=== PATIENT | male | born 1950 | race Caucasian/White ===

== ENCOUNTER 2020-06-09 12:38 | Outpatient (REF) | payer MEDICARE, OTHER, SELFPAY ==
[2020-06-09 14:13] LABS: Glucose Urine UA NEG (NEG); Leukocyte Esterase Urine NEG (NEG); Nitrite Urine NEG (NEG); PH 5.5 (5.0-8.0); Specific Gravity - Urine 1.025 (1.005-1.025); Urine Blood NEG (NEG); Urine Ketones NEG (NEG); Urine Protein NEG (NEG-TRACE)
[2020-06-09 14:23] LABS: Appearance Urine HAZY; Color Urine YELLOW
== END 2020-06-09 12:39 | disposition home or self-care (01) ==
LOC: HO.LAB 12:38
PROVIDERS: PCP Internal Medicine; Visit Provider Internal Medicine
DX: R30.0 Dysuria (principal)
CPT/HCPCS: 81003; 87086

== ENCOUNTER 2020-07-22 09:10 | Outpatient (REF) | payer MEDICARE, OTHER, SELFPAY ==
[2020-07-22 09:59] LABS: MANUAL DIFF FLAG NO
[2020-07-22 10:04] LABS: Basophils Absolute Auto 0.1 X10*3/uL (0.0-0.2); Basophils Percent Auto 0.6 % (0-2); Eosinophils Absolute Auto 0.1 X10*3/uL (0.0-0.4); Eosinophils Percent Auto 1.6 % (0-4); Hematocrit 42.9 % (42-52); Imm Gran Abs Auto 0.03 X10*3/uL (0.00-0.03); Imm Gran Pct Auto 0.4 % (0.0-0.4); Lymphocytes Absolute Auto 1.8 X10*3/uL (1.2-4.9); Lymphocytes Percent Auto 22.5 % (20-40); Mean Corpuscular HGB Conc 32.6 g/dl (31.0-36.0); Mean Corpuscular Hemoglobin 27.1 pg (27.0-33.0); Mean Platelet Volume 9.6 fL (9.4-12.4); Monocytes Absolute Auto 0.6 X10*3/uL (0.1-1.2); Monocytes Percent Auto 7.3 % (2-11); Neutrophils Absolute Auto 5.4 X10*3/uL (2.0-8.3); Neutrophils Percent Auto 67.6 % (45-73); Platelet Count 176 X10*3/uL (160-400); Red Blood Count 5.17 X10*6/uL (4.60-5.80); Red Cell Distribution Width 13.8 % (11.0-16.0)
[2020-07-22 10:04] LABS: Glucose Urine UA NEG (NEG); Leukocyte Esterase Urine NEG (NEG); Nitrite Urine NEG (NEG); PH 5.5 (5.0-8.0); Specific Gravity - Urine >= 1.030 (1.005-1.025); Urine Blood NEG (NEG); Urine Ketones NEG (NEG); Urine Protein TRACE MG/DL (NEG-TRACE)
[2020-07-22 10:05] LABS: Appearance Urine HAZY; Color Urine DARK YELLOW
[2020-07-22 10:31] LABS: Microalbum/Creatinine Ratio Ur 20.9 ug/mg cr
[2020-07-22 10:31] LABS: Alanine Aminotransferase 22 U/L (0-40); Albumin Level 4.4 g/dL (3.5-5.0); Alkaline Phosphatase 67 U/L (39-117); Anion Gap 13 (12-20); Aspartate Amino Transferase 19 U/L (5-37); Bilirubin Total 0.7 mg/dL (0.0-1.0); Blood Urea Nitrogen 20 mg/dL (9-16); Carbon Dioxide 28 mmol/L (22-29); Chloride 102 mmol/L (96-108); Cholesterol 128 mg/dL; Estimated Glomerular Filt Rate 47; Glucose Fasting 121 mg/dL (60-99); HDL Cholesterol 31 mg/dL; LDL Cholesterol Calculated 68 mg/dl; Potassium 4.4 mmol/l (3.3-5.1); Sodium 139 mmol/L (135-145); Triglycerides 149 mg/dL
[2020-07-22 10:52] LABS: TSH reflex Free T4 2.86 mIU/mL (0.32-4.0)
== END 2020-07-22 09:11 | disposition home or self-care (01) ==
LOC: HO.LAB 09:10
PROVIDERS: PCP Internal Medicine; Visit Provider Internal Medicine
DX: E78.00 Pure hypercholesterolemia, unspecified (principal); E66.9 Obesity, unspecified; E11.22 Type 2 diabetes mellitus with diabetic chronic kidney disease; N18.30 Chronic kidney disease, stage 3 unspecified; I12.9 Hypertensive chronic kidney disease with stage 1 through stage 4 chronic kidney disease, or unspecified chronic kidney disease
CPT/HCPCS: 36415; 80053; 80061; 81003; 82043; 84443; 85025

== ENCOUNTER 2020-11-13 08:56 | Outpatient (REF) | payer MEDICARE, OTHER, SELFPAY ==
[2020-11-13 09:53] LABS: Glucose Urine UA NEG (NEG); Leukocyte Esterase Urine NEG (NEG); MANUAL DIFF FLAG NO; Nitrite Urine NEG (NEG); PH 5.5 (5.0-8.0); Specific Gravity - Urine >= 1.030 (1.005-1.025); Urine Blood NEG (NEG); Urine Ketones NEG (NEG); Urine Protein NEG (NEG-TRACE)
[2020-11-13 09:56] LABS: Appearance Urine CLEAR; Color Urine YELLOW
[2020-11-13 10:02] LABS: Basophils Absolute Auto 0.1 X10*3/uL (0.0-0.2); Basophils Percent Auto 0.6 % (0-2); Eosinophils Absolute Auto 0.2 X10*3/uL (0.0-0.4); Eosinophils Percent Auto 2.1 % (0-4); Hematocrit 44.8 % (42-52); Hemoglobin 14.4 g/dl (14.0-18.0); Imm Gran Abs Auto 0.03 X10*3/uL (0.00-0.03); Imm Gran Pct Auto 0.4 % (0.0-0.4); Lymphocytes Absolute Auto 1.7 X10*3/uL (1.2-4.9); Lymphocytes Percent Auto 21.2 % (20-40); Mean Corpuscular HGB Conc 32.1 g/dl (31.0-36.0); Mean Corpuscular Hemoglobin 26.7 pg (27.0-33.0); Mean Platelet Volume 9.5 fL (9.4-12.4); Monocytes Absolute Auto 0.6 X10*3/uL (0.1-1.2); Monocytes Percent Auto 7.4 % (2-11); Neutrophils Absolute Auto 5.5 X10*3/uL (2.0-8.3); Neutrophils Percent Auto 68.3 % (45-73); Platelet Count 142 X10*3/uL (160-400); Red Cell Distribution Width 14.5 % (11.0-16.0)
[2020-11-13 10:40] LABS: Alanine Aminotransferase 30 U/L (0-40); Albumin Level 4.4 g/dL (3.5-5.0); Alkaline Phosphatase 67 U/L (39-117); Anion Gap 12 (12-20); Aspartate Amino Transferase 25 U/L (5-37); Bilirubin Total 0.7 mg/dL (0.0-1.0); Blood Urea Nitrogen 22 mg/dL (9-16); Calcium 8.9 mg/dL (8.4-10.2); Carbon Dioxide 27 mmol/L (22-29); Chloride 104 mmol/L (96-108); Cholesterol 148 mg/dL; Estimated Glomerular Filt Rate 55; Glucose Fasting 111 mg/dL (60-99); HDL Cholesterol 36 mg/dL; LDL Cholesterol Calculated 80 mg/dl; Potassium 4.2 mmol/L (3.3-5.1); Sodium 139 mmol/L (135-145); Triglycerides 160 mg/dL
[2020-11-13 10:46] LABS: Creatinine Urine 216.22 mg/dL; Microalbum/Creatinine Ratio Ur 15.2 ug/mg cr
[2020-11-13 10:48] LABS: TSH reflex Free T4 2.73 uIU/mL (0.32-4.0); Vitamin D 25-OH Total 33.6 ng/mL (>30)
[2020-11-13 10:53] LABS: Uric Acid 6.2 mg/dL (3.4-7.0)
[2020-11-13 10:55] LABS: Estimated Average Glucose 123 mg/dL; Hemoglobin A1c % 5.9 %
== END 2020-11-13 08:57 | disposition home or self-care (01) ==
LOC: HO.LAB 08:56
PROVIDERS: PCP Internal Medicine; Visit Provider Internal Medicine
DX: E11.22 Type 2 diabetes mellitus with diabetic chronic kidney disease (principal); E11.21 Type 2 diabetes mellitus with diabetic nephropathy; I12.9 Hypertensive chronic kidney disease with stage 1 through stage 4 chronic kidney disease, or unspecified chronic kidney disease; N18.31 Chronic kidney disease, stage 3a; E78.00 Pure hypercholesterolemia, unspecified; E66.9 Obesity, unspecified
CPT/HCPCS: 36415; 80053; 80061; 81003; 82043; 82306; 83036; 84443; 84550; 85025

== ENCOUNTER 2021-01-13 08:40 | Outpatient (REF) | payer MEDICARE, OTHER, SELFPAY ==
[2021-01-13 09:28] LABS: MANUAL DIFF FLAG NO
[2021-01-13 09:33] LABS: Basophils Percent Auto 0.4 % (0-2); Eosinophils Absolute Auto 0.2 X10*3/uL (0.0-0.4); Eosinophils Percent Auto 2.1 % (0-4); Hematocrit 42.4 % (42-52); Hemoglobin 13.8 g/dl (14.0-18.0); Imm Gran Abs Auto 0.03 X10*3/uL (0.00-0.03); Imm Gran Pct Auto 0.4 % (0.0-0.4); Lymphocytes Absolute Auto 1.4 X10*3/uL (1.2-4.9); Lymphocytes Percent Auto 19.6 % (20-40); Mean Corpuscular HGB Conc 32.5 g/dl (31.0-36.0); Mean Corpuscular Hemoglobin 27.6 pg (27.0-33.0); Mean Corpuscular Volume 84.8 fL (80-98); Mean Platelet Volume 10.2 fL (9.4-12.4); Monocytes Absolute Auto 0.5 X10*3/uL (0.1-1.2); Monocytes Percent Auto 7.1 % (2-11); Neutrophils Absolute Auto 5.1 X10*3/uL (2.0-8.3); Neutrophils Percent Auto 70.4 % (45-73); Platelet Count 147 X10*3/uL (160-400); Red Cell Distribution Width 14.2 % (11.0-16.0); White Blood Count 7.2 X10*3/uL (4.8-10.8)
[2021-01-13 09:57] LABS: Appearance Urine CLEAR; Color Urine YELLOW; Glucose Urine UA NEG (NEG); Leukocyte Esterase Urine NEG (NEG); Nitrite Urine NEG (NEG); Specific Gravity - Urine 1.025 (1.005-1.025); Urine Blood NEG (NEG); Urine Ketones NEG (NEG); Urine Protein NEG (NEG-TRACE)
[2021-01-13 10:03] LABS: Alanine Aminotransferase 27 U/L (0-40); Albumin Level 4.1 g/dL (3.5-5.0); Alkaline Phosphatase 69 U/L (39-117); Anion Gap 12 (12-20); Aspartate Amino Transferase 24 U/L (5-37); Bilirubin Total 0.6 mg/dL (0.0-1.0); Blood Urea Nitrogen 18 mg/dL (9-16); Calcium 8.9 mg/dL (8.4-10.2); Carbon Dioxide 28 mmol/L (22-29); Chloride 105 mmol/L (96-108); Cholesterol 119 mg/dL; Estimated Glomerular Filt Rate 52; Glucose Fasting 134 mg/dL (60-99); HDL Cholesterol 36 mg/dL; LDL Cholesterol Calculated 56 mg/dl; Sodium 141 mmol/L (135-145); Total Protein 6.4 g/dL (6.5-8.0); Triglycerides 138 mg/dL; Uric Acid 6.1 mg/dL (3.4-7.0)
[2021-01-13 10:15] LABS: Estimated Average Glucose 123 mg/dL; Hemoglobin A1c % 5.9 %
[2021-01-13 10:26] LABS: TSH reflex Free T4 2.22 uIU/mL (0.32-4.0); Vitamin D 25-OH Total 31.8 ng/mL (>30)
== END 2021-01-13 08:41 | disposition home or self-care (01) ==
LOC: HO.LAB 08:40
PROVIDERS: PCP Internal Medicine; Visit Provider Internal Medicine
DX: I12.9 Hypertensive chronic kidney disease with stage 1 through stage 4 chronic kidney disease, or unspecified chronic kidney disease (principal); E11.22 Type 2 diabetes mellitus with diabetic chronic kidney disease; N18.31 Chronic kidney disease, stage 3a; E78.00 Pure hypercholesterolemia, unspecified; E66.9 Obesity, unspecified; E55.9 Vitamin D deficiency, unspecified; Z87.39 Personal history of other diseases of the musculoskeletal system and connective tissue
CPT/HCPCS: 36415; 80053; 80061; 81003; 82306; 83036; 84443; 84550; 85025

== ENCOUNTER 2021-02-23 16:12 | Outpatient (REF) | payer MEDICARE, OTHER, SELFPAY ==
--- NOTE | ~2021-02-23 | US_ITS ---
EXAMINATION: US THYROID CLINICAL INFORMATION: Nontoxic multinodular goiter. COMPARISON: Thyroid ultrasound 01/10/2020 and 06/15/2018. Ultrasound-guided thyroid biopsy 12/28/2018. CT soft tissue neck 03/08/2018. TECHNIQUE: Linear transducer grayscale and color Doppler examination with attention to the region of the thyroid. FINDINGS: SIZE: Measurements of the thyroid lobes and nodules are given in sagittal, anteroposterior and transverse dimensions respectively. Right Thyroid Lobe: 5.5 x 2.1 x 2.2 cm, volume 13.2 mL. Previously 4.6 x 1.4 x 2.0 cm, volume 6.7 mL. Parenchyma: The gland echotexture is homogeneous. Thyroid vascularity is normal. Left Thyroid Lobe: 5.5 x 3.0 x 4.1 cm, volume 34.7 mL. Previously 4.7 x 3.1 x 3.4 cm, volume 25.9 mL. Parenchyma: The gland echotexture is heterogeneous. Thyroid vascularity is normal. Isthmus: 0.4 cm in maximum AP dimension. Previously 0.4 cm. Estimated total number of nodules greater than or equal to 1 cm: 1. Outboard System Operator nodules are described as follows: 1. Location: Right mid pole. Size: 0.4 x 0.3 x 0.3 cm, volume 0.01 mL. Previously: Not seen. Nodule characteristics: Composition: Solid (2). Echogenicity: Isoechoic (1). Shape: Not taller than wide (0). Margins: Smooth (0). Echogenic Foci: None (0). ACR TI-RADS total points: 3 ACR TI-RADS category: 3 Significant change in size (>/= 20% in 2 dimensions and minimal increase of 2 mm or 50% or greater increase in volume): Change in features: Change in ACR TI-RADS risk category: 2. Location: Left mid pole/lower pole. Size: 3.1 x 2.8 x 3.5 cm, volume 16.1 mL. Previously: 3.7 x 2.6 x 3.0 cm, volume 15.1 mL. Nodule characteristics: Composition: Mixed cystic and solid (1). Echogenicity: Cannot be determined (1). Shape: Not taller than wide (0). Margins: Smooth (0). Echogenic Foci: Comet-tail artifacts (0). Macrocalcifications (1). Peripheral calcifications (2). ACR TI-RADS total points: 5 ACR TI-RADS category: 4 Significant change in size (>/= 20% in 2 dimensions and minimal increase of 2 mm or 50% or greater increase in volume): No Change in features: No Change in ACR TI-RADS risk category: No NODES: No lymphadenopathy is seen in the tissue surrounding the thyroid gland. US/US thyroid IMPRESSION: Enlarged heterogeneous thyroid gland. Stable complex cystic left nodule. Newly appreciated small right nodule. ACR TI-RADS RECOMMENDATION REFERENCE: Ultrasound-guided fine-needle aspiration, followup ultrasound, no further follow up. * TR1 (0 point) and TR 2 (2 points): No FNA or follow up * TR3 (3 points): FNA if more than or equal to 2.5 cm in maximum dimension, followup ultrasound in 1, 3 and 5 years if 1.5 to 2.4 cm in maximum dimension. * TR4 (4-6 points): FNA if more than or equal to 1.5 cm in maximum dimension, followup ultrasound in 1, 2, 3 and 5 years if 1 to 1.4 cm in maximum dimension. * TR5 (more than or equal to 7 points): FNA if more than or equal to 1 cm in maximum dimension, followup ultrasound every year for 5 years if 0.5 to 0.9 cm in maximum dimension. * TR3, TR4 or TR5 nodules that are below the size threshold for follow up receive no follow up.
== END 2021-02-23 16:13 | disposition home or self-care (01) ==
LOC: HO.US 16:12
PROVIDERS: PCP Internal Medicine; Visit Provider Internal Medicine
DX: E04.2 Nontoxic multinodular goiter (principal)
CPT/HCPCS: 76536

== ENCOUNTER 2021-04-17 09:01 | Outpatient (REF) | payer MEDICARE, OTHER, SELFPAY ==
[2021-04-17 09:21] LABS: MANUAL DIFF FLAG NO
[2021-04-17 09:27] LABS: Basophils Percent Auto 0.4 % (0-2); Eosinophils Absolute Auto 0.1 X10*3/uL (0.0-0.4); Eosinophils Percent Auto 1.6 % (0-4); Hematocrit 41.8 % (42-52); Hemoglobin 14.1 g/dl (14.0-18.0); Imm Gran Abs Auto 0.03 X10*3/uL (0.00-0.03); Imm Gran Pct Auto 0.4 % (0.0-0.4); Lymphocytes Absolute Auto 1.6 X10*3/uL (1.2-4.9); Lymphocytes Percent Auto 21.2 % (20-40); Mean Corpuscular HGB Conc 33.7 g/dl (31.0-36.0); Mean Corpuscular Hemoglobin 27.9 pg (27.0-33.0); Mean Corpuscular Volume 82.6 fL (80-98); Mean Platelet Volume 9.9 fL (9.4-12.4); Monocytes Absolute Auto 0.5 X10*3/uL (0.1-1.2); Monocytes Percent Auto 6.9 % (2-11); Neutrophils Absolute Auto 5.3 X10*3/uL (2.0-8.3); Neutrophils Percent Auto 69.5 % (45-73); Platelet Count 159 X10*3/uL (160-400); Red Blood Count 5.06 X10*6/uL (4.60-5.80); Red Cell Distribution Width 13.3 % (11.0-16.0); White Blood Count 7.6 X10*3/uL (4.8-10.8)
[2021-04-17 09:59] LABS: Alanine Aminotransferase 32 U/L (0-40); Albumin Level 4.3 g/dL (3.5-5.0); Alkaline Phosphatase 76 U/L (39-117); Anion Gap 13 (12-20); Aspartate Amino Transferase 21 U/L (5-37); Bilirubin Total 0.7 mg/dL (0.0-1.0); Blood Urea Nitrogen 17 mg/dL (9-16); Calcium 9.2 mg/dL (8.4-10.2); Carbon Dioxide 25 mmol/L (22-29); Chloride 106 mmol/L (96-108); Cholesterol 118 mg/dL; Estimated Glomerular Filt Rate 60; Glucose Fasting 140 mg/dL (60-99); HDL Cholesterol 31 mg/dL; LDL Cholesterol Calculated 54 mg/dl; Potassium 3.6 mmol/L (3.3-5.1); Sodium 140 mmol/L (135-145); Total Protein 6.9 g/dL (6.5-8.0); Triglycerides 168 mg/dL
[2021-04-17 10:02] LABS: Estimated Average Glucose 131 mg/dL; Hemoglobin A1c % 6.2 %
[2021-04-17 10:05] LABS: Glucose Urine UA NEG (NEG); Leukocyte Esterase Urine NEG (NEG); Nitrite Urine NEG (NEG); Specific Gravity - Urine >= 1.030 (1.005-1.025); Urine Blood NEG (NEG); Urine Ketones NEG (NEG); Urine Protein TRACE MG/DL (NEG-TRACE)
[2021-04-17 10:07] LABS: Appearance Urine CLEAR; Color Urine YELLOW
[2021-04-17 10:09] LABS: Uric Acid 5.7 mg/dL (3.4-7.0)
[2021-04-17 10:10] LABS: TSH reflex Free T4 1.97 uIU/mL (0.32-4.0); Vitamin D 25-OH Total 32.7 ng/mL (>30)
[2021-04-17 10:56] LABS: Microalbum/Creatinine Ratio Ur 17.4 ug/mg cr
== END 2021-04-17 09:02 | disposition home or self-care (01) ==
LOC: HO.LAB 09:01
PROVIDERS: PCP Internal Medicine; Visit Provider Internal Medicine
DX: I12.9 Hypertensive chronic kidney disease with stage 1 through stage 4 chronic kidney disease, or unspecified chronic kidney disease (principal); N18.31 Chronic kidney disease, stage 3a; E11.22 Type 2 diabetes mellitus with diabetic chronic kidney disease; E11.21 Type 2 diabetes mellitus with diabetic nephropathy; E78.00 Pure hypercholesterolemia, unspecified; E66.9 Obesity, unspecified; E55.9 Vitamin D deficiency, unspecified; M10.9 Gout, unspecified; Z87.39 Personal history of other diseases of the musculoskeletal system and connective tissue
CPT/HCPCS: 36415; 80053; 80061; 81003; 82043; 82306; 83036; 84443; 84550; 85025

== ENCOUNTER 2021-05-21 07:54 | Outpatient (REF) | payer MEDICARE, OTHER, SELFPAY ==
--- NOTE | ~2021-05-21 | US_ITS ---
EXAMINATION: US RETROPERITONEAL LIMITED (AORTA) CLINICAL INFORMATION: Abdominal aortic aneurysm without rupture. COMPARISON: Ultrasound aorta 03/14/2018 and 02/21/2017 TECHNIQUE: Hutchinson-scale, color Doppler and spectral Doppler evaluation of the abdominal aorta. FINDINGS: The measurements of the aorta in maximum AP and transverse dimensions respectively are as follows: Proximal: 2.1 x 2.4 cm. Mid: 2.2 x 1.9 cm. Distal: 3.8 x 3.7 cm. Previously 3.5 x 3.5 cm. PSV: 53.8 cm/s. The measurements of the common iliac arteries in maximum AP and TRV dimensions are as follows: Right Common Iliac Artery: 1.5 x 1.5 cm. Left Common Iliac Artery: 1.5 x 1.2 cm. US/US aorta IMPRESSION: Mild aneurysmal dilatation of distal abdominal aorta measuring 3.8 x 3.7 cm. Previously it measured 3.5 x 3.5 cm.
== END 2021-05-21 07:55 | disposition home or self-care (01) ==
LOC: HO.US 07:54
PROVIDERS: PCP Internal Medicine; Visit Provider Internal Medicine
DX: I71.4 Abdominal aortic aneurysm, without rupture (principal)
CPT/HCPCS: 76775

== ENCOUNTER 2021-07-21 08:21 | Outpatient (REF) | payer MEDICARE, OTHER, SELFPAY ==
[2021-07-21 08:36] LABS: MANUAL DIFF FLAG NO
[2021-07-21 08:58] LABS: Basophils Absolute Auto 0.1 X10*3/uL (0.0-0.2); Basophils Percent Auto 0.7 % (0-2); Eosinophils Absolute Auto 0.1 X10*3/uL (0.0-0.4); Eosinophils Percent Auto 1.7 % (0-4); Hematocrit 45.5 % (42.0-52.0); Hemoglobin 14.8 g/dl (14.0-18.0); Imm Gran Abs Auto 0.02 X10*3/uL (0.00-0.03); Imm Gran Pct Auto 0.3 % (0.0-0.4); Lymphocytes Absolute Auto 1.8 X10*3/uL (1.2-4.9); Lymphocytes Percent Auto 24.2 % (20-40); Mean Corpuscular HGB Conc 32.5 g/dl (31.0-36.0); Mean Corpuscular Hemoglobin 27.5 pg (27.0-33.0); Mean Corpuscular Volume 84.6 fL (80.0-98.0); Mean Platelet Volume 10.1 fL (9.4-12.4); Monocytes Absolute Auto 0.5 X10*3/uL (0.1-1.2); Monocytes Percent Auto 7.3 % (2-11); Neutrophils Absolute Auto 4.9 x10*3/uL (2.0-8.3); Neutrophils Percent Auto 65.8 % (45-73); Platelet Count 188 X10*3/uL (160-400); Red Blood Count 5.38 X10*6/uL (4.60-5.80); Red Cell Distribution Width 13.4 % (11.0-16.0); White Blood Count 7.4 X10*3/uL (4.8-10.8)
[2021-07-21 09:11] LABS: Estimated Average Glucose 140 mg/dL; Hemoglobin A1c % 6.5 %
[2021-07-21 09:27] LABS: Alanine Aminotransferase 31 U/L (0-40); Albumin Level 4.2 g/dL (3.5-5.0); Alkaline Phosphatase 75 U/L (39-117); Anion Gap 12 (12-20); Aspartate Amino Transferase 23 U/L (5-37); Bilirubin Total 0.9 mg/dL (0.0-1.0); Blood Urea Nitrogen 17 mg/dL (9-16); Calcium 9.5 mg/dL (8.4-10.2); Carbon Dioxide 29 mmol/L (22-29); Chloride 105 mmol/L (96-108); Cholesterol 129 mg/dL; Estimated Glomerular Filt Rate 49; Glucose Fasting 135 mg/dL (60-99); HDL Cholesterol 30 mg/dL; LDL Cholesterol Calculated 66 mg/dl; Potassium 4.4 mmol/L (3.3-5.1); Sodium 142 mmol/L (135-145); Total Protein 6.7 g/dL (6.5-8.0); Triglycerides 169 mg/dL; Uric Acid 6.4 mg/dL (3.4-7.0)
[2021-07-21 09:29] LABS: Appearance Urine CLEAR; Color Urine YELLOW; Glucose Urine UA NEG (NEG); Leukocyte Esterase Urine NEG (NEG); Nitrite Urine NEG (NEG); Specific Gravity - Urine 1.025 (1.005-1.025); Urine Blood NEG (NEG); Urine Ketones NEG (NEG); Urine Protein TRACE MG/DL (NEG-TRACE)
[2021-07-21 09:48] LABS: Prostate Specific Antigen Scr 3.41 ng/mL (<0.05-4.0)
[2021-07-21 09:50] LABS: TSH reflex Free T4 2.94 uIU/mL (0.32-4.0)
[2021-07-21 09:56] LABS: Microalbum/Creatinine Ratio Ur 17.6 ug/mg cr
== END 2021-07-21 08:22 | disposition home or self-care (01) ==
LOC: HO.LAB 08:21
PROVIDERS: Nurse Practitioner Family; PCP Internal Medicine; Visit Provider Internal Medicine
DX: Z12.5 Encounter for screening for malignant neoplasm of prostate (principal); E78.00 Pure hypercholesterolemia, unspecified; E11.9 Type 2 diabetes mellitus without complications; E55.9 Vitamin D deficiency, unspecified; M10.9 Gout, unspecified; I10 Essential (primary) hypertension
CPT/HCPCS: 36415; 80053; 80061; 81003; 82043; 82306; 83036; 84153; 84443; 84550; 85025

== ENCOUNTER 2021-08-21 12:17 | Outpatient (REF) | payer MEDICARE, OTHER, SELFPAY ==
[2021-08-21 13:25] LABS: INTERNATIONAL NORM RATIO 1.1 (0.9-1.1); Prothrombin Time 12.6 SEC (9.9-13.0)
== END 2021-08-21 12:18 | disposition home or self-care (01) ==
LOC: HO.LAB 12:17
PROVIDERS: PCP Internal Medicine; Visit Provider Internal Medicine
DX: Z01.818 Encounter for other preprocedural examination (principal)
CPT/HCPCS: 36415; 85610; 85730

== ENCOUNTER 2021-10-21 08:46 | Outpatient (REF) | payer MEDICARE, OTHER, SELFPAY ==
[2021-10-21 09:08] LABS: MANUAL DIFF FLAG NO
[2021-10-21 09:37] LABS: Basophils Absolute Auto 0.1 X10*3/uL (0.0-0.2); Basophils Percent Auto 0.7 % (0-2); Eosinophils Absolute Auto 0.2 X10*3/uL (0.0-0.4); Eosinophils Percent Auto 2.1 % (0-4); Hematocrit 43.5 % (42.0-52.0); Hemoglobin 14.1 g/dl (14.0-18.0); Imm Gran Abs Auto 0.02 X10*3/uL (0.00-0.03); Imm Gran Pct Auto 0.3 % (0.0-0.4); Lymphocytes Absolute Auto 1.6 X10*3/uL (1.2-4.9); Lymphocytes Percent Auto 21.7 % (20-40); Mean Corpuscular HGB Conc 32.4 g/dl (31.0-36.0); Mean Corpuscular Hemoglobin 26.7 pg (27.0-33.0); Mean Corpuscular Volume 82.4 fL (80.0-98.0); Mean Platelet Volume 10.5 fL (9.4-12.4); Monocytes Absolute Auto 0.5 X10*3/uL (0.1-1.2); Monocytes Percent Auto 7.3 % (2-11); Neutrophils Absolute Auto 4.9 x10*3/uL (2.0-8.3); Neutrophils Percent Auto 67.9 % (45-73); Platelet Count 170 X10*3/uL (160-400); Red Blood Count 5.28 X10*6/uL (4.60-5.80); Red Cell Distribution Width 13.7 % (11.0-16.0); White Blood Count 7.2 X10*3/uL (4.8-10.8)
[2021-10-21 09:58] LABS: Alanine Aminotransferase 42 U/L (0-40); Albumin Level 4.3 g/dL (3.5-5.0); Alkaline Phosphatase 77 U/L (39-117); Anion Gap 13 (12-20); Aspartate Amino Transferase 31 U/L (5-37); Bilirubin Total 0.7 mg/dL (0.0-1.0); Blood Urea Nitrogen 17 mg/dL (9-16); Calcium 9.5 mg/dL (8.4-10.2); Carbon Dioxide 26 mmol/L (22-29); Chloride 104 mmol/L (96-108); Cholesterol 130 mg/dL; Estimated Average Glucose 154 mg/dL; Estimated Glomerular Filt Rate 53; Glucose Fasting 169 mg/dL (60-99); HDL Cholesterol 30 mg/dL; LDL Cholesterol Calculated 69 mg/dl; Potassium 4.1 mmol/L (3.3-5.1); Sodium 139 mmol/L (135-145); Total Protein 6.7 g/dL (6.5-8.0); Triglycerides 155 mg/dL
[2021-10-21 10:23] LABS: Free T4 (Free Thyroxine) 0.91 ng/dL (0.71-1.85); Thyroid Stimulating Hormone 4.08 uIU/mL (0.32-4.0); Vitamin D 25-OH Total 33.9 ng/mL (>30)
[2021-10-21 10:51] LABS: Appearance Urine CLEAR; Color Urine YELLOW; Glucose Urine UA NEG (NEG); Leukocyte Esterase Urine NEG (NEG); Nitrite Urine NEG (NEG); Specific Gravity - Urine 1.025 (1.005-1.025); UACC Culture Trigger NO; Urine Blood TRACE (NEG); Urine Ketones NEG (NEG); Urine Protein TRACE MG/DL (NEG-TRACE)
[2021-10-21 11:12] LABS: WBC Urine 0 /HPF (0-4)
[2021-10-21 11:13] LABS: Mucus Urine 2+ /LPF; Squamous Epithelial Cell Urine 1+ /LPF
[2021-10-21 11:22] LABS: Creatinine Urine 346.09 mg/dL; Microalbum/Creatinine Ratio Ur 31.4 ug/mg cr
== END 2021-10-21 08:47 | disposition home or self-care (01) ==
LOC: HO.LAB 08:46
PROVIDERS: PCP Internal Medicine; Visit Provider Internal Medicine
DX: I10 Essential (primary) hypertension (principal); E78.00 Pure hypercholesterolemia, unspecified; E11.9 Type 2 diabetes mellitus without complications; E03.9 Hypothyroidism, unspecified; E55.9 Vitamin D deficiency, unspecified
CPT/HCPCS: 36415; 80053; 80061; 81001; 82043; 82306; 83036; 84439; 84443; 85025

== ENCOUNTER 2021-12-05 08:46 | Outpatient (REF) | payer MEDICARE, OTHER, SELFPAY ==
[2021-12-05 11:59] LABS: Free T4 (Free Thyroxine) 0.87 ng/dL (0.71-1.85); Thyroid Stimulating Hormone 5.86 uIU/mL (0.32-4.0)
== END 2021-12-05 08:47 | disposition home or self-care (01) ==
LOC: HO.LAB 08:46
PROVIDERS: PCP Internal Medicine; Visit Provider Internal Medicine
DX: E03.9 Hypothyroidism, unspecified (principal)
CPT/HCPCS: 36415; 84439; 84443

== ENCOUNTER 2022-01-04 19:14 | Outpatient (REF) | payer MEDICARE, OTHER, SELFPAY ==
--- NOTE | ~2022-01-04 | MR_ITS ---
EXAMINATION: MR KNEE WITHOUT CONTRAST, RIGHT CLINICAL INFORMATION: Primary osteoarthritis. Patient reports prior surgery. COMPARISON: MRI of the right knee September 2018. TECHNIQUE: MRI of the knee without contrast was performed using routine sequences on a high-field scanner. FINDINGS: MENISCI: Medial Meniscus: There is persistent slightly irregular increased signal along the free edge and femoral articular surface of the posterior horn, unchanged. In the body, there is increased globular signal throughout much of the meniscus along with increased blunting along the free edge. Findings indicative of progressing tearing of the medial meniscus. Lateral Meniscus: Intact LIGAMENTS: Cruciate: Intact Collateral: Intact EXTENSOR MECHANISM: Intact ARTICULAR CARTILAGE/BONE: Patellofemoral Compartment: Normal Medial Compartment: There is nonuniform up to high-grade cartilage loss involving the central aspect of the medial compartment which has increased compared to prior. There is also more prominent cartilage loss extending into the posterior non-weightbearing portion of the medial femoral condyle. There are marginal osteophytes which have increased in size. Overall findings indicative of moderate medial compartment arthrosis with degenerative changes progressed compared to prior. Lateral Compartment: Normal JOINT FLUID AND BURSAE: Normal MR/MR knee RT wo con IMPRESSION: Tear of the posterior horn and body of the medial meniscus which has progressed compared to prior. Moderate osteoarthritis of the medial compartment. Degenerative changes have progressed compared to prior (previously mild).
== END 2022-01-04 19:15 | disposition home or self-care (01) ==
LOC: HO.MRI 19:14
PROVIDERS: PCP Internal Medicine; Visit Provider Internal Medicine
DX: M17.11 Unilateral primary osteoarthritis, right knee (principal)
CPT/HCPCS: 73721

== ENCOUNTER 2022-01-13 10:06 | Outpatient (REF) | payer MEDICARE, OTHER, SELFPAY ==
[2022-01-13 12:21] LABS: Free T4 (Free Thyroxine) 0.92 ng/dL (0.71-1.85); Thyroid Stimulating Hormone 5.13 uIU/mL (0.32-4.0)
== END 2022-01-13 10:07 | disposition home or self-care (01) ==
LOC: HO.LAB 10:06
PROVIDERS: PCP Internal Medicine; Visit Provider Internal Medicine
DX: E03.9 Hypothyroidism, unspecified (principal)
CPT/HCPCS: 36415; 84439; 84443

== ENCOUNTER 2022-01-28 08:30 | Outpatient (REF) | payer MEDICARE, OTHER, SELFPAY ==
[2022-01-28 08:49] LABS: MANUAL DIFF FLAG NO
[2022-01-28 09:16] LABS: Basophils Percent Auto 0.4 % (0-2); Eosinophils Absolute Auto 0.1 X10*3/uL (0.0-0.4); Eosinophils Percent Auto 1.8 % (0-4); Hematocrit 42.8 % (42.0-52.0); Hemoglobin 13.9 g/dl (14.0-18.0); Imm Gran Abs Auto 0.04 X10*3/uL (0.00-0.03); Imm Gran Pct Auto 0.5 % (0.0-0.4); Lymphocytes Absolute Auto 1.8 X10*3/uL (1.2-4.9); Lymphocytes Percent Auto 22.8 % (20-40); Mean Corpuscular HGB Conc 32.5 g/dl (31.0-36.0); Mean Corpuscular Hemoglobin 26.9 pg (27.0-33.0); Mean Corpuscular Volume 82.9 fL (80.0-98.0); Mean Platelet Volume 10.2 fL (9.4-12.4); Monocytes Absolute Auto 0.6 X10*3/uL (0.1-1.2); Neutrophils Absolute Auto 5.3 x10*3/uL (2.0-8.3); Neutrophils Percent Auto 67.5 % (45-73); Platelet Count 162 X10*3/uL (160-400); Red Blood Count 5.16 X10*6/uL (4.60-5.80); Red Cell Distribution Width 13.8 % (11.0-16.0); White Blood Count 7.9 X10*3/uL (4.8-10.8)
[2022-01-28 09:25] LABS: Estimated Average Glucose 163 mg/dL; Hemoglobin A1c % 7.3 %
[2022-01-28 09:43] LABS: Alanine Aminotransferase 47 U/L (0-40); Albumin Level 4.4 g/dL (3.5-5.0); Alkaline Phosphatase 87 U/L (39-117); Anion Gap 13 (12-20); Aspartate Amino Transferase 34 U/L (5-37); Bilirubin Total 0.5 mg/dL (0.0-1.0); Blood Urea Nitrogen 22 mg/dL (9-16); Calcium 9.5 mg/dL (8.4-10.2); Carbon Dioxide 24 mmol/L (22-29); Chloride 107 mmol/L (96-108); Cholesterol 125 mg/dL; Estimated Glomerular Filt Rate 56; Glucose Fasting 148 mg/dL (60-99); HDL Cholesterol 31 mg/dL; LDL Cholesterol Calculated 60 mg/dl; Potassium 4.1 mmol/L (3.3-5.1); Sodium 140 mmol/L (135-145); Total Protein 6.9 g/dL (6.5-8.0); Triglycerides 174 mg/dL
[2022-01-28 09:54] LABS: Uric Acid 6.3 mg/dL (3.4-7.0)
[2022-01-28 10:02] LABS: Vitamin D 25-OH Total 34.1 ng/mL (>30)
[2022-01-28 10:23] LABS: Microalbum/Creatinine Ratio Ur 11.9 ug/mg cr
[2022-01-28 10:24] LABS: Appearance Urine CLOUDY; Color Urine YELLOW; Glucose Urine UA NEG (NEG); Leukocyte Esterase Urine NEG (NEG); Nitrite Urine NEG (NEG); Specific Gravity - Urine >= 1.030 (1.005-1.025); Urine Blood NEG (NEG); Urine Ketones NEG (NEG); Urine Protein NEG (NEG-TRACE)
== END 2022-01-28 08:31 | disposition home or self-care (01) ==
LOC: HO.LAB 08:30
PROVIDERS: PCP Internal Medicine; Visit Provider Internal Medicine
DX: I10 Essential (primary) hypertension (principal); E11.9 Type 2 diabetes mellitus without complications; E78.00 Pure hypercholesterolemia, unspecified; E55.9 Vitamin D deficiency, unspecified; M10.9 Gout, unspecified
CPT/HCPCS: 36415; 80053; 80061; 81003; 82043; 82306; 83036; 84550; 85025

== ENCOUNTER 2022-02-05 08:20 | Outpatient (REF) | payer MEDICARE, OTHER, SELFPAY ==
[2022-02-05 13:02] LABS: Prostate Specific Antigen 19.43 ng/mL (<0.05-4.0)
[2022-02-05 13:15] LABS: Appearance Urine HAZY; Color Urine YELLOW; Glucose Urine UA NEG (NEG); Leukocyte Esterase Urine TRACE (NEG); Nitrite Urine NEG (NEG); PH 5.5 (5.0-8.0); Specific Gravity - Urine >= 1.030 (1.005-1.025); UACC Culture Trigger NO; Urine Blood NEG (NEG); Urine Ketones 5 MG/DL (NEG); Urine Protein 1+ MG/DL (NEG-TRACE)
[2022-02-05 13:30] LABS: RBC Urine 0 /HPF (0); Squamous Epithelial Cell Urine TRACE /LPF; UACC CULT YES; WBC Urine 30-49 /HPF (0-4)
[2022-02-05 13:32] LABS: Bacteria Urine TRACE /LPF; Mucus Urine TRACE /LPF
== END 2022-02-05 08:21 | disposition home or self-care (01) ==
LOC: HO.LAB 08:20
PROVIDERS: Absent Provider Internal Medicine; PCP Internal Medicine; Visit Provider Internal Medicine
DX: Z12.5 Encounter for screening for malignant neoplasm of prostate (principal); N40.0 Benign prostatic hyperplasia without lower urinary tract symptoms
CPT/HCPCS: 36415; 81001; 81003; 84153; 87086; 87088; 87186

== ENCOUNTER 2022-03-19 10:02 | Outpatient (REF) | payer MEDICARE, SELFPAY ==
[2022-03-19 14:38] LABS: Free T4 (Free Thyroxine) 0.91 ng/dL (0.71-1.85); Prostate Specific Antigen 2.11 ng/mL (<0.05-4.0)
== END 2022-03-19 10:03 | disposition home or self-care (01) ==
LOC: HO.LAB 10:02
PROVIDERS: PCP Internal Medicine; Visit Provider Internal Medicine
DX: Z12.5 Encounter for screening for malignant neoplasm of prostate (principal); N40.0 Benign prostatic hyperplasia without lower urinary tract symptoms; R97.20 Elevated prostate specific antigen [PSA]; E03.9 Hypothyroidism, unspecified
CPT/HCPCS: 36415; 84153; 84439; 84443

== ENCOUNTER 2022-05-19 | Outpatient (REF) | payer MEDICARE, SELFPAY ==
[2022-05-19 09:25] LABS: MANUAL DIFF FLAG NO
[2022-05-19 10:16] LABS: Basophils Percent Auto 0.4 % (0-2); Eosinophils Absolute Auto 0.2 X10*3/uL (0.0-0.4); Eosinophils Percent Auto 1.9 % (0-4); Hematocrit 42.9 % (42.0-52.0); Hemoglobin 14.1 g/dl (14.0-18.0); Imm Gran Abs Auto 0.05 X10*3/uL (0.00-0.03); Imm Gran Pct Auto 0.5 % (0.0-0.4); Lymphocytes Absolute Auto 1.8 X10*3/uL (1.2-4.9); Lymphocytes Percent Auto 19.1 % (20-40); Mean Corpuscular HGB Conc 32.9 g/dl (31.0-36.0); Mean Corpuscular Hemoglobin 27.3 pg (27.0-33.0); Mean Corpuscular Volume 83.1 fL (80.0-98.0); Mean Platelet Volume 10.2 fL (9.4-12.4); Monocytes Absolute Auto 0.6 X10*3/uL (0.1-1.2); Monocytes Percent Auto 6.6 % (2-11); Neutrophils Absolute Auto 6.6 x10*3/uL (2.0-8.3); Neutrophils Percent Auto 71.5 % (45-73); Platelet Count 216 X10*3/uL (160-400); Red Blood Count 5.16 X10*6/uL (4.60-5.80); Red Cell Distribution Width 13.5 % (11.0-16.0); White Blood Count 9.3 X10*3/uL (4.8-10.8)
[2022-05-19 10:29] LABS: Appearance Urine Clear; Color Urine Dark Yellow; Glucose Urine UA Negative (Negative); Leukocyte Esterase Urine Negative (Negative); Nitrite Urine Negative (Negative); PH 5.5 (5.0-9.0); Specific Gravity - Urine 1.025 (1.005-1.025); UMIC TRIGGER UACC YES; Urine Blood Negative (Negative); Urine Ketones Trace mg/dL (Negative); Urine Protein 30 (1+) mg/dL (Neg-Trace)
[2022-05-19 10:43] LABS: Bacteria Urine None Seen (None Seen); RBC Urine 0-2 /HPF (0-2); WBC Urine 0-5 /HPF (0-5)
[2022-05-19 10:45] LABS: Estimated Average Glucose 174 mg/dL; Hemoglobin A1c % 7.7 %
[2022-05-19 10:53] LABS: Creatinine Urine 348.18 mg/dL; Microalbum/Creatinine Ratio Ur 47.1 ug/mg cr
[2022-05-19 11:05] LABS: Alanine Aminotransferase 44 U/L (0-40); Albumin Level 4.5 g/dL (3.5-5.0); Alkaline Phosphatase 92 U/L (39-117); Anion Gap 19 (12-20); Aspartate Amino Transferase 38 U/L (5-37); Bilirubin Total 0.8 mg/dL (0.0-1.0); Blood Urea Nitrogen 20 mg/dL (9-16); Calcium 9.2 mg/dL (8.4-10.2); Carbon Dioxide 21 mmol/L (22-29); Chloride 104 mmol/L (96-108); Cholesterol 124 mg/dL; Estimated Glomerular Filt Rate 45; Glucose Fasting 153 mg/dL (60-99); HDL Cholesterol 31 mg/dL; LDL Cholesterol Calculated 64 mg/dl; Potassium 4.1 mmol/L (3.3-5.1); Sodium 140 mmol/L (135-145); Total Protein 7.2 g/dL (6.5-8.0); Triglycerides 148 mg/dL
[2022-05-19 11:15] LABS: Free T4 (Free Thyroxine) 1.01 ng/dL (0.71-1.85); Thyroid Stimulating Hormone 5.08 uIU/mL (0.32-4.0)
== END 2022-05-19 00:01 | disposition home or self-care (01) ==
LOC: HO.LAB
PROVIDERS: PCP Internal Medicine; Visit Provider Internal Medicine
DX: E03.9 Hypothyroidism, unspecified (principal); E78.00 Pure hypercholesterolemia, unspecified; E11.9 Type 2 diabetes mellitus without complications; E55.9 Vitamin D deficiency, unspecified; I10 Essential (primary) hypertension
CPT/HCPCS: 36415; 80053; 80061; 81001; 81003; 82043; 82306; 83036; 84439; 84443; 85025

== ENCOUNTER 2022-09-16 07:23 | Outpatient (REF) | payer MEDICARE, SELFPAY ==
[2022-09-16 07:34] LABS: MANUAL DIFF FLAG NO
[2022-09-16 07:46] LABS: Basophils Absolute Auto 0.1 X10*3/uL (0.0-0.2); Basophils Percent Auto 0.7 % (0-2); Eosinophils Absolute Auto 0.2 X10*3/uL (0.0-0.4); Eosinophils Percent Auto 2.6 % (0-4); Hematocrit 44.2 % (42.0-52.0); Hemoglobin 14.8 g/dl (14.0-18.0); Imm Gran Abs Auto 0.04 X10*3/uL (0.00-0.03); Imm Gran Pct Auto 0.5 % (0.0-0.4); Lymphocytes Absolute Auto 1.8 X10*3/uL (1.2-4.9); Lymphocytes Percent Auto 21.2 % (20-40); Mean Corpuscular HGB Conc 33.5 g/dl (31.0-36.0); Mean Corpuscular Hemoglobin 28.1 pg (27.0-33.0); Mean Corpuscular Volume 83.9 fL (80.0-98.0); Mean Platelet Volume 9.8 fL (9.4-12.4); Monocytes Absolute Auto 0.6 X10*3/uL (0.1-1.2); Monocytes Percent Auto 7.5 % (2-11); Neutrophils Absolute Auto 5.8 x10*3/uL (2.0-8.3); Neutrophils Percent Auto 67.5 % (45-73); Platelet Count 163 X10*3/uL (160-400); Red Blood Count 5.27 X10*6/uL (4.60-5.80); White Blood Count 8.6 X10*3/uL (4.8-10.8)
[2022-09-16 07:57] LABS: Estimated Average Glucose 163 mg/dL; Hemoglobin A1c % 7.3 %
[2022-09-16 08:24] LABS: Appearance Urine Clear; Color Urine Yellow; Glucose Urine UA Negative (Negative); Leukocyte Esterase Urine Negative (Negative); Nitrite Urine Negative (Negative); PH 5.5 (5.0-9.0); Specific Gravity - Urine >= 1.030 (1.005-1.025); Urine Blood Negative (Negative); Urine Ketones Negative (Negative); Urine Protein Trace mg/dL (Neg-Trace)
[2022-09-16 08:29] LABS: Alanine Aminotransferase 92 U/L (0-40); Albumin Level 4.2 g/dL (3.5-5.0); Alkaline Phosphatase 104 U/L (39-117); Anion Gap 12 (12-20); Aspartate Amino Transferase 47 U/L (5-37); Bilirubin Total 0.7 mg/dL (0.0-1.0); Blood Urea Nitrogen 17 mg/dL (9-16); Calcium 9.2 mg/dL (8.4-10.2); Carbon Dioxide 26 mmol/L (22-29); Chloride 105 mmol/L (96-108); Cholesterol 124 mg/dL; Estimated Glomerular Filt Rate 53; Glucose Fasting 167 mg/dL (60-99); HDL Cholesterol 25 mg/dL; Sodium 139 mmol/L (135-145); Total Protein 6.9 g/dL (6.5-8.0); Triglycerides 406 mg/dL; Uric Acid 5.1 mg/dL (3.4-7.0)
[2022-09-16 08:34] LABS: Free T4 (Free Thyroxine) 0.91 ng/dL (0.71-1.85); Thyroid Stimulating Hormone 4.33 uIU/mL (0.32-4.0)
[2022-09-16 08:56] LABS: Creatinine Urine 227.01 mg/dL; Microalbum/Creatinine Ratio Ur 20.2 ug/mg cr
== END 2022-09-16 07:24 | disposition home or self-care (01) ==
LOC: HO.LAB 07:23
PROVIDERS: PCP Internal Medicine; Visit Provider Internal Medicine
DX: M10.9 Gout, unspecified (principal); E03.9 Hypothyroidism, unspecified; I10 Essential (primary) hypertension; E55.9 Vitamin D deficiency, unspecified; E11.9 Type 2 diabetes mellitus without complications; E78.00 Pure hypercholesterolemia, unspecified; R30.0 Dysuria
CPT/HCPCS: 36415; 80053; 80061; 81003; 82043; 82306; 83036; 84439; 84443; 84550; 85025

== ENCOUNTER 2022-12-17 09:10 | Outpatient (REF) | payer MEDICARE, SELFPAY ==
[2022-12-17 09:19] LABS: MANUAL DIFF FLAG NO
[2022-12-17 09:54] LABS: Basophils Absolute Auto 0.1 X10*3/uL (0.0-0.2); Basophils Percent Auto 0.7 % (0-2); Eosinophils Absolute Auto 0.3 X10*3/uL (0.0-0.4); Eosinophils Percent Auto 2.9 % (0-4); Hematocrit 44.1 % (42.0-52.0); Hemoglobin 14.3 g/dl (14.0-18.0); Imm Gran Abs Auto 0.03 X10*3/uL (0.00-0.03); Imm Gran Pct Auto 0.3 % (0.0-0.4); Lymphocytes Absolute Auto 2.1 X10*3/uL (1.2-4.9); Lymphocytes Percent Auto 23.8 % (20-40); Mean Corpuscular HGB Conc 32.4 g/dl (31.0-36.0); Mean Corpuscular Hemoglobin 26.9 pg (27.0-33.0); Mean Corpuscular Volume 82.9 fL (80.0-98.0); Mean Platelet Volume 10.3 fL (9.4-12.4); Monocytes Absolute Auto 0.7 X10*3/uL (0.1-1.2); Monocytes Percent Auto 8.4 % (2-11); Neutrophils Absolute Auto 5.7 x10*3/uL (2.0-8.3); Neutrophils Percent Auto 63.9 % (45-73); Platelet Count 184 X10*3/uL (160-400); Red Blood Count 5.32 X10*6/uL (4.60-5.80); Red Cell Distribution Width 13.2 % (11.0-16.0); White Blood Count 8.8 X10*3/uL (4.8-10.8)
[2022-12-17 10:05] LABS: Estimated Average Glucose 163 mg/dL; Hemoglobin A1c % 7.3 %
[2022-12-17 10:21] LABS: Creatinine Urine 245.38 mg/dL; Microalbum/Creatinine Ratio Ur 13.4 ug/mg cr
[2022-12-17 10:22] LABS: Appearance Urine Clear; Color Urine Dark Yellow; Glucose Urine UA Negative (Negative); Leukocyte Esterase Urine Trace (Negative); Nitrite Urine Negative (Negative); PH 5.5 (5.0-9.0); Specific Gravity - Urine 1.025 (1.005-1.025); UMIC TRIGGER UACC YES; Urine Blood Negative (Negative); Urine Ketones Trace mg/dL (Negative); Urine Protein Trace mg/dL (Neg-Trace)
[2022-12-17 10:24] LABS: Alanine Aminotransferase 35 U/L (0-40); Albumin Level 4.1 g/dL (3.5-5.0); Alkaline Phosphatase 80 U/L (39-117); Anion Gap 15 (12-20); Aspartate Amino Transferase 28 U/L (5-37); Bilirubin Total 0.9 mg/dL (0.0-1.0); Blood Urea Nitrogen 15 mg/dL (9-16); Calcium 9.5 mg/dL (8.4-10.2); Carbon Dioxide 26 mmol/L (22-29); Chloride 105 mmol/L (96-108); Cholesterol 126 mg/dL; Estimated Glomerular Filt Rate 57; Glucose Fasting 128 mg/dL (60-99); HDL Cholesterol 27 mg/dL; LDL Cholesterol Calculated 69 mg/dl; Potassium 3.8 mmol/L (3.3-5.1); Sodium 142 mmol/L (135-145); Total Protein 6.5 g/dL (6.5-8.0); Triglycerides 152 mg/dL
[2022-12-17 10:25] LABS: Bacteria Urine None Seen (None Seen); Hyaline Casts Urine 0-2 /LPF (0-2); WBC Urine 0-5 /HPF (0-5)
[2022-12-17 10:41] LABS: Free T4 (Free Thyroxine) 1.02 ng/dL (0.71-1.85); Thyroid Stimulating Hormone 4.18 uIU/mL (0.32-4.0); Vitamin D 25-OH Total 38.4 ng/mL (>30)
== END 2022-12-17 09:11 | disposition home or self-care (01) ==
LOC: HO.LAB 09:10
PROVIDERS: PCP Internal Medicine; Visit Provider Internal Medicine
DX: E78.00 Pure hypercholesterolemia, unspecified (principal); E55.9 Vitamin D deficiency, unspecified; E03.9 Hypothyroidism, unspecified; E11.9 Type 2 diabetes mellitus without complications; I10 Essential (primary) hypertension
CPT/HCPCS: 36415; 80053; 80061; 81001; 81003; 82043; 82306; 83036; 84439; 84443; 85025

== ENCOUNTER 2023-03-30 07:08 | Outpatient (REF) | payer MEDICARE, SELFPAY ==
[2023-03-30 08:48] LABS: MANUAL DIFF FLAG NO
[2023-03-30 10:00] LABS: Basophils Absolute Auto 0.1 X10*3/uL (0.0-0.2); Basophils Percent Auto 0.7 % (0-2); Eosinophils Absolute Auto 0.2 X10*3/uL (0.0-0.4); Eosinophils Percent Auto 1.6 % (0-4); Hematocrit 44.1 % (42.0-52.0); Hemoglobin 14.8 g/dl (14.0-18.0); Imm Gran Abs Auto 0.05 X10*3/uL (0.00-0.03); Imm Gran Pct Auto 0.5 % (0.0-0.4); Lymphocytes Absolute Auto 1.9 X10*3/uL (1.2-4.9); Lymphocytes Percent Auto 20.5 % (20-40); Mean Corpuscular HGB Conc 33.6 g/dl (31.0-36.0); Mean Corpuscular Hemoglobin 27.9 pg (27.0-33.0); Mean Corpuscular Volume 83.1 fL (80.0-98.0); Mean Platelet Volume 10.3 fL (9.4-12.4); Monocytes Absolute Auto 0.7 X10*3/uL (0.1-1.2); Monocytes Percent Auto 7.1 % (2-11); Neutrophils Absolute Auto 6.4 x10*3/uL (2.0-8.3); Neutrophils Percent Auto 69.6 % (45-73); Platelet Count 185 X10*3/uL (160-400); Red Blood Count 5.31 X10*6/uL (4.60-5.80); Red Cell Distribution Width 13.6 % (11.0-16.0); White Blood Count 9.2 X10*3/uL (4.8-10.8)
[2023-03-30 10:10] LABS: Estimated Average Glucose 151 mg/dL; Hemoglobin A1c % 6.9 %
[2023-03-30 11:04] LABS: Alanine Aminotransferase 41 U/L (0-40); Albumin Level 4.4 g/dL (3.5-5.0); Alkaline Phosphatase 80 U/L (39-117); Anion Gap 14 (12-20); Aspartate Amino Transferase 33 U/L (5-37); Bilirubin Total 0.6 mg/dL (0.0-1.0); Blood Urea Nitrogen 18 mg/dL (9-16); Calcium 9.5 mg/dL (8.4-10.2); Carbon Dioxide 25 mmol/L (22-29); Chloride 105 mmol/L (96-108); Cholesterol 117 mg/dL; Estimated Glomerular Filt Rate 47; Glucose Fasting 150 mg/dL (60-99); HDL Cholesterol 30 mg/dL; LDL Cholesterol Calculated 59 mg/dl; Potassium 3.5 mmol/L (3.3-5.1); Sodium 140 mmol/L (135-145); Total Protein 7.5 g/dL (6.5-8.0); Triglycerides 140 mg/dL; Uric Acid 5.7 mg/dL (3.4-7.0)
[2023-03-30 11:05] LABS: Appearance Urine Clear; Color Urine Dark Yellow; Glucose Urine UA Negative (Negative); Leukocyte Esterase Urine Trace (Negative); Nitrite Urine Negative (Negative); PH 5.5 (5.0-9.0); Specific Gravity - Urine 1.025 (1.005-1.025); UMIC TRIGGER UACC YES; Urine Blood Negative (Negative); Urine Ketones Trace mg/dL (Negative); Urine Protein 30 (1+) mg/dL (Neg-Trace)
[2023-03-30 11:07] LABS: Thyroid Stimulating Hormone 6.08 uIU/mL (0.32-4.0); Vitamin D 25-OH Total 39.6 ng/mL (>30)
[2023-03-30 11:14] LABS: Bacteria Urine None Seen (None Seen); RBC Urine 0-2 /HPF (0-2); WBC Urine 0-5 /HPF (0-5)
[2023-03-30 11:25] LABS: Folate 7.7 ng/mL (> or = 4.0); Vitamin B12 459 pg/mL (200-900)
[2023-03-30 12:00] LABS: Creatinine Urine 311.95 mg/dL; Microalbum/Creatinine Ratio Ur 54.4 ug/mg cr
== END 2023-03-30 07:09 | disposition home or self-care (01) ==
LOC: HO.LAB 07:08
PROVIDERS: PCP Internal Medicine; Visit Provider Internal Medicine
DX: E55.9 Vitamin D deficiency, unspecified (principal); E53.8 Deficiency of other specified B group vitamins; M10.9 Gout, unspecified; E03.9 Hypothyroidism, unspecified; E11.9 Type 2 diabetes mellitus without complications; E78.00 Pure hypercholesterolemia, unspecified; I10 Essential (primary) hypertension; R30.0 Dysuria
CPT/HCPCS: 36415; 80053; 80061; 81001; 82043; 82306; 82607; 82746; 83036; 84439; 84443; 84550; 85025

== ENCOUNTER 2023-04-05 14:20 | Outpatient (AMB) | payer MEDICARE, SELFPAY ==
[2023-04-05 14:26] VITALS: BP 138/90; PULSE 56; O2SAT 96; BMI 34.2
--- NOTE | 2023-04-05 14:26 | A.OFFPC_ITS ---
Vital Signs 04/05/23 14:26 Height 5 ft 11 in Weight 245 lb 8 oz BMI 34.2 BP 138/90 H Blood Pressure Location Lt brachial Position Sitting Pulse 56 Pulse Source Pulse Oximeter Pulse Oximetry (%) 96 Oxygen Delivery Method Room Air Intake Visit Reasons: DM, CKD, HTN, hyperlipidemia Form Setter Helper Required: No Accompanied by: Self / Same As Patient Allergies Beta-Blockers (Beta-Adrenergic Bloc Allergy (Unknown, Verified 04/05/23 15:09) SWOLLEN TONGUE lisinopril Allergy (Unknown, Verified 04/05/23 15:09) tongue swelling meperidine [Demerol] Allergy (Unknown, Verified 04/05/23 15:09) Unknown acetaminophen [From Percocet] Adverse Reaction (Verified 04/05/23 15:09) Vomiting oxycodone [From Percocet] Adverse Reaction (Verified 04/05/23 15:09) Vomiting Medication List - Last Reconciled 04/05/23 by Jourdan Da Silva MD allopurinol 100 mg PO DAILY 90 days amlodipine 5 mg PO DAILY 90 days amlodipine 2.5 mg PO DAILY 90 days amlodipine 2.5 mg PO DAILY 90 days aspirin 81 mg PO DAILY 90 days azelaic acid 15% (Finacea) 1 appl topical QAM 90 days blood sugar diagnostic (FreeStyle Lite Strips) Test Daily blood-glucose meter (FreeStyle Lite Meter kit) Test Daily cholecalciferol (vitamin D3) 25 mcg PO DAILY 90 days diclofenac sodium 1% (Voltaren Arthritis Pain) 4 grams topical QID PRN dulaglutide 1.5 mg subcut QWEEK glipizide ER 2.5 mg PO DAILY 90 days hydrochlorothiazide 12.5 mg PO QAM 90 days lancets (BD Ultra Fine Lancets) Test Daily lancets (TRUEplus Lancets) blood sugar 1 to 2 times a day as directed - NO SUBSTITUTION PLEASE! -- Dx Code: E11.21 -- DIABETES MELLITUS Lantus Solostar U-100 Insulin (insulin glargine) 10 units (0.1 mL) subcut QPM 90 days NS losartan 100 mg PO DAILY 90 days nebivolol 20 mg PO DAILY 90 days nirmatrelvir-ritonavir 150-100 mg (Paxlovid) PO PER PKG DIR nirmatrelvit 150 mg with Ritonavir 100 mg BID 5 days pen needle, diabetic (BD Ultra-Fine Nohelia Pen Needle) As directed once a day sildenafil 100 mg PO DAILY PRN simvastatin 20 mg PO DAILY 90 days Synthroid (levothyroxine) 25 mcg PO DAILY 90 days NS [true metrix Glucometer LANCETS Test blood sugar 1 to 2 times a day as directed - NO SUBSTITUTION PLEASE! NS] True Metrix Glucose Test Strip (blood sugar diagnostic) As directed - test 1 to 2 times day NS Tobacco use date assessed: 04/05/23 Fall risk assessment: No Falls in past year Last assessed Fall Risk: 04/05/23 Dental Screening Dental Screen Date: 04/05/23 Did you have a dental visit in the last 12 months?: Yes Did you have a dental problem in the last 6 months where you did not have access to dental care?: No Was dental information given to patient?: Patient has dentist HPI DM, CKD, HTN, hyperlipidemia HPI Details Patient comes in today for his follow up visit States that he feels okay He denies any headaches or dizziness Denies any chest pains, no SOB No nausea/vomiting, no abdominal pain No change in bowel habits noted Still has recurrent right knee pain but states that his current Rx helps keep his symptoms manageable States that he needs most of his Rx refilled and sent to his mail-order pharmacy Had his follow up labs done last week - to discuss his results [facility] Medical History Abdominal aortic aneurysm Benign essential hypertension Chronic kidney disease (CKD), stage III (moderate) Elevated LFTs History of gout Non-toxic multinodular goiter Obesity (BMI 30-39.9) Pure hypercholesterolemia Type 2 diabetes mellitus with diabetic chronic kidney disease Vitamin D deficiency Surgical History History of colonoscopy History of right knee surgery History of thyroid surgery (~09/14/21) History of tonsillectomy Family History Father CAD (coronary artery disease) Myocardial infarction Mother Congenital heart disease Breast cancer Uterine cancer Brother No problems noted. Sister No problems noted. Daughter No problems noted. Social History Housing: House Alcohol intake: current Alcohol intake frequency: a few times a month Alcohol type: beer Patient Tobacco Use Status: Former Tobacco user e-Cigarette/Vaping Use: Never Used Second Hand Smoke Exposure: Yes service: No Current occupational status: retired Cognitive needs: No Hearing needs: No Vision needs: Yes Questionnaire PHQ-9 Over the last 2 weeks, how often have you been bothered by any of the following problems? 1. Little interest or pleasure in doing things: not at all 2. Feeling down, depressed, or hopeless: not at all 3. Trouble falling or staying asleep, or sleeping too much: not at all 4. Feeling tired or having little energy: not at all 5. Poor appetite or overeating: not at all 6. Feeling bad about yourself - or that you are a failure or have let yourself or your family down: not at all 7. Trouble concentrating on things, such as reading the newspaper or watching television: not at all 8. Moving or speaking so slowly that other people could have noticed. Or the opposite - being so fidgety or restless that you have been moving around a lot more than usual: not at all 9. Thoughts that you would be better off or of hurting yourself in some way: not at all Total score: 0 Depression Screening Interpretation: Negative 54931 - PHQ-9 Billing: Yes Source: Developed by Drs. Tank Chacon, Paris Feliciano, Kaleb Frey and colleagues, with an educational pam from [employer] Thrive Questionnaire Date Thrive assessed: 04/05/23 I am a: Patient What is your living situation today?: I have a steady place to live Within the past 12 months, did the food you bought not last and you didn't have the money to get more?: Never true Within the past 12 months, did you worry whether your food would run out before you got money to buy more?: Never true Do you have trouble paying for medicines?: No Do you have trouble getting transportation to medical appointments?: No Do you have trouble paying your heating and electricity bill?: No Do you have trouble taking care of your child, family member or friend?: No Do you have trouble with day-to-day activities such as bathing, preparing meals, shopping, managing finances, etc.?: No Are you currently unemployed and looking for a job?: No Are you interested in more education?: No Please select the resources that you would like help with: None Currently or been in a relationship where the following occur: no concerns reported AUDIT C Alcohol Use Questionnaire (AUDIT-C) 1. How often do you have a drink containing alcohol?: 2-4 times a month 2. How many drinks containing alcohol do you have on a typical day when you are drinking?: 1 or 2 3. How often do you have six or more drinks on one occasion?: Never Total Score: 2 Score Reviewed/Action Taken: Yes NIMESH-7 AMB Questionnaire NIMESH-7 Date NIMESH - 7 assessed: 04/05/23 Feeling nervous, anxious, or on edge: 0 = Not at all Not being able to stop or control worryin = Not at all Worrying too much about different things: 0 = Not at all Trouble relaxin = Not at all Being so restless that it is hard to sit still: 0 = Not at all Becoming easily annoyed or irritable: 0 = Not at all Feeling afraid as if something awful might happen: 0 = Not at all Total NIMESH-7 score (0-4 normal; 5-9 mild; 10-14 moderate; 15-21 severe): 0 Source: Developed by Drs. Tank Chacon, Paris Feliciano, Kaleb Frey and colleagues, with an educational pam from [employer] Review of Systems Const Denies chills, Denies fatigue, Denies fever(s) and Denies headache(s) ENT Denies dysphagia, Denies dizziness, Denies otalgia, Denies headache(s), Denies neck pain, Denies odynophagia and Denies sore throat Card Denies chest pain, Denies palpitations and Denies dyspnea Resp Denies cough and Denies dyspnea GI Denies abdominal pain, Denies constipation, Denies dysphagia, Denies heartburn, Denies diarrhea, Denies nausea, Denies odynophagia and Denies vomiting Denies dysuria, Denies nocturia and Denies urinary frequency Musc Reports arthralgias (right knee, on and off - better with brace on) and Denies neck pain Neuro Denies dizziness and Denies headache(s) Endo Denies fatigue and Denies palpitations Physical exam (Primary Care) Vital Signs: Last Vital Signs Pulse 56 04/05/23 14:26 BP 138/90 H 04/05/23 14:26 Pulse Ox 96 04/05/23 14:26 Oxygen Delivery Method Room Air 04/05/23 14:26 BMI result Body Mass Index 34.2 Tobacco/Smoking Status: Tobacco use Status Tobacco use date assessed 04/05/23 04/05/23 14:28 Patient Tobacco Use Status Former Tobacco user 04/05/23 14:28 e-Cigarette/Vaping Use Never Used 04/05/23 14:28 PHQ-9: PHQ-9 Score PHQ-9: Total score 0 04/05/23 14:41 Depression Screening Interpretation: Negative Thrive Assessment: Date of Thrive Assessment Date Thrive assessed 04/05/23 04/05/23 14:29 Currently or been in a relationship where the following occur: no concerns reported Const General: no acute distress and alert HENMT Ears: TM's normal bilaterally and EAC's normal Throat: Yes posterior oropharynx normal and Yes tonsils normal (no TP congestion noted) Neck Neck: Yes no lymphadenopathy and Yes supple Resp Auscultation: clear to auscultation bilaterally, no rales and no wheezes Cardio Rate: regular rate Rhythm: regular rhythm Heart sounds: no murmurs GI Palpation (GI): Soft to palpation and nontender Auscultation: normal bowel sounds Extrem General: Yes no clubbing, cyanosis or edema Right lower extremity: knee Details: tenderness and crepitus Results Reviewed Results Reviewed: Laboratory Tests 03/30/23 03/30/23 03/30/23 08:45 08:45 08:46 WBC 9.2 Hgb 14.8 Hct 44.1 Plt Count 185 Sodium Potassium Creatinine Estimated GFR Fasting Glucose Hemoglobin A1c % Uric Acid Calcium AST ALT Triglycerides Cholesterol LDL Cholesterol, Calc HDL Cholesterol Vitamin B12 25-OH Vitamin D Total TSH Free T4 Ur Specific [place] 1.025 Urine Protein 30 (1+) H Urine Glucose (UA) Negative Urine Blood Negative Microalb/Creat Ratio 54.4 03/30/23 03/30/23 03/30/23 08:46 08:46 08:46 WBC Hgb Hct Plt Count Sodium 140 Potassium 3.5 Creatinine 1.46 H Estimated GFR 47 Fasting Glucose 150 H Hemoglobin A1c % 6.9 Uric Acid 5.7 Calcium 9.5 AST 33 ALT 41 H Triglycerides 140 Cholesterol 117 LDL Cholesterol, Calc 59 HDL Cholesterol 30 Vitamin B12 459 25-OH Vitamin D Total 39.6 TSH 6.08 H Free T4 0.90 Ur Specific [place] Urine Protein Urine Glucose (UA) Urine Blood Microalb/Creat Ratio Assessment and Plan Assessment & Plan (1) Type 2 diabetes mellitus with diabetic chronic kidney disease: Code(s): E11.22 - Type 2 diabetes mellitus with diabetic chronic kidney disease Qualifiers: Diabetes mellitus ocean transportation intermediary insulin use: without ocean transportation intermediary use Chronic kidney disease stage: stage 3 (moderate) Chronic kidney disease stage 3 subtype: stage 3a (GFR 45-59) Qualified Code(s): E11.21 - Type 2 diabetes mellitus with diabetic nephropathy; N18.31 - Chronic kidney disease, stage 3a Plan: HgbA1c was at 6.9% on his labs done last week (was at 7.3% a few months ago) - goal is < 7.0% Reinforced diabetic diet Continue Glipizide 2.5 mg QD, Trulicity 1.5 mg SQ once a week and Lantus Solostar 10 units Q HS Follow up with endocrinology as scheduled (2) Chronic kidney disease (CKD), stage III (moderate): Code(s): N18.30 - Chronic kidney disease, stage 3 unspecified Qualifiers: Chronic kidney disease stage 3 subtype: stage 3a (GFR 45-59) Qualified Code(s): N18.31 - Chronic kidney disease, stage 3a Plan: Patient is cautioned that his serum creatinine has increased and GFR has declined from previous, likely due to dehydration Reinforced increased oral fluids, especially during the warm summer months; reinforced also strict glycemic and BP control to slow down decline/ progression of his CKD Will continue to monitor his renal function closely (3) Pure hypercholesterolemia: Code(s): E78.00 - Pure hypercholesterolemia, unspecified Plan: Results of his labs done last week reviewed and discussed with patient Reinforced low cholesterol diet Continue Simvastatin 20 mg QD Will recheck his labs in 3 months for follow up (4) Benign essential hypertension: Code(s): I10 - Essential (primary) hypertension Plan: Reinforced? low sodium diet - goal is systolic BP of at least 130 or less Patient has felt dizzy and lightheaded often in the past when his systolic BP was 120 mm or less but given his AAA and the fact that its size has been slowly inching up based on his recent AA US, will try to keep his systolic BP between 120 to 130 mm as much as he can tolerate Continue Bystolic 20 mg QD, Losartan 100 mg QD, HCTZ 12.5 mg QD in AM and Amlodipine 7.5 mg (5 mg + 2.5 mg) QD - patient seems to be tolerating his meds so far without any issues (5) Abdominal aortic aneurysm: Comment: 05/2021: Mild aneurysmal dilatation of distal abdominal aorta measuring 3.8 x 3.7 cm. Previously it measured 3.5 x 3.5 cm. Code(s): I71.4 - Abdominal aortic aneurysm, without rupture Qualifiers: Presence of rupture: without rupture Qualified Code(s): I71.4 - Abd ominal aortic aneurysm, without rupture Plan: Repeat abdominal aortic US done a couple of years ago showed minimal progression - measurements are currently at 3.8 x 3.7 cm (was previously at 3.5 x 3.5 cm) Reinforced importance of tight BP control to slow down progression Will continue with yearly US for monitoring - repeat US is now due (ordered) (6) Elevated LFTs: Code(s): R79.89 - Other specified abnormal findings of blood chemistry Plan: Patient's LFTs have improved on his recent labs Admits that he was drinking hard lemonades and similar self-concocted drinks previously - has now stopped drinking them Patient again counseled on abstinence from all forms of alcohol, including beer, and to avoid taking OTC Tylenol as much as possible and no more than a total of 2000 mg / day if he cannot completely avoid it Will continue to monitor his LFTs regularly (7) Osteoarthritis of knee: Code(s): M17.10 - Unilateral primary osteoarthritis, unspecified knee Qualifiers: Osteoarthritis type: primary Laterality: right Qualified Code(s): M1 7.11 - Unilateral primary osteoarthritis, right knee Plan: Follow up with orthopedics at [facility] as scheduled Patient states that he has been considering going for knee surgery to address his knee issues but given that it has calmed down lately, is inclined to hold off on this Continue applying Voltaren gel to his knee PRN for symptomatic relief; he no longer takes any NSAIDs, including Celebrex, for his knee pain (8) Non-toxic multinodular goiter: Code(s): E04.2 - Nontoxic multinodular goiter Plan: S/P right thyroid lobectomy and isthmusectomy on 09/14/[address] Dominique Hagan in [place], [place] Serum TSH has improved slightly but still remains slightly elevated; free T4 is normal Continue Synthroid 25 mcg QD Will continue to monitor his TFTs regularly (9) History of gout: Code(s): Z87.39 - Personal history of other diseases of the musculoskeletal system and connective tissue Plan: Reinforced low purine diet - reports no acute gout flares lately Serum uric acid level was normal at 5.7 on his labs done last week Continue Allopurinol 50 mg QD (10) Vitamin D deficiency: Code(s): E55.9 - Vitamin D deficiency, unspecified Plan: Corrected - continue Vitamin D3 1000 units QD (11) Obesity (BMI 30-39.9): Code(s): E66.9 - Obesity, unspecified Plan: Reinforced diet/exercise as tolerated/lose weight Plan Follow up in 3 months Orders: Orders US aorta Today I71.4 - Abdominal aortic aneurysm, without rupture Comprehensive Coulters. Panel Fast 3 Months E78.00 - Pure hypercholesterolemia, unspecified Hemoglobin A1c 3 Months E11.9 - Type 2 diabetes mellitus without complications Lipid Panel 3 Months E78.00 - Pure hypercholesterolemia, unspecified Free T4 (Free Thyroxine) 3 Months E03.9 - Hypothyroidism, unspecified Thyroid Stimulating Hormone 3 Months E03.9 - Hypothyroidism, unspecified Vitamin D 25-OH Total 3 Months E55.9 - Vitamin D deficiency, unspecified Complete Blood Count Auto Diff 3 Months I10 - Essential (primary) hypertension UA CC w/rflx Micro + Cult 3 Months R30.0 - Dysuria Medications: Refilled amlodipine 5 mg PO DAILY 90 days 90 tabs 3RF I10 - Essential (primary) hypertension allopurinol 100 mg PO DAILY 90 days 90 tabs 3RF Z87.39 - Personal history of other diseases of the musculoskeletal system and connective tissue amlodipine Take this IN ADDITION to Amlodipine 5 mg for a TOTAL of 7.5 mg QD 2.5 mg PO DAILY 90 days 90 tabs 3RF glipizide ER 2.5 mg PO DAILY 90 days 90 tabs 3RF E11.21 - Type 2 diabetes mellitus with diabetic nephropathy, N18.31 - Chronic kidney disease, stage 3a hydrochlorothiazide 12.5 mg PO QAM 90 days 90 ea 3RF I10 - Essential (primary) hypertension losartan 100 mg PO DAILY 90 days 90 tabs 3RF I10 - Essential (primary) hypertension nebivolol 20 mg PO DAILY 90 days 90 tabs 3RF I10 - Essential (primary) hypertension simvastatin 20 mg PO DAILY 90 days 90 tabs 3RF E78.00 - Pure hypercholesterolemia, unspecified Synthroid (levothyroxine) 25 mcg PO DAILY 90 days 90 tabs 3RF NS Coding Level of Care Code Est Pt Level 4 (82129) Diagnoses Type 2 diabetes mellitus with diabetic chronic kidney disease E11.21; N18.31 Diabetes mellitus ocean transportation intermediary insulin use: without ocean transportation intermediary use Chronic kidney disease stage: stage 3 (moderate) Chronic kidney disease stage 3 subtype: stage 3a (GFR 45-59) Chronic kidney disease (CKD), stage III (moderate) N18.31 Chronic kidney disease stage 3 subtype: stage 3a (GFR 45-59) Pure hypercholesterolemia E78.00 Benign essential hypertension I10 Abdominal aortic aneurysm I71.4 Presence of rupture: without rupture Elevated LFTs R79.89 Osteoarthritis of knee M17.11 Osteoarthritis type: primary Laterality: right Non-toxic multinodular goiter E04.2 History of gout Z87.39 Vitamin D deficiency E55.9 Obesity (BMI 30-39.9) E66.9
== END 2023-04-05 15:56 | disposition home or self-care (01) ==
PROVIDERS: Visit Provider Internal Medicine
DX: E11.21 Type 2 diabetes mellitus with diabetic nephropathy (principal); I12.9 Hypertensive chronic kidney disease with stage 1 through stage 4 chronic kidney disease, or unspecified chronic kidney disease; N18.31 Chronic kidney disease, stage 3a; I71.40 Abdominal aortic aneurysm, without rupture, unspecified; E78.00 Pure hypercholesterolemia, unspecified; R79.89 Other specified abnormal findings of blood chemistry; M17.11 Unilateral primary osteoarthritis, right knee; E04.2 Nontoxic multinodular goiter; Z87.39 Personal history of other diseases of the musculoskeletal system and connective tissue; E55.9 Vitamin D deficiency, unspecified; E66.9 Obesity, unspecified
CPT/HCPCS: 99214

== ENCOUNTER 2023-05-04 08:40 | Outpatient (REF) | payer MEDICARE, SELFPAY ==
--- NOTE | ~2023-05-04 | US_ITS ---
EXAMINATION: US RETROPERITONEAL LIMITED (AORTA) CLINICAL INFORMATION: Abdominal aortic aneurysm, without rupture. COMPARISON: Ultrasound abdominal aorta dated 05/21/2021 and 04/30/2020. TECHNIQUE: Hutchinson-scale, color Doppler and spectral Doppler evaluation of the abdominal aorta. FINDINGS: The measurements of the aorta in maximum AP and transverse dimensions respectively are as follows: Proximal: 2.9 x 2.9 cm. Mid: 2.5 x 2.5 cm. Distal: 4.0 x 4.0 cm, previously 3.8 x 3.7 cm on 05/21/2021 and 3.5 x 3.5 cm on 04/30/2020. PSV: 51.1 cm/s. The measurements of the common iliac arteries in maximum AP and TRV dimensions are as follows: Right Common Iliac Artery: 1.4 x 1.2 cm. Left Common Iliac Artery: 1.3 x 1.5 cm. US/US abdominal aortic aneurysm IMPRESSION: Abdominal aortic aneurysm measures 4.0 x 4.0 cm, increased from 3.8 x 3.7 cm on 05/21/2021 and 3.5 x 3.5 cm on 04/30/2020. Best Practice Recommendation: Based on published guidelines in J Am Monique Radiol 2013; 10(10):789-794 and J Vasc Surg. 2018; 67:2-77, the recommendation for an abdominal aortic aneurysm with diameter 4.0-4.4 cm is vascular consultation and subsequent follow-up every 12 months.
== END 2023-05-04 08:41 | disposition home or self-care (01) ==
LOC: HO.US 08:40
PROVIDERS: PCP Internal Medicine; Visit Provider Internal Medicine
DX: I71.40 Abdominal aortic aneurysm, without rupture, unspecified (principal)
CPT/HCPCS: 76706

== ENCOUNTER 2023-07-02 01:24 | Emergency (ER) | payer MEDICARE, SELFPAY ==
[2023-07-02 01:26] VITALS: BP 137/70; PULSE 66; RESP 18; TEMP 36.9; O2SAT 100; BMI 35.0
[2023-07-02 01:39] LABS: Glucose, Whole Blood 271 mg/dL (60-115)
[2023-07-02 01:57] VITALS: BP 143/70; PULSE 68; RESP 18; TEMP 36.8; O2SAT 97
--- NOTE | 2023-07-02 01:59 | ED.GENADULT ---
HPI - General Adult General Chief complaint: General Medical Stated complaint: High Glucose Level Time Seen by Provider: 07/02/23 01:59 Source: patient Mode of arrival: ambulatory Limitations: no limitations History of Present Illness HPI narrative: Patient's diabetes on Lantus, glipizide and Trulicity had urinary frequency symptoms 4 days ago called his PCP who prescribed him Keflex within 12 hours of taking care of the patient started having diarrhea multiple times last dose he took was earlier today patient still having painful to urinate had cystoscopy done by urologist last year was normal denies any vomiting nausea fever or chills since he stopped the Keflex earlier today he does not have any diarrhea patient checked the blood sugar was 373 Related Data Home Medications Medication Instructions Recorded Confirmed dulaglutide 1.5 mg/0.5 mL 1.5 mg subcut QWEEK 04/05/23 04/05/23 subcutaneous pen injector Previous Rx's Medication Instructions Recorded True Metrix Glucose Test Strip #100 ea 11/17/20 (blood sugar diagnostic) aspirin 81 mg tablet,delayed 81 mg PO DAILY 90 days #90 tabs 11/17/20 release cholecalciferol (vitamin D3) 25 25 mcg PO DAILY 90 days #90 caps 11/17/20 mcg (1,000 unit) capsule true metrix Glucometer LANCETS #100 ea 11/17/20 blood-glucose meter (FreeStyle #1 ea 09/11/21 Lite Meter kit) azelaic acid 15 % topical foam 1 appl topical QAM 90 days #3 02/17/22 (Finacea) multiple units amlodipine 2.5 mg tablet 2.5 mg PO DAILY 90 days #90 tabs 05/25/22 lancets 33 gauge (TRUEplus Lancets) #100 ea 06/01/22 lancets 33 gauge (BD Ultra Fine #100 ea 08/23/22 Lancets) nirmatrelvir 150 mg-ritonavir 100 See Rx Instructions PO PER PKG DIR 11/20/22 mg tablets in a dose pack 5 days #20 tabs (Paxlovid) sildenafil 100 mg tablet 100 mg PO DAILY PRN sexual 12/24/22 activity #30 tabs blood sugar diagnostic (FreeStyle #100 ea 02/14/23 Lite Strips) amlodipine 2.5 mg tablet 2.5 mg PO DAILY 90 days #90 tabs 04/05/23 amlodipine 5 mg tablet 5 mg PO DAILY 90 days #90 tabs 04/05/23 hydrochlorothiazide 12.5 mg capsule 12.5 mg PO QAM 90 days #90 ea 04/05/23 losartan 100 mg tablet 100 mg PO DAILY 90 days #90 tabs 04/05/23 nebivolol 20 mg tablet 20 mg PO DAILY 90 days #90 tabs 04/05/23 simvastatin 20 mg tablet 20 mg PO DAILY 90 days #90 tabs 04/05/23 diclofenac sodium 1 % topical gel 4 g topical QID PRN pain #100 grams 04/11/23 (Voltaren Arthritis Pain) glipizide 2.5 mg tablet, extended 2.5 mg PO DAILY 90 days #90 tabs 05/29/23 release 24 hr pen needle, diabetic 32 gauge x #100 ea 06/06/23 (BD Ultra-Fine Nohelia Pen Needle) allopurinol 100 mg tablet 100 mg PO DAILY 90 days #90 tabs 06/15/23 Lantus Solostar U-100 Insulin 100 10 unit (0.1 mL) subcut QPM 90 06/22/23 unit/mL (3 mL) subcutaneous pen days #15 mL (insulin glargine) Synthroid 25 mcg tablet 25 mcg PO DAILY 90 days #90 tabs 06/22/23 (levothyroxine) cephalexin 500 mg capsule 500 mg PO Q6H 7 days #28 caps 06/28/23 phenazopyridine 200 mg tablet 200 mg PO TID 2 days #6 tabs 07/02/23 (Pyridium) Allergies Allergy/AdvReac Type Severity Reaction Status Date / Time Beta-Blockers Allergy Unknown SWOLLEN Verified 07/02/23 01:36 (Beta-Adrenergic Bloc TONGUE lisinopril Allergy Unknown tongue Verified 07/02/23 01:36 swelling meperidine [Demerol] Allergy Unknown Unknown Verified 07/02/23 01:36 cephalexin AdvReac Intermediate Diarrhea Verified 07/02/23 03:14 oxycodone [From Percocet] AdvReac Vomiting Verified 07/02/23 01:36 Review of Systems Review of Systems: Yes all other systems are reviewed and are negative PMFSH Past Medical History Medical History Elevated LFTs Non-toxic multinodular goiter Vitamin D deficiency History of gout Abdominal aortic aneurysm Obesity (BMI 30-39.9) Pure hypercholesterolemia Benign essential hypertension Chronic kidney disease (CKD), stage III (moderate) Type 2 diabetes mellitus with diabetic chronic kidney disease Surgical History History of thyroid surgery (~09/14/21) History of right knee surgery History of colonoscopy History of tonsillectomy Family History Family History Father CAD (coronary artery disease) Myocardial infarction Mother Congenital heart disease Breast cancer Uterine cancer Brother No problems noted. Sister No problems noted. Daughter No problems noted. Social History Social History Housing: House Alcohol intake: never Patient Tobacco Use Status: Former Tobacco user Smoked in Last 30 Days: No e-Cigarette/Vaping Use: Never Used Second Hand Smoke Exposure: Yes Any prior treatment program specific to substance use: No Advance Directives: No Advance Directives Information Provided: Yes service: No Current occupational status: retired Cognitive needs: No Hearing needs: No Vision needs: Yes Physical Exam ED Vital Signs: Vital Signs - 24 hr 07/02/23 01:26 07/02/23 01:57 07/02/23 03:15 Temperature 98.4 F 98.3 F Pulse Rate 66 68 75 Respiratory Rate 18 18 16 Blood Pressure 137/70 143/70 H 147/84 H Pulse Oximetry 100 97 96 Oxygen Delivery Method Room Air Room Air Room Air BMI result Body Mass Index 35.0 Appearance: Alert. Oriented X3. No acute distress. Eyes: No pallor or icterus ENT: Pharynx normal. Oral Mucosa moist Neck: Normal inspection. Neck supple. CVS: Normal heart rate and rhythm. Pulses normal. Respiratory: No respiratory distress. Equal air entry bilateral, no wheezing/rales/rhonchi Abdomen: Soft and nontender. Bowel sounds are present, no mass palpable, no CVA tenderness rectal: Normal prostate nontender Skin: Skin warm and dry. Normal skin color. Normal skin turgor. Extremities: No lower extremity edema. No calf tenderness Neuro: Oriented X 3. Medications Administered Discontinued Medications Generic Name Dose Route Start Last Admin Trade Name Freq PRN Reason Stop Dose Admin Phenazopyridine HCl 200 mg 07/02/23 03:14 07/02/23 03:26 Phenazopyridine Hcl 200 Mg Tablet PO 07/02/23 03:15 200 mg ONCE ONE Administration Medical Decision Making Medical Decision Making [facility] Narrative: Patient with dysuria without infection the urine white counts are normal blood sugar improved after patient had fluids likely patient's symptoms are from bladder spasm given. Advised patient to follow with urology Differential Diagnosis Differential Diagnoses: The differential diagnosis associated with the presentation includes UTI/prostatitis Lab Data [facility] Lab Attestation statement: I reviewed the patient's lab results. 07/02/23 02:11 07/02/23 02:11 Labs: Lab Results 07/02/23 07/02/23 07/02/23 Range/Units 01:35 02:11 02:29 WBC 10.4 (4.8-10.8) X10*3/uL RBC 5.01 (4.60-5.80) X10*6/uL Hgb 13.8 L (14.0-18.0) g/dl Hct 41.4 L (42.0-52.0) % MCV 82.6 (80.0-98.0) fL MCH 27.5 (27.0-33.0) pg MCHC 33.3 (31.0-36.0) g/dl RDW 14.3 (11.0-16.0) % Plt Count 171 (160-400) X10*3/uL MPV 9.6 (9.4-12.4) fL Immature Gran % (Auto) 0.8 H (0.0-0.4) % Neut % (Auto) 74.4 H (45-73) % Lymph % (Auto) 11.6 L (20-40) % [place] % (Auto) 10.7 (2-11) % Eos % (Auto) 2.1 (0-4) % Baso % (Auto) 0.4 (0-2) % Lymph # (Auto) 1.2 (1.2-4.9) X10*3/uL [place] # (Auto) 1.1 (0.1-1.2) X10*3/uL Eos # (Auto) 0.2 (0.0-0.4) X10*3/uL Baso # (Auto) 0.0 (0.0-0.2) X10*3/uL Abs Immat Gran (auto) 0.08 H (0.00-0.03) X10*3/uL Absolute Neuts (auto) 7.7 (2.0-8.3) x10*3/uL Absolute Nucleated RBC 0.000 (0.0-0.012) X10*3/uL Nucleated RBC % (auto) 0.0 (0.0-0.2) /100WBC Sodium 138 (135-145) mmol/L Potassium 3.7 (3.3-5.1) mmol/L Chloride 104 (96-108) mmol/L Carbon Dioxide 23 (22-29) mmol/L Anion Gap 15 (12-20) BUN 22 H (9-16) mg/dL Creatinine 1.36 (0.5-1.4) mg/dL Estim Creat Clear Calc 61.1 Estimated GFR 51 POC Glucose 271 H (60-115) mg/dL Random Glucose 251 H (60-115) mg/dL Calcium 9.9 (8.4-10.2) mg/dL Total Bilirubin 0.6 (0.0-1.0) mg/dL AST 39 H (5-37) U/L ALT 60 H (0-40) U/L Alkaline Phosphatase 130 H (39-117) U/L Total Protein 7.5 (6.5-8.0) g/dL Albumin 4.1 (3.5-5.0) g/dL Urine Color Yellow Urine Appearance Clear Urine pH 5.5 (5.0-9.0) Ur Specific [place] 1.025 (1.005-1.025) Urine Protein Trace (Neg-Trace) mg/dL Urine Glucose (UA) 500 H (Negative) mg/dL Urine Ketones Negative (Negative) mg/dL Urine Blood Negative (Negative) Urine Nitrite Negative (Negative) Ur Leukocyte Esterase Trace H (Negative) Urine RBC 0-2 (0-2) /HPF Urine WBC 0-5 (0-5) /HPF Ur Squamous Epith Cells 0-2 (0-2) /HPF Urine Bacteria None Seen (None Seen) Hyaline Casts 0-2 (0-2) /LPF 07/02/23 Range/Units 03:30 WBC (4.8-10.8) X10*3/uL RBC (4.60-5.80) X10*6/uL Hgb (14.0-18.0) g/dl Hct (42.0-52.0) % MCV (80.0-98.0) fL MCH (27.0-33.0) pg MCHC (31.0-36.0) g/dl RDW (11.0-16.0) % Plt Count (160-400) X10*3/uL MPV (9.4-12.4) fL Immature Gran % (Auto) (0.0-0.4) % Neut % (Auto) (45-73) % Lymph % (Auto) (20-40) % [place] % (Auto) (2-11) % Eos % (Auto) (0-4) % Baso % (Auto) (0-2) % Lymph # (Auto) (1.2-4.9) X10*3/uL [place] # (Auto) (0.1-1.2) X10*3/uL Eos # (Auto) (0.0-0.4) X10*3/uL Baso # (Auto) (0.0-0.2) X10*3/uL Abs Immat Gran (auto) (0.00-0.03) X10*3/uL Absolute Neuts (auto) (2.0-8.3) x10*3/uL Absolute Nucleated RBC (0.0-0.012) X10*3/uL Nucleated RBC % (auto) (0.0-0.2) /100WBC Sodium (135-145) mmol/L Potassium (3.3-5.1) mmol/L Chloride (96-108) mmol/L Carbon Dioxide (22-29) mmol/L Anion Gap (12-20) BUN (9-16) mg/dL Creatinine (0.5-1.4) mg/dL Estim Creat Clear Calc Estimated GFR POC Glucose 200 H (60-115) mg/dL Random Glucose (60-115) mg/dL Calcium (8.4-10.2) mg/dL Total Bilirubin (0.0-1.0) mg/dL AST (5-37) U/L ALT (0-40) U/L Alkaline Phosphatase (39-117) U/L Total Protein (6.5-8.0) g/dL Albumin (3.5-5.0) g/dL Urine Color Urine Appearance Urine pH (5.0-9.0) Ur Specific [place] (1.005-1.025) Urine Protein (Neg-Trace) mg/dL Urine Glucose (UA) (Negative) mg/dL Urine Ketones (Negative) mg/dL Urine Blood (Negative) Urine Nitrite (Negative) Ur Leukocyte Esterase (Negative) Urine RBC (0-2) /HPF Urine WBC (0-5) /HPF Ur Squamous Epith Cells (0-2) /HPF Urine Bacteria (None Seen) Hyaline Casts (0-2) /LPF Discharge Plan Discharge Clinical Impression: Dysuria, Medication side effects, Type 2 diabetes mellitus with diabetic chronic kidney disease Patient Disposition: Home, Self-Care Instructions: Dysuria (ED), Adverse Drug Reaction (ED), Diabetic Hyperglycemia (ED) Additional Instructions: No signs of infection seen at this time Drink plenty of fluids Your have slightly elevated blood sugar likely from lack of fluid intake Do not take cephalexin in future as it causing diarrhea in your case Pyridium for bladder spasm as needed Prescriptions: New phenazopyridine [Pyridium] 200 mg tablet 200 mg PO TID 2 Days Qty: 6 0RF No Action (DME) blood-glucose meter [FreeStyle Lite Meter] Kit See Rx Instructions .Route Qty: 1 0RF Rx Instructions: Test Daily Finacea 15 % foam 1 appl topical QAM 90 Days Qty: 3 1RF (DME) lancets [TRUEplus Lancets] 33 gauge misc See Rx Instructions .ROUTE .MEDSUPPLY Qty: 100 12RF Rx Instructions: blood sugar 1 to 2 times a day as directed - NO SUBSTITUTION PLEASE! -- Dx Code: E11.21 -- DIABETES MELLITUS (DME) lancets [BD Ultra Fine Lancets] 33 gauge misc See Rx Instructions .Route Qty: 100 0RF Rx Instructions: Test Daily Paxlovid 150-100 mg tablets,dose pack See Rx Instructions PO PER PKG DIR 5 Days Qty: 20 0RF Rx Instructions: PO PER PKG DIR nirmatrelvit 150 mg with Ritonavir 100 mg BID (DME) FreeStyle Lite Strips Strip See Rx Instructions .Route Qty: 100 3RF Rx Instructions: Test Daily diclofenac sodium [Voltaren Arthritis Pain] 1 % gel 4 g topical QID PRN (Reason: pain) Qty: 100 5RF Rx Instructions: apply to single knee, ankle, foot; for foot includes sole/toes/top of foot glipizide 2.5 mg tablet extended release 24hr 2.5 mg PO DAILY 90 Days Qty: 90 3RF (DME) pen needle, diabetic [BD Ultra-Fine Nohelia Pen Needle] 32 gauge x 5/32 needle See Rx Instructions .ROUTE .MEDSUPPLY Qty: 100 3RF Rx Instructions: As directed once a day allopurinol 100 mg tablet 100 mg PO DAILY 90 Days Qty: 90 3RF levothyroxine [Synthroid] 25 mcg tablet 25 mcg PO DAILY 90 Days Qty: 90 3RF insulin glargine [Lantus Solostar U-100 Insulin] 100 unit/mL (3 mL) insulin pen 10 unit subcut QPM 90 Days Qty: 15 3RF cephalexin 500 mg capsule 500 mg PO Q6H 7 Days Qty: 28 0RF aspirin 81 mg tablet,delayed release (DR/EC) 81 mg PO DAILY 90 Days Qty: 90 3RF (DME) True Metrix Glucose Test Strip Strip See Rx Instructions .ROUTE .MEDSUPPLY Qty: 100 12RF Rx Instructions: As directed - test 1 to 2 times day (DME) true metrix Glucometer LANCETS See Rx Instructions .Route .MEDSUPPLY Qty: 100 12RF Rx Instructions: Test blood sugar 1 to 2 times a day as directed - NO SUBSTITUTION PLEASE! cholecalciferol (vitamin D3) 25 mcg (1,000 unit) capsule 25 mcg PO DAILY 90 Days Qty: 90 3RF dulaglutide 1.5 mg/0.5 mL pen injector 1.5 mg subcut QWEEK amlodipine 5 mg tablet 5 mg PO DAILY 90 Days Qty: 90 3RF amlodipine 2.5 mg tablet 2.5 mg PO DAILY 90 Days Qty: 90 3RF Rx Instructions: Take this IN ADDITION to Amlodipine 5 mg for a TOTAL of 7.5 mg QD hydrochlorothiazide 12.5 mg capsule 12.5 mg PO QAM 90 Days Qty: 90 3RF losartan 100 mg tablet 100 mg PO DAILY 90 Days Qty: 90 3RF nebivolol 20 mg tablet 20 mg PO DAILY 90 Days Qty: 90 3RF simvastatin 20 mg tablet 20 mg PO DAILY 90 Days Qty: 90 3RF amlodipine 2.5 mg tablet 2.5 mg PO DAILY 90 Days Qty: 90 3RF sildenafil 100 mg tablet 100 mg PO DAILY PRN (Reason: sexual activity) Qty: 30 0RF Rx Instructions: administer 30 minutes to 4 hours before activity
[2023-07-02 02:19] LABS: MANUAL DIFF FLAG NO
[2023-07-02 02:22] LABS: Basophils Percent Auto 0.4 % (0-2); Eosinophils Absolute Auto 0.2 X10*3/uL (0.0-0.4); Eosinophils Percent Auto 2.1 % (0-4); Hematocrit 41.4 % (42.0-52.0); Hemoglobin 13.8 g/dl (14.0-18.0); Imm Gran Abs Auto 0.08 X10*3/uL (0.00-0.03); Imm Gran Pct Auto 0.8 % (0.0-0.4); Lymphocytes Absolute Auto 1.2 X10*3/uL (1.2-4.9); Lymphocytes Percent Auto 11.6 % (20-40); Mean Corpuscular HGB Conc 33.3 g/dl (31.0-36.0); Mean Corpuscular Hemoglobin 27.5 pg (27.0-33.0); Mean Corpuscular Volume 82.6 fL (80.0-98.0); Mean Platelet Volume 9.6 fL (9.4-12.4); Monocytes Absolute Auto 1.1 X10*3/uL (0.1-1.2); Monocytes Percent Auto 10.7 % (2-11); Neutrophils Absolute Auto 7.7 x10*3/uL (2.0-8.3); Neutrophils Percent Auto 74.4 % (45-73); Platelet Count 171 X10*3/uL (160-400); Red Blood Count 5.01 X10*6/uL (4.60-5.80); Red Cell Distribution Width 14.3 % (11.0-16.0); White Blood Count 10.4 X10*3/uL (4.8-10.8)
[2023-07-02 02:35] LABS: Alanine Aminotransferase 60 U/L (0-40); Albumin Level 4.1 g/dL (3.5-5.0); Alkaline Phosphatase 130 U/L (39-117); Anion Gap 15 (12-20); Aspartate Amino Transferase 39 U/L (5-37); Bilirubin Total 0.6 mg/dL (0.0-1.0); Blood Urea Nitrogen 22 mg/dL (9-16); Calcium 9.9 mg/dL (8.4-10.2); Carbon Dioxide 23 mmol/L (22-29); Chloride 104 mmol/L (96-108); Creatinine Clr Calc Pharmacy 61.1; Estimated Glomerular Filt Rate 51; Glucose Random 251 mg/dL (60-115); Potassium 3.7 mmol/L (3.3-5.1); Sodium 138 mmol/L (135-145); Total Protein 7.5 g/dL (6.5-8.0)
[2023-07-02 02:39] LABS: Appearance Urine Clear; Color Urine Yellow; Glucose Urine UA 500 mg/dL (Negative); Leukocyte Esterase Urine Trace (Negative); Nitrite Urine Negative (Negative); PH 5.5 (5.0-9.0); Specific Gravity - Urine 1.025 (1.005-1.025); UMIC TRIGGER UACC YES; Urine Blood Negative (Negative); Urine Ketones Negative (Negative); Urine Protein Trace mg/dL (Neg-Trace)
[2023-07-02 02:43] LABS: Bacteria Urine None Seen (None Seen); Hyaline Casts Urine 0-2 /LPF (0-2); RBC Urine 0-2 /HPF (0-2); Squamous Epithelial Cell Urine 0-2 /HPF (0-2); WBC Urine 0-5 /HPF (0-5)
[2023-07-02 03:15] VITALS: BP 147/84; PULSE 75; RESP 16; O2SAT 96
[2023-07-02] MEDS: Phenazopyridine HCL 200 MG TABLET PO (03:26)
[2023-07-02 03:36] LABS: Glucose, Whole Blood 200 mg/dL (60-115)
== END 2023-07-02 04:30 | disposition home or self-care (01) ==
PROVIDERS: Emergency Provider Internal Medicine; PCP Internal Medicine
DX: R30.0 Dysuria (principal); K52.1 Toxic gastroenteritis and colitis; T36.1X5A Adverse effect of cephalosporins and other beta-lactam antibiotics, initial encounter; Y92.9 Unspecified place or not applicable; E11.22 Type 2 diabetes mellitus with diabetic chronic kidney disease; I12.9 Hypertensive chronic kidney disease with stage 1 through stage 4 chronic kidney disease, or unspecified chronic kidney disease; N18.30 Chronic kidney disease, stage 3 unspecified; E78.00 Pure hypercholesterolemia, unspecified; Z79.82 Long term (current) use of aspirin; Z79.4 Long term (current) use of insulin; Z79.899 Other long term (current) drug therapy; Z87.891 Personal history of nicotine dependence
CPT/HCPCS: 36415; 80053; 81001; 82947; 85025; 99283; 99284

== ENCOUNTER 2023-07-02 16:32 | Emergency (ER) | payer MEDICARE, SELFPAY ==
--- NOTE | ~2023-07-02 | CT_ITS ---
EXAMINATION: CT ABDOMEN AND PELVIS WITHOUT CONTRAST CLINICAL INFORMATION: Pain COMPARISON: CT abdomen and pelvis 09/02/2015 TECHNIQUE: Multidetector volumetric imaging was performed from the superior aspect of the liver through the pubic symphysis. Sagittal and coronal reformatted images were obtained on the technologist's workstation. This CT examination was performed using dose optimization techniques as appropriate, variously including the following: *Automated exposure control *Adjustment of mA and/or kV according to patient size (this includes techniques or standardized protocols for targeted exams where dose is matched to indication/reason for exam; i.e. extremities or head) *Use of iterative reconstruction technique DLP: 898 mGy-cm FINDINGS: LUNG BASES: Similarly partially calcified right basilar pleural plaques. ABDOMINAL AND PELVIC WALL: Again seen is macroscopic fat within the left hip adductor musculature which may reflect a intramuscular lipoma, incompletely imaged. LIVER AND BILIARY TREE: Multiple calcified granulomas in the liver. Hypoattenuating hepatic parenchyma compatible with hepatic steatosis. Subtle nodularity of the hepatic contour, recommend correlation with any risk factors for for cirrhosis. GALLBLADDER: Layering sludge or noncalcified stones within gallbladder without evidence of acute cholecystitis. PANCREAS: Unremarkable. SPLEEN: Incidentally noted accessory splenule. ADRENAL GLANDS: A 1 cm low-attenuation right adrenal nodule, previously 1.8 cm in 2016 and therefore likely benign such as an adenoma, no routine imaging follow-up recommended. KIDNEYS AND URETERS: Bosniak 1 benign-appearing left upper pole renal cyst. A 1.2 cm intermediate attenuation indeterminate left mid pole renal lesion. GASTROINTESTINAL TRACT: There is moderate circumferential rectal wall thickening with minimal infiltration of the perirectal fat, recommend correlation with symptoms of proctitis. Normal appendix. VASCULAR: Infrarenal abdominal aortic aneurysm measuring 3.8 cm, increased from 2016 where it measured 3 cm. Atherosclerosis of the abdominal aorta. LYMPH NODES/PERITONEUM: No lymphadenopathy. FREE FLUID: None. BLADDER: Pete catheter decompresses the bladder. Question of minimal infiltration of the perivesicular fat, recommend correlation with urinalysis and any symptoms of cystitis. PELVIC VISCERA: Prostate is enlarged measuring 6.4 cm in transverse diameter. OSSEOUS STRUCTURES: Sclerotic lesion in the right iliac bone with Hounsfield units suggesting a bone island. CT/CT abdomen pelvis wo IV con IMPRESSION: * There is moderate circumferential rectal wall thickening with minimal infiltration of the perirectal fat, recommend correlation with symptoms of proctitis. * Question of minimal infiltration of the perivesicular fat, recommend correlation with urinalysis and any symptoms of cystitis. * Infrarenal abdominal aortic aneurysm measuring 3.8 cm, increased from 2016 where it measured 3 cm. Recommend followup every 2 years. Reference: J Am Monique Radiol 2013; 10 (10): 789-794. * A 1.2 cm intermediate attenuation indeterminate left mid pole renal lesion. Recommend further characterization with renal ultrasound. * Hepatic steatosis. Subtle nodularity of the hepatic contour, recommend correlation with any risk factors for cirrhosis. * Layering sludge or noncalcified stones within gallbladder without evidence of acute cholecystitis. 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
[2023-07-02 16:44] VITALS: BP 116/62; PULSE 62; RESP 18; TEMP 36.3; O2SAT 95; BMI 34.0
--- NOTE | 2023-07-02 16:45 | ED.GENADULT ---
HPI - General Adult General Chief complaint: Urogenital-Male Stated complaint: Difficulty Voiding, seen earlier today Time Seen by Provider: 07/02/23 17:49 Source: patient, family (), RN notes reviewed and old records reviewed Mode of arrival: ambulatory Limitations: no limitations History of Present Illness HPI narrative: 73-year-old male with past medical history significant for diabetes, hypertension, anxiety, obesity, chronic kidney disease presents for evaluation of difficulty urinating. Patient reports that he has had difficulty urinating for the last 5 days He was seen here at 2:00 a.m. this morning for similar symptoms He had labs, UA and a rectal examination with no concerning findings. The patient was encouraged to stop the cephalexin that he was taken for reported UTI as his urine was negative He was started on Pyridium which has not helped his symptoms at all Patient continues to feel as though he needs to void his bladder but ?only a little bit troubles out. ? Of note, the patient has also been on amoxicillin twice since April for dental infections. He started cephalexin 5 days ago for UTI. He states that he had been having persistent watery diarrhea up until last night when he stop the cephalexin No recent travel His blood sugars have also been elevated often to 270 today Related Data Home Medications Medication Instructions Recorded Confirmed dulaglutide 1.5 mg/0.5 mL 1.5 mg subcut QWEEK 04/05/23 04/05/23 subcutaneous pen injector Previous Rx's Medication Instructions Recorded True Metrix Glucose Test Strip #100 ea 11/17/20 (blood sugar diagnostic) aspirin 81 mg tablet,delayed 81 mg PO DAILY 90 days #90 tabs 11/17/20 release cholecalciferol (vitamin D3) 25 25 mcg PO DAILY 90 days #90 caps 11/17/20 mcg (1,000 unit) capsule true metrix Glucometer LANCETS #100 ea 11/17/20 blood-glucose meter (FreeStyle #1 ea 09/11/21 Lite Meter kit) azelaic acid 15 % topical foam 1 appl topical QAM 90 days #3 02/17/22 (Finacea) multiple units amlodipine 2.5 mg tablet 2.5 mg PO DAILY 90 days #90 tabs 05/25/22 lancets 33 gauge (TRUEplus Lancets) #100 ea 06/01/22 lancets 33 gauge (BD Ultra Fine #100 ea 08/23/22 Lancets) nirmatrelvir 150 mg-ritonavir 100 See Rx Instructions PO PER PKG DIR 11/20/22 mg tablets in a dose pack 5 days #20 tabs (Paxlovid) sildenafil 100 mg tablet 100 mg PO DAILY PRN sexual 12/24/22 activity #30 tabs blood sugar diagnostic (FreeStyle #100 ea 02/14/23 Lite Strips) amlodipine 2.5 mg tablet 2.5 mg PO DAILY 90 days #90 tabs 04/05/23 amlodipine 5 mg tablet 5 mg PO DAILY 90 days #90 tabs 04/05/23 hydrochlorothiazide 12.5 mg capsule 12.5 mg PO QAM 90 days #90 ea 04/05/23 losartan 100 mg tablet 100 mg PO DAILY 90 days #90 tabs 04/05/23 nebivolol 20 mg tablet 20 mg PO DAILY 90 days #90 tabs 04/05/23 simvastatin 20 mg tablet 20 mg PO DAILY 90 days #90 tabs 04/05/23 diclofenac sodium 1 % topical gel 4 g topical QID PRN pain #100 grams 04/11/23 (Voltaren Arthritis Pain) glipizide 2.5 mg tablet, extended 2.5 mg PO DAILY 90 days #90 tabs 05/29/23 release 24 hr pen needle, diabetic 32 gauge x #100 ea 06/06/23 (BD Ultra-Fine Nohelia Pen Needle) allopurinol 100 mg tablet 100 mg PO DAILY 90 days #90 tabs 06/15/23 Lantus Solostar U-100 Insulin 100 10 unit (0.1 mL) subcut QPM 90 06/22/23 unit/mL (3 mL) subcutaneous pen days #15 mL (insulin glargine) Synthroid 25 mcg tablet 25 mcg PO DAILY 90 days #90 tabs 06/22/23 (levothyroxine) cephalexin 500 mg capsule 500 mg PO Q6H 7 days #28 caps 06/28/23 phenazopyridine 200 mg tablet 200 mg PO TID 2 days #6 tabs 07/02/23 (Pyridium) Allergies Allergy/AdvReac Type Severity Reaction Status Date / Time Beta-Blockers Allergy Unknown SWOLLEN Verified 07/02/23 16:44 (Beta-Adrenergic Bloc TONGUE lisinopril Allergy Unknown tongue Verified 07/02/23 01:36 swelling meperidine [Demerol] Allergy Unknown Unknown Verified 07/02/23 01:36 cephalexin AdvReac Intermediate Diarrhea Verified 07/02/23 03:14 oxycodone [From Percocet] AdvReac Vomiting Verified 07/02/23 01:36 Review of Systems Constitutional: Constitutional: Reports chills, Denies fever(s) and Denies headache(s) ENT: Denies headache(s) Cardiovascular: Cardiovascular: Denies chest pain and Denies dyspnea Respiratory: Respiratory: Denies cough and Denies dyspnea Gastrointestinal: Gastrointestinal: Reports abdominal pain, Denies nausea and Denies vomiting Genitourinary: Genitourinary: Reports difficulty urinating, Denies penile discharge, Denies scrotal swelling, Reports urinary hesitancy and Reports urinary urgency Musculoskeletal: Musculoskeletal: Denies back pain Integumentary/Breasts: Skin/Breast: Denies rash Neurologic: Denies headache(s) [facility] Past Medical History Medical History Elevated LFTs Non-toxic multinodular goiter Vitamin D deficiency History of gout Abdominal aortic aneurysm Obesity (BMI 30-39.9) Pure hypercholesterolemia Benign essential hypertension Chronic kidney disease (CKD), stage III (moderate) Type 2 diabetes mellitus with diabetic chronic kidney disease Surgical History History of thyroid surgery (~09/14/21) History of right knee surgery History of colonoscopy History of tonsillectomy Family History Family History Father CAD (coronary artery disease) Myocardial infarction Mother Congenital heart disease Breast cancer Uterine cancer Brother No problems noted. Sister No problems noted. Daughter No problems noted. Social History Social History Housing: House Alcohol intake: never Patient Tobacco Use Status: Former Tobacco user e-Cigarette/Vaping Use: Never Used Second Hand Smoke Exposure: Yes Advance Directives: No Advance Directives Information Provided: No service: No Current occupational status: retired Cognitive needs: No Hearing needs: No Vision needs: Yes Physical Exam ED Vital Signs: Vital Signs - 24 hr 07/02/23 16:44 07/02/23 17:52 07/02/23 19:06 Temperature 97.4 F 97.9 F 97.7 F Pulse Rate 62 61 59 Respiratory Rate 18 15 18 Blood Pressure 116/62 120/88 122/60 Pulse Oximetry 95 96 95 Oxygen Delivery Method Room Air Room Air Room Air 07/02/23 20:33 Temperature Pulse Rate 58 Respiratory Rate 16 Blood Pressure 126/66 Pulse Oximetry Oxygen Delivery Method BMI result Body Mass Index 34.0 Const General: healthy appearing, comfortable, no acute distress, alert and awake Nutritional Appearance: well nourished Orientation/consciousness: patient oriented x3 HENMT Head: Yes normocephalic and Yes atraumatic Eyes Eyelids: Yes eyelids normal Conjunctivae: conjunctivae normal Sclerae: sclerae normal Corneas: corneas normal Pupils: Equal, round and reactive pupils present EOM: EOMs intact bilaterally Neck Neck: Yes full ROM Resp Effort & Inspection: normal respiratory effort, able to speak in complete sentences and not labored GI Inspection: Yes distended Palpation (GI): Firmness to palpation present (GI) (Suprapubic region) and Tenderness to palpation present (GI) suprapubicly Skin General skin exam: elasticity normal Neuro General: patient oriented x3 Cranial nerves: Yes Equal, round and reactive pupils present and Yes Bilaterally intact EOM present Cognition (Neuro): normal cognition Extrem Other: Moving all extremities well without any obvious deformities Course Course Course Narrative: This is an RME: Additional HPI, ROS, PE not included below will be deferred to primary provider. This is a [id number], with a hx of CKD stage 3, type 2 diabetes, AAA, gout, presenting to the emergency department with a complaint of difficulty urinating. He states he has had urinary hesitancy. VSS. Was seen here this morning was discharged on pyridium however symptoms persisted and worsening. Plan: Labs, UA, post void. Reevaluation(s) Reevaluation #1: Discussed all results with the patient including labs, urine sample and CT imaging including incidental findings. Patient provided with a copy of the CT report to follow-up his PCP. Patient does have nitrates and esterase in the urine but no white cells or bacteria. Will await culture prior to treatment. Time: 21:51 Medications Administered Discontinued Medications Generic Name Dose Route Start Last Admin Trade Name Freq PRN Reason Stop Dose Admin Lidocaine HCl 10 ml 11/18/23 18:05 07/02/23 18:12 Lidocaine Hcl 2 % Urojet 10 Ml Jel.Pf.Guilherme TOPICAL 07/02/23 18:06 10 ml ONCE ONE Administration Medical Decision Making Medical Decision Making [facility] Narrative: 73-year-old male with past medical history significant for chronic kidney disease, diabetes presents for evaluation of urinary retention. Bladder scan shows 450 cc in the bladder. On exam the abdomen is distended in the suprapubic region, he is tender in this area. I suspect there is more urine than the bladder scan is reported. Plan for repeat labs, UA, Pete catheter, CT scan of the abdomen pelvis as this is a repeat visit. Will get a stool sample if the patient can not provide want to rule out C diff but I feel this is less likely as not had any watery bowel movements today. Differential Diagnosis Differential Diagnoses: The differential diagnosis associated with the presentation includes Cystitis UTI Urinary retention BPH Obstructive uropathy Prostatitis Lab Data [facility] Lab Attestation statement: I reviewed the patient's lab results. Leukocytosis of 11.3, a very mild anemia consistent with his labs from yesterday. Patient has a mild elevation of his creatinine which is possibly related to urinary retention. 07/02/23 17:04 07/02/23 17:04 Labs: Lab Results 07/02/23 07/02/23 Range/Units 17:04 19:05 WBC 11.3 H (4.8-10.8) X10*3/uL RBC 4.95 (4.60-5.80) X10*6/uL Hgb 13.4 L (14.0-18.0) g/dl Hct 41.6 L (42.0-52.0) % MCV 84.0 (80.0-98.0) fL MCH 27.1 (27.0-33.0) pg MCHC 32.2 (31.0-36.0) g/dl RDW 14.2 (11.0-16.0) % Plt Count 185 (160-400) X10*3/uL MPV 9.6 (9.4-12.4) fL Immature Gran % (Auto) 1.3 H (0.0-0.4) % Neut % (Auto) 68.9 (45-73) % Lymph % (Auto) 14.7 L (20-40) % Archuleta % (Auto) 12.1 H (2-11) % Eos % (Auto) 2.6 (0-4) % Baso % (Auto) 0.4 (0-2) % Lymph # (Auto) 1.7 (1.2-4.9) X10*3/uL Archuleta # (Auto) 1.4 H (0.1-1.2) X10*3/uL Eos # (Auto) 0.3 (0.0-0.4) X10*3/uL Baso # (Auto) 0.0 (0.0-0.2) X10*3/uL Abs Immat Gran (auto) 0.15 H (0.00-0.03) X10*3/uL Absolute Neuts (auto) 7.8 (2.0-8.3) x10*3/uL Absolute Nucleated RBC 0.000 (0.0-0.012) X10*3/uL Nucleated RBC % (auto) 0.0 (0.0-0.2) /100WBC Sodium 138 (135-145) mmol/L Potassium 3.7 (3.3-5.1) mmol/L Chloride 100 (96-108) mmol/L Carbon Dioxide 28 (22-29) mmol/L Anion Gap 14 (12-20) BUN 18 H (9-16) mg/dL Creatinine 1.43 H (0.5-1.4) mg/dL Estim Creat Clear Calc 57.3 Estimated GFR 48 Random Glucose 251 H (60-115) mg/dL Calcium 9.8 (8.4-10.2) mg/dL Total Bilirubin 0.5 (0.0-1.0) mg/dL Direct Bilirubin 0.2 (0.0-0.5) mg/dL AST 40 H (5-37) U/L ALT 54 H (0-40) U/L Alkaline Phosphatase 136 H (39-117) U/L Total Protein 7.4 (6.5-8.0) g/dL Albumin 4.1 (3.5-5.0) g/dL Urine Color Dark Yellow Urine Appearance Clear Urine pH 5.5 (5.0-9.0) Ur Specific Carlton 1.015 (1.005-1.025) Urine Protein Trace (Neg-Trace) mg/dL Urine Glucose (UA) 250 H (Negative) mg/dL Urine Ketones Negative (Negative) mg/dL Urine Blood Large (3+) H (Negative) Urine Nitrite Positive H (Negative) Ur Leukocyte Esterase Trace H (Negative) Urine RBC >20 H (0-2) /HPF Urine WBC 0-5 (0-5) /HPF Ur Squamous Epith Cells 0-2 (0-2) /HPF Urine Bacteria None Seen (None Seen) Hyaline Casts 0-2 (0-2) /LPF Discharge Plan Discharge Clinical Impression: Acute urinary retention Patient Disposition: Home, Self-Care Instructions: Urinary Retention in Men (ED) Additional Instructions: Follow-up with urology at the number provided. Call Dr. Aguilar's office Tuesday morning Return for new or worsening symptoms Follow-up with your primary doctor as well Prescriptions: No Action (DME) blood-glucose meter [FreeStyle Lite Meter] Kit See Rx Instructions .Route Qty: 1 0RF Rx Instructions: Test Daily Finacea 15 % foam 1 appl topical QAM 90 Days Qty: 3 1RF (DME) lancets [TRUEplus Lancets] 33 gauge misc See Rx Instructions .ROUTE .MEDSUPPLY Qty: 100 12RF Rx Instructions: blood sugar 1 to 2 times a day as directed - NO SUBSTITUTION PLEASE! -- Dx Code: E11.21 -- DIABETES MELLITUS (DME) lancets [BD Ultra Fine Lancets] 33 gauge misc See Rx Instructions .Route Qty: 100 0RF Rx Instructions: Test Daily Paxlovid 150-100 mg tablets,dose pack See Rx Instructions PO PER PKG DIR 5 Days Qty: 20 0RF Rx Instructions: PO PER PKG DIR nirmatrelvit 150 mg with Ritonavir 100 mg BID (DME) FreeStyle Lite Strips Strip See Rx Instructions .Route Qty: 100 3RF Rx Instructions: Test Daily diclofenac sodium [Voltaren Arthritis Pain] 1 % gel 4 g topical QID PRN (Reason: pain) Qty: 100 5RF Rx Instructions: apply to single knee, ankle, foot; for foot includes sole/toes/top of foot glipizide 2.5 mg tablet extended release 24hr 2.5 mg PO DAILY 90 Days Qty: 90 3RF (DME) pen needle, diabetic [BD Ultra-Fine Nohelia Pen Needle] 32 gauge x 5/32 needle See Rx Instructions .ROUTE .MEDSUPPLY Qty: 100 3RF Rx Instructions: As directed once a day allopurinol 100 mg tablet 100 mg PO DAILY 90 Days Qty: 90 3RF levothyroxine [Synthroid] 25 mcg tablet 25 mcg PO DAILY 90 Days Qty: 90 3RF insulin glargine [Lantus Solostar U-100 Insulin] 100 unit/mL (3 mL) insulin pen 10 unit subcut QPM 90 Days Qty: 15 3RF cephalexin 500 mg capsule 500 mg PO Q6H 7 Days Qty: 28 0RF phenazopyridine [Pyridium] 200 mg tablet 200 mg PO TID 2 Days Qty: 6 0RF aspirin 81 mg tablet,delayed release (DR/EC) 81 mg PO DAILY 90 Days Qty: 90 3RF (DME) True Metrix Glucose Test Strip Strip See Rx Instructions .ROUTE .MEDSUPPLY Qty: 100 12RF Rx Instructions: As directed - test 1 to 2 times day (DME) true metrix Glucometer LANCETS See Rx Instructions .Route .MEDSUPPLY Qty: 100 12RF Rx Instructions: Test blood sugar 1 to 2 times a day as directed - NO SUBSTITUTION PLEASE! cholecalciferol (vitamin D3) 25 mcg (1,000 unit) capsule 25 mcg PO DAILY 90 Days Qty: 90 3RF dulaglutide 1.5 mg/0.5 mL pen injector 1.5 mg subcut QWEEK amlodipine 5 mg tablet 5 mg PO DAILY 90 Days Qty: 90 3RF amlodipine 2.5 mg tablet 2.5 mg PO DAILY 90 Days Qty: 90 3RF Rx Instructions: Take this IN ADDITION to Amlodipine 5 mg for a TOTAL of 7.5 mg QD hydrochlorothiazide 12.5 mg capsule 12.5 mg PO QAM 90 Days Qty: 90 3RF losartan 100 mg tablet 100 mg PO DAILY 90 Days Qty: 90 3RF nebivolol 20 mg tablet 20 mg PO DAILY 90 Days Qty: 90 3RF simvastatin 20 mg tablet 20 mg PO DAILY 90 Days Qty: 90 3RF amlodipine 2.5 mg tablet 2.5 mg PO DAILY 90 Days Qty: 90 3RF sildenafil 100 mg tablet 100 mg PO DAILY PRN (Reason: sexual activity) Qty: 30 0RF Rx Instructions: administer 30 minutes to 4 hours before activity Referrals: Link Aguilar MD [Physician] - (urinary retention)
[2023-07-02 17:07] LABS: MANUAL DIFF FLAG NO
[2023-07-02 17:09] LABS: Basophils Percent Auto 0.4 % (0-2); Eosinophils Absolute Auto 0.3 X10*3/uL (0.0-0.4); Eosinophils Percent Auto 2.6 % (0-4); Hematocrit 41.6 % (42.0-52.0); Hemoglobin 13.4 g/dl (14.0-18.0); Imm Gran Abs Auto 0.15 X10*3/uL (0.00-0.03); Imm Gran Pct Auto 1.3 % (0.0-0.4); Lymphocytes Absolute Auto 1.7 X10*3/uL (1.2-4.9); Lymphocytes Percent Auto 14.7 % (20-40); Mean Corpuscular HGB Conc 32.2 g/dl (31.0-36.0); Mean Corpuscular Hemoglobin 27.1 pg (27.0-33.0); Mean Platelet Volume 9.6 fL (9.4-12.4); Monocytes Absolute Auto 1.4 X10*3/uL (0.1-1.2); Monocytes Percent Auto 12.1 % (2-11); Neutrophils Absolute Auto 7.8 x10*3/uL (2.0-8.3); Neutrophils Percent Auto 68.9 % (45-73); Platelet Count 185 X10*3/uL (160-400); Red Blood Count 4.95 X10*6/uL (4.60-5.80); Red Cell Distribution Width 14.2 % (11.0-16.0); White Blood Count 11.3 X10*3/uL (4.8-10.8)
[2023-07-02 17:30] LABS: Alanine Aminotransferase 54 U/L (0-40); Albumin Level 4.1 g/dL (3.5-5.0); Alkaline Phosphatase 136 U/L (39-117); Anion Gap 14 (12-20); Aspartate Amino Transferase 40 U/L (5-37); Bilirubin Direct 0.2 mg/dL (0.0-0.5); Bilirubin Total 0.5 mg/dL (0.0-1.0); Blood Urea Nitrogen 18 mg/dL (9-16); Calcium 9.8 mg/dL (8.4-10.2); Carbon Dioxide 28 mmol/L (22-29); Chloride 100 mmol/L (96-108); Creatinine Clr Calc Pharmacy 57.3; Estimated Glomerular Filt Rate 48; Glucose Random 251 mg/dL (60-115); Potassium 3.7 mmol/L (3.3-5.1); Sodium 138 mmol/L (135-145); Total Protein 7.4 g/dL (6.5-8.0)
[2023-07-02 17:52] VITALS: BP 120/88; PULSE 61; RESP 15; TEMP 36.6; O2SAT 96
--- NOTE | 2023-07-02 18:04 | PC.NURSE ---
Bladder scanned for 408, provider aware
[2023-07-02] MEDS: Lidocaine HCl 2 % Urojet 10 ML JEL.PF.APP TOPICAL (18:12)
--- NOTE | 2023-07-02 18:20 | PC.NURSE ---
Masters placed with 600mls of orange urine into masters bag
[2023-07-02 19:06] VITALS: BP 122/60; PULSE 59; RESP 18; TEMP 36.5; O2SAT 95
--- NOTE | 2023-07-02 19:07 | PC.NURSE ---
16fr 10cc masters placed
[2023-07-02 19:13] LABS: Appearance Urine Clear; Color Urine Dark Yellow; Glucose Urine UA 250 mg/dL (Negative); Leukocyte Esterase Urine Trace (Negative); Nitrite Urine Positive (Negative); PH 5.5 (5.0-9.0); Specific Gravity - Urine 1.015 (1.005-1.025); UMIC TRIGGER UACC YES; Urine Blood Large (3+) (Negative); Urine Ketones Negative (Negative); Urine Protein Trace mg/dL (Neg-Trace)
[2023-07-02 19:24] LABS: Bacteria Urine None Seen (None Seen); Hyaline Casts Urine 0-2 /LPF (0-2); RBC Urine >20 /HPF (0-2); Squamous Epithelial Cell Urine 0-2 /HPF (0-2); UACC Culture Trigger YES; WBC Urine 0-5 /HPF (0-5)
[2023-07-02 20:33] VITALS: BP 126/66; PULSE 58; RESP 16
== END 2023-07-02 21:58 | disposition home or self-care (01) ==
PROVIDERS: Physician Assistant Medical; Emergency Provider Student in an Organized Health Care Education/Training Program; PCP Internal Medicine
DX: R33.9 Retention of urine, unspecified (principal); E11.22 Type 2 diabetes mellitus with diabetic chronic kidney disease; I12.9 Hypertensive chronic kidney disease with stage 1 through stage 4 chronic kidney disease, or unspecified chronic kidney disease; N18.30 Chronic kidney disease, stage 3 unspecified; E78.00 Pure hypercholesterolemia, unspecified; Z79.899 Other long term (current) drug therapy; Z79.4 Long term (current) use of insulin; Z79.82 Long term (current) use of aspirin; Z87.891 Personal history of nicotine dependence
CPT/HCPCS: 36415; 51702; 51798; 74176; 80048; 80076; 81001; 85025; 87086; 99284

== ENCOUNTER 2023-07-12 10:55 | Outpatient (AMB) | payer MEDICARE, SELFPAY ==
--- NOTE | 2023-07-12 11:36 | A.OFFVIS_ITS ---
Intake Intake Visit Reasons: Retention of urine, unspecified/voiding trial Intake Note: New Patient presents for initial visit for retention/voiding trial Urology Medications: none Blood Thinner: aspirin PVR: 76ml's Safety Deposit Supervisor Required: No Accompanied by: Spouse Allergies Beta-Blockers (Beta-Adrenergic Bloc Allergy (Unknown, Verified 07/12/23 22:34) SWOLLEN TONGUE lisinopril Allergy (Unknown, Verified 07/12/23 22:34) tongue swelling meperidine [Demerol] Allergy (Unknown, Verified 07/12/23 22:34) Unknown cephalexin Adverse Reaction (Intermediate, Verified 07/12/23 22:34) Diarrhea oxycodone [From Percocet] Adverse Reaction (Verified 07/12/23 22:34) Vomiting Medication List - Last Reconciled 07/12/23 by KEIRY Thompson- allopurinol 100 mg PO DAILY 90 days amlodipine 5 mg PO DAILY 90 days amlodipine 2.5 mg PO DAILY 90 days aspirin 81 mg PO DAILY 90 days azelaic acid 15% (Finacea) 1 appl topical QAM 90 days blood sugar diagnostic (FreeStyle Lite Strips) Test Daily blood-glucose meter (FreeStyle Lite Meter kit) Test Daily cholecalciferol (vitamin D3) 25 mcg PO DAILY 90 days diclofenac sodium 1% (Voltaren Arthritis Pain) 4 grams topical QID PRN dulaglutide 1.5 mg subcut QWEEK glipizide ER 2.5 mg PO DAILY 90 days hydrochlorothiazide 12.5 mg PO QAM 90 days hydrocortisone acetate (Anusol-HC) 25 mg NV BID 14 days lancets (BD Ultra Fine Lancets) Test Daily lancets (TRUEplus Lancets) blood sugar 1 to 2 times a day as directed - NO SUBSTITUTION PLEASE! -- Dx Code: E11.21 -- DIABETES MELLITUS Lantus Solostar U-100 Insulin (insulin glargine) 10 units (0.1 mL) subcut QPM 90 days NS losartan 100 mg PO DAILY 90 days nebivolol 20 mg PO DAILY 90 days pen needle, diabetic (BD Ultra-Fine Nohelia Pen Needle) As directed once a day sildenafil 100 mg PO DAILY PRN simvastatin 20 mg PO DAILY 90 days Synthroid (levothyroxine) 25 mcg PO DAILY 90 days NS terazosin 5 mg PO BEDTIME 30 days [true metrix Glucometer LANCETS Test blood sugar 1 to 2 times a day as directed - NO SUBSTITUTION PLEASE! NS] True Metrix Glucose Test Strip (blood sugar diagnostic) As directed - test 1 to 2 times day NS HPI HPI Comments History of Present Illness Details Donald is a very pleasant 73-year-old male patient of who was accompanied by his at today's office visit. He has a past medical history of elevated LFTs, vitamin-D deficiency, gout, abdominal aortic aneurysm, obesity, hypercholesteremia, hypertension, chronic kidney disease stage III, type 2 diabetes, degenerative joint disease, and os teoarthritis. He presents to the office today as a new patient for urinary retention. In discussion with the patient today reports seeking emergency room care approximately 10 days ago for urinary issues at which time he was noted to be in urinary retention a Pete catheter was placed and recommendations were made for Urology follow-up. Patient reports having had approximately 500 mL in his bladder prior to Pete insertion. When asked he reports no previous issues with his urination. In review of patient's chart it appears patient was nitrate positive. He reports having completed antibiotic therapy prescribed by ER physician. It appears CT of the abdomen was ordered and performed. Discussed Bosniak 1 benign-appearing left upper pole renal cyst. A 1.2 cm intermediate attenuation indeterminate left mid pole renal lesion noted. Recommend further characterization with renal ultrasound per radiology report. The bladder with Pete catheter present decompressing the bladder. Question of minimal infiltration of the perivascular fat, recommended correlation with urinalysis in any symptoms of cystitis. In office voiding trial performed and patient was able to successfully urinate independently. Discussed at length potential causes of urinary retention. Discussed obtaining retroperitoneal ultrasound as well as PSA within the next 6 to 8 weeks given recent episode of retention. He otherwise offers no issues or concerns. In review of patient's chart it appears PSAs are as follows: 07/03--1.3 08/04--3.4 PFSH Medical History Elevated LFTs Non-toxic multinodular goiter Vitamin D deficiency History of gout Abdominal aortic aneurysm Obesity (BMI 30-39.9) Pure hypercholesterolemia Benign essential hypertension Chronic kidney disease (CKD), stage III (moderate) Type 2 diabetes mellitus with diabetic chronic kidney disease Surgical History History of thyroid surgery (~09/14/21) History of right knee surgery History of colonoscopy History of tonsillectomy Family History Father CAD (coronary artery disease) Myocardial infarction Mother Congenital heart disease Breast cancer Uterine cancer Brother No problems noted. Sister No problems noted. Daughter No problems noted. Social History Housing: House Alcohol intake: never Patient Tobacco Use Status: Former Tobacco user e-Cigarette/Vaping Use: Never Used Second Hand Smoke Exposure: Yes service: No Current occupational status: retired Cognitive needs: No Hearing needs: No Vision needs: Yes Review of Systems Const Reports as per [facility] Eyes Reports no additional complaints ENT Reports no additional complaints Card Reports as per HPI Resp Reports no additional complaints GI Reports as per HPI Reports as per HPI Musc Reports as per HPI Neuro Reports no additional complaints Psych Reports no additional complaints Endo Reports as per HPI Physical Exam Const General: cooperative, healthy appearing, comfortable, no acute distress, well developed, alert and awake Orientation/consciousness: patient oriented x3 Limitations: no limitations HEENT Head: Yes normal to inspection, Yes normocephalic and Yes atraumatic Ears: hearing grossly normal bilaterally Eyes General: appearance normal, both eyes and all related structures Neck Neck: Yes normal visual inspection and Yes trachea midline Chest Chest palpation & inspection: normal inspection of the chest Resp Effort & Inspection: normal respiratory effort and able to speak in complete sentences Cardio Rate: regular rate GI Inspection: Yes normal to inspection General: Yes no CVA tenderness Back/Spine/Pelvis Back: no CVA tenderness Skin General skin exam: no rashes or lesions noted Neuro General: patient oriented x3 Extrem General: Yes normal to inspection Psych Appearance: grossly normal and well kempt Mental Status: mental status grossly normal Speech and movement: Normal speech and movement present and Clear speech present Affect: normal affect Attitude: cooperative Thought process: Normal thought process present Thought content: Normal thought content present Insight: Fair insight present (Psych) Judgement: Fair judgement present (Psych) Office Procedures Bladder/Catheter Procedure Details: 120 mls sterile water instilled into bladder, 16 fr cath removed, pt tolerated removal well. MA to room to bladder scan. 72495-Syvtloxrqg of Bladder 26797-Amnvgo Bladder Catheter Procedure code (CPT) selection complete Post Void Residual Post Residual Void Post Void Residual (PVR): 76 75622-Hpsr Void Residual by ultrasound Results Reviewed Results Reviewed: Date of Service: 07/02/23 Procedure(s): CT abdomen pelvis wo IV con EXAMINATION: CT ABDOMEN AND PELVIS WITHOUT CONTRAST FINDINGS: LUNG BASES: Similarly partially calcified right basilar pleural plaques. ABDOMINAL AND PELVIC WALL: Again seen is macroscopic fat within the left hip adductor musculature which may reflect a intramuscular lipoma, incompletely imaged. LIVER AND BILIARY TREE: Multiple calcified granulomas in the liver. Hypoattenuating hepatic parenchyma compatible with hepatic steatosis. Subtle nodularity of the hepatic contour, recommend correlation with any risk factors for for cirrhosis. GALLBLADDER: Layering sludge or noncalcified stones within gallbladder without evidence of acute cholecystitis. PANCREAS: Unremarkable. SPLEEN: Incidentally noted accessory splenule. ADRENAL GLANDS: A 1 cm low-attenuation right adrenal nodule, previously 1.8 cm in 2016 and therefore likely benign such as an adenoma, no routine imaging follow-up recommended. KIDNEYS AND URETERS: Bosniak 1 benign-appearing left upper pole renal cyst. A 1.2 cm intermediate attenuation indeterminate left mid pole renal lesion. GASTROINTESTINAL TRACT: There is moderate circumferential rectal wall thickening with minimal infiltration of the perirectal fat, recommend correlation with symptoms of proctitis. Normal appendix. VASCULAR: Infrarenal abdominal aortic aneurysm measuring 3.8 cm, increased from 2016 where it measured 3 cm. Atherosclerosis of the abdominal aorta. LYMPH NODES/PERITONEUM: No lymphadenopathy. FREE FLUID: None. BLADDER: Pete catheter decompresses the bladder. Question of minimal infiltration of the perivesicular fat, recommend correlation with urinalysis and any symptoms of cystitis. PELVIC VISCERA: Prostate is enlarged measuring 6.4 cm in transverse diameter. OSSEOUS STRUCTURES: Sclerotic lesion in the right iliac bone with Hounsfield units suggesting a bone island. CT/CT abdomen pelvis wo IV con IMPRESSION: * There is moderate circumferential rectal wall thickening with minimal infiltration of the perirectal fat, recommend correlation with symptoms of proctitis. * Question of minimal infiltration of the perivesicular fat, recommend correlation with urinalysis and any symptoms of cystitis. * Infrarenal abdominal aortic aneurysm measuring 3.8 cm, increased from 2016 where it measured 3 cm. Recommend followup every 2 years. Reference: J Am Monique Radiol 2013; 10 (10): 789-794. * A 1.2 cm intermediate attenuation indeterminate left mid pole renal lesion. Recommend further characterization with renal ultrasound. * Hepatic steatosis. Subtle nodularity of the hepatic contour, recommend correlation with any risk factors for cirrhosis. * Layering sludge or noncalcified stones within gallbladder without evidence of acute cholecystitis. 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 Assessment & Plan Assessment & Plan (1) Urinary retention: Code(s): R33.9 - Retention of urine, unspecified (2) Renal cyst: Code(s): N28.1 - Cyst of kidney, acquired (3) Renal lesion: Code(s): N28.9 - Disorder of kidney and ureter, unspecified Plan In office voiding trial performed; patient successfully able to void independently Discussed and stressed the importance of drinking plenty of water and seeking medical treatment if unable to void Recent CT results reviewed with the patient today; as noted above Discussed obtaining retroperitoneal ultrasound as well as PSA in the next 6-8 weeks given recent episode of urinary retention. Discussed at length potential causes of urinary retention Discussed and stressed the importance of managing diabetes for improvement in overall health and well-being. Start terazosin 5 mg at bedtime as discussed and prescribed. Discussed possible near future in office urodynamics and or cystoscopy for further assessment evaluation if symptoms persist and/or worsen. Follow-up in 2-3 months with labs and imaging to be completed prior; or sooner with any issues, concerns, and or questions. Orders: Orders AMB Bladder/Catheter Procedure Today R33.9 - Retention of urine, unspecified US retroperitoneal comp Today R33.9 - Retention of urine, unspecified Prostate Specific Antigen 6 Weeks R97.20 - Elevated prostate specific antigen [PSA] AMB Post Void Residual by ultrasound Today R33.9 - Retention of urine, unspecified Medications: New terazosin 5 mg PO BEDTIME 30 days 30 caps 1RF N40.1 - Benign prostatic hyperplasia with lower urinary tract symptoms, R35.0 - Frequency of micturition Patient Instructions: The patient had an opportunity to ask questions regarding the treatment plan. All questions were answered. Physical exam, labs, and imaging were discussed and reviewed in detail. As well as risks, benefits, and discussion of treatment choices. No major barriers to understanding were identified. The patient expressed understanding and agreement with the above treatment plan. The patient was made aware they should contact our office by phone for worsening of their current condition, the appearance of new symptoms, or with any questions or concerns. Compliance is encouraged with any medications and follow up testing that is ordered. It is a privilege to be allowed the opportunity to participate in? your urological care.? Again, if you have any questions or concerns If you have any questions or concerns please do not hesitate to contact me. The office is [phone]. This note is constructed using voice recognition software. While every effort has been made to ensure accuracy distance learning coordinator errors may have been included. Yours sincerely, KEIRY Thompson-SHAILESH Coding Level of Care Code New Pt Level 4 (37935) Diagnoses Urinary retention R33.9 Renal cyst N28.1 Renal lesion N28.9 CPT Codes Bladder/Catheter Procedure - CPT: 21714-Fptyvzsepr of Bladder ([id number]) Bladder/Catheter Procedure - CPT: 10471-Hywmtp Bladder Catheter ([id number]) Post Residual Void - PVR CPT Code: 68592-Wqwf Void Residual by ultrasound ([id number])
== END 2023-07-12 14:01 | disposition home or self-care (01) ==
PROVIDERS: PCP Internal Medicine; Visit Provider Nurse Practitioner Family
DX: R33.9 Retention of urine, unspecified (principal)
CPT/HCPCS: 51700; 99204

== ENCOUNTER → 2023-07-12 10:55 | Outpatient (BNVA) | payer MEDICARE, SELFPAY | PROVIDERS: PCP Internal Medicine; Visit Provider Nurse Practitioner Family | DX: R33.9 Retention of urine, unspecified (principal); N28.1 Cyst of kidney, acquired; N28.9 Disorder of kidney and ureter, unspecified | CPT/HCPCS: 51700; 51798; 99202 ==

== ENCOUNTER 2023-09-09 09:11 | Outpatient (REF) | payer MEDICARE, SELFPAY ==
[2023-09-09 09:25] LABS: MANUAL DIFF FLAG NO
[2023-09-09 09:36] LABS: Basophils Absolute Auto 0.1 X10*3/uL (0.0-0.2); Basophils Percent Auto 0.6 % (0-2); Eosinophils Absolute Auto 0.1 X10*3/uL (0.0-0.4); Hematocrit 42.1 % (42.0-52.0); Hemoglobin 13.9 g/dl (14.0-18.0); Imm Gran Abs Auto 0.07 X10*3/uL (0.00-0.03); Imm Gran Pct Auto 0.6 % (0.0-0.4); Lymphocytes Absolute Auto 1.8 X10*3/uL (1.2-4.9); Lymphocytes Percent Auto 15.9 % (20-40); Mean Corpuscular Hemoglobin 27.4 pg (27.0-33.0); Mean Corpuscular Volume 82.9 fL (80.0-98.0); Mean Platelet Volume 10.2 fL (9.4-12.4); Monocytes Absolute Auto 0.8 X10*3/uL (0.1-1.2); Monocytes Percent Auto 6.7 % (2-11); Neutrophils Absolute Auto 8.5 x10*3/uL (2.0-8.3); Neutrophils Percent Auto 75.2 % (45-73); Platelet Count 175 X10*3/uL (160-400); Red Blood Count 5.08 X10*6/uL (4.60-5.80); Red Cell Distribution Width 13.5 % (11.0-16.0); White Blood Count 11.3 X10*3/uL (4.8-10.8)
[2023-09-09 09:44] LABS: Estimated Average Glucose 174 mg/dL; Hemoglobin A1c % 7.7 % (<6.0)
[2023-09-09 10:28] LABS: Alanine Aminotransferase 30 U/L (0-40); Albumin Level 4.3 g/dL (3.5-5.0); Alkaline Phosphatase 94 U/L (39-117); Anion Gap 15 (12-20); Aspartate Amino Transferase 20 U/L (5-37); Bilirubin Total 0.4 mg/dL (0.0-1.0); Blood Urea Nitrogen 20 mg/dL (9-16); Calcium 9.5 mg/dL (8.4-10.2); Carbon Dioxide 25 mmol/L (22-29); Chloride 105 mmol/L (96-108); Cholesterol 115 mg/dL (<200); Estimated Glomerular Filt Rate 44; Glucose Fasting 200 mg/dL (60-99); HDL Cholesterol 36 mg/dL (>40); LDL Cholesterol Calculated 57 mg/dL (<100); Potassium 3.6 mmol/L (3.3-5.1); Sodium 141 mmol/L (135-145); Total Protein 7.4 g/dL (6.5-8.0); Triglycerides 110 mg/dL (<150)
[2023-09-09 10:35] LABS: Thyroid Stimulating Hormone 5.84 uIU/mL (0.32-4.0); Vitamin D 25-OH Total 35.3 ng/mL (>30)
[2023-09-09 10:42] LABS: Appearance Urine Cloudy; Color Urine Dark Yellow; Glucose Urine UA Negative (Negative); Leukocyte Esterase Urine Moderate (2+) (Negative); Nitrite Urine Positive (Negative); Specific Gravity - Urine 1.025 (1.005-1.025); UMIC TRIGGER UACC YES; Urine Blood Small (1+) (Negative); Urine Ketones Trace mg/dL (Negative); Urine Protein 100 (2+) mg/dL (Neg-Trace)
[2023-09-09 10:55] LABS: Bacteria Urine 3+ (None Seen); Squamous Epithelial Cell Urine 0-2 /HPF (0-2); UACC Culture Trigger YES; WBC Urine >50 /HPF (0-5)
== END 2023-09-09 09:12 | disposition home or self-care (01) ==
LOC: HO.LAB 09:11
PROVIDERS: PCP Internal Medicine; Visit Provider Internal Medicine
DX: E11.9 Type 2 diabetes mellitus without complications (principal); E55.9 Vitamin D deficiency, unspecified; R30.0 Dysuria; E03.9 Hypothyroidism, unspecified; E78.00 Pure hypercholesterolemia, unspecified; I10 Essential (primary) hypertension
CPT/HCPCS: 36415; 80053; 80061; 81001; 82306; 83036; 84439; 84443; 85025; 87086; 87088; 87186

== ENCOUNTER 2023-09-14 14:09 | Outpatient (AMB) | payer MEDICARE, SELFPAY ==
[2023-09-14 14:13] VITALS: BP 114/70; PULSE 60; O2SAT 96; BMI 33.7
--- NOTE | 2023-09-14 14:13 | A.OFFPC_ITS ---
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 Required: No Accompanied by: Self / Same As Patient Allergies Beta-Blockers (Beta-Adrenergic Bloc Allergy (Unknown, Verified 09/14/23 14:46) SWOLLEN TONGUE lisinopril Allergy (Unknown, Verified 09/14/23 14:46) tongue swelling meperidine [Demerol] Allergy (Unknown, Verified 09/14/23 14:46) Unknown cephalexin Adverse Reaction (Intermediate, Verified 09/14/23 14:46) Diarrhea oxycodone [From Percocet] Adverse Reaction (Verified 09/14/23 14:46) Vomiting Medication List - Last Reconciled 09/14/23 by Jourdan Da Silva MD allopurinol 100 mg PO DAILY 90 days amlodipine 5 mg PO DAILY 90 days amlodipine 2.5 mg PO DAILY 90 days aspirin 81 mg PO DAILY 90 days azelaic acid 15% (Finacea) 1 appl topical QAM 90 days blood sugar diagnostic (FreeStyle Lite Strips) Test Daily blood-glucose meter (FreeStyle Lite Meter kit) Test Daily cholecalciferol (vitamin D3) 25 mcg PO DAILY 90 days diclofenac sodium 1% (Voltaren Arthritis Pain) 4 grams topical QID PRN dulaglutide 1.5 mg subcut QWEEK glipizide ER 2.5 mg PO DAILY 90 days hydrochlorothiazide 12.5 mg PO QAM 90 days hydrocortisone acetate (Anusol-HC) 25 mg [place] BID 14 days lancets (BD Ultra Fine Lancets) Test Daily lancets (TRUEplus Lancets) blood sugar 1 to 2 times a day as directed - NO MONTEZ BSTITUTION PLEASE! -- Dx Code: E11.21 -- DIABETES MELLITUS Lantus Solostar U-100 Insulin (insulin glargine) 10 units (0.1 mL) subcut QPM 90 days NS losartan 100 mg PO DAILY 90 days nebivolol 20 mg PO DAILY 90 days pen needle, diabetic (BD Ultra-Fine Nohelia Pen Needle) As directed once a day sildenafil 100 mg PO DAILY PRN simvastatin 20 mg PO DAILY 90 days Synthroid (levothyroxine) 25 mcg PO DAILY 90 days NS terazosin 5 mg PO BEDTIME 30 days [true metrix Glucometer LANCETS Test blood sugar 1 to 2 times a day as directed - NO SUBSTITUTION PLEASE! NS] True Metrix Glucose Test Strip (blood sugar diagnostic) As directed - test 1 to 2 times day NS Tobacco use date assessed: 09/14/23 Fall risk assessment: No Falls in past year Last assessed Fall Risk: 09/14/23 Dental Screening Dental Screen Date: 09/14/23 Did you have a dental visit in the last 12 months?: Yes Did you have a dental problem in the last 6 months where you did not have access to dental care?: No Was dental information given to patient?: Patient has dentist HPI 3 month follow up HPI Details Patient comes in today for his follow up visit States that he feels okay He denies any headaches or dizziness Denies any chest pains, no SOB No nausea/vomiting, no abdominal pain but relates (+) occasional sensation of heartburns recently, mostly at night No change in bowel habits noted States that he needs ALL of his Rx refilled and sent to his mail order pharmacy Had his follow up labs done last week - to discuss his results Adds that he was advised that he possibly has asbestosis in his lungs when he had abdominal and pelvic CT done at the ER back in June 2023 when he presented there with abdominal pain and the findings were noted incidentally - would like to know what he needs to do about this going forward [facility] Medical History Elevated LFTs Non-toxic multinodular goiter Vitamin D deficiency History of gout Abdominal aortic aneurysm Obesity (BMI 30-39.9) Pure hypercholesterolemia Benign essential hypertension Chronic kidney disease (CKD), stage III (moderate) Type 2 diabetes mellitus with diabetic chronic kidney disease Surgical History History of thyroid surgery (~09/14/21) History of right knee surgery History of colonoscopy History of tonsillectomy Family History Father CAD (coronary artery disease) Myocardial infarction Mother Congenital heart disease Breast cancer Uterine cancer Brother No problems noted. Sister No problems noted. Daughter No problems noted. Social History Housing: House Alcohol intake: never Patient Tobacco Use Status: Former Tobacco user e-Cigarette/Vaping Use: Never Used Second Hand Smoke Exposure: Yes service: No Current occupational status: retired Cognitive needs: No Hearing needs: No Vision needs: Yes Questionnaire PHQ-9 Over the last 2 weeks, how often have you been bothered by any of the following problems? 1. Little interest or pleasure in doing things: not at all 2. Feeling down, depressed, or hopeless: not at all 3. Trouble falling or staying asleep, or sleeping too much: not at all 4. Feeling tired or having little energy: not at all 5. Poor appetite or overeating: not at all 6. Feeling bad about yourself - or that you are a failure or have let yourself or your family down: not at all 7. Trouble concentrating on things, such as reading the newspaper or watching television: not at all 8. Moving or speaking so slowly that other people could have noticed. Or the opposite - being so fidgety or restless that you have been moving around a lot more than usual: not at all 9. Thoughts that you would be better off or of hurting yourself in some way: not at all Total score: 0 Depression Screening Interpretation: Negative Depression Screening Done: Yes [id number] - PHQ-9 Billing: Yes Source: Developed by Drs. Tank Chacon, Paris Feliciano, Kaleb Frey and colleagues, with an educational pam from [employer]. Thrive Questionnaire Date Thrive assessed: 09/14/23 I am a: Patient What is your living situation today?: I have a steady place to live Within the past 12 months, did the food you bought not last and you didn't have the money to get more?: Never true Within the past 12 months, did you worry whether your food would run out before you got money to buy more?: Never true Do you have trouble paying for medicines?: No Do you have trouble getting transportation to medical appointments?: No Do you have trouble paying your heating and electricity bill?: No Do you have trouble taking care of your child, family member or friend?: No Do you have trouble with day-to-day activities such as bathing, preparing meals, shopping, managing finances, etc.?: No Are you currently unemployed and looking for a job?: No Are you interested in more education?: No Please select the resources that you would like help with: None Currently or been in a relationship where the following occur: no concerns reported THRIVE Score: 0 AUDIT C Alcohol Use Questionnaire (AUDIT-C) 1. How often do you have a drink containing alcohol?: 2-4 times a month 2. How many drinks containing alcohol do you have on a typical day when you are drinking?: 1 or 2 3. How often do you have six or more drinks on one occasion?: Never Total Score: 2 Score Reviewed/Action Taken: Yes NIMESH-7 AMB Questionnaire NIMESH-7 Date NIMESH - 7 assessed: 09/14/23 Feeling nervous, anxious, or on edge: 0 = Not at all Not being able to stop or control worryin = Not at all Worrying too much about different things: 0 = Not at all Trouble relaxin = Not at all Being so restless that it is hard to sit still: 0 = Not at all Becoming easily annoyed or irritable: 0 = Not at all Feeling afraid as if something awful might happen: 0 = Not at all Total NIMESH-7 score (0-4 normal; 5-9 mild; 10-14 moderate; 15-21 severe): 0 Source: Developed by Drs. Tank Chacon, Paris Feliciano, Kaleb Frey and colleagues, with an educational pam from [employer]. Review of Systems Const Denies chills, Reports fatigue (increased lately), Denies fever(s) and Denies headache(s) ENT Denies dysphagia, Denies dizziness, Denies otalgia, Denies headache(s), Denies neck pain, Denies odynophagia and Denies sore throat Card Denies chest pain, Denies palpitations and Denies dyspnea Resp Denies cough and Denies dyspnea GI Denies abdominal pain, Denies constipation, Denies dysphagia, Denies heartburn, Denies diarrhea, Denies nausea, Denies odynophagia and Denies vomiting Denies dysuria, Denies nocturia and Denies urinary frequency Musc Denies back pain, Reports arthralgias (right knee, on and off - better with brace on) and Denies neck pain Skin/Breast Denies rash Neuro Denies dizziness and Denies headache(s) Endo Reports fatigue (increased lately) and Denies palpitations Physical exam (Primary Care) Vital Signs: Last Vital Signs Pulse 60 09/14/23 14:13 BP 114/70 09/14/23 14:13 Pulse Ox 96 09/14/23 14:13 Oxygen Delivery Method Room Air 09/14/23 14:13 BMI result Body Mass Index 33.7 Tobacco/Smoking Status: Tobacco use Status Tobacco use date assessed 09/14/23 09/14/23 14:15 Patient Tobacco Use Status Former Tobacco user 09/14/23 14:15 e-Cigarette/Vaping Use Never Used 09/14/23 14:15 PHQ-9: PHQ-9 Score PHQ-9: Total score 0 09/14/23 14:57 Depression Screening Interpretation: Negative Thrive Assessment: Date of Thrive Assessment Date Thrive assessed 09/14/23 09/14/23 14:15 Currently or been in a relationship where the following occur: no concerns reported Const General: no acute distress and alert HENMT Ears: TM's normal bilaterally and EAC's normal Throat: Yes posterior oropharynx normal and Yes tonsils normal (no TP congestion noted) Neck Neck: Yes no lymphadenopathy and Yes supple Resp Auscultation: clear to auscultation bilaterally, no rales and no wheezes Cardio Rate: regular rate Rhythm: regular rhythm Heart sounds: no murmurs GI Palpation (GI): Soft to palpation and nontender Auscultation: normal bowel sounds General: Yes no CVA tenderness Back/Spine/Pelvis Back: no CVA tenderness Skin Rashes: no rashes Extrem General: Yes no clubbing, cyanosis or edema Right lower extremity: knee Details: tenderness and crepitus Results Reviewed Results Reviewed: Laboratory Tests 07/02/23 09/09/23 09/09/23 17:04 09:15 09:15 WBC Hgb Hct Plt Count Sodium Potassium Creatinine Estimated GFR 48 Fasting Glucose Hemoglobin A1c % Calcium AST ALT Triglycerides Cholesterol LDL Cholesterol, Calc HDL Cholesterol 25-OH Vitamin D Total TSH Free T4 Ur Specific [place] 1.025 Urine Protein 100 (2+) H Urine Glucose (UA) Negative Urine Blood Small (1+) H Urine Nitrite Positive H Ur Leukocyte Esterase Moderate (2+) H 09/09/23 09/09/23 09/09/23 09:24 09:24 09:24 WBC 11.3 H Hgb 13.9 L Hct 42.1 Plt Count 175 Sodium 141 Potassium 3.6 Creatinine 1.55 H Estimated GFR Fasting Glucose 200 H Hemoglobin A1c % 7.7 H Calcium 9.5 AST 20 ALT 30 Triglycerides 110 Cholesterol 115 LDL Cholesterol, Calc 57 HDL Cholesterol 36 L 25-OH Vitamin D Total 35.3 TSH 5.84 H Free T4 0.90 Ur Specific [place] Urine Protein Urine Glucose (UA) Urine Blood Urine Nitrite Ur Leukocyte Esterase Assessment and Plan Assessment & Plan (1) Type 2 diabetes mellitus with diabetic chronic kidney disease: Code(s): E11.22 - Type 2 diabetes mellitus with diabetic chronic kidney disease Qualifiers: Chronic kidney disease stage: stage 3 (moderate) Chronic kidney disease stage 3 subtype: stage 3a (GFR 45-59) Diabetes mellitus half-way insulin use: with half-way use Qualified Code(s): E11.22 - Type 2 diabetes mellitus with diabetic chronic kidney disease; N18.31 - Chronic kidney disease, stage 3a; Z79.4 - detention (current) use of insulin Plan: HgbA1c was at 7.7% on his labs done last week (was at 6.9% a few months ago) - goal is < 7.0% Patient is cautioned his increase in his HgbA1c has also resulted in a slight decline in his renal recently Reinforced diabetic diet Continue Glipizide 2.5 mg QD, Trulicity 1.5 mg SQ once a week and Lantus Solost ar 10 units Q HS for now but advised that we will need to make some adjustments or changes to his medications if he cannot get his HgbA1c back to goal at his next follow up visit Follow up with endocrinology as scheduled (2) Chronic kidney disease (CKD), stage III (moderate): Code(s): N18.30 - Chronic kidney disease, stage 3 unspecified Qualifiers: Chronic kidney disease stage 3 subtype: stage 3a (GFR 45-59) Qualified Code(s): N18.31 - Chronic kidney disease, stage 3a Plan: Patient is cautioned that his serum creatinine has increased slightly and GFR has declined slightly from previous, likely due to his recent worsening of his glycemic control Reinforced again strict glycemic and BP control to help slow down the decline/ progression of his CKD Will continue to monitor his renal function closely (3) Pure hypercholesterolemia: Code(s): E78.00 - Pure hypercholesterolemia, unspecified Plan: Results of his labs done last week reviewed and discussed with patient Reinforced low cholesterol diet Continue Simvastatin 20 mg QD Will recheck his labs and fasting lipids in 3 months for follow up (4) Benign essential hypertension: Code(s): I10 - Essential (primary) hypertension Plan: Reinforced? low sodium diet - goal is systolic BP of at least 130 or less Patient has felt dizzy and lightheaded often in the past when his systolic BP was 120 mm or less but given his AAA and the fact that its size has been slowly inching up based on his recent AA US, will try to keep his systolic BP between 120 to 130 mm as much as he can tolerate Continue Bystolic 20 mg QD, Losartan 100 mg QD and Amlodipine 5 mg QD - his Amlodipine dose was lowered at the end of June 2023 when he was started on Terazosin 5 mg but with his recent GFR decline and comparatively lower BP readings recently, will have him try HOLDING/STOPPING his HCTZ 12.5 mg QD He is reminded to continue monitoring his blood pressure regularly (5) Abdominal aortic aneurysm: Comment: 05/2021: Mild aneurysmal dilatation of distal abdominal aorta measuring 3.8 x 3.7 cm. Previously it measured 3.5 x 3.5 cm. Code(s): I71.4 - Abdominal aortic aneurysm, without rupture Qualifiers: Presence of rupture: without rupture Qualified Code(s): I71.4 - Abdominal aortic aneurysm, without rupture Plan: Abdominal and pelvic CT done in June 2023 showed slight progression of the aneurysm to 3.8 cm from 3.0 cm in 2018 On his abdominal arterial study done in April 2023, his aortic aneurysm measures 4.0 x 4.0 cm, increased from 3.8 x 3.7 cm on 05/21/2021 and 3.5 x 3.5 cm on 04/30/2020 Reinforced importance of tight BP control to slow down progression Will continue with yearly US for monitoring (6) Elevated LFTs: Code(s): R79.89 - Other specified abnormal findings of blood chemistry Plan: Patient's LFTs have remained normal on his recent labs Will continue to monitor his LFTs regularly (7) Osteoarthritis of knee: Code(s): M17.10 - Unilateral primary osteoarthritis, unspecified knee Qualifiers: Laterality: right Osteoarthritis type: primary Qualified Code(s): M17.11 - Unilateral primary osteoarthritis, right knee Plan: Follow up with orthopedics at [facility] as scheduled Patient states that he has been considering going for knee surgery to address his knee issues but given that it has calmed down lately, is inclined to hold off on this Continue applying Voltaren gel to his knee PRN for symptomatic relief; he no longer takes any NSAIDs, including Celebrex, for his knee pain (8) Non-toxic multinodular goiter: Code(s): E04.2 - Nontoxic multinodular goiter Plan: S/P right thyroid lobectomy and isthmusectomy on 09/14/[address] Dominique Hagan in [place], [place] Serum TSH has improved slightly but still remains slightly elevated; free T4 is still low normal Patient has mentioned that he has been feeling very fatigued lately Will go ahead and increase his Synthroid from 25 mcg to 50 mcg QD Will continue to monitor his TFTs regularly (9) History of gout: Code(s): Z87.39 - Personal history of other diseases of the musculoskeletal system and connective tissue Plan: Reinforced low purine diet - reports no acute gout flares lately Serum uric acid level was normal at 5.7 when previously checked Continue Allopurinol 50 mg QD (10) Vitamin D deficiency: Code(s): E55.9 - Vitamin D deficiency, unspecified Plan: Continue Vitamin D3 1000 units QD (11) 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: Code(s): J94.8 - Other specified pleural conditions Plan: Patient had calcified pleural plaques noted incidentally at the right lung base on abdominal and pelvic CT done at the ER back in June 2023 suggestive of asbestosis He states that he has (+) Hx of asbestos exposure when he was younger He also has a Hx of smoking although he did quit smoking many years ago Will go ahead and refer him for low dose CT lung screening to screen for lung cancer (12) Obesity (BMI 30-39.9): Code(s): E66.9 - Obesity, unspecified Plan: Reinforced diet/exercise as tolerated/lose weight Plan Follow up in 3 months Orders: Orders Complete Blood Count Auto Diff 3 Months D64.9 - Anemia, unspecified Hemoglobin A1c 3 Months E11.9 - Type 2 diabetes mellitus without complications Thyroid Stimulating Hormone 3 Months E03.9 - Hypothyroidism, unspecified Free T4 (Free Thyroxine) 3 Months E03.9 - Hypothyroidism, unspecified UA CC w/rflx Micro + Cult 3 Months R30.0 - Dysuria Vitamin B12 and Folate 3 Months E53.8 - Deficiency of other specified B group vitamins Comprehensive [place]. Panel Fast 3 Months E78.00 - Pure hypercholesterolemia, unspecified Lipid Panel 3 Months E78.00 - Pure hypercholesterolemia, unspecified Microalbumin, Random (w Creat) 3 Months E11.9 - Type 2 diabetes mellitus without complications Vitamin D 25-OH Total 3 Months E55.9 - Vitamin D deficiency, unspecified Uric Acid 3 Months M10.9 - Gout, unspecified Referrals Thoracic Surgery Referral Z12.2 - Encounter for screening for malignant neoplasm of respiratory organs Medications: Changed From Synthroid (levothyroxine) 25 mcg PO DAILY 90 days 90 tabs 3RF NS To levothyroxine 50 mcg PO DAILY 90 days 90 tabs 3RF From dulaglutide 1.5 mg subcut QWEEK To dulaglutide 1.5 mg (0.5 mL) subcut QWEEK 3 months 6.5 mL 3RF Refilled diclofenac sodium 1% (Voltaren Arthritis Pain) apply to single knee, ankle, foot; for foot includes sole/toes/top of foot 4 grams topical QID PRN 100 grams 5RF pain Lantus Solostar U-100 Insulin (insulin glargine) 10 units (0.1 mL) subcut QPM 90 days 15 mL 3RF NS E11.21 - Type 2 diabetes mellitus with diabetic nephropathy, N18.31 - Chronic kidney disease, stage 3a pen needle, diabetic (BD Ultra-Fine Nohelia Pen Needle) As directed once a day 100 ea 3RF E11.9 - Type 2 diabetes mellitus without complications allopurinol 100 mg PO DAILY 90 days 90 tabs 3RF Z87.39 - Personal history of other diseases of the musculoskeletal system and connective tissue amlodipine 5 mg PO DAILY 90 days 90 tabs 3RF I10 - Essential (primary) hypertension glipizide ER 2.5 mg PO DAILY 90 days 90 tabs 3RF E11.21 - Type 2 diabetes mellitus with diabetic nephropathy, N18.31 - Chronic kidney disease, stage 3a losartan 100 mg PO DAILY 90 days 90 tabs 3RF I10 - Essential (primary) hypertension nebivolol 20 mg PO DAILY 90 days 90 tabs 3RF I10 - Essential (primary) hypertension simvastatin 20 mg PO DAILY 90 days 90 tabs 3RF E78.00 - Pure hypercholesterolemia, unspecified Discontinued amlodipine Take this IN ADDITION to Amlodipine 5 mg for a TOTAL of 7.5 mg QD Discontinued Reason: Doctor's Order 2.5 mg PO DAILY 90 days 90 tabs 3RF On Hold hydrochlorothiazide Hold Comment: Doctor's Order 12.5 mg PO QAM 90 days 90 ea 3RF I10 - Essential (primary) hypertension Coding Level of Care Code Est Pt Level 4 (44036) Diagnoses Type 2 diabetes mellitus with stage 3a chronic kidney disease, with long-term current use of insulin E11.22; N18.31; Z79.4 Chronic kidney disease stage: stage 3 (moderate) Chronic kidney disease stage 3 subtype: stage 3a (GFR 45-59) Diabetes mellitus half-way insulin use: with rn long term care use Stage 3a chronic kidney disease N18.31 Chronic kidney disease stage 3 subtype: stage 3a (GFR 45-59) Pure hypercholesterolemia E78.00 Benign essential hypertension I10 Abdominal aortic aneurysm (AAA) without rupture I71.4 Presence of rupture: without rupture Elevated LFTs R79.89 Primary osteoarthritis of right knee M17.11 Laterality: right Osteoarthritis type: primary Non-toxic multinodular goiter E04.2 History of gout Z87.39 Vitamin D deficiency E55.9 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
== END 2023-09-14 15:48 | disposition home or self-care (01) ==
PROVIDERS: PCP Internal Medicine; Visit Provider Internal Medicine
DX: I12.9 Hypertensive chronic kidney disease with stage 1 through stage 4 chronic kidney disease, or unspecified chronic kidney disease (principal); E11.22 Type 2 diabetes mellitus with diabetic chronic kidney disease; N18.31 Chronic kidney disease, stage 3a; Z79.4 Long term (current) use of insulin; I71.40 Abdominal aortic aneurysm, without rupture, unspecified; E78.00 Pure hypercholesterolemia, unspecified; R79.89 Other specified abnormal findings of blood chemistry; M17.11 Unilateral primary osteoarthritis, right knee; E04.2 Nontoxic multinodular goiter; Z87.39 Personal history of other diseases of the musculoskeletal system and connective tissue; E55.9 Vitamin D deficiency, unspecified; J94.8 Other specified pleural conditions
CPT/HCPCS: 99214

== ENCOUNTER 2023-09-14 16:02 | Outpatient (REF) | payer MEDICARE, SELFPAY ==
[2023-09-14 17:11] LABS: Prostate Specific Antigen 5.27 ng/mL (<0.05-4.0)
== END 2023-09-14 16:03 | disposition home or self-care (01) ==
LOC: HO.LAB 16:02
PROVIDERS: PCP Internal Medicine; Visit Provider Nurse Practitioner Family
DX: Z12.5 Encounter for screening for malignant neoplasm of prostate (principal); R97.20 Elevated prostate specific antigen [PSA]
CPT/HCPCS: 36415; 84153

== ENCOUNTER 2023-09-22 13:12 | Outpatient (REF) | payer MEDICARE, SELFPAY ==
--- NOTE | ~2023-09-22 | US_ITS ---
EXAMINATION: US RETROPERITONEAL LIMITED (RENAL ONLY) CLINICAL INFORMATION: Retention of urine, unspecified. CT abdomen and pelvis of 07/02/2023 report described a 1.2 cm intermediate attenuation left midpole left renal lesion for which additional characterization with ultrasound was recommended. COMPARISON: CT abdomen and pelvis 07/02/2023. Ultrasound abdomen complete 03/16/2019. MRI abdomen 10/15/2015. Renal ultrasound 09/09/2015. TECHNIQUE: Real-time imaging of the kidneys. Limited visualization due to bowel gas. Radiologist was not in attendance. Images were provided for interpretation. FINDINGS: RIGHT KIDNEY: 12.6 x 5.4 x 5.6 cm (SAG x AP x TRV). No hydronephrosis. Limited visualization. 1.6 x 0.7 x 1.1 cm upper pole cyst with posterior echogenic focus characteristic of mural calcification. Multiple smaller renal cysts, some of which have associated calcifications and are difficult to characterize due to limited visualization. LEFT KIDNEY: 12.4 x 5.9 x 4.7 cm (SAG x AP x TRV). No hydronephrosis. No obstructing renal calculi. Limited visualization. Exophytic 1.8 x 1.3 x 1.8 cm upper pole cyst with possible mural calcification. Lower pole 1.3 cm cyst with benign features. Multiple additional smaller renal cysts some of which are difficult to characterize due to limited visualization. The 1.2 cm intermediate indeterminate left renal midpole lesion identified on CT scan of 07/02/2023 is not clearly visualized on this study, likely due to bowel gas. Dedicated imaging with renal MRI with intravenous contrast recommended for further evaluation. US/US renal BI IMPRESSION: The 1.2 cm intermediate indeterminate left renal midpole lesion identified on CT scan of 07/02/2023 is not clearly visualized on this study, likely due to bowel gas. Dedicated imaging with renal MRI with intravenous contrast recommended for further evaluation.
== END 2023-09-22 13:13 | disposition home or self-care (01) ==
LOC: HO.US 13:12
PROVIDERS: PCP Internal Medicine; Visit Provider Nurse Practitioner Family
DX: R33.9 Retention of urine, unspecified (principal)
CPT/HCPCS: 76775

== ENCOUNTER 2023-10-05 14:27 | Outpatient (REF) | payer MEDICARE, SELFPAY ==
--- NOTE | ~2023-10-05 | US_ITS ---
EXAMINATION: US PELVIS LIMITED (BLADDER) CLINICAL INFORMATION: Urinary retention. COMPARISON: CT abdomen and pelvis 07/02/2023. Ultrasound urinary bladder 08/22/2015. TECHNIQUE: Real-time imaging of the bladder. FINDINGS: BLADDER: Well distended and normal. Bilateral ureteral jets are demonstrated. Prevoid bladder volume is 334 mL. Postvoid bladder volume is 42 mL. PROSTATE: Not visualized due to body habitus. US/US bladder IMPRESSION: Unremarkable ultrasound appearance of the urinary bladder.
== END 2023-10-05 14:28 | disposition home or self-care (01) ==
LOC: HO.US 14:27
PROVIDERS: PCP Internal Medicine; Visit Provider Nurse Practitioner Family
DX: R33.9 Retention of urine, unspecified (principal)
CPT/HCPCS: 76857

== ENCOUNTER 2023-10-11 14:28 | Outpatient (AMB) | payer MEDICARE, SELFPAY ==
--- NOTE | 2023-10-11 14:59 | MHC.OFFVIS ---
Intake Intake Visit Reasons: PSA and US f/u 3 month(set) Intake Note: Patient presents for follow up visit for retention, renal cyst, renal lesion ultrasound and lab results Imagin09/22/23 & 10/05/23 PSA: 5.27 Urology Medications: Terazosin, Sildenafil Blood Thinner: aspirin PVR: 21ml's Progress Clerk Required: No Accompanied by: Self / Same As Patient Allergies Beta-Blockers (Beta-Adrenergic Bloc Allergy (Unknown, Verified 10/11/23 19:56) SWOLLEN TONGUE lisinopril Allergy (Unknown, Verified 10/11/23 19:56) tongue swelling meperidine [Demerol] Allergy (Unknown, Verified 10/11/23 19:56) Unknown cephalexin Adverse Reaction (Intermediate, Verified 10/11/23 19:56) Diarrhea oxycodone [From Percocet] Adverse Reaction (Verified 10/11/23 19:56) Vomiting Medication List - Last Reconciled 10/11/23 by KEIRY Thompson- allopurinol 100 mg PO DAILY 90 days amlodipine 5 mg PO DAILY 90 days aspirin 81 mg PO DAILY 90 days azelaic acid 15% (Finacea) 1 appl topical QAM 90 days blood sugar diagnostic (FreeStyle Lite Strips) Test Daily blood-glucose meter (FreeStyle Lite Meter kit) Test Daily cholecalciferol (vitamin D3) 25 mcg PO DAILY 90 days diclofenac sodium 1% (Voltaren Arthritis Pain) 4 grams topical QID PRN dulaglutide 1.5 mg (0.5 mL) subcut QWEEK 3 months glipizide ER 2.5 mg PO DAILY 90 days hydrochlorothiazide 12.5 mg PO QAM 90 days hydrocortisone acetate (Anusol-HC) 25 mg IL BID 14 days lancets (BD Ultra Fine Lancets) Test Daily lancets (TRUEplus Lancets) blood sugar 1 to 2 times a day as directed - NO SUBSTITUTION PLEASE! -- Dx Code: E11.21 -- DIABETES MELLITUS Lantus Solostar U-100 Insulin (insulin glargine) 10 units (0.1 mL) subcut QPM 90 days NS levothyroxine 50 mcg PO DAILY 90 days losartan 100 mg PO DAILY 90 days nebivolol 20 mg PO DAILY 90 days pen needle, diabetic (BD Ultra-Fine Nohelia Pen Needle) As directed once a day sildenafil 100 mg PO DAILY PRN simvastatin 20 mg PO DAILY 90 days terazosin 5 mg PO BEDTIME 30 days [true metrix Glucometer LANCETS Test blood sugar 1 to 2 times a day as directed - NO SUBSTITUTION PLEASE! NS] True Metrix Glucose Test Strip (blood sugar diagnostic) As directed - test 1 to 2 times day NS HPI HPI Comments History of Present Illness Details Donald is a very pleasant 73-year-old male patient of Dr. Da Silva who was accompanied by his at today's office visit. He has a past medical history of elevated LFTs, vitamin-D deficiency, gout, abdominal aortic aneurysm, obesity, hypercholesteremia, hypertension, chronic kidney disease stage III, type 2 diabetes, degenerative joint disease, and osteoarthritis. He presents to the office today for follow-up. Of note, patient was seen approximately 3 months ago as a new patient for urinary retention at which time a retroperitoneal ultrasound and PSA were ordered for further assessment evaluation. The patient was also started on low-dose terazosin 5 mg at bedtime. Recent renal imaging results reviewed with the patient today. Right kidney with no hydronephrosis. 1.6 cm upper pole cyst. Multiple smaller renal cysts, some of which have associated calcifications and are difficult to characterize due to limited visualization. left kidney with no hydronephrosis and or renal calculi. Exophytic 1.8 x 1.3 x 1.8 cm upper pole cyst with possible mural calcification. Lower pole 1.3 cm cyst with benign features. Multiple additional smaller renal cysts some of which are difficult to characterize due to limited visualization. The 1.2 cm intermediate indeterminate left renal midpole lesion identified on CT scan of 07/02/2023 is not clearly visualized on this study, likely due to bowel gas. The bladder is well distended and normal. Bilateral ureteral jets are demonstrated. Pre void bladder volume is approximately 335 mL. Postvoid bladder volume is approximately 40 mL. The prostate is not visualized due to body habitus. PSAs are as follows: 07/03 1.3, 03/04 3.4, 02/03 19.43, 04/05 2.1, 09/07 5.3 Discussed at length potential causes of renal cysts, renal lesions, and elevated PSA. Discussed further workup of renal cyst with MRI as recommended per radiology report versus surveillance monitoring. Discussed further interventions for elevated PSA with redraw of PSA verses MRI of the prostate verses prostate biopsy. Discussed risks and benefits of these interventions at length. Currently patient would like to continue with surveillance monitoring. In office urinalysis results reviewed with the patient today. PVR 21 mL. In discussion with the patient today he reports noting significant improvement in lower urinary tract symptoms on 5 mg of terazosin daily. He currently denies any bothersome urinary issues or concerns. He denies urinary urgency, urinary frequency, incontinence, nocturia, hematuria, dysuria, foul smelling urine, changes to urinary stream, flank pain, fever, and or chills. Discussed at length affects of diabetes in relation to lower urinary tract symptoms as well as overall health and well-being. He otherwise offers no other issues or concerns at this time. [facility] Medical History Elevated LFTs Non-toxic multinodular goiter Vitamin D deficiency History of gout Abdominal aortic aneurysm Obesity (BMI 30-39.9) Pure hypercholesterolemia Benign essential hypertension Chronic kidney disease (CKD), stage III (moderate) Type 2 diabetes mellitus with diabetic chronic kidney disease Surgical History History of thyroid surgery (~09/14/21) History of right knee surgery History of colonoscopy History of tonsillectomy Family History Father CAD (coronary artery disease) Myocardial infarction Mother Congenital heart disease Breast cancer Uterine cancer Brother No problems noted. Sister No problems noted. Daughter No problems noted. Social History Housing: House Alcohol intake: never Patient Tobacco Use Status: Former Tobacco user e-Cigarette/Vaping Use: Never Used Second Hand Smoke Exposure: Yes service: No Current occupational status: retired Cognitive needs: No Hearing needs: No Vision needs: Yes Review of Systems Const Reports as per HPI Eyes Reports no additional complaints ENT Reports no additional complaints Card Reports as per HPI Resp Reports no additional complaints GI Reports as per HPI Reports as per HPI Musc Reports as per HPI Neuro Reports no additional complaints Psych Reports no additional complaints Endo Reports as per HPI Physical Exam Const General: cooperative, healthy appearing, comfortable, no acute distress, well developed, alert and awake Orientation/consciousness: patient oriented x3 Limitations: no limitations HEENT Head: Yes normal to inspection, Yes normocephalic and Yes atraumatic Ears: hearing grossly normal bilaterally Eyes General: appearance normal, both eyes and all related structures Neck Neck: Yes normal visual inspection and Yes trachea midline Chest Chest palpation & inspection: normal inspection of the chest Resp Effort & Inspection: normal respiratory effort and able to speak in complete sentences Cardio Rate: regular rate GI Inspection: Yes normal to inspection General: Yes no CVA tenderness Back/Spine/Pelvis Back: no CVA tenderness Skin General skin exam: no rashes or lesions noted Neuro General: patient oriented x3 Extrem General: Yes normal to inspection Psych Appearance: grossly normal and well kempt Mental Status: mental status grossly normal Speech and movement: Normal speech and movement present and Clear speech present Affect: normal affect Attitude: cooperative Thought process: Normal thought process present Thought content: Normal thought content present Insight: Fair insight present (Psych) Judgement: Fair judgement present (Psych) Office Procedures Post Void Residual Post Residual Void Post Void Residual (PVR): 21 [id number] Void Residual by ultrasound Results AMB Urinalysis, Automated UA Leukoctes 70 Antonio/uL Last Edit by [employer] on 10/11/23 15:25 UA Nitrite Negative Last Edit by [employer] on 10/11/23 15:25 UA Urobilinogen 0.2 mg/dL Last Edit by [employer] on 10/11/23 15:25 UA Protein 30 mg/dL Last Edit by [employer] on 10/11/23 15:25 UA pH 6.0 Last Edit by [employer] on 10/11/23 15:25 UA Blood 0 Renny/uL Last Edit by [employer] on 10/11/23 15:25 UA Specific [place] 1.015 Last Edit by [employer] on 10/11/23 15:25 UA Ketone Negative Last Edit by [employer] on 10/11/23 15:25 UA Bilirubin 0 mg/dL Last Edit by [employer] on 10/11/23 15:25 UA Glucose 0 mg/dL Last Edit by [employer] on 10/11/23 15:25 Results Reviewed Results Reviewed: Laboratory Last Values Urine pH (Auto) 6.0 10/11/23 15:23 Specific [place] (Auto) 1.015 10/11/23 15:23 Urine Protein (Auto) 30 mg/dL 10/11/23 15:23 Glucose (UA)(Auto) 0 mg/dL 10/11/23 15:23 Urine Ketones (Auto) Negative 10/11/23 15:23 Urine Blood (Auto) 0 Rneny/uL 10/11/23 15:23 Urine Nitrite (Auto) Negative 10/11/23 15:23 Urine Bilirubin (Auto) 0 mg/dL 10/11/23 15:23 Urine Urobilinogen (Auto) 0.2 mg/dL 10/11/23 15:23 Leukocyte Esterase (Auto) 70 Antonio/uL 10/11/23 15:23 Date of Service: 09/22/23 EXAMINATION: US RETROPERITONEAL LIMITED (RENAL ONLY) FINDINGS: RIGHT KIDNEY: 12.6 x 5.4 x 5.6 cm (SAG x AP x TRV). No hydronephrosis. Limited visualization. 1.6 x 0.7 x 1.1 cm upper pole cyst with posterior echogenic focus characteristic of mural calcification. Multiple smaller renal cysts, some of which have associated calcifications and are difficult to characterize due to limited visualization. LEFT KIDNEY: 12.4 x 5.9 x 4.7 cm (SAG x AP x TRV). No hydronephrosis. No obstructing renal calculi. Limited visualization. Exophytic 1.8 x 1.3 x 1.8 cm upper pole cyst with possible mural calcification. Lower pole 1.3 cm cyst with benign features. Multiple additional smaller renal cysts some of which are difficult to characterize due to limited visualization. The 1.2 cm intermediate indeterminate left renal midpole lesion identified on CT scan of 07/02/2023 is not clearly visualized on this study, likely due to bowel gas. Dedicated imaging with renal MRI with intravenous contrast recommended for further evaluation. IMPRESSION: The 1.2 cm intermediate indeterminate left renal midpole lesion identified on CT scan of 07/02/2023 is not clearly visualized on this study, likely due to bowel gas. Dedicated imaging with renal MRI with intravenous contrast recommended for further evaluation. Date of Service: 10/05/23 EXAMINATION: US PELVIS LIMITED (BLADDER) FINDINGS: BLADDER: Well distended and normal. Bilateral ureteral jets are demonstrated. Prevoid bladder volume is 334 mL. Postvoid bladder volume is 42 mL. PROSTATE: Not visualized due to body habitus. IMPRESSION: Unremarkable ultrasound appearance of the urinary bladder. Assessment & Plan Assessment & Plan (1) Elevated PSA: Code(s): R97.20 - Elevated prostate specific antigen [PSA] (2) Renal cyst: Code(s): N28.1 - Cyst of kidney, acquired (3) Renal lesion: Code(s): N28.9 - Disorder of kidney and ureter, unspecified (4) Urinary retention: Code(s): R33.9 - Retention of urine, unspecified Plan In office urinalysis results reviewed with the patient today. PVR 21 mL. Patient reports be happy with current voiding parameters on 5 mg of terazosin daily will continue; refill provided. Recent retroperitoneal ultrasound results reviewed with the patient today; as noted above. Recent PSA results reviewed with the patient today; as noted above. Discussed at length potential causes of elevated PSA, renal cysts, and renal lesions. Discussed at length further workup of renal cysts/ renal lesion versus surveillance monitoring; this was discussed at length risks and benefits of these interventions were discussed at length. Will obtain PSA free and total for further assessment evaluation. ALICJA offered however patient reports having had ALICJA with PCP and enlarged prostate was noted otherwise exam was within normal limits per patient. Discussed at length importance of managing diabetes for improvement in lower urinary tract symptoms as well as overall health and well-being. Follow-up in 1-2 months with lab to be completed prior; or sooner with any issues, concerns, and or questions. Orders: Orders AMB Urinalysis Automated Today Z13.9 - Encounter for screening, unspecified AMB Post Void Residual by ultrasound Today R33.9 - Retention of urine, unspecified PSA,Total (Free>4and<10) Today R97.20 - Elevated prostate specific antigen [PSA] Medications: Changed From terazosin 5 mg PO BEDTIME 30 days 30 caps 1RF N40.1 - Benign prostatic hyperplasia with lower urinary tract symptoms, R35.0 - Frequency of micturition To terazosin 5 mg PO BEDTIME 90 days 90 caps 1RF N40.1 - Benign prostatic hyperplasia with lower urinary tract symptoms, R35.0 - Frequency of micturition Patient Instructions: The patient had an opportunity to ask questions regarding the treatment plan. All questions were answered. Physical exam, labs, and imaging were discussed and reviewed in detail. As well as risks, benefits, and discussion of treatment choices. No major barriers to understanding were identified. The patient expressed understanding and agreement with the above treatment plan. The patient was made aware they should contact our office by phone for worsening of their current condition, the appearance of new symptoms, or with any questions or concerns. Compliance is encouraged with any medications and follow up testing that is ordered. It is a privilege to be allowed the opportunity to participate in? your urological care.? Again, if you have any questions or concerns If you have any questions or concerns please do not hesitate to contact me. The office is [phone]. This note is constructed using voice recognition software. While every effort has been made to ensure accuracy electrical line mechanic errors may have been included. Yours sincerely, CHALO Thompson Coding Level of Care Code Est Pt Level 4 (48388) Diagnoses Elevated PSA R97.20 Renal cyst N28.1 Renal lesion N28.9 Urinary retention R33.9 CPT Codes Post Residual Void - PVR CPT Code: 43299-Ltyc Void Residual by ultrasound ([id number]) Time Spent (min) 40
== END 2023-10-11 15:51 | disposition home or self-care (01) ==
PROVIDERS: PCP Internal Medicine; Visit Provider Nurse Practitioner Family
DX: R97.20 Elevated prostate specific antigen [PSA] (principal); N28.1 Cyst of kidney, acquired; N28.9 Disorder of kidney and ureter, unspecified; R33.9 Retention of urine, unspecified; Z13.9 Encounter for screening, unspecified
CPT/HCPCS: 99214

== ENCOUNTER → 2023-10-11 14:28 | Outpatient (BNVA) | payer MEDICARE, SELFPAY | PROVIDERS: PCP Internal Medicine; Visit Provider Nurse Practitioner Family | DX: R97.20 Elevated prostate specific antigen [PSA] (principal); R33.9 Retention of urine, unspecified; N28.1 Cyst of kidney, acquired; N28.9 Disorder of kidney and ureter, unspecified | CPT/HCPCS: 51798; 81003; 99212 ==

== ENCOUNTER 2023-11-17 11:13 | Outpatient (REF) | payer MEDICARE, SELFPAY ==
[2023-11-17 13:01] LABS: PSA,Total (Free>4and<10) 7.48 ng/mL (0.00-4.00)
[2023-11-21 11:43] LABS: Free Prostate Spec Ag 0.6 ng/mL; Percent Free Prostate Spec Ag 10 % (calc) (>25)
== END 2023-11-17 11:14 | disposition home or self-care (01) ==
LOC: HO.LAB 11:13
PROVIDERS: PCP Internal Medicine; Visit Provider Nurse Practitioner Family
DX: Z12.5 Encounter for screening for malignant neoplasm of prostate (principal); R97.20 Elevated prostate specific antigen [PSA]
CPT/HCPCS: 36415; 84153; 84154

== ENCOUNTER 2023-11-22 14:28 | Outpatient (REF) | payer MEDICARE, SELFPAY | END 2023-11-22 14:29 | disposition home or self-care (01) | LOC: HO.LAB 14:28 | PROVIDERS: PCP Internal Medicine; Visit Provider Nurse Practitioner Family | DX: N39.0 Urinary tract infection, site not specified (principal); R97.20 Elevated prostate specific antigen [PSA]; R33.9 Retention of urine, unspecified; Z79.899 Other long term (current) drug therapy | CPT/HCPCS: 51798; 81003; 87086; 87088; 87186; 99212 ==

== ENCOUNTER 2023-11-22 14:28 | Outpatient (AMB) | payer MEDICARE, SELFPAY ==
--- NOTE | 2023-11-22 14:32 | MHC.OFFVIS ---
Intake Intake Visit Reasons: 2m/PSA Intake Note: Patient presents today for a follow up on: PSA Meds- Terazosin Allergies to Antibiotic- Cephalexin Blood Thinner- Aspirin Post Void Residual: 0ml Patient Symptoms: Patient stated he is not taking Sildenafil. Patient stated he does not have any pain or discomfort when he urinates. 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 Accompanied by: Allergies Beta-Blockers (Beta-Adrenergic Bloc Allergy (Unknown, Verified 11/22/23 21:24) SWOLLEN TONGUE lisinopril Allergy (Unknown, Verified 11/22/23 21:24) tongue swelling meperidine [Demerol] Allergy (Unknown, Verified 11/22/23 21:24) Unknown cephalexin Adverse Reaction (Intermediate, Verified 11/22/23 21:24) Diarrhea oxycodone [From Percocet] Adverse Reaction (Verified 11/22/23 21:24) Vomiting Medication List - Last Reconciled 11/22/23 by KEIRY Thompson- allopurinol 100 mg PO DAILY 90 days amlodipine 5 mg PO DAILY 90 days aspirin 81 mg PO DAILY 90 days azelaic acid 15% (Finacea) 1 appl topical QAM 90 days blood sugar diagnostic (FreeStyle Lite Strips) Test Daily blood-glucose meter (FreeStyle Lite Meter kit) Test Daily cholecalciferol (vitamin D3) 25 mcg PO DAILY 90 days diclofenac sodium 1% (Voltaren Arthritis Pain) 4 grams topical QID PRN dulaglutide 1.5 mg (0.5 mL) subcut QWEEK 3 months glipizide ER 2.5 mg PO DAILY 90 days hydrochlorothiazide 12.5 mg PO QAM 90 days hydrocortisone acetate (Anusol-HC) 25 mg SC BID 14 days lancets (BD Ultra Fine Lancets) Test Daily lancets (TRUEplus Lancets) blood sugar 1 to 2 times a day as directed - NO SUBSTITUTION PLEASE! -- Dx Code: E11.21 -- DIABETES MELLITUS Lantus Solostar U-100 Insulin (insulin glargine) 10 units (0.1 mL) subcut QPM 90 days NS levothyroxine 50 mcg PO DAILY 90 days losartan 100 mg PO DAILY 90 days nebivolol 20 mg PO DAILY 90 days pen needle, diabetic (BD Ultra-Fine Noheila Pen Needle) As directed once a day sildenafil 100 mg PO DAILY PRN simvastatin 20 mg PO DAILY 90 days terazosin 5 mg PO BEDTIME 90 days tirzepatide (Mounjaro) 5 mg (0.5 mL) subcut QWEEK 90 days [true metrix Glucometer LANCETS Test blood sugar 1 to 2 times a day as directed - NO SUBSTITUTION PLEASE! NS] True Metrix Glucose Test Strip (blood sugar diagnostic) As directed - test 1 to 2 times day NS HPI HPI Comments History of Present Illness Details Donald is a very pleasant 73-year-old male patient of Dr. Da Silva who was accompanied by his at today's office visit. He has a past medical history of elevated LFTs, vitamin-D deficiency, gout, abdominal aortic aneurysm, obesity, hypercholesteremia, hypertension, chronic kidney disease stage III, type 2 diabetes, degenerative joint disease, and osteoarthritis. He presents to the office today for follow-up of his elevated PSA and lower urinary tract symptoms. In discussion with the patient today reports to be feeling and doing well. Reports feeling terazosin 5 mg at bedtime has been significantly helpful in his lower urinary tract symptoms. He discusses feeling his urination is as if he was back in his 20s. In office urinalysis results reviewed with the patient today. 2+ leukocytes positive nitrates. When asked he does report foul-smelling urine. He otherwise denies urinary urgency, urinary frequency, incontinence, nocturia, hematuria, dysuria, changes to urinary stream, flank pain, fever, and or chills. Recent PSA results reviewed and trended with the patient today: 07/03 1.3, 03/04 3.4, 02/03 19.43, 04/05 2.1, 09/07 5.3, 12/06 6.0 % free PSA 10%. Discussed potential for elevated PSA related to potential urinary tract infection. Previous workup has included a retroperitoneal ultrasound noting right kidney with no hydronephrosis. 1.6 cm upper pole cyst. Multiple smaller renal cysts, some of which have associated calcifications and are difficult to characterize due to limited visualization. left kidney with no hydronephrosis and or renal calculi. Exophytic 1.8 x 1.3 x 1.8 cm upper pole cyst with possible mural calcification. Lower pole 1.3 cm cyst with benign features. Multiple additional smaller renal cysts some of which are difficult to characterize due to limited visualization. The 1.2 cm intermediate indeterminate left renal midpole lesion identified on CT scan of 07/02/2023 is not clearly visualized on this study, likely due to bowel gas. The bladder is well distended and normal. Bilateral ureteral jets are demonstrated. Pre void bladder volume is approximately 335 mL. Postvoid bladder volume is approximately 40 mL. The prostate is not visualized due to body habitus. Discussed at length potential causes for elevated PSA. Discussed PCPT risk calculator hours of 32% chance that biopsy is negative for cancer, 42% chance of low-grade prostate cancer, in 26% chance of high-grade prostate cancer. Discussed at length affects of diabetes in relation to lower urinary tract symptoms as well as overall health and well-being. ALICJA offered however deferred. He otherwise offers no other issues or concerns at this time. [facility] Medical History Elevated LFTs Non-toxic multinodular goiter Vitamin D deficiency History of gout Abdominal aortic aneurysm Obesity (BMI 30-39.9) Pure hypercholesterolemia Benign essential hypertension Chronic kidney disease (CKD), stage III (moderate) Type 2 diabetes mellitus with diabetic chronic kidney disease Surgical History History of thyroid surgery (~09/14/21) History of right knee surgery History of colonoscopy History of tonsillectomy Family History Father CAD (coronary artery disease) Myocardial infarction Mother Congenital heart disease Breast cancer Uterine cancer Brother No problems noted. Sister No problems noted. Daughter No problems noted. Social History Housing: House Alcohol intake: never Patient Tobacco Use Status: Former Tobacco user e-Cigarette/Vaping Use: Never Used Second Hand Smoke Exposure: Yes service: No Current occupational status: retired Cognitive needs: No Hearing needs: No Vision needs: Yes Review of Systems Const Reports as per HPI Eyes Reports no additional complaints ENT Reports no additional complaints Card Reports as per HPI Resp Reports no additional complaints GI Reports as per HPI Reports as per HPI Musc Reports as per HPI Neuro Reports no additional complaints Psych Reports no additional complaints Endo Reports as per HPI Physical Exam Const General: cooperative, healthy appearing, comfortable, no acute distress, well developed, alert and awake Orientation/consciousness: patient oriented x3 Limitations: no limitations HEENT Head: Yes normal to inspection, Yes normocephalic and Yes atraumatic Ears: hearing grossly normal bilaterally Eyes General: appearance normal, both eyes and all related structures Neck Neck: Yes normal visual inspection and Yes trachea midline Chest Chest palpation & inspection: normal inspection of the chest Resp Effort & Inspection: normal respiratory effort and able to speak in complete sentences Cardio Rate: regular rate GI Inspection: Yes normal to inspection General: Yes no CVA tenderness Back/Spine/Pelvis Back: no CVA tenderness Skin General skin exam: no rashes or lesions noted Neuro General: patient oriented x3 Extrem General: Yes normal to inspection Psych Appearance: grossly normal and well kempt Mental Status: mental status grossly normal Speech and movement: Normal speech and movement present and Clear speech present Affect: normal affect Attitude: cooperative Thought process: Normal thought process present Thought content: Normal thought content present Insight: Fair insight present (Psych) Judgement: Fair judgement present (Psych) Office Procedures Post Void Residual Post Residual Void Post Void Residual (PVR): 0 [id number] Void Residual by ultrasound Results AMB Urinalysis, Automated UA Leukoctes 15 Antonio/uL Last Edit by [facility] on 11/22/23 14:54 UA Nitrite Positive Last Edit by Wanda Maychristiano May [facility] on 11/22/23 14:54 UA Urobilinogen 0.2 mg/dL Last Edit by Wanda Maychristiano May [facility] on 11/22/23 14:54 UA Protein 100 mg/dL Last Edit by Wanda Maychristiano May [facility] on 11/22/23 14:54 UA pH 6.0 Last Edit by Wanda Maychristiano May [facility] on 11/22/23 14:54 UA Blood 0 Renny/uL Last Edit by Wanda Maychristiano May [facility] on 11/22/23 14:54 UA Specific Edwards 1.025 Last Edit by Wanda Maychristiano May [facility] on 11/22/23 14:54 UA Ketone Positive Last Edit by Wanda Maychristiano May [facility] on 11/22/23 14:54 UA Bilirubin 1 mg/dL Last Edit by Wanda Maychristiano May [facility] on 11/22/23 14:54 UA Glucose 0 mg/dL Last Edit by Wanda May [facility] on 11/22/23 14:54 Results Reviewed Results Reviewed: Laboratory Last Values Urine pH (Auto) 6.0 11/22/23 14:44 Specific Edwards (Auto) 1.025 11/22/23 14:44 Urine Protein (Auto) 100 mg/dL 11/22/23 14:44 Glucose (UA)(Auto) 0 mg/dL 11/22/23 14:44 Urine Ketones (Auto) Positive 11/22/23 14:44 Urine Blood (Auto) 0 Renny/uL 11/22/23 14:44 Urine Nitrite (Auto) Positive 11/22/23 14:44 Urine Bilirubin (Auto) 1 mg/dL 11/22/23 14:44 Urine Urobilinogen (Auto) 0.2 mg/dL 11/22/23 14:44 Leukocyte Esterase (Auto) 15 Antonio/uL 11/22/23 14:44 Assessment & Plan Assessment & Plan (1) Elevated PSA: Code(s): R97.20 - Elevated prostate specific antigen [PSA] (2) Complicated urinary tract infection: Code(s): N39.0 - Urinary tract infection, site not specified Plan In office urinalysis results reviewed with the patient today; as noted above; will send for urine culture. Discussed at length potential causes of elevated PSA PCPT risk calculator results reviewed with the patient and his today. Discussed, educated, and stressed the importance of drinking water daily. Start Bactrim as discussed and prescribed. Will obtain PSA 6 weeks status post completion of antibiotic therapy. ALICJA offered however deferred. Continue terazosin 5 mg at bedtime. Patient reports be happy with current voiding parameters. Follow-up in 8 weeks with lab to be completed prior; or sooner with any issues, concerns, and or questions. Orders: Orders AMB Post Void Residual by ultrasound Today R33.9 - Retention of urine, unspecified Urine Culture Today N39.0 - Urinary tract infection, site not specified PSA,Total (Free>4and<10) 6 Weeks R97.20 - Elevated prostate specific antigen [PSA] AMB Urinalysis Automated Today R33.9 - Retention of urine, unspecified Medications: New sulfamethoxazole-trimethoprim 800-160 mg (Bactrim DS) 1 tab PO BID 14 days 28 tabs 0RF N39.0 - Urinary tract infection, site not specified Patient Instructions: The patient had an opportunity to ask questions regarding the treatment plan. All questions were answered. Physical exam, labs, and imaging were discussed and reviewed in detail. As well as risks, benefits, and discussion of treatment choices. No major barriers to understanding were identified. The patient expressed understanding and agreement with the above treatment plan. The patient was made aware they should contact our office by phone for worsening of their current condition, the appearance of new symptoms, or with any questions or concerns. Compliance is encouraged with any medications and follow up testing that is ordered. It is a privilege to be allowed the opportunity to participate in? your urological care.? Again, if you have any questions or concerns If you have any questions or concerns please do not hesitate to contact me. The office is [phone]. This note is constructed using voice recognition software. While every effort has been made to ensure accuracy draughtsman errors may have been included. Yours sincerely, CHALO Thompson Coding Level of Care Code Est Pt Level 4 (04098) Diagnoses Elevated PSA R97.20 Complicated urinary tract infection N39.0 CPT Codes Post Residual Void - PVR CPT Code: 07644-Sglx Void Residual by ultrasound ([id number])
== END 2023-11-22 15:19 | disposition home or self-care (01) ==
PROVIDERS: PCP Internal Medicine; Visit Provider Nurse Practitioner Family
DX: R97.20 Elevated prostate specific antigen [PSA] (principal); N39.0 Urinary tract infection, site not specified
CPT/HCPCS: 99214

== ENCOUNTER 2023-12-05 07:44 | Outpatient (REF) | payer MEDICARE, SELFPAY ==
[2023-12-05 08:08] LABS: MANUAL DIFF FLAG NO
[2023-12-05 08:28] LABS: Basophils Absolute Auto 0.1 X10*3/uL (0.0-0.2); Basophils Percent Auto 0.8 % (0-2); Eosinophils Percent Auto 0.1 % (0-4); Hematocrit 41.4 % (42.0-52.0); Hemoglobin 13.1 g/dl (14.0-18.0); Imm Gran Abs Auto 0.03 X10*3/uL (0.00-0.03); Imm Gran Pct Auto 0.4 % (0.0-0.4); Lymphocytes Absolute Auto 1.5 X10*3/uL (1.2-4.9); Lymphocytes Percent Auto 20.9 % (20-40); Mean Corpuscular HGB Conc 31.6 g/dl (31.0-36.0); Mean Corpuscular Hemoglobin 26.9 pg (27.0-33.0); Mean Platelet Volume 9.7 fL (9.4-12.4); Monocytes Absolute Auto 0.4 X10*3/uL (0.1-1.2); Neutrophils Absolute Auto 5.2 x10*3/uL (2.0-8.3); Neutrophils Percent Auto 71.8 % (45-73); Platelet Count 168 X10*3/uL (160-400); Red Blood Count 4.87 X10*6/uL (4.60-5.80); Red Cell Distribution Width 14.8 % (11.0-16.0); White Blood Count 7.3 X10*3/uL (4.8-10.8)
[2023-12-05 08:49] LABS: Estimated Average Glucose 134 mg/dL; Hemoglobin A1C 151.3766 umol/L; Hemoglobin A1c % 6.3 % (<6.0)
[2023-12-05 09:03] LABS: Alanine Aminotransferase 24 U/L (0-40); Albumin Level 4.3 g/dL (3.5-5.0); Alkaline Phosphatase 78 U/L (39-117); Anion Gap 10 (12-20); Aspartate Amino Transferase 22 U/L (5-37); Bilirubin Total 0.6 mg/dL (0.0-1.0); Blood Urea Nitrogen 17 mg/dL (9-16); Calcium 9.5 mg/dL (8.4-10.2); Carbon Dioxide 24 mmol/L (22-29); Chloride 108 mmol/L (96-108); Cholesterol 114 mg/dL (<200); Estimated Glomerular Filt Rate 52; Glucose Fasting 126 mg/dL (60-99); HDL Cholesterol 29 mg/dL (>40); LDL Cholesterol Calculated 55 mg/dL (<100); Potassium 4.4 mmol/L (3.3-5.1); Sodium 138 mmol/L (135-145); Total Protein 7.3 g/dL (6.5-8.0); Triglycerides 150 mg/dL (<150); Uric Acid 4.2 mg/dL (3.4-7.0)
[2023-12-05 09:11] LABS: Free T4 (Free Thyroxine) 0.91 ng/dL (0.71-1.85); Thyroid Stimulating Hormone 4.34 uIU/mL (0.32-4.0); Vitamin D 25-OH Total 33.5 ng/mL (>30)
[2023-12-05 09:23] LABS: Folate 3.5 ng/mL (> or = 4.0); Vitamin B12 402 pg/mL (200-900)
[2023-12-05 09:29] LABS: Appearance Urine Clear; Color Urine Yellow; Glucose Urine UA Negative (Negative); Leukocyte Esterase Urine Negative (Negative); Nitrite Urine Negative (Negative); PH 5.5 (5.0-9.0); Specific Gravity - Urine 1.025 (1.005-1.025); Urine Blood Negative (Negative); Urine Ketones Negative (Negative); Urine Protein Trace mg/dL (Neg-Trace)
== END 2023-12-05 07:45 | disposition home or self-care (01) ==
LOC: HO.LAB 07:44
PROVIDERS: PCP Internal Medicine; Visit Provider Internal Medicine
DX: D64.9 Anemia, unspecified (principal); E11.9 Type 2 diabetes mellitus without complications; E53.8 Deficiency of other specified B group vitamins; E78.00 Pure hypercholesterolemia, unspecified; M10.9 Gout, unspecified; E03.9 Hypothyroidism, unspecified; E55.9 Vitamin D deficiency, unspecified; R30.0 Dysuria
CPT/HCPCS: 36415; 80053; 80061; 81003; 82043; 82306; 82570; 82607; 82746; 83036; 84439; 84443; 84550; 85025

== ENCOUNTER 2023-12-09 10:49 | Outpatient (AMB) | payer MEDICARE, SELFPAY ==
--- NOTE | 2023-12-09 07:55 | MHC.OFFVIS ---
Intake Visit Reasons: Former smoker Allergies Beta-Blockers (Beta-Adrenergic Bloc Allergy (Unknown, Verified 11/22/23 21:24) SWOLLEN TONGUE lisinopril Allergy (Unknown, Verified 11/22/23 21:24) tongue swelling meperidine [Demerol] Allergy (Unknown, Verified 11/22/23 21:24) Unknown cephalexin Adverse Reaction (Intermediate, Verified 11/22/23 21:24) Diarrhea oxycodone [From Percocet] Adverse Reaction (Verified 11/22/23 21:24) Vomiting HPI HPI Former smoker: Details: Initial visit for this 73yo former smoker with a 40PYH. Patient started smoking at age 15 for 50 years at 1ppd. Quit 8yr ago. . Denies marijuana use. Denies second hand smoke exposure. Denies exposure to chemicals or substances like asbestos. Has worked construction . Denies known family history of lung cancer. Denies personal history of cancers. . Denies chest CT in last year. 07/02/[address] noted partially calcified right basilar pleural plaques again seen suggesting prior asbestos exposure . Denies recent travel outside the [place]. Denies recent respiratory illness or recent hospitalization for respiratory issues. Reports testing positive for COVID. Admits receiving COVID Vaccine. x 4. . Denies fever, chills, new/worsening cough, hemoptysis, hoarseness or dysphagia. Denies significant chest pain, significant dyspnea or unintentional weight loss. Patient Lung Cancer Screening Questionnaire reviewed with patient by provider. . Shared Decision Making Completed. Patient meets criteria. Discussed in detail with patient, the risk vs benefit of LDCT screening. Patient consents to proceed with scan. Discussed and encouraged continue smoking cessation. [facility] Medical History (Updated 12/09/23 @ 11:16 by Codi Briceno PA-C) Abdominal aortic aneurysm Benign essential hypertension Pure hypercholesterolemia Type 2 diabetes mellitus with diabetic chronic kidney disease Chronic kidney disease (CKD), stage III (moderate) Non-toxic multinodular goiter Personal history of nicotine dependence Elevated LFTs Vitamin D deficiency History of gout Obesity (BMI 30-39.9) Surgical History (Updated 12/06/23 @ 13:57 by Codi Briceno PA-C) History of partial thyroidectomy History of right knee surgery History of colonoscopy History of tonsillectomy Family History Father CAD (coronary artery disease) Myocardial infarction Mother Congenital heart disease Breast cancer Uterine cancer Brother No problems noted. Sister No problems noted. Daughter No problems noted. Social History (Updated 12/09/23 @ 11:16 by Codi Briceno PA-C) Housing: House Alcohol intake: never Patient Tobacco Use Status: Former Tobacco user Years Smoked: (onset 15yo, 1ppd x 50yrs, 40PYH, quit 2016) e-Cigarette/Vaping Use: Never Used Second Hand Smoke Exposure: Yes service: No Current occupational status: retired Cognitive needs: No Hearing needs: No Vision needs: Yes Assessment & Plan Assessment & Plan (1) Personal history of nicotine dependence: Comment: (former smoker - onset 15yo, 1ppd x 50yrs, 40PYH, quit 2016) Code(s): Z87.891 - Personal history of nicotine dependence Category: Medical Plan: - SDM visit completed today in office. - Patient meets criteria for LDCT for lung cancer screening purposes and is asymptomatic. - Smoking cessation counseling offered. Patients can always call [phone]. - Will arrange for a LDCT scan of the chest for screening purposes at [facility]. - Risks, benefits, and alternatives were discussed in detail and the patient agrees to proceed. - Risks discussed include but are not limited to: radiation exposure, anxiety during testing and while awaiting results, false negatives, false positives and possibility of additional intervention such as further imaging or surgical procedures for benign disease. - Benefits are obviously detection of lung cancer at an early stage which can lead to improved outcomes. - Discussed the importance of screening program compliance with adherence to yearly LDCT scan as scheduled - or sooner interval scans for personalized screening regimen. - Discussed follow up plan. Our office will send a letter discussing results and if needed set up phone call and office visit based on CT findings. - Patient educated on results categorization and the management decisions for suspicious findings potentially found on the screening LDCT scan. Any patient with a Lung RADS score of 3 or 4 will be reviewed by a multidisciplinary team at [facility] to form a plan of action in regards to scan findings. - If further work up is warranted for a suspicious lung finding this will be followed by the Lung Cancer Screening program in conjunction with the Thoracic Surgery Department at [facility]. - A copy of the office note and LDCT will be sent to the patient's PCP - as well as documentation on any associated further plans of care. - Incidental findings on LDCT are the PCP's responsibility. These findings are indicated with an S finding on the LDCT Assessment. A note discussing the findings will be sent to the PCP who is then responsible for further management. - All questions answered.? Coding Level of Care Code Lung Cancer Screening G0296 Diagnoses Personal history of nicotine dependence Z87.891
== END 2023-12-09 11:31 | disposition home or self-care (01) ==
PROVIDERS: PCP Internal Medicine; Referring Provider Internal Medicine; Visit Provider Physician Assistant Medical
DX: Z87.891 Personal history of nicotine dependence (principal)
CPT/HCPCS: G0296

== ENCOUNTER 2023-12-09 11:17 | Outpatient (REF) | payer MEDICARE, SELFPAY ==
--- NOTE | ~2023-12-09 | CT_ITS ---
EXAMINATION: CT CHEST SCREENING CLINICAL INFORMATION: Personal history of nicotine dependence. The patient has a 49 pack-year history of smoking, having quit 10 years ago. COMPARISON: X-ray chest 07/07/2011. CT abdomen/pelvis 07/02/2023. TECHNIQUE: Multidetector volumetric CT imaging of the chest is performed on a Siemens SOMATOM Definition scanner without contrast using low dose technique. Additional 2D coronal and sagittal reformatted images and axial 3D maximum intensity projection (MIP) images are generated on the CT workstation. This CT examination was performed using dose optimization techniques as appropriate, variously including the following: *Automated exposure control *Adjustment of mA and/or kV according to patient size (this includes techniques or standardized protocols for targeted exams where dose is matched to indication/reason for exam; i.e. extremities or head) *Use of iterative reconstruction technique DLP: 83 mGy-cm FINDINGS: LUNGS: Bibasilar atelectasis is present right greater than left. There is associated pleural calcification at the right lung base. A few scattered pulmonary micronodules are present, none larger than 2 mm. Alan images of all have been saved. Minimal emphysematous changes are seen. Mild bronchial thickening is noted. MEDIASTINUM: The mediastinum is normal. CORONARY ARTERY CALCIFICATION: Present. PLEURA: There is no pleural effusion. Right posterior diaphragmatic pleural calcifications, described above. AXILLA: No lymphadenopathy. UPPER ABDOMEN: Multiple calcifications are seen in the liver posteriorly, unchanged from prior. Stones/sludge are again noted in the gallbladder. 1.9 cm indeterminate right adrenal mass is unchanged. OSSEOUS STRUCTURES: Unremarkable. CT/CT lung screening IMPRESSION: No evidence of malignancy. Incidental findings, as described. ASSESSMENT: Lung-RADS category 2: Benign. RECOMMENDATION: Routine annual low-dose CT screening in 12 months.
== END 2023-12-09 11:18 | disposition home or self-care (01) ==
LOC: HO.CT 11:17
PROVIDERS: PCP Internal Medicine; Visit Provider Nurse Practitioner Family
DX: Z12.2 Encounter for screening for malignant neoplasm of respiratory organs (principal); Z87.891 Personal history of nicotine dependence
CPT/HCPCS: 71271; G0296

== ENCOUNTER 2023-12-16 14:22 | Outpatient (AMB) | payer MEDICARE, SELFPAY ==
--- NOTE | 2023-12-16 14:25 | A.OFFPC_ITS ---
Vital Signs 12/16/23 14:26 12/16/23 15:35 Height 5 ft 11 in Weight 238 lb 2 oz BMI 33.2 BP 108/60 120/76 Blood Pressure Location Lt brachial Lt brachial Position Sitting Sitting Pulse 60 Pulse Source Pulse Oximeter Pulse Oximetry (%) 98 Oxygen Delivery Method Room Air Intake Visit Reasons: DM, hyperlipidemia, HTN, CKD Intake Note: Patient is here to follow up on DM, HLD, HTN, CKD. Mold Laminator Required: No Pot Sander: Present Accompanied by: Spouse Allergies Beta-Blockers (Beta-Adrenergic Bloc Allergy (Unknown, Verified 12/16/23 15:16) SWOLLEN TONGUE lisinopril Allergy (Unknown, Verified 12/16/23 15:16) tongue swelling meperidine [Demerol] Allergy (Unknown, Verified 12/16/23 15:16) Unknown cephalexin Adverse Reaction (Intermediate, Verified 12/16/23 15:16) Diarrhea oxycodone [From Percocet] Adverse Reaction (Verified 12/16/23 15:16) Vomiting Medication List - Last Reconciled 12/16/23 by Jourdan Da Silva MD allopurinol 100 mg PO DAILY 90 days amlodipine 5 mg PO DAILY 90 days aspirin 81 mg PO DAILY 90 days azelaic acid 15% (Finacea) 1 appl topical QAM 90 days blood sugar diagnostic (FreeStyle Lite Strips) Test Daily blood-glucose meter (FreeStyle Lite Meter kit) Test Daily cholecalciferol (vitamin D3) 25 mcg PO DAILY 90 days diclofenac sodium 1% (Voltaren Arthritis Pain) 4 grams topical QID PRN glipizide ER 2.5 mg PO DAILY 90 days hydrochlorothiazide 12.5 mg PO QAM 90 days lancets (BD Ultra Fine Lancets) Test Daily lancets (TRUEplus Lancets) blood sugar 1 to 2 times a day as directed - NO SUBSTITUTION PLEASE! -- Dx Code: E11.21 -- DIABETES MELLITUS Lantus Solostar U-100 Insulin (insulin glargine) 10 units (0.1 mL) subcut QPM 90 days NS levothyroxine 50 mcg PO DAILY 90 days losartan 100 mg PO DAILY 90 days nebivolol 20 mg PO DAILY 90 days pen needle, diabetic (BD Ultra-Fine Nohelia Pen Needle) As directed once a day sildenafil 100 mg PO DAILY PRN simvastatin 20 mg PO DAILY 90 days terazosin 5 mg PO BEDTIME 90 days tirzepatide (Mounjaro) 5 mg (0.5 mL) subcut QWEEK 90 days [true metrix Glucometer LANCETS Test blood sugar 1 to 2 times a day as directed - NO SUBSTITUTION PLEASE! NS] True Metrix Glucose Test Strip (blood sugar diagnostic) As directed - test 1 to 2 times day NS Tobacco use date assessed: 12/16/23 Fall risk assessment: No Falls in past year Last assessed Fall Risk: 12/16/23 Dental Screening Dental Screen Date: 09/14/23 HPI DM, hyperlipidemia, HTN, CKD HPI Details Patient comes in today for his follow up visit States that he currently feels okay He denies any headaches or dizziness Denies any chest pains, no SOB No nausea/vomiting, no abdominal pain No change in bowel habits noted States that he has noticed that his blood pressure has been doing a lot better since he was started on Terazosin by urology for his prostate; he is still OFF HCTZ and has not gone back on it so far He had his follow up labs done last week - to discuss his results FOR[facility]LY [facility], [facility] Medical History (Updated 12/16/23 @ 16:21 by Jourdan Da Silva MD) Benign prostatic hyperplasia with lower urinary tract symptoms Abdominal aortic aneurysm Benign essential hypertension Pure hypercholesterolemia Type 2 diabetes mellitus with diabetic chronic kidney disease Chronic kidney disease (CKD), stage III (moderate) Non-toxic multinodular goiter Personal history of nicotine dependence Elevated LFTs Vitamin D deficiency History of gout Obesity (BMI 30-39.9) Surgical History History of partial thyroidectomy History of right knee surgery History of colonoscopy History of tonsillectomy Family History Father CAD (coronary artery disease) Myocardial infarction Mother Congenital heart disease Breast cancer Uterine cancer Brother No problems noted. Sister No problems noted. Daughter No problems noted. Social History Housing: House Alcohol intake: never Patient Tobacco Use Status: Former Tobacco user Years Smoked: (onset 15yo, 1ppd x 50yrs, 40PYH, quit 2015) e-Cigarette/Vaping Use: Never Used Second Hand Smoke Exposure: Yes service: No Current occupational status: retired Cognitive needs: No Hearing needs: No Vision needs: Yes Questionnaire Thrive Questionnaire Date Thrive assessed: 09/14/23 NIMESH-7 AMB Questionnaire NIMESH-7 Date NIMESH - 7 assessed: 09/14/23 Source: Developed by Drs. Tank Chacon, Paris Feliciano, Kaleb Frey and colleagues, with an educational pam from [employer]. Review of Systems Const Denies chills, Denies fatigue, Denies fever(s) and Denies headache(s) ENT Denies dysphagia, Denies dizziness, Denies otalgia, Denies headache(s), Denies neck pain, Denies odynophagia and Denies sore throat Card Denies chest pain, Reports chest pain with activity, Denies palpitations and Denies dyspnea Resp Denies cough and Denies dyspnea GI Denies abdominal pain, Denies constipation, Denies dysphagia, Denies heartburn, Denies diarrhea, Denies nausea, Denies odynophagia and Denies vomiting Denies dysuria, Denies nocturia and Denies urinary frequency Musc Denies back pain, Reports arthralgias (right knee, on and off - better with brace on) and Denies neck pain Skin/Breast Denies rash Neuro Denies dizziness and Denies headache(s) Endo Denies fatigue and Denies palpitations Physical exam (Primary Care) Vital Signs: Last Vital Signs Pulse 60 12/16/23 14:26 BP 108/60 12/16/23 14:26 Pulse Ox 98 12/16/23 14:26 Oxygen Delivery Method Room Air 12/16/23 14:26 BMI result Body Mass Index 33.2 Tobacco/Smoking Status: Tobacco use Status Tobacco use date assessed 12/16/23 12/16/23 14:33 Patient Tobacco Use Status Former Tobacco user 12/16/23 14:33 e-Cigarette/Vaping Use Never Used 12/16/23 14:33 Thrive Assessment: Date of Thrive Assessment Date Thrive assessed 09/14/23 12/16/23 14:33 Const General: no acute distress and alert HENMT Ears: TM's normal bilaterally and EAC's normal Throat: Yes posterior oropharynx normal and Yes tonsils normal (no TP congestion noted) Neck Neck: Yes no lymphadenopathy and Yes supple Resp Auscultation: clear to auscultation bilaterally, no rales and no wheezes Cardio Rate: regular rate Rhythm: regular rhythm Heart sounds: no murmurs GI Palpation (GI): Soft to palpation and nontender Auscultation: normal bowel sounds General: Yes no CVA tenderness Back/Spine/Pelvis Back: no CVA tenderness Skin Rashes: no rashes Extrem General: Yes no clubbing, cyanosis or edema Right lower extremity: knee Details: tenderness and crepitus Results Reviewed Results Reviewed: Laboratory Tests 12/05/23 12/05/23 08:05 08:06 WBC 7.3 Hgb 13.1 L Hct 41.4 L Plt Count 168 Sodium 138 Potassium 4.4 D Creatinine 1.35 Estimated GFR 52 Fasting Glucose 126 H Hemoglobin A1c % 6.3 H Uric Acid 4.2 Calcium 9.5 AST 22 ALT 24 Triglycerides 150 H Cholesterol 114 LDL Cholesterol, Calc 55 HDL Cholesterol 29 L TSH 4.34 H Free T4 0.91 Ur Specific [place] 1.025 Urine Protein Trace Urine Glucose (UA) Negative Urine Blood Negative Urine Nitrite Negative Ur Leukocyte Esterase Negative Microalb/Creat Ratio 44.0 H Assessment and Plan Assessment & Plan (1) Type 2 diabetes mellitus with diabetic chronic kidney disease: Code(s): E11.22 - Type 2 diabetes mellitus with diabetic chronic kidney disease Qualifiers: Diabetes mellitus penitentiary insulin use: with penitentiary use Chronic kidney disease stage: stage 3 (moderate) Chronic kidney disease stage 3 subtype: stage 3a (GFR 45-59) Qualified Code(s): E11.22 - Type 2 diabetes mellitus with diabetic chronic kidney disease; N18.31 - Chronic kidney disease, stage 3a; Z79.4 - predatory animal exterminator (current) use of insulin Plan: HgbA1c was at 6.3% on his labs done last week (was at 7.7% a few months ago) - goal is < 7.0% Reinforced diabetic diet Continue Glipizide 2.5 mg QD, Mounjaro 5 mg SQ once a week and Lantus Solostar 10 units Q HS He used to see endocrinology but has not done so in the past couple of years (2) Chronic kidney disease (CKD), stage III (moderate): Code(s): N18.30 - Chronic kidney disease, stage 3 unspecified Qualifiers: Chronic kidney disease stage 3 subtype: stage 3a (GFR 45-59) Qualified Code(s): N18.31 - Chronic kidney disease, stage 3a Plan: Patient is advised that his serum creatinine and GFR have both improved significantly from his previous numbers, coinciding with the significant improvement in his HgbA1c recently Reinforced again strict glycemic and BP control to help slow down the decline/ progression of his CKD Will continue to monitor his renal function closely (3) Pure hypercholesterolemia: Code(s): E78.00 - Pure hypercholesterolemia, unspecified Plan: Results of his labs done last week reviewed and discussed with patient Reinforced low cholesterol diet Continue Simvastatin 20 mg QD Will recheck his labs and fasting lipids in 3 months for follow up (4) Benign essential hypertension: Code(s): I10 - Essential (primary) hypertension Plan: Reinforced? low sodium diet - goal is systolic BP of at least 130 or less Patient has felt dizzy and lightheaded often in the past when his systolic BP was 120 mm or less but given his AAA and the fact that its size has been slowly inching up based on his recent AA US, will try to keep his systolic BP between 120 to 130 mm as much as he can tolerate Continue Bystolic 20 mg QD, Losartan 100 mg QD and Amlodipine 5 mg QD - his Amlodipine dose was lowered at the end of June 2023 when he was started on Terazosin 5 mg; we had also have him HOLD his HCTZ 12.5 mg QD since As his blood pressure has stayed well-controlled lately on his current regimen, will continue on his current Rx and will not officially DISCONTINUE his HCTZ He is reminded to continue monitoring his blood pressure regularly (5) Abdominal aortic aneurysm: Comment: 05/2021: Mild aneurysmal dilatation of distal abdominal aorta measuring 3.8 x 3.7 cm. Previously it measured 3.5 x 3.5 cm. Code(s): I71.4 - Abdominal aortic aneurysm, without rupture Qualifiers: Presence of rupture: without rupture Qualified Code(s): I71.4 - Abdominal aortic aneurysm, without rupture Plan: Abdominal and pelvic CT done in June 2023 showed slight progression of the aneurysm to 3.8 cm from 3.0 cm in 2018 On his abdominal arterial study done in April 2023, his aortic aneurysm measures 4.0 x 4.0 cm, increased from 3.8 x 3.7 cm on 05/21/2021 and 3.5 x 3.5 cm on 04/30/2020 Reinforced importance of tight BP control to slow down progression Will continue with yearly US for monitoring (6) Elevated LFTs: Code(s): R79.89 - Other specified abnormal findings of blood chemistry Plan: Patient's LFTs have remained normal on his recent labs Will continue to monitor his LFTs regularly (7) Osteoarthritis of knee: Code(s): M17.10 - Unilateral primary osteoarthritis, unspecified knee Qualifiers: Osteoarthritis type: primary Laterality: right Qualified Code(s): M17.11 - Unilateral primary osteoarthritis, right knee Plan: Follow up with orthopedics at [facility] as scheduled Patient states that he has been considering going for knee surgery to address his knee issues but given that it has calmed down lately, is inclined to hold off on this Continue applying Voltaren gel to his knee PRN for symptomatic relief; he no longer takes any NSAIDs, including Celebrex, for his knee pain (8) Non-toxic multinodular goiter: Code(s): E04.2 - Nontoxic multinodular goiter Plan: S/P right thyroid lobectomy and isthmusectomy on 09/14/[address] Dominique Hagan in [place], [place] Serum TSH has improved slightly but still remains slightly elevated; free T4 remains normal Continue Synthroid 50 mcg QD Will continue to monitor his TFTs regularly (9) History of gout: Code(s): Z87.39 - Personal history of other diseases of the musculoskeletal system and connective tissue Plan: Reinforced low purine diet - reports no acute gout flares lately Serum uric acid level was normal at 4.2 on his recent labs Continue Allopurinol 50 mg QD (10) Vitamin D deficiency: Code(s): E55.9 - Vitamin D deficiency, unspecified Plan: Continue Vitamin D3 1000 units QD (11) 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 There is associated pleural calcification at the right lung base and a few scattered pulmonary micronodules present, but none larger than 2 mm. Minimal emphysematous changes are also seen Recommend repeat LDCT lung screening in 1 year (12) Benign prostatic hyperplasia with lower urinary tract symptoms: Code(s): N40.1 - Benign prostatic hyperplasia with lower urinary tract symptoms Qualifiers: Lower urinary tract symptom detail: weak urinary stream Qualified Code(s): N40.1 - Benign prostatic hyperplasia with lower urinary tract symptoms; R39.12 - Poor urinary stream Plan: Patient states that his symptoms have improved a lot of his current Rx Continue Terazosin 5 mg Q HS Follow up with urology as scheduled (13) Obesity (BMI 30-39.9): Code(s): E66.9 - Obesity, unspecified Plan: Reinforced diet/exercise as tolerated/lose weight Plan Follow up in 3 months Orders: Orders Thyroid Stimulating Hormone 03/10/24 E03.9 - Hypothyroidism, unspecified Hemoglobin A1c 03/10/24 E11.9 - Type 2 diabetes mellitus without complications UA CC w/rflx Micro + Cult 03/10/24 R30.0 - Dysuria Vitamin D 25-OH Total 03/10/24 E55.9 - Vitamin D deficiency, unspecified Vitamin B12 and Folate 03/10/24 E53.8 - Deficiency of other specified B group vitamins Complete Blood Count Auto Diff 03/10/24 D64.9 - Anemia, unspecified Comprehensive [place]. Panel Fast 03/10/24 E78.00 - Pure hypercholesterolemia, unspecified Lipid Panel 03/10/24 E78.00 - Pure hypercholesterolemia, unspecified Free T4 (Free Thyroxine) 03/10/24 E03.9 - Hypothyroidism, unspecified Microalbumin, Random (w Creat) 03/10/24 E11.9 - Type 2 diabetes mellitus without complications Medications: Discontinued hydrochlorothiazide Discontinued Reason: Doctor's Order 12.5 mg PO QAM 90 days 90 ea 3RF I10 - Essential (primary) hypertension Coding Level of Care Code Est Pt Level 4 (81444) Diagnoses Type 2 diabetes mellitus with stage 3a chronic kidney disease, with long-term current use of insulin E11.22; N18.31; Z79.4 Diabetes mellitus exterminator termite insulin use: with penitentiary use Chronic kidney disease stage: stage 3 (moderate) Chronic kidney disease stage 3 subtype: stage 3a (GFR 45-59) Stage 3a chronic kidney disease N18.31 Chronic kidney disease stage 3 subtype: stage 3a (GFR 45-59) Pure hypercholesterolemia E78.00 Benign essential hypertension I10 Abdominal aortic aneurysm (AAA) without rupture I71.4 Presence of rupture: without rupture Elevated LFTs R79.89 Primary osteoarthritis of right knee M17.11 Osteoarthritis type: primary Laterality: right Non-toxic multinodular goiter E04.2 History of gout Z87.39 Vitamin D deficiency E55.9 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 J94.8 Benign prostatic hyperplasia with weak urinary stream N40.1; R39.12 Lower urinary tract symptom detail: weak urinary stream Obesity (BMI 30-39.9) E66.9
[2023-12-16 14:26] VITALS: BP 108/60; PULSE 60; O2SAT 98; BMI 33.2
[2023-12-16 15:35] VITALS: BP 120/76
== END 2023-12-16 15:40 | disposition home or self-care (01) ==
PROVIDERS: PCP Internal Medicine; Visit Provider Internal Medicine
DX: I12.9 Hypertensive chronic kidney disease with stage 1 through stage 4 chronic kidney disease, or unspecified chronic kidney disease (principal); E11.22 Type 2 diabetes mellitus with diabetic chronic kidney disease; N18.31 Chronic kidney disease, stage 3a; Z79.4 Long term (current) use of insulin; I71.40 Abdominal aortic aneurysm, without rupture, unspecified; E78.00 Pure hypercholesterolemia, unspecified; R79.89 Other specified abnormal findings of blood chemistry; M17.11 Unilateral primary osteoarthritis, right knee; E04.2 Nontoxic multinodular goiter; Z87.39 Personal history of other diseases of the musculoskeletal system and connective tissue; E55.9 Vitamin D deficiency, unspecified; J94.8 Other specified pleural conditions
CPT/HCPCS: 99214

== ENCOUNTER 2024-01-03 12:36 | Outpatient (REF) | payer MEDICARE, SELFPAY ==
[2024-01-03 17:57] LABS: PSA,Total (Free>4and<10) 2.26 ng/mL (0.00-4.00)
== END 2024-01-03 12:37 | disposition home or self-care (01) ==
LOC: HO.LAB 12:36
PROVIDERS: PCP Internal Medicine; Visit Provider Nurse Practitioner Family
DX: R97.20 Elevated prostate specific antigen [PSA] (principal); Z12.5 Encounter for screening for malignant neoplasm of prostate
CPT/HCPCS: 36415; 84153

== ENCOUNTER 2024-01-18 15:19 | Outpatient (AMB) | payer MEDICARE, SELFPAY ==
--- NOTE | 2024-01-18 15:27 | A.OFFVIS_ITS ---
Intake Visit Reasons: 8w/PSA(set) Intake Note: Patient presents today for a follow up on: PSA PSA: 2.26 Meds: Terazosin Allergies to Antibiotic: Cephalexin Blood Thinner: Aspirin Post Void Residual: 40ml's Support Specialist Required: No Accompanied by: Allergies Beta-Blockers (Beta-Adrenergic Bloc Allergy (Unknown, Verified 01/18/24 15:55) SWOLLEN TONGUE lisinopril Allergy (Unknown, Verified 01/18/24 15:55) tongue swelling meperidine [Demerol] Allergy (Unknown, Verified 01/18/24 15:55) Unknown cephalexin Adverse Reaction (Intermediate, Verified 01/18/24 15:55) Diarrhea oxycodone [From Percocet] Adverse Reaction (Verified 01/18/24 15:55) Vomiting Medication List - Last Reconciled 01/18/24 by NATASHA ThompsonP- allopurinol 100 mg PO DAILY 90 days amlodipine 5 mg PO DAILY 90 days aspirin 81 mg PO DAILY 90 days azelaic acid 15% (Finacea) 1 appl topical QAM 90 days blood sugar diagnostic (FreeStyle Lite Strips) Test Daily blood-glucose meter (FreeStyle Lite Meter kit) Test Daily cholecalciferol (vitamin D3) 25 mcg PO DAILY 90 days diclofenac sodium 1% (Voltaren Arthritis Pain) 4 grams topical QID PRN glipizide ER 2.5 mg PO DAILY 90 days lancets (BD Ultra Fine Lancets) Test Daily lancets (TRUEplus Lancets) blood sugar 1 to 2 times a day as directed - NO SUBSTITUTION PLEASE! -- Dx Code: E11.21 -- DIABETES MELLITUS Lantus Solostar U-100 Insulin (insulin glargine) 10 units (0.1 mL) subcut QPM 90 days NS levothyroxine 50 mcg PO DAILY 90 days losartan 100 mg PO DAILY 90 days nebivolol 20 mg PO DAILY 90 days pen needle, diabetic (BD Ultra-Fine Nohelia Pen Needle) As directed once a day sildenafil 100 mg PO DAILY PRN simvastatin 20 mg PO DAILY 90 days terazosin 5 mg PO BEDTIME 90 days tirzepatide (Mounjaro) 5 mg (0.5 mL) subcut QWEEK 90 days [true metrix Glucometer LANCETS Test blood sugar 1 to 2 times a day as directed - NO SUBSTITUTION PLEASE! NS] True Metrix Glucose Test Strip (blood sugar diagnostic) As directed - test 1 to 2 times day NS HPI Comments Details: Donald is a very pleasant 73-year-old male patient of Dr. Da Silva who was accompanied by his at today's office visit. He has a past medical history of elevated LFTs, vitamin-D deficiency, gout, abdominal aortic aneurysm, obesity, hypercholesteremia, hypertension, chronic kidney disease stage III, type 2 diabetes, degenerative joint disease, and osteoarthritis. He presents to the office today for follow-up of his elevated PSA and lower urinary tract symptoms. In discussion with the patient today reports to be feeling and doing well. He reports having completed antibiotic therapy as prescribed during last office visit. He reports feeling lower urinary tract symptoms he had been experiencing has since subsided and feels terazosin 5 mg at bedtime has been extremely helpful. In office urinalysis results reviewed with the patient today. PVR 40 mL. Recent PSA results reviewed with the patient today as trended and noted below. He otherwise denies urinary urgency, urinary frequency, incontinence, nocturia, hematuria, dysuria, changes to urinary strea m, flank pain, fever, and or chills. 07/03 1.3, 03/04 3.4, 02/03 19.43, 04/05 2.1, 09/07 5.3, 12/06 6.0 % free PSA 10%, 01/05 2.3 Previous workup has included a retroperitoneal ultrasound noting right kidney with no hydronephrosis. 1.6 cm upper pole cyst. Multiple smaller renal cysts, some of which have associated calcifications and are difficult to characterize due to limited visualization. left kidney with no hydronephrosis and or renal calculi. Exophytic 1.8 x 1.3 x 1.8 cm upper pole cyst with possible mural calcification. Lower pole 1.3 cm cyst with benign features. Multiple additional smaller renal cysts some of which are difficult to characterize due to limited visualization. The 1.2 cm intermediate indeterminate left renal midpole lesion identified on CT scan of 07/02/2023 is not clearly visualized on this study, likely due to bowel gas. The bladder is well distended and normal. Bilateral ureteral jets are demonstrated. Pre void bladder volume is approximately 335 mL. Postvoid bladder volume is approximately 40 mL. The prostate is not visualized due to body habitus. Discussed at length potential causes for elevated PSA as well as significant decrease in PSA likely related to urinary tract infection verses prostatitis. He otherwise offers no other issues or concerns at this time. [facility]LY [facility] Medical History Benign prostatic hyperplasia with lower urinary tract symptoms Abdominal aortic aneurysm Benign essential hypertension Pure hypercholesterolemia Type 2 diabetes mellitus with diabetic chronic kidney disease Chronic kidney disease (CKD), stage III (moderate) Non-toxic multinodular goiter Personal history of nicotine dependence Elevated LFTs Vitamin D deficiency History of gout Obesity (BMI 30-39.9) Surgical History History of partial thyroidectomy History of right knee surgery History of colonoscopy History of tonsillectomy Family History Father CAD (coronary artery disease) Myocardial infarction Mother Congenital heart disease Breast cancer Uterine cancer Brother No problems noted. Sister No problems noted. Daughter No problems noted. Social History Housing: House Alcohol intake: never Patient Tobacco Use Status: Former Tobacco user Years Smoked: (onset 15yo, 1ppd x 50yrs, 40PYH, quit 2015) e-Cigarette/Vaping Use: Never Used Second Hand Smoke Exposure: Yes service: No Current occupational status: retired Cognitive needs: No Hearing needs: No Vision needs: Yes Review of Systems Const Reports as per HPI Eyes Reports no additional complaints ENT Reports no additional complaints Card Reports as per HPI Resp Reports no additional complaints GI Reports as per HPI Reports as per HPI Musc Reports as per HPI Neuro Reports no additional complaints Psych Reports no additional complaints Endo Reports as per HPI Physical Exam Const General: cooperative, healthy appearing, comfortable, no acute distress, well developed, alert and awake Orientation/consciousness: patient oriented x3 Limitations: no limitations HEENT Head: Yes normal to inspection, Yes normocephalic and Yes atraumatic Ears: hearing grossly normal bilaterally Eyes General: appearance normal, both eyes and all related structures Neck Neck: Yes normal visual inspection and Yes trachea midline Chest Chest palpation & inspection: normal inspection of the chest Resp Effort & Inspection: normal respiratory effort and able to speak in complete sentences Cardio Rate: regular rate GI Inspection: Yes normal to inspection General: Yes no CVA tenderness Back/Spine/Pelvis Back: no CVA tenderness Skin General skin exam: no rashes or lesions noted Neuro General: patient oriented x3 Extrem General: Yes normal to inspection Psych Appearance: grossly normal and well kempt Mental Status: mental status grossly normal Speech and movement: Normal speech and movement present and Clear speech present Affect: normal affect Attitude: cooperative Thought process: Normal thought process present Thought content: Normal thought content present Insight: Fair insight present (Psych) Judgement: Fair judgement present (Psych) Office Procedures Post Void Residual Post Residual Void Post Void Residual (PVR): 40 [id number] Void Residual by ultrasound Results AMB Urinalysis, Automated UA Leukoctes 0 Antonio/uL Last Edit by [employer] on 01/18/24 15:44 UA Nitrite Negative Last Edit by [employer] on 01/18/24 15:44 UA Urobilinogen 0.2 mg/dL Last Edit by [employer] on 01/18/24 15:44 UA Protein 100 mg/dL Last Edit by [employer] on 01/18/24 15:44 UA pH 5.5 Last Edit by [employer] on 01/18/24 15:44 UA Blood 0 Renny/uL Last Edit by [employer] on 01/18/24 15:44 UA Specific [place] 1.020 Last Edit by [employer] on 01/18/24 15:44 UA Ketone Positive Last Edit by [employer] on 01/18/24 15:44 UA Bilirubin 1 mg/dL Last Edit by [employer] on 01/18/24 15:44 UA Glucose 0 mg/dL Last Edit by [employer] on 01/18/24 15:44 Results Reviewed Results Reviewed: Laboratory Last Values Urine pH (Auto) 5.5 01/18/24 15:29 Specific [place] (Auto) 1.020 01/18/24 15:29 Urine Protein (Auto) 100 mg/dL 01/18/24 15:29 Glucose (UA)(Auto) 0 mg/dL 01/18/24 15:29 Urine Ketones (Auto) Positive 01/18/24 15:29 Urine Blood (Auto) 0 Renny/uL 01/18/24 15:29 Urine Nitrite (Auto) Negative 01/18/24 15:29 Urine Bilirubin (Auto) 1 mg/dL 01/18/24 15:29 Urine Urobilinogen (Auto) 0.2 mg/dL 01/18/24 15:29 Leukocyte Esterase (Auto) 0 Antonio/uL 01/18/24 15:29 Assessment & Plan Assessment & Plan (1) Elevated PSA: Code(s): R97.20 - Elevated prostate specific antigen [PSA] Category: Medical (2) Benign prostatic hyperplasia with lower urinary tract symptoms: Code(s): N40.1 - Benign prostatic hyperplasia with lower urinary tract symptoms Category: Medical Qualifiers: Lower urinary tract symptom detail: weak urinary stream Qualified Code(s): N40.1 - Benign prostatic hyperplasia with lower urinary tract symptoms; R39.12 - Poor urinary stream (3) Renal cyst: Code(s): N28.1 - Cyst of kidney, acquired Category: Medical Plan In office urinalysis results reviewed with the patient today; as noted above; proteinuria noted; he reports following up with PCP and Nephrology as he has a longstanding history of proteinuria and stage 2-3 chronic kidney disease. PVR 40ml's Recent PSA results reviewed with the patient today; as noted above; significa ntly decreased. Continue with terazosin 5 mg at bedtime as discussed and prescribed. Patient reports be happy with current voiding parameters on terazosin. Patient currently denies any bothersome urinary issues or concerns. Will obtain PSA in 4 months. Follow-up in 4 months with lab to be completed prior; or sooner with any issues, concerns, and or questions. Orders: Orders Prostate Specific Antigen 4 Months R97.20 - Elevated prostate specific antigen [PSA] AMB Urinalysis Automated Today Z13.9 - Encounter for screening, unspecified AMB Post Void Residual by ultrasound Today N40.1 - Benign prostatic hyperplasia with lower urinary tract symptoms, R39.12 - Poor urinary stream Patient Instructions: The patient had an opportunity to ask questions regarding the treatment plan. All questions were answered. Physical exam, labs, and imaging were discussed and reviewed in detail. As well as risks, benefits, and discussion of treatment choices. No major barriers to understanding were identified. The patient expressed understanding and agreement with the above treatment plan. The patient was made aware they should contact our office by phone for worsening of their current condition, the appearance of new symptoms, or with any questions or concerns. Compliance is encouraged with any medications and follow up testing that is ordered. It is a privilege to be allowed the opportunity to participate in? your urological care.? Again, if you have any questions or concerns If you have any questions or concerns please do not hesitate to contact me. The office is [phone]. This note is constructed using voice recognition software. While every effort has been made to ensure accuracy condenser tube tender errors may have been included. Yours sincerely, CHALO Thompson Coding Level of Care Code Est Pt Level 3 (08767) Diagnoses Elevated PSA R97.20 Benign prostatic hyperplasia with weak urinary stream N40.1; R39.12 Lower urinary tract symptom detail: weak urinary stream Renal cyst N28.1 CPT Codes Post Residual Void - PVR CPT Code: 00438-Snml Void Residual by ultrasound ([id number])
== END 2024-01-18 15:56 | disposition home or self-care (01) ==
PROVIDERS: PCP Internal Medicine; Visit Provider Nurse Practitioner Family
DX: R97.20 Elevated prostate specific antigen [PSA] (principal); N40.1 Benign prostatic hyperplasia with lower urinary tract symptoms; R39.12 Poor urinary stream; N28.1 Cyst of kidney, acquired; Z13.9 Encounter for screening, unspecified
CPT/HCPCS: 99213

== ENCOUNTER → 2024-01-18 15:19 | Outpatient (BNVA) | payer MEDICARE, SELFPAY | PROVIDERS: PCP Internal Medicine; Visit Provider Nurse Practitioner Family | DX: N40.1 Benign prostatic hyperplasia with lower urinary tract symptoms (principal); N13.8 Other obstructive and reflux uropathy; R97.20 Elevated prostate specific antigen [PSA]; R39.12 Poor urinary stream; N28.1 Cyst of kidney, acquired; Z79.82 Long term (current) use of aspirin; Z79.899 Other long term (current) drug therapy | CPT/HCPCS: 51798; 81003; 99212 ==

== ENCOUNTER 2024-03-17 07:50 | Outpatient (REF) | payer MEDICARE, SELFPAY ==
[2024-03-17 08:22] LABS: MANUAL DIFF FLAG NO
[2024-03-17 09:09] LABS: Basophils Percent Auto 0.5 % (0-2); Eosinophils Absolute Auto 0.1 X10*3/uL (0.0-0.4); Eosinophils Percent Auto 1.4 % (0-4); Hematocrit 42.3 % (42.0-52.0); Hemoglobin 13.9 g/dl (14.0-18.0); Imm Gran Abs Auto 0.05 X10*3/uL (0.00-0.03); Imm Gran Pct Auto 0.6 % (0.0-0.4); Lymphocytes Absolute Auto 1.3 X10*3/uL (1.2-4.9); Lymphocytes Percent Auto 14.7 % (20-40); Mean Corpuscular HGB Conc 32.9 g/dl (31.0-36.0); Mean Corpuscular Hemoglobin 27.3 pg (27.0-33.0); Mean Corpuscular Volume 83.1 fL (80.0-98.0); Mean Platelet Volume 9.8 fL (9.4-12.4); Monocytes Absolute Auto 0.5 X10*3/uL (0.1-1.2); Neutrophils Absolute Auto 6.7 x10*3/uL (2.0-8.3); Neutrophils Percent Auto 76.8 % (45-73); Platelet Count 155 X10*3/uL (160-400); Red Blood Count 5.09 X10*6/uL (4.60-5.80); Red Cell Distribution Width 13.9 % (11.0-16.0); White Blood Count 8.7 X10*3/uL (4.8-10.8)
[2024-03-17 09:10] LABS: Appearance Urine Cloudy; Color Urine Dark Yellow; Glucose Urine UA Negative (Negative); Leukocyte Esterase Urine Negative (Negative); Nitrite Urine Negative (Negative); PH 5.5 (5.0-9.0); Specific Gravity - Urine 1.025 (1.005-1.025); UMIC TRIGGER UACC YES; Urine Blood Negative (Negative); Urine Ketones Trace mg/dL (Negative); Urine Protein 30 (1+) mg/dL (Neg-Trace)
[2024-03-17 09:15] LABS: Estimated Average Glucose 117 mg/dL; Hemoglobin A1c % 5.7 % (<6.0)
[2024-03-17 10:09] LABS: Microalbum/Creatinine Ratio Ur 79.5 ug/mg cr (<30)
[2024-03-17 10:19] LABS: Alanine Aminotransferase 26 U/L (0-40); Albumin Level 4.2 g/dL (3.5-5.0); Alkaline Phosphatase 75 U/L (39-117); Anion Gap 15 (12-20); Aspartate Amino Transferase 22 U/L (5-37); Bilirubin Total 0.5 mg/dL (0.0-1.0); Blood Urea Nitrogen 18 mg/dL (9-16); Calcium 9.3 mg/dL (8.4-10.2); Carbon Dioxide 23 mmol/L (22-29); Chloride 108 mmol/L (96-108); Cholesterol 101 mg/dL (<200); Estimated Glomerular Filt Rate 54; Glucose Fasting 142 mg/dL (60-99); HDL Cholesterol 31 mg/dL (>40); LDL Cholesterol Calculated 46 mg/dL (<100); Potassium 3.6 mmol/L (3.3-5.1); Sodium 142 mmol/L (135-145); Total Protein 6.8 g/dL (6.5-8.0); Triglycerides 123 mg/dL (<150)
[2024-03-17 10:21] LABS: Free T4 (Free Thyroxine) 1.04 ng/dL (0.71-1.85); Thyroid Stimulating Hormone 3.13 uIU/mL (0.32-4.0); Vitamin D 25-OH Total 36.1 ng/mL (>30)
[2024-03-17 11:04] LABS: Folate 5.4 ng/mL (> or = 4.0); Vitamin B12 360 pg/mL (200-900)
[2024-03-17 11:39] LABS: Bacteria Urine None Seen (None Seen); RBC Urine 0-2 /HPF (0-2); WBC Urine 0-5 /HPF (0-5)
== END 2024-03-17 07:51 | disposition home or self-care (01) ==
LOC: HO.LAB 07:50
PROVIDERS: PCP Internal Medicine; Visit Provider Internal Medicine
DX: E11.9 Type 2 diabetes mellitus without complications (principal); E78.00 Pure hypercholesterolemia, unspecified; E55.9 Vitamin D deficiency, unspecified; E53.8 Deficiency of other specified B group vitamins; D64.9 Anemia, unspecified; E03.9 Hypothyroidism, unspecified
CPT/HCPCS: 36415; 80053; 80061; 81001; 81003; 82043; 82306; 82570; 82607; 82746; 83036; 84439; 84443; 85025

== ENCOUNTER 2024-03-23 14:34 | Outpatient (AMB) | payer MEDICARE, SELFPAY ==
[2024-03-23 15:20] VITALS: BP 124/70; PULSE 64; O2SAT 97; BMI 33.5
--- NOTE | 2024-03-23 15:20 | A.OFFPC_ITS ---
Vital Signs 03/23/24 15:20 Height 5 ft 11 in Weight 240 lb BMI 33.5 BP 124/70 Blood Pressure Location Lt brachial Position Sitting Pulse 64 Pulse Source Pulse Oximeter Pulse Oximetry (%) 97 Oxygen Delivery Method Room Air Intake Visit Reasons: 3 month follow up DM, hyperlipidemia, HTN, CKD Dropper Tank Storage Required: No Accompanied by: Spouse Allergies Beta-Blockers (Beta-Adrenergic Bloc Allergy (Unknown, Verified 03/23/24 15:46) SWOLLEN TONGUE lisinopril Allergy (Unknown, Verified 03/23/24 15:46) tongue swelling meperidine [Demerol] Allergy (Unknown, Verified 03/23/24 15:46) Unknown cephalexin Adverse Reaction (Intermediate, Verified 03/23/24 15:46) Diarrhea oxycodone [From Percocet] Adverse Reaction (Verified 03/23/24 15:46) Vomiting Medication List - Last Reconciled 03/23/24 by Jourdan Da Silva MD allopurinol 100 mg PO DAILY 90 days amlodipine 5 mg PO DAILY 90 days aspirin 81 mg PO DAILY 90 days azelaic acid 15% (Finacea) 1 appl topical QAM 90 days blood sugar diagnostic (FreeStyle Lite Strips) Test Daily blood-glucose meter (FreeStyle Lite Meter kit) Test Daily cholecalciferol (vitamin D3) 25 mcg PO DAILY 90 days diclofenac sodium 1% (Voltaren Arthritis Pain) 4 grams topical QID PRN glipizide ER 2.5 mg PO DAILY 90 days lancets (BD Ultra Fine Lancets) Test Daily lancets (TRUEplus Lancets) blood sugar 1 to 2 times a day as directed - NO SUBSTITUTION PLEASE! -- Dx Code: E11.21 -- DIABETES MELLITUS Lanarvind Solostar U-100 Insulin (insulin glargine) 10 units (0.1 mL) subcut QPM 90 days NS levothyroxine 50 mcg PO DAILY 90 days losartan 100 mg PO DAILY 90 days nebivolol 20 mg PO DAILY 90 days pen needle, diabetic (BD Ultra-Fine Nohelia Pen Needle) As directed once a day sildenafil 100 mg PO DAILY PRN simvastatin 20 mg PO DAILY 90 days terazosin 5 mg PO BEDTIME 90 days tirzepatide (Mounjaro) 5 mg (0.5 mL) subcut QWEEK 90 days [true metrix Glucometer LANCETS Test blood sugar 1 to 2 times a day as directed - NO SUBSTITUTION PLEASE! NS] True Metrix Glucose Test Strip (blood sugar diagnostic) As directed - test 1 to 2 times day NS Tobacco use date assessed: 12/16/23 Fall risk assessment: No Falls in past year Last assessed Fall Risk: 03/23/24 Dental Screening Dental Screen Date: 09/14/23 HPI 3 month follow up DM, hyperlipidemia, HTN, CKD HPI Details Patient comes in today for his follow up visit States that he currently feels okay except for his right knee, which is still bothering him a lot He is seeing orthopedics for his knee issue and he has been advised in the past that he needs knee surgery, which he is still hesitant to do He denies any headaches or dizziness Denies any chest pains, no SOB No nausea/vomiting, no abdominal pain No change in bowel habits noted Needs several of his Rx refilled He had his follow up labs done last week - to discuss his results [facility] Medical History Benign prostatic hyperplasia with lower urinary tract symptoms Abdominal aortic aneurysm Benign essential hypertension Pure hypercholesterolemia Type 2 diabetes mellitus with diabetic chronic kidney disease Chronic kidney disease (CKD), stage III (moderate) Non-toxic multinodular goiter Personal history of nicotine dependence Elevated LFTs Vitamin D deficiency History of gout Obesity (BMI 30-39.9) Surgical History History of partial thyroidectomy History of right knee surgery History of colonoscopy History of tonsillectomy Family History Father CAD (coronary artery disease) Myocardial infarction Mother Congenital heart disease Breast cancer Uterine cancer Brother No problems noted. Sister No problems noted. Daughter No problems noted. Social History Housing: House Alcohol intake: never Patient Tobacco Use Status: Former Tobacco user Years Smoked: (onset 15yo, 1ppd x 50yrs, 40PYH, quit 2015) e-Cigarette/Vaping Use: Never Used Second Hand Smoke Exposure: Yes service: No Current occupational status: retired Cognitive needs: No Hearing needs: No Vision needs: Yes Questionnaire Thrive Questionnaire Date Thrive assessed: 09/14/23 NIMESH-7 AMB Questionnaire NIMESH-7 Date NIMESH - 7 assessed: 09/14/23 Source: Developed by Drs. Tank Chacon, Paris Feliciano, Kaleb Frey and colleagues, with an educational pam from [employer]. Review of Systems Const Denies chills, Denies fatigue, Denies fever(s) and Denies headache(s) ENT Denies dysphagia, Denies dizziness, Denies otalgia, Denies headache(s), Denies neck pain, Denies odynophagia and Denies sore throat Card Denies chest pain, Denies palpitations and Denies dyspnea Resp Denies cough and Denies dyspnea GI Denies abdominal pain, Denies constipation, Denies dysphagia, Denies heartburn, Denies diarrhea, Denies nausea, Denies odynophagia and Denies vomiting Denies dysuria, Denies nocturia and Denies urinary frequency Musc Denies back pain, Reports arthralgias (right knee, on and off - better with brace on) and Denies neck pain Skin/Breast Denies rash Neuro Denies dizziness and Denies headache(s) Endo Denies fatigue and Denies palpitations Physical exam (Primary Care) Vital Signs: Last Vital Signs Pulse 64 03/23/24 15:20 BP 124/70 03/23/24 15:20 Pulse Ox 97 03/23/24 15:20 Oxygen Delivery Method Room Air 03/23/24 15:20 BMI result Body Mass Index 33.5 Tobacco/Smoking Status: Tobacco use Status Tobacco use date assessed 12/16/23 03/23/24 15:21 Patient Tobacco Use Status Former Tobacco user 03/23/24 15:21 e-Cigarette/Vaping Use Never Used 03/23/24 15:21 Thrive Assessment: Date of Thrive Assessment Date Thrive assessed 09/14/23 03/23/24 15:21 Const General: no acute distress and alert HENMT Ears: TM's normal bilaterally and EAC's normal Throat: Yes posterior oropharynx normal and Yes tonsils normal (no TP congestion noted) Neck Neck: Yes no lymphadenopathy and Yes supple Thyroid: Thyroid normal Resp Auscultation: clear to auscultation bilaterally, no rales and no wheezes Cardio Rate: regular rate Rhythm: regular rhythm Heart sounds: no murmurs GI Palpation (GI): Soft to palpation and nontender Auscultation: normal bowel sounds General: Yes no CVA tenderness Back/Spine/Pelvis Back: no CVA tenderness Skin Rashes: no rashes Extrem General: Yes no clubbing, cyanosis or edema Right lower extremity: knee Details: tenderness and crepitus Results Reviewed Results Reviewed: Laboratory Tests 03/17/24 03/17/24 08:21 Unknown WBC 8.7 Hgb 13.9 L Hct 42.3 Plt Count 155 L Sodium 142 Potassium 3.6 Creatinine 1.29 Estimated GFR 54 Fasting Glucose 142 H Hemoglobin A1c % 5.7 Calcium 9.3 AST 22 ALT 26 Triglycerides 123 Cholesterol 101 LDL Cholesterol, Calc 46 HDL Cholesterol 31 L Vitamin B12 360 25-OH Vitamin D Total 36.1 TSH 3.13 Free T4 1.04 Ur Specific [place] 1.025 Urine Protein 30 (1+) H Urine Glucose (UA) Negative Urine Blood Negative Urine Nitrite Negative Ur Leukocyte Esterase Negative Microalb/Creat Ratio 79.5 H Assessment and Plan Assessment & Plan (1) Type 2 diabetes mellitus with diabetic chronic kidney disease: Code(s): E11.22 - Type 2 diabetes mellitus with diabetic chronic kidney disease Qualifiers: Diabetes mellitus termite technician insulin use: with custodial use Chronic kidney disease stage: stage 3 (moderate) Chronic kidney disease stage 3 subtype: stage 3a (GFR 45-59) Qualified Code(s): E11.22 - Type 2 diabetes mellitus with diabetic chronic kidney disease; N18.31 - Chronic kidney disease, stage 3a; Z79.4 - senior care (current) use of insulin Plan: His HgbA1c was at 5.7% on his labs done last week (was at 6.3% a few months ago) - goal is < 7.0% Reinforced diabetic diet Continue Mounjaro 5 mg SQ once a week and Lantus Solostar 10 units Q HS Discussed with patient that he seems to be doing much better on Mounjaro than he did on Trulicity Will have him try to HOLD his Glipizide 2.5 mg QD for now and if his diabetes continues to stay well-controlled over the next few months, will permanently D/C this He used to see endocrinology but has not done so in the past couple of years (2) Chronic kidney disease (CKD), stage III (moderate): Code(s): N18.30 - Chronic kidney disease, stage 3 unspecified Qualifiers: Chronic kidney disease stage 3 subtype: stage 3a (GFR 45-59) Qualified Code(s): N18.31 - Chronic kidney disease, stage 3a Plan: Patient is advised that his serum creatinine and GFR have both been stable lately Reinforced again strict glycemic and BP control to help slow down the decline/ progression of his CKD Will continue to monitor his renal function closely (3) Pure hypercholesterolemia: Code(s): E78.00 - Pure hypercholesterolemia, unspecified Plan: Results of his labs done last week reviewed and discussed with patient Reinforced low cholesterol diet Continue Simvastatin 20 mg QD Will recheck his labs and fasting lipids in 3 months for follow up (4) Benign essential hypertension: Code(s): I10 - Essential (primary) hypertension Plan: Reinforced? low sodium diet - goal is systolic BP of at least 130 or less Patient has felt dizzy and lightheaded often in the past when his systolic BP was 120 mm or less but given his AAA and the fact that its size has been slowly inching up based on his recent AA US, will try to keep his systolic BP between 120 to 130 mm as much as he can tolerate Continue Bystolic 20 mg QD, Losartan 100 mg QD and Amlodipine 5 mg QD - his Amlodipine dose was lowered at the end of June 2023 when he was started on Terazosin 5 mg; we had also have him HOLD his HCTZ 12.5 mg QD since As his blood pressure has stayed well-controlled lately on his current regimen, will continue on his current Rx and will not officially DISCONTINUE his HCTZ He is reminded to continue monitoring his blood pressure regularly (5) Abdominal aortic aneurysm: Comment: 05/2021: Mild aneurysmal dilatation of distal abdominal aorta measuring 3.8 x 3.7 cm. Previously it measured 3.5 x 3.5 cm. Code(s): I71.4 - Abdominal aortic aneurysm, without rupture Qualifiers: Presence of rupture: without rupture Qualified Code(s): I71.4 - Abdominal aortic aneurysm, without rupture Plan: Abdominal and pelvic CT done in June 2023 showed slight progression of the aneurysm to 3.8 cm from 3.0 cm in 2018 On his abdominal arterial study done in April 2023, his aortic aneurysm measures 4.0 x 4.0 cm, increased from 3.8 x 3.7 cm on 05/21/2021 and 3.5 x 3.5 cm on 04/30/2020 Reinforced importance of tight BP control to slow down progression Will continue with yearly US for monitoring (6) Elevated LFTs: Code(s): R79.89 - Other specified abnormal findings of blood chemistry Plan: Patient's LFTs have remained normal on his recent labs Will continue to monitor his LFTs regularly (7) Osteoarthritis of knee: Code(s): M17.10 - Unilateral primary osteoarthritis, unspecified knee Qualifiers: Osteoarthritis type: primary Laterality: right Qualified Code(s): M17.11 - Unilateral primary osteoarthritis, right knee Plan: Follow up with orthopedics at [facility] as scheduled Patient states that he has been considering going for knee surgery to address his knee issues but given that it has calmed down lately, is inclined to hold off on this Continue applying Voltaren gel to his knee PRN for symptomatic relief; he no longer takes any NSAIDs, including Celebrex, for his knee pain (8) Non-toxic multinodular goiter: Code(s): E04.2 - Nontoxic multinodular goiter Plan: S/P right thyroid lobectomy and isthmusectomy on 09/14/[address] Dominique Hagan in [place], [place] Serum TSH has improved slightly but still remains slightly elevated; free T4 remains normal Continue Synthroid 50 mcg QD Will continue to monitor his TFTs regularly (9) History of gout: Code(s): Z87.39 - Personal history of other diseases of the musculoskeletal system and connective tissue Plan: Reinforced low purine diet - reports no acute gout flares lately Serum uric acid level was normal at 4.2 on his recent labs Continue Allopurinol 50 mg QD (10) Vitamin D deficiency: Code(s): E55.9 - Vitamin D deficiency, unspecified Plan: Continue Vitamin D3 1000 units QD (11) 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 There is associated pleural calcification at the right lung base and a few scattered pulmonary micronodules present, but none larger than 2 mm. Minimal emphysematous changes are also seen Recommend repeat LDCT lung screening in 1 year (12) Benign prostatic hyperplasia with lower urinary tract symptoms: Code(s): N40.1 - Benign prostatic hyperplasia with lower urinary tract symptoms Qualifiers: Lower urinary tract symptom detail: weak urinary stream Qualified Code(s): N40.1 - Benign prostatic hyperplasia with lower urinary tract symptoms; R39.12 - Poor urinary stream Plan: Patient states that his symptoms have improved a lot of his current Rx Continue Terazosin 5 mg Q HS Follow up with urology as scheduled (13) Obesity (BMI 30-39.9): Code(s): E66.9 - Obesity, unspecified Plan: Reinforced diet/exercise as tolerated/lose weight Plan Follow up in 3 months Orders: Orders Complete Blood Count Auto Diff 3 Months D64.9 - Anemia, unspecified Comprehensive [place]. Panel Fast 3 Months E78.00 - Pure hypercholesterolemia, unspecified UA CC w/rflx Micro + Cult 3 Months R30.0 - Dysuria Thyroid Stimulating Hormone 3 Months E03.9 - Hypothyroidism, unspecified Hemoglobin A1c 3 Months E11.9 - Type 2 diabetes mellitus without complications Lipid Panel 3 Months E78.00 - Pure hypercholesterolemia, unspecified Free T4 (Free Thyroxine) 3 Months E03.9 - Hypothyroidism, unspecified Microalbumin, Random (w Creat) 3 Months E11.9 - Type 2 diabetes mellitus without complications Vitamin D 25-OH Total 3 Months E55.9 - Vitamin D deficiency, unspecified Medications: Refilled allopurinol 100 mg PO DAILY 90 days 90 tabs 3RF Z87.39 - Personal history of other diseases of the musculoskeletal system and connective tissue diclofenac sodium 1% (Voltaren Arthritis Pain) apply to single knee, ankle, foot; for foot includes sole/toes/top of foot 4 grams topical QID PRN 100 grams 5RF pain losartan 100 mg PO DAILY 90 days 90 tabs 3RF I10 - Essential (primary) hypertension tirzepatide (Mounjaro) 5 mg (0.5 mL) subcut QWEEK 90 days 6.5 mL 2RF amlodipine 5 mg PO DAILY 90 days 90 tabs 3RF I10 - Essential (primary) hypertension aspirin 81 mg PO DAILY 90 days 90 tabs 3RF E11.21 - Type 2 diabetes mellitus with diabetic nephropathy, I10 - Essential (primary) hypertension, N18.31 - Chronic kidney disease, stage 3a cholecalciferol (vitamin D3) 25 mcg PO DAILY 90 days 90 caps 3RF E55.9 - Vitamin D deficiency, unspecified Lantus Solostar U-100 Insulin (insulin glargine) 10 units (0.1 mL) subcut QPM 90 days 15 mL 3RF NS E11.21 - Type 2 diabetes mellitus with diabetic nephropathy, N18.31 - Chronic kidney disease, stage 3a levothyroxine 50 mcg PO DAILY 90 days 90 tabs 3RF nebivolol 20 mg PO DAILY 90 days 90 tabs 3RF I10 - Essential (primary) hypertension simvastatin 20 mg PO DAILY 90 days 90 tabs 3RF E78.00 - Pure hypercholesterolemia, unspecified Coding Level of Care Code Est Pt Level 4 (12619) Complex EM visit Add On G2211 Diagnoses Type 2 diabetes mellitus with stage 3a chronic kidney disease, with long-term current use of insulin E11.22; N18.31; Z79.4 Diabetes mellitus custodial insulin use: with termite technician use Chronic kidney disease stage: stage 3 (moderate) Chronic kidney disease stage 3 subtype: stage 3a (GFR 45-59) Stage 3a chronic kidney disease N18.31 Chronic kidney disease stage 3 subtype: stage 3a (GFR 45-59) Pure hypercholesterolemia E78.00 Benign essential hypertension I10 Abdominal aortic aneurysm (AAA) without rupture I71.4 Presence of rupture: without rupture Elevated LFTs R79.89 Primary osteoarthritis of right knee M17.11 Osteoarthritis type: primary Laterality: right Non-toxic multinodular goiter E04.2 History of gout Z87.39 Vitamin D deficiency E55.9 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 J94.8 Benign prostatic hyperplasia with weak urinary stream N40.1; R39.12 Lower urinary tract symptom detail: weak urinary stream Obesity (BMI 30-39.9) E66.9
== END 2024-03-23 16:18 | disposition home or self-care (01) ==
PROVIDERS: PCP Internal Medicine; Visit Provider Internal Medicine
DX: E11.22 Type 2 diabetes mellitus with diabetic chronic kidney disease (principal); N18.31 Chronic kidney disease, stage 3a; Z79.4 Long term (current) use of insulin; I71.40 Abdominal aortic aneurysm, without rupture, unspecified; E78.00 Pure hypercholesterolemia, unspecified; R79.89 Other specified abnormal findings of blood chemistry; M17.11 Unilateral primary osteoarthritis, right knee; E04.2 Nontoxic multinodular goiter; Z87.39 Personal history of other diseases of the musculoskeletal system and connective tissue; E55.9 Vitamin D deficiency, unspecified; J94.8 Other specified pleural conditions; N40.1 Benign prostatic hyperplasia with lower urinary tract symptoms; R39.12 Poor urinary stream; E66.9 Obesity, unspecified
CPT/HCPCS: 99214; G2211

== ENCOUNTER 2024-06-26 13:35 | Outpatient (AMB) | payer MEDICARE, SELFPAY ==
--- NOTE | 2024-06-26 14:02 | A.OFFVIS_ITS ---
Intake Visit Reasons: 4m/PSA Intake Note: Patient presents today for a follow up on: urinary retention, complicated uti Meds: Terazosin Allergies to Antibiotic: Cephalexin Blood Thinner: Aspirin Post Void Residual: 25ml's Indexer Required: No Accompanied by: Allergies Beta-Blockers (Beta-Adrenergic Bloc Allergy (Unknown, Verified 06/26/24 14:45) SWOLLEN TONGUE lisinopril Allergy (Unknown, Verified 06/26/24 14:45) tongue swelling meperidine [Demerol] Allergy (Unknown, Verified 06/26/24 14:45) Unknown cephalexin Adverse Reaction (Intermediate, Verified 06/26/24 14:45) Diarrhea oxycodone [From Percocet] Adverse Reaction (Verified 06/26/24 14:45) Vomiting Medication List - Last Reconciled 06/26/24 by PRINCESS Thompson allopurinol 100 mg PO DAILY 90 days amlodipine 5 mg PO DAILY 90 days aspirin 81 mg PO DAILY 90 days azelaic acid 15% (Finacea) 1 appl topical QAM 90 days blood sugar diagnostic (FreeStyle Lite Strips) Test Daily blood-glucose meter (FreeStyle Lite Meter kit) Test Daily cholecalciferol (vitamin D3) 25 mcg PO DAILY 90 days diclofenac sodium 1% (Voltaren Arthritis Pain) 4 grams topical QID PRN lancets (BD Ultra Fine Lancets) Test Daily lancets (TRUEplus Lancets) blood sugar 1 to 2 times a day as directed - NO SUBSTITUTION PLEASE! -- Dx Code: E11.21 -- DIABETES MELLITUS Lantus Solostar U-100 Insulin (insulin glargine) 10 units (0.1 mL) subcut QPM 90 days NS levothyroxine 50 mcg PO DAILY 90 days losartan 100 mg PO DAILY 90 days nebivolol 20 mg PO DAILY 90 days pen needle, diabetic (BD Ultra-Fine Nohelia Pen Needle) As directed once a day sildenafil 100 mg PO DAILY PRN simvastatin 20 mg PO DAILY 90 days terazosin 5 mg PO BEDTIME 90 days tirzepatide (Mounjaro) 5 mg (0.5 mL) subcut QWEEK 90 days [true metrix Glucometer LANCETS Test blood sugar 1 to 2 times a day as directed - NO SUBSTITUTION PLEASE! NS] True Metrix Glucose Test Strip (blood sugar diagnostic) As directed - test 1 to 2 times day NS HPI Comments Details: Donald is a very pleasant 74-year-old male patient of Dr. Da Silva who was accompanied by his Landy at today's office visit. He has a past medical history of elevated LFTs, vitamin-D deficiency, gout, abdominal aortic aneurysm, obesity, hypercholesteremia, hypertension, chronic kidney disease stage III, type 2 diabetes, degenerative joint disease, and osteoarthritis. He presents to the office today for follow-up of his elevated PSA and lower urinary tract symptoms. In discussion with the patient today reports to be feeling and doing well. He reports feeling lower urinary tract symptoms he had been experiencing have significantly improved. He reports feeling terazosin has been helpful and denies any bothersome urinary issues or concerns at today's office visit. He discusses his frustration with his insurance regarding surveillance monitoring of PSA. In office urinalysis results reviewed with the patient today. PVR 25ml's. Previous workup has included a retroperitoneal ultrasound noting right kidney with no hydronephrosis. 1.6 cm upper pole cyst. Multiple smaller renal cysts, some of which have associated calcifications and are difficult to characterize due to limited visualization. left kidney with no hydronephrosis and or renal calculi. Exophytic 1.8 x 1.3 x 1.8 cm upper pole cyst with possible mural calcification. Lower pole 1.3 cm cyst with benign features. Multiple additional smaller renal cysts some of which are difficult to characterize due to limited visualization. The 1.2 cm intermediate indeterminate left renal midpole lesion identified on CT scan of 07/02/2023 is not clearly visualized on this study, likely due to bowel gas. The bladder is well distended and normal. Bilateral ureteral jets are demonstrated. Pre void bladder volume is approximately 335 mL. Postvoid bladder volume is approximately 40 mL. The prostate is not visualized due to body habitus. Discussed at length potential causes for elevated PSA as well as significant decrease in PSA likely related to urinary tract infection verses prostatitis. PSAs are as follows: 07/03 1.3, 03/04 3.4, 02/03 19.43, 04/05 2.1, 09/07 5.3, 12/06 6.0 % free PSA 10%, 01/05 2.3 He denies urinary urgency, urinary frequency, incontinence, nocturia, hematuria, dysuria, foul smelling urine, changes to urinary stream, flank pain, fever, and or chills. He discusses upcoming right knee replacement with orthopedic surgeon at [facility]. He otherwise offers no other issues or concerns at this time. [facility] Medical History Benign prostatic hyperplasia with lower urinary tract symptoms Abdominal aortic aneurysm Benign essential hypertension Pure hypercholesterolemia Type 2 diabetes mellitus with diabetic chronic kidney disease Chronic kidney disease (CKD), stage III (moderate) Non-toxic multinodular goiter Personal history of nicotine dependence Elevated LFTs Vitamin D deficiency History of gout Obesity (BMI 30-39.9) Surgical History History of partial thyroidectomy History of right knee surgery History of colonoscopy History of tonsillectomy Family History Father CAD (coronary artery disease) Myocardial infarction Mother Congenital heart disease Breast cancer Uterine cancer Brother No problems noted. Sister No problems noted. Daughter No problems noted. Social History Housing: House Alcohol intake: never Patient Tobacco Use Status: Former Tobacco user Years Smoked: (onset 15yo, 1ppd x 50yrs, 40PYH, quit 2015) e-Cigarette/Vaping Use: Never Used Second Hand Smoke Exposure: Yes service: No Current occupational status: retired Cognitive needs: No Hearing needs: No Vision needs: Yes Review of Systems Const Reports as per HPI Eyes Reports no additional complaints ENT Reports no additional complaints Card Reports as per HPI Resp Reports no additional complaints GI Reports as per HPI Reports as per HPI Musc Reports as per HPI Neuro Reports no additional complaints Psych Reports no additional complaints Endo Reports as per HPI Physical Exam Const General: cooperative, healthy appearing, comfortable, no acute distress, well developed, alert and awake Orientation/consciousness: patient oriented x3 Limitations: no limitations HEENT Head: Yes normal to inspection, Yes normocephalic and Yes atraumatic Ears: hearing grossly normal bilaterally Eyes General: appearance normal, both eyes and all related structures Neck Neck: Yes normal visual inspection and Yes trachea midline Chest Chest palpation & inspection: normal inspection of the chest Resp Effort & Inspection: normal respiratory effort and able to speak in complete sentences Cardio Rate: regular rate GI Inspection: Yes normal to inspection General: Yes no CVA tenderness Back/Spine/Pelvis Back: no CVA tenderness Skin General skin exam: no rashes or lesions noted Neuro General: patient oriented x3 Extrem General: Yes normal to inspection Psych Appearance: grossly normal and well kempt Mental Status: mental status grossly normal Speech and movement: Normal speech and movement present and Clear speech present Affect: normal affect Attitude: cooperative Thought process: Normal thought process present Thought content: Normal thought content present Insight: Fair insight present (Psych) Judgement: Fair judgement present (Psych) Office Procedures Post Void Residual Post Residual Void Post Void Residual (PVR): 25 [id number]-Ikif Void Residual by ultrasound Results AMB Urinalysis, Automated UA Leukoctes 0 Antonio/uL Last Edit by [employer] on 06/26/24 14:22 UA Nitrite Last Edit by [employer] on 06/26/24 14:22 UA Urobilinogen 0.2 mg/dL Last Edit by [employer] on 06/26/24 14:22 UA Protein 0 mg/dL Last Edit by [employer] on 06/26/24 14:22 UA pH 6.0 Last Edit by [employer] on 06/26/24 14:22 UA Blood 0 Renny/uL Last Edit by [employer] on 06/26/24 14:22 UA Specific [place] 1.015 Last Edit by [employer] on 06/26/24 14:22 UA Ketone Negative Last Edit by [employer] on 06/26/24 14:22 UA Bilirubin 0 mg/dL Last Edit by [employer] on 06/26/24 14:22 UA Glucose 0 mg/dL Last Edit by [employer] on 06/26/24 14:22 Results Reviewed Results Reviewed: Laboratory Last Values Urine pH (Auto) 6.0 06/26/24 14:20 Specific [place] (Auto) 1.015 06/26/24 14:20 Urine Protein (Auto) 0 mg/dL 06/26/24 14:20 Glucose (UA)(Auto) 0 mg/dL 06/26/24 14:20 Urine Ketones (Auto) Negative 06/26/24 14:20 Urine Blood (Auto) 0 Renny/uL 06/26/24 14:20 Urine Bilirubin (Auto) 0 mg/dL 06/26/24 14:20 Urine Urobilinogen (Auto) 0.2 mg/dL 06/26/24 14:20 Leukocyte Esterase (Auto) 0 Antonio/uL 06/26/24 14:20 Assessment & Plan Assessment & Plan (1) Benign prostatic hyperplasia with lower urinary tract symptoms: Code(s): N40.1 - Benign prostatic hyperplasia with lower urinary tract symptoms Category: Medical Qualifiers: Lower urinary tract symptom detail: weak urinary stream Qualified Code(s): N40.1 - Benign prostatic hyperplasia with lower urinary tract symptoms; R39.12 - Poor urinary stream (2) Urinary retention: Code(s): R33.9 - Retention of urine, unspecified Category: Medical (3) Renal cyst: Code(s): N28.1 - Cyst of kidney, acquired Category: Medical (4) Elevated PSA: Code(s): R97.20 - Elevated prostate specific antigen [PSA] Category: Medical Plan In office urinalysis results reviewed the patient today; as noted above. PVR 25 mLs. Continue terazosin 5 mg daily as discussed and prescribed; refill provided. Patient currently denies any bothersome urinary issues or concerns. He reports be happy with current voiding parameters. Will continue with surveillance monitoring of PSA. We discussed likely bean of previous elevated PSA being related to prostatitis versus urinary tract infection as PSA significantly decrease after completion of antibiotic therapy. Follow-up in December with PSA to be completed prior; or sooner with any issues, concerns, and or questions. Orders: Orders AMB Post Void Residual by ultrasound Today N40.1 - Benign prostatic hyperplasia with lower urinary tract symptoms, R39.12 - Poor urinary stream Prostate Specific Antigen 12/13/24 N40.1 - Benign prostatic hyperplasia with lower urinary tract symptoms, R39.12 - Poor urinary stream, R97.20 - Elevated prostate specific antigen [PSA] AMB Urinalysis Automated Today Z13.9 - Encounter for screening, unspecified Medications: Refilled terazosin 5 mg PO BEDTIME 90 caps 3RF 90 days N40.1 - Benign prostatic hyperplasia with lower urinary tract symptoms, R35.0 - Frequency of micturition Patient Instructions: The patient had an opportunity to ask questions regarding the treatment plan. All questions were answered. Physical exam, labs, and imaging were discussed and reviewed in detail. As well as risks, benefits, and discussion of treatment choices. No major barriers to understanding were identified. The patient expressed understanding and agreement with the above treatment plan. The patient was made aware they should contact our office by phone for worsening of their current condition, the appearance of new symptoms, or with any questions or concerns. Compliance is encouraged with any medications and follow up testing that is ordered. It is a privilege to be allowed the opportunity to participate in? your urological care.? Again, if you have any questions or concerns If you have any questions or concerns please do not hesitate to contact me. The office is [phone]. This note is constructed using voice recognition software. While every effort has been made to ensure accuracy wood flour miller errors may have been included. Yours sincerely, CHALO Thompson Coding Level of Care Code Est Pt Level 3 (78707) Diagnoses Benign prostatic hyperplasia with weak urinary stream N40.1; R39.12 Lower urinary tract symptom detail: weak urinary stream Urinary retention R33.9 Renal cyst N28.1 Elevated PSA R97.20 CPT Codes Post Residual Void - PVR CPT Code: 43140-Mcje Void Residual by ultrasound ([id number])
== END 2024-06-26 14:46 | disposition home or self-care (01) ==
PROVIDERS: PCP Internal Medicine; Visit Provider Nurse Practitioner Family
DX: N40.1 Benign prostatic hyperplasia with lower urinary tract symptoms (principal); R39.12 Poor urinary stream; R33.9 Retention of urine, unspecified; N28.1 Cyst of kidney, acquired; R97.20 Elevated prostate specific antigen [PSA]; Z13.9 Encounter for screening, unspecified
CPT/HCPCS: 99213

== ENCOUNTER → 2024-06-26 13:35 | Outpatient (BNVA) | payer MEDICARE, SELFPAY | PROVIDERS: PCP Internal Medicine; Visit Provider Nurse Practitioner Family | DX: N40.1 Benign prostatic hyperplasia with lower urinary tract symptoms (principal); R33.8 Other retention of urine; R39.12 Poor urinary stream; N28.1 Cyst of kidney, acquired; R35.0 Frequency of micturition; R97.20 Elevated prostate specific antigen [PSA] | CPT/HCPCS: 51798; 81003; 99212 ==

== ENCOUNTER 2024-07-13 08:08 | Outpatient (REF) | payer MEDICARE, SELFPAY ==
[2024-07-13 09:10] LABS: MANUAL DIFF FLAG NO
[2024-07-13 09:47] LABS: Basophils Percent Auto 0.3 % (0-2); Eosinophils Absolute Auto 0.1 X10*3/uL (0.0-0.4); Eosinophils Percent Auto 1.2 % (0-4); Hematocrit 43.9 % (42.0-52.0); Hemoglobin 14.3 g/dl (14.0-18.0); Imm Gran Abs Auto 0.05 X10*3/uL (0.00-0.03); Imm Gran Pct Auto 0.4 % (0.0-0.4); Lymphocytes Absolute Auto 1.5 X10*3/uL (1.2-4.9); Lymphocytes Percent Auto 12.4 % (20-40); Mean Corpuscular HGB Conc 32.6 g/dl (31.0-36.0); Mean Corpuscular Hemoglobin 27.6 pg (27.0-33.0); Mean Corpuscular Volume 84.7 fL (80.0-98.0); Mean Platelet Volume 10.1 fL (9.4-12.4); Monocytes Absolute Auto 0.7 X10*3/uL (0.1-1.2); Monocytes Percent Auto 5.9 % (2-11); Neutrophils Absolute Auto 9.4 x10*3/uL (2.0-8.3); Neutrophils Percent Auto 79.8 % (45-73); Platelet Count 180 X10*3/uL (160-400); Red Blood Count 5.18 X10*6/uL (4.60-5.80); Red Cell Distribution Width 13.8 % (11.0-16.0); White Blood Count 11.8 X10*3/uL (4.8-10.8)
[2024-07-13 10:00] LABS: Appearance Urine Clear; Color Urine Dark Yellow; Glucose Urine UA Negative (Negative); Leukocyte Esterase Urine Negative (Negative); Nitrite Urine Negative (Negative); PH 5.5 (5.0-9.0); Specific Gravity - Urine 1.025 (1.005-1.025); UMIC TRIGGER UACC YES; Urine Blood Negative (Negative); Urine Ketones Trace mg/dL (Negative); Urine Protein 30 (1+) mg/dL (Neg-Trace)
[2024-07-13 10:01] LABS: Estimated Average Glucose 146 mg/dL; Hemoglobin A1C 177.1663 umol/L; Hemoglobin A1c % 6.7 % (<6.0); Total Hemoglobin (HGBA1C) 3585.7632 umol/L
[2024-07-13 10:19] LABS: Alanine Aminotransferase 48 U/L (0-40); Albumin Level 4.2 g/dL (3.5-5.0); Alkaline Phosphatase 88 U/L (39-117); Anion Gap 12 (12-20); Aspartate Amino Transferase 28 U/L (5-37); Bilirubin Total 0.5 mg/dL (0.0-1.0); Blood Urea Nitrogen 24 mg/dL (9-16); Calcium 8.8 mg/dL (8.4-10.2); Carbon Dioxide 24 mmol/L (22-29); Chloride 109 mmol/L (96-108); Cholesterol 113 mg/dL (<200); Estimated Glomerular Filt Rate 47; Glucose Fasting 136 mg/dL (60-99); HDL Cholesterol 33 mg/dL (>40); LDL Cholesterol Calculated 58 mg/dL (<100); Potassium 3.9 mmol/L (3.3-5.1); Sodium 141 mmol/L (135-145); Total Protein 6.9 g/dL (6.5-8.0); Triglycerides 112 mg/dL (<150)
[2024-07-13 10:35] LABS: Vitamin D 25-OH Total 35.3 ng/mL (>30)
[2024-07-13 10:36] LABS: Bacteria Urine None Seen (None Seen); RBC Urine 0-2 /HPF (0-2); Squamous Epithelial Cell Urine 0-2 /HPF (0-2); WBC Urine 0-5 /HPF (0-5)
[2024-07-13 11:06] LABS: Creatinine Urine 299.55 mg/dL
== END 2024-07-13 08:09 | disposition home or self-care (01) ==
LOC: HO.LAB 08:08
PROVIDERS: PCP Internal Medicine; Visit Provider Internal Medicine
DX: D64.9 Anemia, unspecified (principal); E03.9 Hypothyroidism, unspecified; E11.9 Type 2 diabetes mellitus without complications; E78.00 Pure hypercholesterolemia, unspecified; E55.9 Vitamin D deficiency, unspecified
CPT/HCPCS: 36415; 80053; 80061; 81001; 81003; 82043; 82306; 82570; 83036; 84439; 84443; 85025

== ENCOUNTER 2024-07-18 14:58 | Outpatient (AMB) | payer MEDICARE, SELFPAY ==
[2024-07-18 14:59] VITALS: BP 110/74; PULSE 64; O2SAT 99; BMI 32.8
--- NOTE | 2024-07-18 14:59 | MHC.PC.OV ---
Vital Signs 07/18/24 14:59 07/18/24 15:23 Height 5 ft 11 in Weight 235 lb BMI 32.8 BP 110/74 120/78 Blood Pressure Location Lt brachial Lt brachial Position Sitting Sitting Pulse 64 Pulse Source Pulse Oximeter Pulse Oximetry (%) 99 Oxygen Delivery Method Room Air Intake Visit Reasons: DM, HLD, CKD, HTN, OA Sciences Dean Required: No Accompanied by: Self / Same As Patient Allergies Beta-Blockers (Beta-Adrenergic Bloc Allergy (Unknown, Verified 07/18/24 15:10) SWOLLEN TONGUE lisinopril Allergy (Unknown, Verified 07/18/24 15:10) tongue swelling meperidine [Demerol] Allergy (Unknown, Verified 07/18/24 15:10) Unknown cephalexin Adverse Reaction (Intermediate, Verified 07/18/24 15:10) Diarrhea oxycodone [From Percocet] Adverse Reaction (Verified 07/18/24 15:10) Vomiting Medication List - Last Reconciled 07/18/24 by Jourdan Da Silva MD allopurinol 100 mg PO DAILY 90 days amlodipine 5 mg PO DAILY 90 days aspirin 81 mg PO DAILY 90 days azelaic acid 15% (Finacea) 1 appl topical QAM 90 days blood sugar diagnostic (FreeStyle Lite Strips) Test Daily blood-glucose meter (FreeStyle Lite Meter kit) Test Daily cholecalciferol (vitamin D3) 25 mcg PO DAILY 90 days diclofenac sodium 1% (Voltaren Arthritis Pain) 4 grams topical QID PRN lancets (BD Ultra Fine Lancets) Test Daily lancets (TRUEplus Lancets) blood sugar 1 to 2 times a day as directed - NO SUBSTITUTION PLEASE! -- Dx Code: E11.21 -- DIABETES MELLITUS Lanmaximusus Solostar U-100 Insulin (insulin glargine) 10 units (0.1 mL) subcut QPM 90 days NS levothyroxine 50 mcg PO DAILY 90 days losartan 100 mg PO DAILY 90 days nebivolol 20 mg PO DAILY 90 days pen needle, diabetic (BD Ultra-Fine Nohelia Pen Needle) As directed once a day sildenafil 100 mg PO DAILY PRN simvastatin 20 mg PO DAILY 90 days terazosin 5 mg PO BEDTIME 90 days tirzepatide (Mounjaro) 5 mg (0.5 mL) subcut QWEEK 90 days [true metrix Glucometer LANCETS Test blood sugar 1 to 2 times a day as directed - NO SUBSTITUTION PLEASE! NS] True Metrix Glucose Test Strip (blood sugar diagnostic) As directed - test 1 to 2 times day NS Tobacco use date assessed: 07/18/24 Fall risk assessment: No Falls in past year Last assessed Fall Risk: 07/18/24 Dental Screening Dental Screen Date: 07/18/24 Did you have a dental visit in the last 12 months?: Yes Did you have a dental problem in the last 6 months where you did not have access to dental care?: No Was dental information given to patient?: Patient has dentist HPI DM, HLD, CKD, HTN, OA HPI Details Patient comes in today for his follow-up visit States that he feels okay His right knee is still bothering him frequently and he is planning to have knee surgery done by orthopedics at [facility] next month He denies any headaches or dizziness Denies any chest pains, no shortness of breath No nausea/vomiting, no abdominal pain No change in bowel habits noted He had his follow-up labs done a few days ago - to discuss his results [facility] Medical History Benign prostatic hyperplasia with lower urinary tract symptoms Abdominal aortic aneurysm Benign essential hypertension Pure hypercholesterolemia Type 2 diabetes mellitus with diabetic chronic kidney disease Chronic kidney disease (CKD), stage III (moderate) Non-toxic multinodular goiter Personal history of nicotine dependence Elevated LFTs Vitamin D deficiency History of gout Obesity (BMI 30-39.9) Surgical History History of partial thyroidectomy History of right knee surgery History of colonoscopy History of tonsillectomy Family History Father CAD (coronary artery disease) Myocardial infarction Mother Congenital heart disease Breast cancer Uterine cancer Brother No problems noted. Sister No problems noted. Daughter No problems noted. Social History Housing: House Alcohol intake: never Patient Tobacco Use Status: Former Tobacco user Years Smoked: (onset 15yo, 1ppd x 50yrs, 40PYH, quit 2015) e-Cigarette/Vaping Use: Never Used Second Hand Smoke Exposure: Yes service: No Current occupational status: retired Cognitive needs: No Hearing needs: No Vision needs: Yes Questionnaire PHQ-9 Over the last 2 weeks, how often have you been bothered by any of the following problems? 1. Little interest or pleasure in doing things: not at all 2. Feeling down, depressed, or hopeless: not at all 3. Trouble falling or staying asleep, or sleeping too much: not at all 4. Feeling tired or having little energy: not at all 5. Poor appetite or overeating: not at all 6. Feeling bad about yourself - or that you are a failure or have let yourself or your family down: not at all 7. Trouble concentrating on things, such as reading the newspaper or watching television: not at all 8. Moving or speaking so slowly that other people could have noticed. Or the opposite - being so fidgety or restless that you have been moving around a lot more than usual: not at all 9. Thoughts that you would be better off or of hurting yourself in some way: not at all Total score: 0 Depression Screening Interpretation: Negative Depression Screening Done: Yes 43547 - PHQ-9 Billing: Yes Source: Developed by Drs. Tank Chacon, Paris Feliciano, Kaleb Frey and colleagues, with an educational pam from [employer]. Thrive Questionnaire Date Thrive assessed: 07/18/24 I am a: Patient What is your living situation today?: I have a steady place to live Within the past 12 months, did the food you bought not last and you didn't have the money to get more?: Never true Within the past 12 months, did you worry whether your food would run out before you got money to buy more?: Never true Do you have trouble paying for medicines?: No Do you have trouble getting transportation to medical appointments?: No Do you have trouble paying your heating and electricity bill?: No Do you have trouble taking care of your child, family member or friend?: No Do you have trouble with day-to-day activities such as bathing, preparing meals, shopping, managing finances, etc.?: No Are you currently unemployed and looking for a job?: No Are you interested in more education?: No Please select the resources that you would like help with: None Currently or been in a relationship where the following occur: No concerns reported THRIVE Score: 0 AUDIT C Alcohol Use Questionnaire (AUDIT-C) 1. How often do you have a drink containing alcohol?: 2-4 times a month 2. How many drinks containing alcohol do you have on a typical day when you are drinking?: 1 or 2 3. How often do you have six or more drinks on one occasion?: Never Total Score: 2 Score Reviewed/Action Taken: Yes NIMESH-7 AMB Questionnaire NIMESH-7 Date NIMESH - 7 assessed: 07/18/24 Feeling nervous, anxious, or on edge: 0 = Not at all Not being able to stop or control worryin = Not at all Worrying too much about different things: 0 = Not at all Trouble relaxin = Not at all Being so restless that it is hard to sit still: 0 = Not at all Becoming easily annoyed or irritable: 0 = Not at all Feeling afraid as if something awful might happen: 0 = Not at all Total NIMESH-7 score (0-4 normal; 5-9 mild; 10-14 moderate; 15-21 severe): 0 Source: Developed by Drs. Tank Chacon, Paris Feliciano, Kaleb Frey and colleagues, with an educational pam from [employer]. Review of Systems Const Denies chills, Denies fatigue, Denies fever(s) and Denies headache(s) ENT Denies dysphagia, Denies dizziness, Denies otalgia, Denies headache(s), Denies neck pain, Denies odynophagia and Denies sore throat Card Denies chest pain, Denies palpitations and Denies dyspnea Resp Denies chest congestion, Denies cough and Denies dyspnea GI Denies abdominal pain, Denies constipation, Denies dysphagia, Denies heartburn, Denies diarrhea, Denies nausea, Denies odynophagia and Denies vomiting Denies dysuria, Denies nocturia and Denies urinary frequency Musc Denies back pain, Reports arthralgias (right knee, frequent) and Denies neck pain Skin/Breast Denies rash Neuro Denies dizziness and Denies headache(s) Endo Denies fatigue and Denies palpitations Physical exam (Primary Care) Vital Signs: Last Vital Signs Pulse 64 12/04/24 14:59 BP 120/78 07/18/24 15:23 Pulse Ox 99 07/18/24 14:59 Oxygen Delivery Method Room Air 07/18/24 14:59 BMI result Body Mass Index 32.8 Tobacco/Smoking Status: Tobacco use Status Tobacco use date assessed 07/18/24 07/18/24 15:01 Patient Tobacco Use Status Former Tobacco user 07/18/24 15:01 e-Cigarette/Vaping Use Never Used 07/18/24 15:01 PHQ-9: PHQ-9 Score PHQ-9: Total score 0 07/18/24 15:25 Depression Screening Interpretation: Negative Thrive Assessment: Date of Thrive Assessment Date Thrive assessed 07/18/24 07/18/24 15:01 Currently or been in a relationship where the following occur: No concerns reported Const General: no acute distress and alert HENMT Ears: TM's normal bilaterally and EAC's normal Throat: Yes posterior oropharynx normal and Yes tonsils normal (no TP congestion noted) Neck Neck: Yes no lymphadenopathy and Yes supple Thyroid: Thyroid normal Resp Auscultation: clear to auscultation bilaterally, no rales and no wheezes Cardio Rate: regular rate Rhythm: regular rhythm Heart sounds: no murmurs GI Palpation (GI): Soft to palpation and nontender Auscultation: normal bowel sounds General: Yes no CVA tenderness Back/Spine/Pelvis Back: no CVA tenderness Skin Rashes: no rashes Extrem General: Yes no clubbing, cyanosis or edema Right lower extremity: knee Details: tenderness and crepitus Results Reviewed Results Reviewed: Laboratory Tests 07/13/24 07/13/24 09:05 09:09 WBC 11.8 H Hgb 14.3 Hct 43.9 Plt Count 180 Sodium 141 Potassium 3.9 Creatinine 1.45 H Estimated GFR 47 Fasting Glucose 136 H Hemoglobin A1c % 6.7 H Calcium 8.8 AST 28 ALT 48 H Triglycerides 112 Cholesterol 113 LDL Cholesterol, Calc 58 HDL Cholesterol 33 L 25-OH Vitamin D Total 35.3 TSH 3.60 Free T4 1.20 Ur Specific [place] 1.025 Urine Protein 30 (1+) H Urine Glucose (UA) Negative Urine Blood Negative Urine Nitrite Negative Ur Leukocyte Esterase Negative Microalb/Creat Ratio 52.0 H Coding Level of Care Code Est Pt Level 4 (39364) Diagnoses Type 2 diabetes mellitus with stage 3a chronic kidney disease, with long-term current use of insulin E11.22; N18.31; Z79.4 Diabetes mellitus ad terminal makeup operator insulin use: with prison use Chronic kidney disease stage: stage 3 (moderate) Chronic kidney disease stage 3 subtype: stage 3a (GFR 45-59) Stage 3a chronic kidney disease N18.31 Chronic kidney disease stage 3 subtype: stage 3a (GFR 45-59) Pure hypercholesterolemia E78.00 Benign essential hypertension I10 Abdominal aortic aneurysm (AAA) without rupture I71.4 Presence of rupture: without rupture Elevated LFTs R79.89 Primary osteoarthritis of right knee M17.11 Osteoarthritis type: primary Non-toxic multinodular goiter E04.2 History of gout Z87.39 Vitamin D deficiency E55.9 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 J94.8 Benign prostatic hyperplasia with weak urinary stream N40.1; R39.12 Lower urinary tract symptom detail: weak urinary stream Obesity (BMI 30-39.9) E66.9 Additional Codes PHQ-9 - 95452 - PHQ-9 Billing: Yes ([id number]) Assessment & Plan Assessment & Plan (1) Type 2 diabetes mellitus with diabetic chronic kidney disease: Code(s): E11.22 - Type 2 diabetes mellitus with diabetic chronic kidney disease Category: Medical Qualifiers: Diabetes mellitus prison insulin use: with ad terminal makeup operator use Chronic kidney disease stage: stage 3 (moderate) Chronic kidney disease stage 3 subtype: stage 3a (GFR 45-59) Qualified Code(s): E11.22 - Type 2 diabetes mellitus with diabetic chronic kidney disease; N18.31 - Chronic kidney disease, stage 3a; Z79.4 - [facility] (current) use of insulin Plan: His HgbA1c was at 6.7% on his labs done a few days ago (was previously at 5.7% a few months ago) - goal is at least < 7.0% Reinforced diabetic diet - patient admits to poor compliance with his diet for a day or two during the recent iday(s) Continue Mounjaro 5 mg SQ once a week and Lantus Solostar 10 units Q HS Will have him continue to HOLD his Glipizide 2.5 mg QD for now and if his diabetes continues to stay controlled over the next few months, will permanently D/C this He used to see endocrinology but has not done so in the past couple of years (2) Chronic kidney disease (CKD), stage III (moderate): Code(s): N18.30 - Chronic kidney disease, stage 3 unspecified Category: Medical Qualifiers: Chronic kidney disease stage 3 subtype: stage 3a (GFR 45-59) Qualified Code(s): N18.31 - Chronic kidney disease, stage 3a Plan: His serum creatinine and GFR have both been stable for a while now but he is cautioned that his numbers have declined slightly on his recent labs, likely due to the 1% rise in his HgbA1c lately Reinforced again strict glycemic and BP control to help slow down the decline/ progression of his CKD Will continue to monitor his renal function closely (3) Pure hypercholesterolemia: Code(s): E78.00 - Pure hypercholesterolemia, unspecified Category: Medical Plan: Results of his labs done a few days ago reviewed and discussed with patient Reinforced low cholesterol diet Continue Simvastatin 20 mg QD Will recheck his labs and fasting lipids in 4 months for follow up (4) Benign essential hypertension: Code(s): I10 - Essential (primary) hypertension Category: Medical Plan: Reinforced? low sodium diet - goal is systolic BP of at least 130 or less Patient has felt dizzy and lightheaded often in the past when his systolic BP was 120 mm or less but given his AAA and the fact that its size has been slowly inching up based on his recent AA US, will try to keep his systolic BP between 120 to 130 mm as much as he can tolerate Continue Bystolic 20 mg QD, Losartan 100 mg QD and Amlodipine 5 mg QD - his Amlodipine dose was lowered at the end of June 2023 when he was started on Terazosin 5 mg; we have also HELD his HCTZ 12.5 mg QD and this was permanently discontinued at his last visit He is reminded to continue monitoring his blood pressure regularly (5) Abdominal aortic aneurysm: Comment: 05/2021: Mild aneurysmal dilatation of distal abdominal aorta measuring 3.8 x 3.7 cm. Previously it measured 3.5 x 3.5 cm. Code(s): I71.4 - Abdominal aortic aneurysm, without rupture Category: Medical Qualifiers: Presence of rupture: without rupture Qualified Code(s): I71.4 - Abdominal aortic aneurysm, without rupture Plan: Abdominal and pelvic CT done in June 2023 showed slight progression of the aneurysm to 3.8 cm from 3.0 cm in 2018 On his abdominal arterial study done in April 2023, his aortic aneurysm measures 4.0 x 4.0 cm, increased from 3.8 x 3.7 cm on 05/21/2021 and 3.5 x 3.5 cm on 04/30/2020 Reinforced importance of tight BP control to slow down progression Will continue with yearly US for surveillance - will need repeat US now (ordered) (6) Elevated LFTs: Code(s): R79.89 - Other specified abnormal findings of blood chemistry Category: Medical Plan: Patient's serum ALT has increased again slightly on his recent labs; serum AST remained normal Will continue to monitor his LFTs regularly (7) Degenerative joint disease of right knee: Code(s): M17.11 - Unilateral primary osteoarthritis, right knee Category: Medical Qualifiers: Osteoarthritis type: primary Qualified Code(s): M17.11 - Unilateral primary osteoarthritis, right knee Plan: Follow up with orthopedics as scheduled - he is now going to orthopedics at [place] Patient states that he is considering going for knee surgery to address his knee issues, possibly by next month Continue applying Voltaren gel to his knee PRN for symptomatic relief; he no longer takes any NSAIDs, including Celebrex, for his knee pain (8) Non-toxic multinodular goiter: Code(s): E04.2 - Nontoxic multinodular goiter Category: Medical Plan: S/P right thyroid lobectomy and isthmusectomy on 09/14/[address] 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 There is associated pleural calcification at the right lung base and a few scattered pulmonary micronodules present, but none larger than 2 mm. Minimal emphysematous changes are also seen Recommend repeat LDCT lung screening in 1 year - will be due in November or December 2024 (12) Benign prostatic hyperplasia with lower urinary tract symptoms: Code(s): N40.1 - Benign prostatic hyperplasia with lower urinary tract symptoms Category: Medical Qualifiers: Lower urinary tract symptom detail: weak urinary stream Qualified Code(s): N40.1 - Benign prostatic hyperplasia with lower urinary tract symptoms; R39.12 - Poor urinary stream Plan: Patient states that his symptoms have improved a lot of his current Rx Continue Terazosin 5 mg Q HS Follow up with urology as scheduled (13) Obesity (BMI 30-39.9): Code(s): E66.9 - Obesity, unspecified Category: Medical Plan: Reinforced diet/exercise as tolerated/lose weight Plan Follow-up in 4 months Orders: Orders Complete Blood Count Auto Diff 4 Months D64.9 - Anemia, unspecified Lipid Panel 4 Months E78.00 - Pure hypercholesterolemia, unspecified Thyroid Stimulating Hormone 4 Months E03.9 - Hypothyroidism, unspecified Uric Acid 4 Months M10.9 - Gout, unspecified Comprehensive [place]. Panel Fast 4 Months E78.00 - Pure hypercholesterolemia, unspecified Hemoglobin A1c 4 Months E11.9 - Type 2 diabetes mellitus without complications Free T4 (Free Thyroxine) 4 Months E03.9 - Hypothyroidism, unspecified US abdominal aortic aneurysm Today I71.4 - Abdominal aortic aneurysm, without rupture
[2024-07-18 15:23] VITALS: BP 120/78
--- OUTSIDE RECORDS SUMMARY | 2024-07-24 20:56 | XMS_ITS ---
Author Name [facility] Organization Unknown History of Medication Use Medication Directions Dispensed Refills Start Date End Date Stat Vitamin D3 (CHOLECALCIFEROL) 25 MCG (1000 UT) Cap Take by mouth daily. 04/14/2023 active traMADol (ULTRAM) 50 MG tablet Take 1 tablet (50 mg total) by mouth 3 times daily (every 8 hours) as needed for severe pain. 04/14/2023 active aspirin 81 MG chewable tablet Chew 1 tablet (81 mg total) daily. Do not start before September 17, 2021. 04/14/2023 active hydrochlorothiazide (HYDRODIURIL) 12.5 MG tablet Take 12.5 mg by mouth daily. 04/14/2023 active Januvia 100 MG tablet daily. 04/14/2023 active nebivolol (BYSTOLIC) 20 MG tablet Take 20 mg by mouth daily. 04/14/2023 active aspirin 81 MG chewable tablet Chew 1 tablet (81 mg total) daily. Do not start before September 17, 2021. 04/14/2023 active hydrochlorothiazide (HYDRODIURIL) 12.5 MG tablet Take 12.5 mg by mouth daily. 04/14/2023 active allopurinol (ZYLOPRIM) 100 mg tablet Take 0.5 tablets by mouth daily. 04/14/2023 active simvastatin (ZOCOR) 20 MG tablet Take 20 mg by mouth daily. 04/14/2023 active losartan (COZAAR) 100 MG tablet Take 100 mg by mouth daily. 04/14/2023 active amLODIPine (NORVASC) 5 MG tablet daily. 04/14/2023 active acetaminophen (TYLENOL) 500 MG tablet Take 2 tablets (1,000 mg total) by mouth 4 times daily (every 6 hours) as needed for mild pain or moderate pain. 04/14/2023 active glipiZIDE (GLUCOTROL XL) 2.5 MG 24 hr tablet Take 2.5 mg by mouth every morning with breakfast. 04/14/2023 active Problems Problem Status Onset Date Problem Type Date of Resolution Source Nontoxic multinodular goiter active 2021-07-[address] [facility] Primary osteoarthritis of right knee active EncounterDiagnosisAct [facility] Immunizations Vaccine Date Source Lot Number Status Covid-19 MRNA Vaccine - Pfiz er 12+ (Purple Cap) 10/06/2020 [facility] completed Covid-19 MRNA Vaccine - Pfiz er 12+ (Purple Cap) 10/27/2020 [facility] completed Covid-19 MRNA Vaccine - Pfiz er 12+ (Purple Cap) 05/15/2021 [facility] completed
== END 2024-07-18 15:47 | disposition home or self-care (01) ==
PROVIDERS: PCP Internal Medicine; Visit Provider Internal Medicine
DX: E11.22 Type 2 diabetes mellitus with diabetic chronic kidney disease (principal); N18.31 Chronic kidney disease, stage 3a; Z79.4 Long term (current) use of insulin; I71.40 Abdominal aortic aneurysm, without rupture, unspecified; E78.00 Pure hypercholesterolemia, unspecified; I12.9 Hypertensive chronic kidney disease with stage 1 through stage 4 chronic kidney disease, or unspecified chronic kidney disease; M17.11 Unilateral primary osteoarthritis, right knee; E04.2 Nontoxic multinodular goiter; Z87.39 Personal history of other diseases of the musculoskeletal system and connective tissue; E55.9 Vitamin D deficiency, unspecified; J94.8 Other specified pleural conditions; N40.1 Benign prostatic hyperplasia with lower urinary tract symptoms

== ENCOUNTER → 2024-07-18 14:58 | Outpatient (BNVA) | payer MEDICARE, SELFPAY | PROVIDERS: PCP Internal Medicine; Visit Provider Internal Medicine | DX: I12.9 Hypertensive chronic kidney disease with stage 1 through stage 4 chronic kidney disease, or unspecified chronic kidney disease (principal); E11.22 Type 2 diabetes mellitus with diabetic chronic kidney disease; N18.31 Chronic kidney disease, stage 3a; Z79.4 Long term (current) use of insulin; E78.00 Pure hypercholesterolemia, unspecified; I71.40 Abdominal aortic aneurysm, without rupture, unspecified; R79.89 Other specified abnormal findings of blood chemistry; M17.11 Unilateral primary osteoarthritis, right knee; E04.2 Nontoxic multinodular goiter; E55.9 Vitamin D deficiency, unspecified; J98.4 Other disorders of lung; N40.1 Benign prostatic hyperplasia with lower urinary tract symptoms; R39.12 Poor urinary stream | CPT/HCPCS: 96127; 99212 ==

== ENCOUNTER 2024-08-03 09:06 | Outpatient (REF) | payer MEDICARE, SELFPAY ==
--- NOTE | ~2024-08-03 | US_ITS ---
EXAMINATION: US RETROPERITONEAL LIMITED (AORTA) CLINICAL INFORMATION: Abdominal aortic aneurysm. COMPARISON: Prior study 2022 TECHNIQUE: Hutchinson-scale, color Doppler and spectral Doppler evaluation of the abdominal aorta. FINDINGS: The aorta is normal. The measurements of the aorta in maximum AP and transverse dimensions respectively are as follows: Proximal: 1.9 x 1.9 cm. Mid: 2.2 x 1.8 cm. Distal: Aneurysmal measure up to 4 x 3.7 cm. . The measurements of the common iliac arteries in maximum dimensions are as follows: Right: AP: 1.1 cm. TRV: 1.4 cm. Left: AP: 0.9 cm. TRV: 1.3 cm. US/US abdominal aortic aneurysm IMPRESSION: STABLE ANEURYSMAL DILATATION OF ABDOMINAL AORTA MEASURE UP TO 4 CM. Infrarenal Aortic Diameter (cm) RECOMMENDED FOLLOW-UP 4.0 cm to 4.4 cm Every 12 months, Recommend vascular consultation AAA BPRs based on ACR White paper: J Am Monique Radiol 2013;10 (10):789-794. (Available on [employer]) Electronically signed by: Ashlie Child MD 08/07/2024 06:49 AM EST
== END 2024-08-03 09:07 | disposition home or self-care (01) ==
LOC: HO.US 09:06
PROVIDERS: PCP Internal Medicine; Visit Provider Internal Medicine
DX: I71.40 Abdominal aortic aneurysm, without rupture, unspecified (principal)
CPT/HCPCS: 76706

== ENCOUNTER 2024-11-16 14:43 | Outpatient (REF) | payer MEDICARE, SELFPAY ==
--- NOTE | ~2024-11-16 | CT_ITS ---
CLINICAL HISTORY: Z87.891 - Personal history of nicotine dependence CT lung cancer screening (LDCT) Comparison: CT/IN/SR - CT LUNG SCREENING - 12/09/23 11:35 EDT Technique: Axial CT images of the chest using low-dose technique. Referring provider counseled the patient on shared decision-making for LDCT screening. Additional counseling was provided on smoking cessation. Effective radiation dose total: DLP 64.1 mGycm, CTDIvol 1.8 mGy. Findings: Lung: Mild centrilobular emphysema. Stable 2 mm subpleural nodule of the left lower lobe series 4, image 70. Calcified pleural plaque of the right lung. There is atelectasis of the right lower lobe. Coronary artery calcifications: Moderate Limited upper abdomen: Unchanged calcifications of the right lobe of the liver. Stable 1.3 x 1.9 cm right adrenal nodule. Other: None Impression: LungRADS 2 - Benign Appearance: Continue annual screening with low dose Chest CT in 12 months. ##L2# Category 1: Normal; continue annual screening Category 2: Benign appearance or behavior, continue annual screening Category 3: Probably benign, [address] recommended Category 4A: Suspicious, [address] recommended; may consider PET/CT Category 4B: Suspicious, Additional diagnostics and/or tissue sampling recommended Category 4X: Suspicious, Additional diagnostics and/or tissue sampling recommended Category 0: Recalls (incomplete screen due to Incomplete coverage, Noise, Respiratory motion, Expiration, Obscured by acute abnormality) This document has been electronically signed by: Petey Fonseca MD on 11/19/2024 13:26:12
--- OUTSIDE RECORDS SUMMARY | 2024-11-16 16:14 | XMS_ITS | Clinical Summary ---
Author Organization [facility] Address [address] [place] [phone] Phone Care Team Providers Care Hand Collator Name Role Phone Jourdan Da Silva MD Primary Care Provider Allergies Active Allergy Reactions Criticality Noted Date Comments Lisinopril Swelling Medium 07/07/2021 Tongue swelling Meperidine Nausea And Vomiting Medium 12/06/2018 Oxycodone-Acetaminophen Nausea And Vomiting Low Medications Mounjaro 5 mg/0.5 mL injection 4 Active terazosin (HYTRIN) 5 mg capsule Take 1 capsule (5 mg total) by mouth. at bedtime 4 Active BD Nohelia 2nd Gen Pen Needle 32 gauge x 5/32 needle 1 (one) time each day. use as directed 4 Active Synthroid 50 mcg tablet 4 Active diclofenac (VOLTAREN) 1 % topical gel 4 Active Lantus Solostar U-100 Insulin 100 unit/mL (3 mL) injection pen INJECT 0.1ML 10 UNITS) SUBCUTANEOUSLY EVERY EVENING 4 Active simvastatin (ZOCOR) 20 mg tablet Take 1 tablet (20 mg total) by mouth daily. Active nebivoloL (BYSTOLIC) 20 mg tablet Take 1 tablet (20 mg total) by mouth daily. Active losartan (COZAAR) 100 mg tablet Take 1 tablet (100 mg total) by mouth daily. Active cholecalcifero l (VITAMIN D-3) 25 mcg (1,000 unit) capsule Take by mouth daily. Active aspirin 81 mg chewable tablet Chew 1 tablet (81 mg total) daily. 2 Active allopurinoL (ZYLOPRIM) 100 mg tablet Take 0.5 tablets (50 mg total) by mouth daily. Active amLODIPine (NORVASC) 5 mg tablet daily. Active Active Problems Problem Noted Date Diagnosed Date BPH (benign prostatic hyperplasia) 08/16/2024 HTN (hypertension) 08/16/2024 AAA (abdominal aortic aneurysm) 08/16/2024 HLD (hyperlipidemia) 08/16/2024 CKD (chronic kidney disease) stage 3, GFR 30-59 ml/min 08/16/2024 Insulin dependent type 2 diabetes mellitus 08/16 Tobacco use 08/16/2024 Gout 08/16/2024 Vitamin D deficiency 08/16/2024 Elevated LFTs 08/16/2024 Post-traumatic osteoarthritis of right knee 09/2024 Primary osteoarthritis of left knee 08/16/2024 Encounters Date Type Department Care Team Description 09/06/2024 Telephone Orthopedic Surgery [place] [address] [phone] Yolande Sanches MA Surgery 08/22/2024 2:45 PM EST Consult Orthopedic Surgery [facility] [address] [phone] Dejon Remy, DPM Dermatophytosis of nail (Primary Dx); Tinea pedis of both feet; Pain in toe of right foot; Pain in toe of left foot; Difficulty walking; Ingrowing nail; Diabetic mononeuropathy simplex (CMS/HCC) 08/21/2024 [place] [facility] [place] [address] [phone] Yolande Sanches MA Surgery from Last 3 Months Medical History Medical History Date Comments Hypertension DX:Hypertension Heart disease DX:Heart disease Family History Relation Name Status Comments Father Mother Social History Tobacco Use Types Packs/Day Years Used Date Smoking Tobacco: Former Cigarettes Q uit: 12/06/2008 Smokeless Tobacco: Never Alcohol Use Standard Drinks/Week Comments Yes 0 (1 standard drink = 0.6 oz pur e alcohol) Sex and Gender Information Value Date Recorded Sex Assigned at Not on file Legal Sex Male 11:10 PM EST Gender Identity Not on file Sexual Orientation Not on file Obstetrics History Last Filed Vital Signs Vital Sign Reading Time Taken Comments Blood Pressure - - Pulse - - Temperature - - Respiratory Rate - - Oxygen Saturation - - Inhaled Oxygen Concentration - - Weight 108 kg (238 lb) 08/22/2024 2:45 PM EST Height 180.3 cm (5' 10.98 ) 08/22/2024 2:[address] Body Mass Index 33.21 08/22/2024 2:45 PM EST Plan of Treatment Health Maintenance Due Date Last Done Comments Diabetes: Annual Foot Exam 1959 Diabetes: Annual Retina Eye Exam 1959 DTaP,Tdap,and Td Vaccines (1 - Tdap) 1968 Pneumococcal Vaccine: 50+ Years (1 of 2 - PCV) 1968 Zoster Vaccines (1 of 2) 1999 Diabetes: Annual GFR (Glomerular Filtration Rate) 09/07/2022 09/07/2021 Cholesterol Screening (Lipid Panel) 06/28/2024 Depression Screening 06/28/2024 Falls Risk Assessment 06/28/2024 Hepatitis C Screening 06/28/2024 Social Influencers of Health Screening 06/28/2024 Diabetes: Annual Urine Albumin-Creatinine Ratio (uACR) 08/16/2024 Diabetes: Blood Sugar Control Test (HGBA1C) 08/16/2024 Hypertension/CHF/CAD Annual BMP Blood Test 08/16/2024 09/07/2021 Colorectal Cancer Screening: FIT-DNA (Cologuard) 02/08/2026 02/08/2023, 02/08/2023, 03/14/2019 COVID-19 Vaccine Completed 04/28/2024, , 05/02/2022, Additional history exists Influenza Vaccine Completed 04/28/2024, , 05/02/2022, Additional history exists RSV Immunization Adult Patients Completed 04/28/2024 HIB Vaccines Aged Out No longer eligi ble based on patient's age to complete this topic HPV Vaccines Aged Out No longer eligi ble based on patient's age to complete this topic Hepatitis A Vaccines Aged Out No long er eligible based on patient's age to complete this topic Hepatitis B Vaccines Aged Out No long er eligible based on patient's age to complete this topic IPV Vaccines Aged Out No longer eligi ble based on patient's age to complete this topic MMR Vaccines Aged Out No longer eligi ble based on patient's age to complete this topic Meningococcal ACWY Vaccine Aged Out N o longer eligible based on patient's age to complete this topic Meningococcal B Vacine Aged Out No lo nger eligible based on patient's age to complete this topic RSV Immunization Patients Under 20 months Aged Out No longer eligible based on patient's age to complete this topic Varicella Vaccines Aged Out No longer eligible based on patient's age to complete this topic Insurance [facility] Care Teams Hand Collator Relationship Specialty Start Date End Date Jourdan Da Silva MD [address] [place] [address] Dr Aguirre [address] [place] [address] CT PCP - General Internal Medicine 12/06/18
--- OUTSIDE RECORDS SUMMARY | 2024-11-16 16:14 | XMS_ITS | Clinical Summary ---
Author Organization [facility] Address [address] [place] [address] Care Team Providers Care Pen Rider Name Role Phone Jourdan Da Silva MD Unavailable Jourdan Da Silva MD Primary Care Provider [phone]- [phone] Allergies Active Allergy Reactions Criticality Noted Date Comments Beta Adrenergic Blockers Swelling Medium 07/07/2021 Tongue swelling Lisinopril Swelling Medium 07/07/2021 Tongue swelling Meperidine GI Intolerance/Nausea/Vo miting Medium 07/07/2021 Oxycodone-Acetaminophen GI Intolerance/Nausea/Vo miting Low 07/07/2021 Medications Medication Sig Dispensed Refills Start Date End Date Status amLODIPine (NORVASC) 5 MG tablet daily. 05/02/2021 Active Januvia 100 MG tablet daily. 04/16/2021 Act samantha allopurinol (ZYLOPRIM) 100 mg tablet Take 0.5 tablets by mouth daily. Active Vitamin D3 (CHOLECALCIFEROL) 25 MCG (1000 UT) Cap Take by mouth daily. Active glipiZIDE (GLUCOTROL XL) 2.5 MG 24 hr tablet Take 2.5 mg by mouth every morning with breakfast. Active hydrochlorothiazide (HYDRODIURIL) 12.5 MG tablet Take 12.5 mg by mouth daily. Active losartan (COZAAR) 100 MG tablet Take 100 mg by mouth daily. Active nebivolol (BYSTOLIC) 20 MG tablet Take 20 mg by mouth daily. Active simvastatin (ZOCOR) 20 MG tablet Take 20 mg by mouth daily. Active aspirin 81 MG chewable tabletIndications:Non toxic multinodular goiter Chew 1 tablet (81 mg total) daily. Do not start before September 17, 2021. 09/17/2021 Active traMADol (ULTRAM) 50 MG tabletIndications:Non toxic multinodular goiter Take 1 tablet (50 mg total) by mouth 3 times daily (every 8 hours) as needed for severe pain. 9 tablet 09/14/2021 Active acetaminophen (TYLENOL) 500 MG tabletIndications:Non toxic multinodular goiter Take 2 tablets (1,000 mg total) by mouth 4 times daily (every 6 hours) as needed for mild pain or moderate pain. 30 tablet 09/14/2021 Active Active Problems Problem Noted Date Diagnosed Date Nontoxic multinodular goiter (THYROID) 1 Overview (07/15/2021): 71 y.o. male referred by PCP, Dr Da Silva for nontoxic multinodular goiter (THYROID) Ultrasound: 02/23/21 [facility] 5.5 x 2.1.x 2.2 cm right lobe, 5.5 x 3.0 x 4.1 cm left lobe. Nodules: Right lobe: mid pole 0.4 cm, solid, isoechoic TIRADS 3 Left lobe: mid pole/lower pole 3.5 cm, mixed solid and cystic,echogenicity cannot be determined, macrocalcifications, peripheral calcifications TIRADS 4 FNA biopsy: summer 2018 FNA left mid to lower pole No malignancy identified, mostly cyst fluid Molecular testing: Neck mapping ultrasound: TSH: 1.97 (04/17/21) Free T4: Total T3: Calcium: 9.2 (04/17/21) Creatinine 1.2 (04/17/21) Intact PTH: 25-OH vitamin D: 32.7 (04/17/21) Immunizations Name Administration Dates Next Due Covid-19 MRNA Vaccine - Pfiz er 12+ (Purple Cap) 05/15/2021,10/27/2020,10/06/2020 Family History Medical History Relation Name Comments No Known Problems Brother No Known Problems Daughter Coronary artery disease Father Heart attack Father Breast cancer Mother Congenital heart disease Mother No Known Problems Sister Thyroid disease Neg Hx Relation Name Status Comments Brother Alive Daughter Alive Father Mother Sister Alive Social History Tobacco Use Types Packs/Day Years Used Date Smoking Tobacco: Former Cigarettes 1 8 - 2007 Smokeless Tobacco: Never Alcohol Use Standard Drinks/Week Comments Yes 0 (1 standard drink = 0.6 oz pur e alcohol) 1-2 beer 2-4 x/month Sex and Gender Information Value Date Recorded Sex Assigned at Not on file Gender Identity Not on file Sexual Orientation Not on file Last Filed Vital Signs Vital Sign Reading Time Taken Comments Blood Pressure 128/73 09/23/2021 10:07 AM EST Pulse 60 09/23/2021 10:07 AM EST Temperature 36.3 ??C (97.4 ??F) 09/23/2021 10:[address] Respiratory Rate 18 09/14/2021 1:15 PM EST Oxygen Saturation 97% 09/23/2021 10:07 AM EST Inhaled Oxygen Concentration - - Weight 113 kg (249 lb 1.9 oz) 09/23/2021 10:07 A M EST Height 180.3 cm (5' 11 ) 09/23/2021 10:07 AM EST Body Mass Index 34.75 09/23/2021 10:07 AM EST Plan of Treatment Health Maintenance Due Date Last Done Comments Hepatitis C Virus Screening 1950 DTaP/Tdap/Td Vaccines (1 - Tdap) 1968 Colonoscopy 1994 Pneumococcal Vaccines 50+ (1 of 1 - PCV) 1999 Zoster (Shingles) Vaccine (1 of 2) 1999 Influenza Vaccine 03/15/2024 COVID-19 Vaccine (4 - 2023-2 5 season) 2024 05/15/2021, 10/27/2020, 10/06/2020 RSV Vaccine 60 years and older and Patients (1 - 1-dose 75+ series) 2024 Hepatitis B Vaccines Aged Out No long er eligible based on patient's age to complete this topic Care Teams Pen Rider Relationship Specialty Start Date End Date Jourdan Da Silva MD [address] [place] [address] [place] [address] PCP - General Internal Medicine 07/03/21 Jourdan Da Silva MD [address] [place] [address] Dr [address] [place] [address] Primary Care Provider Internal Medicine 07/02/21
--- OUTSIDE RECORDS SUMMARY | 2024-11-16 16:14 | XMS_ITS | Clinical Summary ---
Author Organization [facility] Address [address] [place] [address] Care Team Providers Care Horse Racing Manager Name Role Phone Jourdan Da Silva MD Primary Care Provider [phone]- [phone] Allergies Active Allergy Reactions Criticality Noted Date Comments Meperidine 12/06/2018 Oxycodone-Acetaminophen 12/06/2018 Medications Medication Sig Dispensed Refills Start Date End Date Status albuterol (PROVENTIL HFA;VENTOLIN HFA) 108 (90 Base) MCG/ACT inhaler 2 PUFFS 4 TIMES A DAY NEEDED INHALATION 30 DAYS 3 09/28/2018 Active simvastatin (ZOCOR) tablet 10 mg Take 10 mg by mouth every night at bedtime. 0 Active losartan (COZAAR) tablet 25 mg Take 25 mg by mouth daily. 0 Active hydroCHLOROthiazide (HYDRODIURIL) tablet 25 mg Take 25 mg by mouth daily. 0 Active nebivolol (BYSTOLIC) 10 MG tablet Take 10 mg by mouth daily. 0 Active aspirin 81 MG chewable tablet Chew 81 mg by mouth daily. 0 Active Family History Relation Name Status Comments Father [...] Sign Reading Time Taken Comments Blood Pressure 156/90 12/06/2018 11:14 AM EDT Pulse 60 12/06/2018 11:14 AM EDT Temperature - - Respiratory Rate - - Oxygen Saturation 98% 12/06/2018 11:14 AM EDT Inhaled Oxygen Concentration - - Weight 104.3 kg (230 lb) 12/06/2018 11:14 AM EDT Height 180.3 cm (5' 11 ) 12/06/2018 11:14 AM EDT Body Mass Index 32.08 12/06/2018 11:14 AM EDT Plan of Treatment Health Maintenance Due Date Last Done Comments Hepatitis C Screening 1950 COVID-19 Vaccine (#1) 1949 Depression Screening 1961 Preventative Health Evaluation 1967 DTap / Tdap / Td (1 - Tdap) 1968 Colon Cancer Screening (Colonoscopy) 1994 Shingrix-Zoster Vaccine (1 of 2) 1999 Fall Risk Assessment 2014 Pneumococcal Vaccine (1 of 1 - PCV) 2014 Influenza Vaccine (#1) 2024 RSV Adult > 60+ Yrs or Pregn ant (1 - 1-dose 75+ series) 2024 Hepatitis B Vaccines Aged Out No long er eligible based on patient's age to complete this topic RSV Ped < 20 months Aged Out No longe r eligible based on patient's age to complete this topic Care Teams Horse Racing Manager Relationship Specialty Start Date End Date Jourdan Da Silva MD [address] [place] [address] [place] [address] PCP - General Internal Medicine 12/06/18
== END 2024-11-16 14:44 | disposition home or self-care (01) ==
LOC: HO.CT 14:43
PROVIDERS: PCP Internal Medicine; Visit Provider Physician Assistant Medical
DX: Z12.2 Encounter for screening for malignant neoplasm of respiratory organs (principal); Z87.891 Personal history of nicotine dependence
CPT/HCPCS: 71271

== ENCOUNTER → 2024-11-16 14:45 | Outpatient (BNV) | payer MEDICARE, SELFPAY | PROVIDERS: PCP Internal Medicine; Visit Provider Nuclear Medicine | DX: F17.210 Nicotine dependence, cigarettes, uncomplicated (principal) | CPT/HCPCS: 71271 ==

== ENCOUNTER 2024-11-21 08:14 | Outpatient (REF) | payer MEDICARE, SELFPAY ==
--- OUTSIDE RECORDS SUMMARY | 2024-11-21 08:22 | XMS_ITS | Clinical Summary ---
Author Organization [facility] Address [address] [place] [phone] Phone Care Team Providers Care Customs And Border Protection Officer Name Role Phone Jourdan Da Silva MD [...] Care Team Description 09/06/2024 Telephone Orthopedic Surgery - [address] [phone] Yolande Sanches MA Surgery from Last 3 [...] age to complete this topic Meningococcal B Vaccine Aged Out No l onger eligible based on patient's age to complete this topic RSV Immunization Patients Under 20 months Aged Out No longer eligible based on patient's age to complete this topic Varicella Vaccines Aged Out No longer eligible based on patient's age to complete this topic Insurance [facility] Care Teams Customs And Border Protection Officer Relationship Specialty Start Date End Date Jourdan Da Silva MD [address] [place] [address] Dr Aguirre [address] [place] [address] [place] PCP - General Internal Medicine 12/06/18
--- OUTSIDE RECORDS SUMMARY | 2024-11-21 08:22 | XMS_ITS | Clinical Summary ---
Author Organization [facility] Address [address] [place] [address] Care Team Providers Care Dosimetrist Name Role Phone Jourdan Da Silva MD Unavailable [phone] Jourdan Da Silva MD Primary Care Provider [phone]- [phone] Allergies Active Allergy Reactions Criticality Noted Date Comments Beta Adrenergic Blockers Swelling Medium 07/07/2021 Tongue swelling Lisinopril Swelling Medium 07/07/2021 Tongue swelling Meperidine GI Intolerance/Nausea/Vo miting Medium 07/07/2021 Oxycodone-Acetaminophen GI Intolerance/Nausea/Vo miting Low 07/07/2021 Medications Medication Sig Dispensed Refills Start Date End Date Status amLODIPine (NORVASC) 5 MG tablet daily. 05/02/2021 Active Januvia 100 MG tablet daily. 04/16/2021 Act samnatha allopurinol (ZYLOPRIM) 100 mg tablet Take 0.5 [...] for nontoxic multinodular goiter (THYROID) Ultrasound: 02/23/21 [facility] 5.5 x 2.1.x 2.2 cm right [...] age to complete this topic Care Teams Dosimetrist Relationship Specialty Start Date End Date Jourdan Da Silva MD [address] [place] [address] [place] [address] PCP - General Internal Medicine 07/03/21 Jourdan Da Silva MD [address] [place] [address] Dr [address] [place] [address] Primary Care Provider Internal Medicine 07/02/21
--- OUTSIDE RECORDS SUMMARY | 2024-11-21 08:22 | XMS_ITS | Clinical Summary ---
Author Organization [facility] Address [address] [place] [address] Care Team Providers Care Configurator Name Role Phone Jourdan Da Silva MD Primary Care Provider [phone]- [phone] Allergies Active Allergy Reactions Criticality Noted Date [...] age to complete this topic Care Teams Configurator Relationship Specialty Start Date End Date Jourdan Da Silva MD [address] [place] [address] [place] [address] PCP - General Internal Medicine 12/06/18
[2024-11-21 08:37] LABS: MANUAL DIFF FLAG NO
[2024-11-21 09:27] LABS: Basophils Percent Auto 0.4 % (0-2); Eosinophils Absolute Auto 0.3 X10*3/uL (0.0-0.4); Eosinophils Percent Auto 3.1 % (0-4); Hematocrit 41.7 % (42.0-52.0); Hemoglobin 14.2 g/dl (14.0-18.0); Imm Gran Abs Auto 0.03 X10*3/uL (0.00-0.03); Imm Gran Pct Auto 0.4 % (0.0-0.4); Lymphocytes Absolute Auto 1.2 X10*3/uL (1.2-4.9); Lymphocytes Percent Auto 14.5 % (20-40); Mean Corpuscular HGB Conc 34.1 g/dl (31.0-36.0); Mean Corpuscular Hemoglobin 27.6 pg (27.0-33.0); Mean Platelet Volume 10.1 fL (9.4-12.4); Monocytes Absolute Auto 0.6 X10*3/uL (0.1-1.2); Monocytes Percent Auto 6.6 % (2-11); Neutrophils Absolute Auto 6.3 x10*3/uL (2.0-8.3); Platelet Count 158 X10*3/uL (160-400); Red Blood Count 5.15 X10*6/uL (4.60-5.80); Red Cell Distribution Width 13.4 % (11.0-16.0); White Blood Count 8.4 X10*3/uL (4.8-10.8)
[2024-11-21 09:30] LABS: Appearance Urine Cloudy; Color Urine Dark Yellow; Estimated Average Glucose 131 mg/dL; Glucose Urine UA Negative (Negative); Hemoglobin A1C 166.0649 umol/L; Hemoglobin A1c % 6.2 % (<6.0); Leukocyte Esterase Urine Trace (Negative); Nitrite Urine Negative (Negative); PH 5.5 (5.0-9.0); Specific Gravity - Urine >= 1.030 (1.005-1.025); Total Hemoglobin (HGBA1C) 3755.2387 umol/L; UMIC TRIGGER UACC YES; Urine Blood Negative (Negative); Urine Ketones 15 mg/dL (Negative); Urine Protein 100 (2+) mg/dL (Neg-Trace)
[2024-11-21 09:51] LABS: Bacteria Urine None Seen (None Seen); Calcium Oxalate Crystals Urine Present; Granular Casts Urine Present; Hyaline Casts Urine >20 /LPF (0-2); RBC Urine 0-2 /HPF (0-2); WBC Urine 0-5 /HPF (0-5)
[2024-11-21 10:41] LABS: Albumin Level 4.2 g/dL (3.5-5.0); Alkaline Phosphatase 87 U/L (39-117); Anion Gap 12 (12-20); Aspartate Amino Transferase 37 U/L (5-37); Bilirubin Total 0.5 mg/dL (0.0-1.0); Blood Urea Nitrogen 17 mg/dL (9-16); Calcium 9.3 mg/dL (8.4-10.2); Carbon Dioxide 23 mmol/L (22-29); Chloride 109 mmol/L (96-108); Cholesterol 97 mg/dL (<200); Estimated Glomerular Filt Rate 56; Free T4 (Free Thyroxine) 1.06 ng/dL (0.71-1.85); Glucose Fasting 148 mg/dL (60-99); HDL Cholesterol 28 mg/dL (>40); LDL Cholesterol Calculated 37 mg/dL (<100); Sodium 140 mmol/L (135-145); Thyroid Stimulating Hormone 3.21 uIU/mL (0.32-4.0); Total Protein 6.7 g/dL (6.5-8.0); Triglycerides 161 mg/dL (<150); Uric Acid 4.9 mg/dL (3.4-7.0)
[2024-11-21 11:06] LABS: Alanine Aminotransferase 33 U/L (0-40)
== END 2024-11-21 08:15 | disposition home or self-care (01) ==
LOC: HO.LAB 08:14
PROVIDERS: PCP Internal Medicine; Visit Provider Internal Medicine
DX: D64.9 Anemia, unspecified (principal); E11.9 Type 2 diabetes mellitus without complications; E78.00 Pure hypercholesterolemia, unspecified; M10.9 Gout, unspecified; E03.9 Hypothyroidism, unspecified
CPT/HCPCS: 36415; 80053; 80061; 81001; 81003; 83036; 84439; 84443; 84550; 85025

== ENCOUNTER 2024-11-26 15:35 | Outpatient (AMB) | payer MEDICARE, SELFPAY ==
--- NOTE | 2024-11-26 15:41 | MHC.PC.OV ---
Vital Signs 11/26/24 15:43 Height 5 ft 11 in Weight 234 lb 6 oz BMI 32.7 BP 120/70 Blood Pressure Location Lt brachial Position Sitting Pulse 75 Pulse Source Pulse Oximeter Temp 97.3 F Temp Source Temporal Artery Scan Pulse Oximetry (%) 96 Oxygen Delivery Method Room Air Intake Visit Reasons: 4mth f/u Intake Note: Patient is here to follow up on DM, BPH, HTN. Production Zone Leader Required: No Boat Repairer: Present Accompanied by: Spouse Allergies Beta-Blockers (Beta-Adrenergic Bloc Allergy (Unknown, Verified 11/26/24 16:08) SWOLLEN TONGUE lisinopril Allergy (Unknown, Verified 11/26/24 16:08) tongue swelling meperidine [Demerol] Allergy (Unknown, Verified 11/26/24 16:08) Unknown cephalexin Adverse Reaction (Intermediate, Verified 11/26/24 16:08) Diarrhea oxycodone [From Percocet] Adverse Reaction (Verified 11/26/24 16:08) Vomiting Medication List - Last Reconciled 11/26/24 by Jourdan Da Silva MD allopurinol 100 mg PO DAILY 90 days amlodipine 5 mg PO DAILY 90 days aspirin 81 mg PO DAILY 90 days azelaic acid 15% (Finacea) 1 appl topical QAM 90 days blood sugar diagnostic (FreeStyle Lite Strips) Test Daily blood-glucose meter (FreeStyle Lite Meter kit) Test Daily cholecalciferol (vitamin D3) 25 mcg PO DAILY 90 days diclofenac sodium 1% (Voltaren Arthritis Pain) 4 grams topical QID PRN lancets (TRUEplus Lancets) blood sugar 1 to 2 times a day as directed - NO SUBSTITUTION PLEASE! -- Dx Code: E11.21 -- DIABETES MELLITUS lancets Test Daily Lantus Solostar U-100 Insulin (insulin glargine) 10 units (0.1 mL) subcut QPM 90 days NS levothyroxine 50 mcg PO DAILY 90 days losartan 100 mg PO DAILY 90 days nebivolol 20 mg PO DAILY 90 days omeprazole 20 mg PO DAILY pen needle, diabetic (BD Ultra-Fine Nohelia Pen Needle) As directed once a day sildenafil 100 mg PO DAILY PRN simvastatin 20 mg PO DAILY 90 days terazosin 5 mg PO BEDTIME 90 days tirzepatide (Mounjaro) 5 mg (0.5 mL) subcut QWEEK 90 days [true metrix Glucometer LANCETS Test blood sugar 1 to 2 times a day as directed - NO SUBSTITUTION PLEASE! NS] True Metrix Glucose Test Strip (blood sugar diagnostic) As directed - test 1 to 2 times day NS Tobacco use date assessed: 11/26/24 Fall risk assessment: No Falls in past year Last assessed Fall Risk: 11/26/24 Dental Screening Dental Screen Date: 11/26/24 Did you have a dental visit in the last 12 months?: No Did you have a dental problem in the last 6 months where you did not have access to dental care?: No Was dental information given to patient?: No HPI 4mth f/u HPI Details Patient comes in today for his follow-up visit States that he feels okay He denies any headaches or dizziness Denies any chest pains, no shortness of breath No nausea/vomiting, no abdominal pain No change in bowel habits noted He had his follow-up labs done a few days ago - to discuss his results Patient continues to experience frequent increased pain in his right knee He has been advised by Orthopedics that they can not proceed with his knee replacement surgery until he is cleared by his dentist States that his dentist is recommending some dental procedures that are somewhat pricey in cost and he is opposed to getting this done so everything is on hold for him at this time States that he will also need all of his Rx refilled today [facility] Medical History Benign prostatic hyperplasia with lower urinary tract symptoms Abdominal aortic aneurysm Benign essential hypertension Pure hypercholesterolemia Type 2 diabetes mellitus with diabetic chronic kidney disease Chronic kidney disease (CKD), stage III (moderate) Non-toxic multinodular goiter Personal history of nicotine dependence Elevated LFTs Vitamin D deficiency History of gout Obesity (BMI 30-39.9) Surgical History History of partial thyroidectomy History of right knee surgery History of colonoscopy History of tonsillectomy Family History Father CAD (coronary artery disease) Myocardial infarction Mother Congenital heart disease Breast cancer Uterine cancer Brother No problems noted. Sister No problems noted. Daughter No problems noted. Social History Housing: House Alcohol intake: never Patient Tobacco Use Status: Former Tobacco user Years Smoked: (onset 15yo, 1ppd x 50yrs, 40PYH, quit 2016) e-Cigarette/Vaping Use: Never Used Second Hand Smoke Exposure: Yes service: No Current occupational status: retired Cognitive needs: No Hearing needs: No Vision needs: Yes Questionnaire PHQ-9 Over the last 2 weeks, how often have you been bothered by any of the following problems? 1. Little interest or pleasure in doing things: not at all 2. Feeling down, depressed, or hopeless: not at all 3. Trouble falling or staying asleep, or sleeping too much: not at all 4. Feeling tired or having little energy: not at all 5. Poor appetite or overeating: not at all 6. Feeling bad about yourself - or that you are a failure or have let yourself or your family down: not at all 7. Trouble concentrating on things, such as reading the newspaper or watching television: not at all 8. Moving or speaking so slowly that other people could have noticed. Or the opposite - being so fidgety or restless that you have been moving around a lot more than usual: not at all 9. Thoughts that you would be better off or of hurting yourself in some way: not at all Total score: 0 Depression Screening Interpretation: Negative Depression Screening Done: Yes 39746 - PHQ-9 Billing: Yes Source: Developed by Drs. Tank Chacon, Paris Feliciano, Kaleb Frey and colleagues, with an educational pam from [employer]. Thrive Questionnaire Date Thrive assessed: 11/26/24 I am a: Patient What is your living situation today?: I have a steady place to live Within the past 12 months, did the food you bought not last and you didn't have the money to get more?: Never true Within the past 12 months, did you worry whether your food would run out before you got money to buy more?: Never true Do you have trouble paying for medicines?: No Do you have trouble getting transportation to medical appointments?: No Do you have trouble paying your heating and electricity bill?: No Do you have trouble taking care of your child, family member or friend?: No Do you have trouble with day-to-day activities such as bathing, preparing meals, shopping, managing finances, etc.?: No Are you currently unemployed and looking for a job?: No Are you interested in more education?: No Please select the resources that you would like help with: None Currently or been in a relationship where the following occur: No concerns reported THRIVE Score: 0 AUDIT C Alcohol Use Questionnaire (AUDIT-C) 1. How often do you have a drink containing alcohol?: 2-4 times a month 2. How many drinks containing alcohol do you have on a typical day when you are drinking?: 1 or 2 3. How often do you have six or more drinks on one occasion?: Never Total Score: 2 Score Reviewed/Action Taken: Yes NIMESH-7 AMB Questionnaire NIMESH-7 Date NIMESH - 7 assessed: 11/26/24 Feeling nervous, anxious, or on edge: 0 = Not at all Not being able to stop or control worryin = Not at all Worrying too much about different things: 0 = Not at all Trouble relaxin = Not at all Being so restless that it is hard to sit still: 0 = Not at all Becoming easily annoyed or irritable: 0 = Not at all Feeling afraid as if something awful might happen: 0 = Not at all Total NIMESH-7 score (0-4 normal; 5-9 mild; 10-14 moderate; 15-21 severe): 0 Source: Developed by Drs. Tank Chacon, Paris Feliciano, Kaleb Frey and colleagues, with an educational pam from [employer]. Review of Systems Const Denies chills, Denies fatigue, Denies fever(s) and Denies headache(s) ENT Denies dysphagia, Denies dizziness, Denies otalgia, Denies headache(s), Denies neck pain, Denies odynophagia and Denies sore throat Card Denies chest pain, Denies palpitations and Denies dyspnea Resp Denies chest congestion, Denies cough and Denies dyspnea GI Denies abdominal pain, Denies constipation, Denies dysphagia, Denies heartburn, Denies diarrhea, Denies nausea, Denies odynophagia and Denies vomiting Denies dysuria, Denies nocturia and Denies urinary frequency Musc Denies back pain, Reports arthralgias (right knee, frequent) and Denies neck pain Skin/Breast Denies rash Neuro Denies dizziness and Denies headache(s) Endo Denies fatigue and Denies palpitations Physical exam (Primary Care) Vital Signs: Last Vital Signs Temp 97.3 F 11/26/24 15:43 Pulse 75 11/26/24 15:43 BP 120/70 11/26/24 15:43 Pulse Ox 96 11/26/24 15:43 Oxygen Delivery Method Room Air 11/26/24 15:43 BMI result Body Mass Index 32.7 Tobacco/Smoking Status: Tobacco use Status Tobacco use date assessed 11/26/24 11/26/24 15:43 Patient Tobacco Use Status Former Tobacco user 11/26/24 15:43 e-Cigarette/Vaping Use Never Used 11/26/24 15:43 PHQ-9: PHQ-9 Score PHQ-9: Total score 0 11/26/24 16:10 Depression Screening Interpretation: Negative Thrive Assessment: Date of Thrive Assessment Date Thrive assessed 11/26/24 11/26/24 15:43 Currently or been in a relationship where the following occur: No concerns reported Const General: no acute distress and alert HENMT Ears: TM's normal bilaterally and EAC's normal Throat: Yes posterior oropharynx normal and Yes tonsils normal (no TP congestion noted) Neck Neck: Yes no lymphadenopathy and Yes supple Thyroid: Thyroid normal Resp Auscultation: clear to auscultation bilaterally, no rales and no wheezes Cardio Rate: regular rate Rhythm: regular rhythm Heart sounds: no murmurs GI Palpation (GI): Soft to palpation and nontender Auscultation: normal bowel sounds General: Yes no CVA tenderness Back/Spine/Pelvis Back: no CVA tenderness Thoracic/Lumbar Spine: No lumbar spinal tenderness Skin Rashes: no rashes Extrem General: Yes no clubbing, cyanosis or edema Right lower extremity: knee Details: tenderness and crepitus Results Reviewed Results Reviewed: Laboratory Tests 07/13/24 11/21/24 09:05 08:35 WBC 8.4 Hgb 14.2 Hct 41.7 L Plt Count 158 L Sodium 140 Potassium 4.0 Creatinine 1.26 Estimated GFR 56 Fasting Glucose 148 H Hemoglobin A1c % 6.2 H Uric Acid 4.9 Calcium 9.3 AST 37 ALT 33 Triglycerides 161 H Cholesterol 97 LDL Cholesterol, Calc 37 HDL Cholesterol 28 L TSH 3.21 Free T4 1.06 Urine pH 5.5 Ur Specific Harper >= 1.030 H Urine Protein 100 (2+) H Urine Glucose (UA) Negative Urine Blood Negative Urine Nitrite Negative Ur Leukocyte Esterase Trace H Microalb/Creat Ratio 52.0 H Coding Level of Care Code Est Pt Level 4 (47629) Complex EM visit Add On G2211 Diagnoses Type 2 diabetes mellitus with stage 3a chronic kidney disease, with long-term current use of insulin E11.22; N18.31; Z79.4 Diabetes mellitus local company intermodal truck driver insulin use: with local company intermodal truck driver use Chronic kidney disease stage: stage 3 (moderate) Chronic kidney disease stage 3 subtype: stage 3a (GFR 45-59) Stage 3a chronic kidney disease N18.31 Chronic kidney disease stage 3 subtype: stage 3a (GFR 45-59) Pure hypercholesterolemia E78.00 Benign essential hypertension I10 Abdominal aortic aneurysm (AAA) without rupture I71.4 Presence of rupture: without rupture Elevated LFTs R79.89 Primary osteoarthritis of right knee M17.11 Osteoarthritis type: primary Non-toxic multinodular goiter E04.2 History of gout Z87.39 Vitamin D deficiency E55.9 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 J94.8 Benign prostatic hyperplasia with weak urinary stream N40.1; R39.12 Lower urinary tract symptom detail: weak urinary stream Obesity (BMI 30-39.9) E66.9 Additional Codes PHQ-9 - 06681 - PHQ-9 Billing: Yes ([id number]) Assessment & Plan Assessment & Plan (1) Type 2 diabetes mellitus with diabetic chronic kidney disease: Code(s): E11.22 - Type 2 diabetes mellitus with diabetic chronic kidney disease Category: Medical Qualifiers: Diabetes mellitus local company intermodal truck driver insulin use: with penitentiary use Chronic kidney disease stage: stage 3 (moderate) Chronic kidney disease stage 3 subtype: stage 3a (GFR 45-59) Qualified Code(s): E11.22 - Type 2 diabetes mellitus with diabetic chronic kidney disease; N18.31 - Chronic kidney disease, stage 3a; Z79.4 - FDC (current) use of insulin Plan: His HgbA1c went down to 6.2% on his labs done last week (he was previously at 6.7% a few months ago) - goal is at least < 7.0% but ideally <6.5% Reinforced diabetic diet Continue Mounjaro 5 mg SQ once a week and Lantus Solostar 10 units Q HS His Glipizide 2.5 mg QD continues to be on hold and his diabetes has stayed well-controlled over the past few months with low dose Lantus and Mounjaro alone, so will go ahead and permanently discontinue his Glipizide today He used to see endocrinology but has not done so in the past couple of years (2) Chronic kidney disease (CKD), stage III (moderate): Code(s): N18.30 - Chronic kidney disease, stage 3 unspecified Category: Medical Qualifiers: Chronic kidney disease stage 3 subtype: stage 3a (GFR 45-59) Qualified Code(s): N18.31 - Chronic kidney disease, stage 3a Plan: His serum creatinine and GFR have both been stable for a while now and his numbers have actually improved slightly on his recent labs, likely due to the improvement seen in his glycemic control recently Reinforced again strict glycemic and BP control to help slow down the decline/ progression of his CKD Will continue to monitor his renal function closely (3) Pure hypercholesterolemia: Code(s): E78.00 - Pure hypercholesterolemia, unspecified Category: Medical Plan: Results of his labs done last week reviewed and discussed with patient Reinforced low cholesterol diet Continue Simvastatin 20 mg QD Will recheck his labs and fasting lipids in 4 months for follow up (4) Benign essential hypertension: Code(s): I10 - Essential (primary) hypertension Category: Medical Plan: Reinforced? low sodium diet - goal is systolic BP of at least 130 or less Patient states that he's had no further dizzy spells since his last visit and he appears to be doing well on his current BP regimen Continue Bystolic 20 mg QD, Losartan 100 mg QD and Amlodipine 5 mg QD; he is also on Terazosin 5 mg for his urinary issues but this also helps with his BP somewhat Have again emphasized that with his AAA, he should try to keep his systolic BP between 120 to 130 mm as much as he can tolerate to slow down the progression of his aneurysm He is reminded again to continue monitoring his blood pressure regularly (5) Abdominal aortic aneurysm: Comment: 05/2021: Mild aneurysmal dilatation of distal abdominal aorta measuring 3.8 x 3.7 cm. Previously it measured 3.5 x 3.5 cm. Code(s): I71.4 - Abdominal aortic aneurysm, without rupture Category: Medical Qualifiers: Presence of rupture: without rupture Qualified Code(s): I71.4 - Abdominal aortic aneurysm, without rupture Plan: Abdominal and pelvic CT done in June 2023 showed slight progression of the aneurysm to 3.8 cm from 3.0 cm in 2018 On his abdominal arterial study done in April 2023, his aortic aneurysm measures 4.0 x 4.0 cm, increased from 3.8 x 3.7 cm on 05/21/2021 and 3.5 x 3.5 cm on 04/30/2020 His most recent follow up US in July 2024 revealed (+) stable aneurysmal dilatation of the abdominal aorta measuring up to 4 cm Reinforced importance of tight BP control to slow down progression Will continue with yearly US for surveillance and also consider vascular surgery referral so they can follow along (6) Elevated LFTs: Code(s): R79.89 - Other specified abnormal findings of blood chemistry Category: Medical Plan: Patient's LFTs are now both normal on his recent labs Will continue to monitor his LFTs regularly (7) Degenerative joint disease of right knee: Code(s): M17.11 - Unilateral primary osteoarthritis, right knee Category: Medical Qualifiers: Osteoarthritis type: primary Qualified Code(s): M17.11 - Unilateral primary osteoarthritis, right knee Plan: Follow up with orthopedics as scheduled - he is now going to orthopedics at [place] Patient has reportedly been recommended to undergo knee replacement surgery but they can not proceed with surgery until he is cleared by his dentist Patient states that his dentist is currently recommending an expensive procedure, which he is opposed to, so everything is on hold at this time Continue applying Voltaren gel to his knee PRN for symptomatic relief; he no longer takes any NSAIDs, including Celebrex, for his knee pain (8) Non-toxic multinodular goiter: Code(s): E04.2 - Nontoxic multinodular goiter Category: Medical Plan: S/P right thyroid lobectomy and isthmusectomy on 09/14/[address] 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 There is associated pleural calcification at the right lung base and a few scattered pulmonary micronodules present, but none larger than 2 mm. Minimal emphysematous changes are also seen Recommend repeat low dose CT lung screening in 1 year - he will be due for this sometime in November or December of 2024 (12) Benign prostatic hyperplasia with lower urinary tract symptoms: Code(s): N40.1 - Benign prostatic hyperplasia with lower urinary tract symptoms Category: Medical Qualifiers: Lower urinary tract symptom detail: weak urinary stream Qualified Code(s): N40.1 - Benign prostatic hyperplasia with lower urinary tract symptoms; R39.12 - Poor urinary stream Plan: Patient states that his symptoms have improved a lot of his current Rx Continue Terazosin 5 mg Q HS Follow up with urology as scheduled (13) Obesity (BMI 30-39.9): Code(s): E66.9 - Obesity, unspecified Category: Medical Plan: Reinforced diet/exercise as tolerated/lose weight Plan Follow up in 4 months Orders: Orders Microalbumin, Random (w Creat) 4 Months E11.9 - Type 2 diabetes mellitus without complications Complete Blood Count Auto Diff 4 Months D64.9 - Anemia, unspecified Comprehensive [place]. Panel Fast 4 Months E78.00 - Pure hypercholesterolemia, unspecified Lipid Panel 4 Months E78.00 - Pure hypercholesterolemia, unspecified Free T4 (Free Thyroxine) 4 Months E03.9 - Hypothyroidism, unspecified Thyroid Stimulating Hormone 4 Months E03.9 - Hypothyroidism, unspecified Hemoglobin A1c 4 Months E11.9 - Type 2 diabetes mellitus without complications UA CC w/rflx Micro + Cult 4 Months R30.0 - Dysuria Vitamin D 25-OH Total 4 Months E55.9 - Vitamin D deficiency, unspecified Medications: Refilled amlodipine 5 mg PO DAILY 90 days 90 tabs 3RF I10 - Essential (primary) hypertension aspirin 81 mg PO DAILY 90 days 90 tabs 3RF E11.21 - Type 2 diabetes mellitus with diabetic nephropathy, I10 - Essential (primary) hypertension, N18.31 - Chronic kidney disease, stage 3a blood sugar diagnostic (FreeStyle Lite Strips) Test Daily 100 ea 3RF E11.21 - Type 2 diabetes mellitus with diabetic nephropathy, N18.31 - Chronic kidney disease, stage 3a cholecalciferol (vitamin D3) 25 mcg PO DAILY 90 days 90 caps 3RF E55.9 - Vitamin D deficiency, unspecified allopurinol 100 mg PO DAILY 90 days 90 tabs 3RF Z87.39 - Personal history of other diseases of the musculoskeletal system and connective tissue azelaic acid 15% (Finacea) 1 appl topical QAM 90 days 3 multiple units 1RF lancets Test Daily 100 ea 0RF E11.21 - Type 2 diabetes mellitus with diabetic nephropathy, N18.31 - Chronic kidney disease, stage 3a Lantus Solostar U-100 Insulin (insulin glargine) 10 units (0.1 mL) subcut QPM 90 days 15 mL 3RF NS E11.21 - Type 2 diabetes mellitus with diabetic nephropathy, N18.31 - Chronic kidney disease, stage 3a losartan 100 mg PO DAILY 90 days 90 tabs 3RF I10 - Essential (primary) hypertension nebivolol 20 mg PO DAILY 90 days 90 tabs 3RF I10 - Essential (primary) hypertension simvastatin 20 mg PO DAILY 90 days 90 tabs 3RF E78.00 - Pure hypercholesterolemia, unspecified terazosin 5 mg PO BEDTIME 90 days 90 caps 3RF N40.1 - Benign prostatic hyperplasia with lower urinary tract symptoms, R35.0 - Frequency of micturition tirzepatide (Mounjaro) 5 mg (0.5 mL) subcut QWEEK 90 days 6.5 mL 2RF
[2024-11-26 15:43] VITALS: BP 120/70; PULSE 75; TEMP 36.3; O2SAT 96; BMI 32.7
--- OUTSIDE RECORDS SUMMARY | 2024-11-26 18:01 | XMS_ITS | Clinical Summary ---
Author Organization [facility] Address [address] [place] [phone] Phone Care Team Providers Care Ship Mate Name Role Phone Jourdan Da Silva MD [...] HTN (hypertension) 08/16/2024 AAA (abdominal aortic aneurysm) ([facility] V24) HLD (hyperlipidemia) 08/16/2024 CKD (chronic kidney disease) stage 3, GFR 30-59 ml/min ([facility] V24, [facility] V28) 08/16/2024 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 ([facility] V24, [facility] V28) 08/16/2024 Tobacco use 08/16/2024 Gout 08/16/2024 Vitamin D deficiency 08/16/2024 Elevated LFTs 08/16/2024 Post-traumatic osteoarthritis of right knee 09/2024 Primary osteoarthritis of left knee 08/16/2024 Encounters Date Type Department Care Team Description 09/06/2024 Telephone Orthopedic Surgery - [address] [id number] Yolande Sanches MA Surgery from [...] patient's age to complete this topic Insurance [facility] Care Teams Ship Mate Relationship Specialty Start Date End Date Jourdan Da Silva MD [address] [place] [address] Dr Aguirre [facility] [place] PCP - General Internal Medicine 12/06/18
--- OUTSIDE RECORDS SUMMARY | 2024-11-26 18:01 | XMS_ITS | Clinical Summary ---
Author Organization [facility] Address [address] [place] [address] Care Team Providers Care Microbiology Quality Control Technician Name Role Phone Jourdan Da Silva MD Primary Care Provider [phone] Allergies Active Allergy Reactions Criticality Noted Date [...] age to complete this topic Care Teams Microbiology Quality Control Technician Relationship Specialty Start Date End Date Jourdan Da Silva MD [address] [place] [address] [place] [id number] PCP - General Internal Medicine 12/06/18
--- OUTSIDE RECORDS SUMMARY | 2024-11-26 18:01 | XMS_ITS | Clinical Summary ---
Author Organization [facility] Address [address] [place] [address] Care Team Providers Care Media Senior Recruiter Name Role Phone Jourdan Da Silva MD Unavailable [phone] Jourdan Da Silva MD Primary Care Provider [phone] Allergies Active Allergy Reactions Criticality Noted Date [...] for nontoxic multinodular goiter (THYROID) Ultrasound: 02/23/21 [facility] 5.5 x 2.1.x 2.2 cm right lobe, [...] age to complete this topic Care Teams Media Senior Recruiter Relationship Specialty Start Date End Date Jourdan Da Silva MD [address] [place] [address] [place] [id number] PCP - General Internal Medicine 07/03/21 Jourdan Da Silva MD [address] [place] [address] Dr Decker [address] [place] [id number] Primary Care Provider Internal Medicine 07/02/21
== END 2024-11-26 16:45 | disposition home or self-care (01) ==
LOC: HO.HMCH 15:35
PROVIDERS: PCP Internal Medicine; Visit Provider Internal Medicine
DX: I12.9 Hypertensive chronic kidney disease with stage 1 through stage 4 chronic kidney disease, or unspecified chronic kidney disease (principal); E11.22 Type 2 diabetes mellitus with diabetic chronic kidney disease; N18.31 Chronic kidney disease, stage 3a; Z79.4 Long term (current) use of insulin; I71.40 Abdominal aortic aneurysm, without rupture, unspecified; E78.00 Pure hypercholesterolemia, unspecified; R79.89 Other specified abnormal findings of blood chemistry; M17.11 Unilateral primary osteoarthritis, right knee; E04.2 Nontoxic multinodular goiter; Z87.39 Personal history of other diseases of the musculoskeletal system and connective tissue; E55.9 Vitamin D deficiency, unspecified; J94.8 Other specified pleural conditions

== ENCOUNTER → 2024-11-26 15:35 | Outpatient (BNVA) | payer MEDICARE, SELFPAY | PROVIDERS: PCP Internal Medicine; Visit Provider Internal Medicine | DX: E11.21 Type 2 diabetes mellitus with diabetic nephropathy (principal); E11.22 Type 2 diabetes mellitus with diabetic chronic kidney disease; I12.9 Hypertensive chronic kidney disease with stage 1 through stage 4 chronic kidney disease, or unspecified chronic kidney disease; M25.561 Pain in right knee; N18.31 Chronic kidney disease, stage 3a; E78.00 Pure hypercholesterolemia, unspecified; I71.40 Abdominal aortic aneurysm, without rupture, unspecified; R79.89 Other specified abnormal findings of blood chemistry; M17.11 Unilateral primary osteoarthritis, right knee; E04.2 Nontoxic multinodular goiter; E55.9 Vitamin D deficiency, unspecified; J94.8 Other specified pleural conditions; N40.1 Benign prostatic hyperplasia with lower urinary tract symptoms; R39.12 Poor urinary stream; R35.0 Frequency of micturition; E66.9 Obesity, unspecified; Z79.4 Long term (current) use of insulin; Z87.39 Personal history of other diseases of the musculoskeletal system and connective tissue | CPT/HCPCS: 96127; 99212 ==

== ENCOUNTER 2024-12-26 | Outpatient (REF) | payer MEDICARE, SELFPAY ==
[2024-12-26 15:57] LABS: Prostate Specific Antigen 2.23 ng/mL (<0.05-4.0)
--- OUTSIDE RECORDS SUMMARY | 2025-02-12 06:50 | XMS_ITS | Clinical Summary ---
Author Organization [facility] Address [address] [place] [address] Care Team Providers Care Chemical Laboratory Scientist Name Role Phone Jourdan Da Silva MD Unavailable [phone] Jourdan Da Silva MD Primary Care Provider [phone] Allergies Active Allergy Reactions Criticality Noted Date [...] for nontoxic multinodular goiter (THYROID) Ultrasound: 02/23/21 [facility] 5.5 x 2.1.x 2.2 cm right [...] 60 09/23/2021 10:07 AM EST Temperature 36.3 C (97.4 F) 09/23/2021 10:07 AM EST Respiratory Rate 18 09/14/2021 1:15 PM EST [...] topic Insurance MEDICARE PART A & B [facility] Care Teams Chemical Laboratory Scientist Relationship Specialty Start Date End Date Jourdan Da Silva MD [address] [place] [address] [place] [address] PCP - General Internal Medicine 07/03/21 Jourdan Da Silva MD [address] [place] [address] [place] [address] Primary Care Provider Internal Medicine 07/02/21
--- OUTSIDE RECORDS SUMMARY | 2025-02-12 06:50 | XMS_ITS | Encounter Summary ---
Author Organization [facility] Address [address] [place] [address] Care Team Providers Care Coat Hanger Shaper Machine Operator Name Role Phone Jourdan Da Silva MD Primary Care Provider [phone] Reason for Visit * Reason Onset Date Comments PREOP REVIEW 02/08/2025 Encounter Details Date Type Department Care Team (Late st Contact Info) Description 02/08/2025 Telephone Orthopedic Surgery - [place] [address] [facility] [address] [place] [address] Jenni Casey RN PREOP REVIEW Social History Tobacco Use Types Packs/Day Years [...] on file Sexual Orientation Not on file documented as of this encounter Progress Notes * Jenni Casey RN - 02/08/2025 8:50 AM EDT PRE-OP REVIEW: Prior Living Arrangements: Lives with spouse Landy in a private home with 2 stairs without railing to enter, once inside everything is on one level, to assist with laundry Who will assist patient at home: Spouse Landy DME: has raised toilet, bath seat and 2 ww, they will get can Outside Services: [employer] (meals on wheels) PCP: Dr. Da Silva HCP: does not have a HCP, will need to complete one prior to surgery Patient's discharge goal: home with [facility], agency of choice and prebooked Patient's ride home: Spouse Landy [phone] This nurse instructed patient NPO after midnight the day prior to surgery and small sips of H20 with medications on day of surgery. Patient instructed not to take losartan on day of surgery. Last dose of monjaro will be 03/03/25, instructed to take 1/2 dose insulin the night prior to surgery. Also instructed to takes clears the day before surgery. documented in this encounter Plan of Treatment Upcoming Encounters Date Type Department Care Team (Latest Contact Info) Description 03/06/2025 1:00 PM EDT Consult Orthopedic Surgery - [place] [address] [phone] Drea Trinidad NP [address] [address] 03/12/2025 10:00 AM EDT Hospital Encounter [facility] [place] [address] [place] [phone] Ruperto Babcock MD [address] [place] [phone] 03/12/2025 10:00 AM EDT - 03/12/2025 1:00 PM EDT Surgery [address] [phone] Ruperto Babcock MD [address] [place] [phone] RIGHT TOTAL KNEE ARTHROPLASTY [54120 (CPT )] 03/26/2025 4:30 PM EDT Evaluation [address] [phone] Aliza Mendez, ABDOUL 03/28/2025 11:30 AM EDT Office Visit Orthopedic Surgery - [place] [address] [phone] Ruperto Babcock MD [address] [place] [phone] Scheduled Procedures Name Priority Associated Diagnoses Date/Ti me ARTHROPLASTY KNEE TOTAL Post-traumatic osteoarthritis of right knee 03/12/2025 10:00 AM EDT documented as of this encounter Visit Diagnoses Not on filedocumented in this encounter Care Teams Coat Hanger Shaper Machine Operator Relationship Specialty Start Date End Date Jourdan Da Silva MD [address] [place] [address] Dr [address] [place], [place] PCP - General Internal Medicine 12/06/18 documented as of this encounter
--- OUTSIDE RECORDS SUMMARY | 2025-02-12 06:50 | XMS_ITS | Clinical Summary ---
Author Organization [facility] Address [address] [place] [address] Care Team Providers Care Veterans' Counselor Name Role Phone Jourdan Da Silva MD Primary Care Provider [phone] Allergies Active Allergy Reactions Criticality Noted Date [...] age to complete this topic Care Teams Veterans' Counselor Relationship Specialty Start Date End Date Jourdan Da Silva MD [address] [place] [address] [place] [address] PCP - General Internal Medicine 12/06/18
--- OUTSIDE RECORDS SUMMARY | 2025-02-12 06:50 | XMS_ITS ---
Author Name [facility] History of Medication Use Medication Directions Dispensed Refills Start Date End Date Stat aspirin 81 MG chewable tablet Chew 1 tablet (81 mg total) daily. Do not start before September 17, 2021. 09/17/2021 active amLODIPine (NORVASC) 5 MG tablet daily. 05/02/2021 active allopurinol (ZYLOPRIM) 100 mg tablet Take 0.5 tablets by mouth daily. active glipiZIDE (GLUCOTROL XL) 2.5 MG 24 hr tablet Take 2.5 mg by mouth every morning with breakfast. active hydrochlorothiazide (HYDRODIURIL) 12.5 MG tablet Take 12.5 mg by mouth daily. active nebivolol (BYSTOLIC) 20 MG tablet Take 20 mg by mouth daily. active simvastatin (ZOCOR) 20 MG tablet Take 20 mg by mouth daily. active Vitamin D3 (CHOLECALCIFEROL) 25 MCG (1000 UT) Cap Take by mouth daily. active Problems Problem Status Onset Date Problem Type Date of Resolution Source Primary osteoarthritis of right knee active EncounterDiagnosisAct [facility] Nontoxic multinodular goiter active 2021-07-07 ProblemAct [facility] Immunizations Vaccine Date Source Lot Number Status Covid-19 MRNA Vaccine - Pfiz er 12+ (Purple Cap) 05/15/2021 [facility] completed Covid-19 MRNA Vaccine - Pfiz er 12+ (Purple Cap) 10/27/2020 [facility] completed Covid-19 MRNA Vaccine - Pfiz er 12+ (Purple Cap) 10/06/2020 [facility] completed Encounters Encounter Type Encounter Reason Primary Diagnosis Location Date Ambulatory Post-op [facility] 09/23/2021 Ambulatory Nontoxic multino dular goiter [facility] 09/14/2021 Ambulatory [facility] 07/17/2021 Ambulatory Nontoxic single thyroid nodule [facility] 07/17/2021 Care Team Organization Name Specialty Phone Email Start Date End [facility] 07/17/202109/23
== END 2024-12-26 00:01 | disposition home or self-care (01) ==
LOC: HO.LAB
PROVIDERS: PCP Internal Medicine; Visit Provider Nurse Practitioner Family
DX: N40.1 Benign prostatic hyperplasia with lower urinary tract symptoms (principal); N13.8 Other obstructive and reflux uropathy; R97.20 Elevated prostate specific antigen [PSA]; R39.12 Poor urinary stream; Z12.5 Encounter for screening for malignant neoplasm of prostate
CPT/HCPCS: 36415; 84153

== ENCOUNTER 2024-12-31 15:42 | Outpatient (AMB) | payer MEDICARE, SELFPAY ==
--- NOTE | 2024-12-31 15:44 | MHC.OFFVIS ---
Intake Visit Reasons: PSA follow up Intake Note: Pt presents to the office today for a PSA follow up. Urology Meds:terazosin Blood thinners:Aspirin PVR:17ml Allergies Beta-Blockers (Beta-Adrenergic Bloc Allergy (Unknown, Verified 12/31/24 20:21) SWOLLEN TONGUE lisinopril Allergy (Unknown, Verified 12/31/24 20:21) tongue swelling meperidine [Demerol] Allergy (Unknown, Verified 12/31/24 20:21) Unknown cephalexin Adverse Reaction (Intermediate, Verified 12/31/24 20:21) Diarrhea oxycodone [From Percocet] Adverse Reaction (Verified 12/31/24 20:21) Vomiting Medication List - Last Reconciled 12/31/24 by KEIRY Thompson- allopurinol 100 mg PO DAILY 90 days amlodipine 5 mg PO DAILY 90 days aspirin 81 mg PO DAILY 90 days azelaic acid 15% (Finacea) 1 appl topical QAM 90 days blood sugar diagnostic (FreeStyle Lite Strips) Test Daily blood-glucose meter (FreeStyle Lite Meter kit) Test Daily cholecalciferol (vitamin D3) 25 mcg PO DAILY 90 days diclofenac sodium 1% (Voltaren Arthritis Pain) 4 grams topical QID PRN lancets (TRUEplus Lancets) blood sugar 1 to 2 times a day as directed - NO SUBSTITUTION PLEASE! -- Dx Code: E11.21 -- DIABETES MELLITUS lancets Test Daily Lantus Solostar U-100 Insulin (insulin glargine) 10 units (0.1 mL) subcut QPM 90 days NS levothyroxine 50 mcg PO DAILY 90 days losartan 100 mg PO DAILY 90 days nebivolol 20 mg PO DAILY 90 days omeprazole 20 mg PO DAILY pen needle, diabetic As directed once a day sildenafil 100 mg PO DAILY PRN simvastatin 20 mg PO DAILY 90 days terazosin 5 mg PO BEDTIME 90 days tirzepatide (Mounjaro) 5 mg (0.5 mL) subcut QWEEK 90 days [true metrix Glucometer LANCETS Test blood sugar 1 to 2 times a day as directed - NO SUBSTITUTION PLEASE! NS] True Metrix Glucose Test Strip (blood sugar diagnostic) As directed - test 1 to 2 times day NS HPI Comments Details: Donald is a very pleasant 74-year-old male patient of Dr. Da Silva who was accompanied by his Landy at today's office visit. He has a past medical history of elevated LFTs, vitamin-D deficiency, gout, abdominal aortic aneurysm, obesity, hypercholesteremia, hypertension, chronic kidney disease stage III, type 2 diabetes, degenerative joint disease, and osteoarthritis. He presents to the office today for follow-up of his elevated PSA and lower urinary tract symptoms. In discussion with the patient today reports to be feeling and doing well. He denies having had any bothersome urinary issues or concerns since his last office visit here approximately 6 months ago. He reports compliance with terazosin as prescribed. Previous workup has included a retroperitoneal ultrasound 10/08 noting right kidney with no hydronephrosis. 1.6 cm upper pole cyst. Multiple smaller renal cysts, some of which have associated calcifications and are difficult to characterize due to limited visualization. left kidney with no hydronephrosis and or renal calculi. Exophytic 1.8 x 1.3 x 1.8 cm upper pole cyst with possible mural calcification. Lower pole 1.3 cm cyst with benign features. Multiple additional smaller renal cysts some of which are difficult to characterize due to limited visualization. The 1.2 cm intermediate indeterminate left renal midpole lesion identified on CT scan of 07/02/2023 is not clearly visualized on this study, likely due to bowel gas. The bladder is well distended and normal. Bilateral ureteral jets are demonstrated. Pre void bladder volume is approximately 335 mL. Postvoid bladder volume is approximately 40 mL. The prostate is not visualized due to body habitus. Recent PSA results were reviewed with the patient and his today 07/03 1.3, 03/04 3.4, 02/03 19.43, 04/05 2.1, 09/07 5.3, 12/06 6.0 % free PSA 10%, 01/05 2.3, 01/06 2.2 He denies urinary urgency, urinary frequency, incontinence, nocturia, hematuria, dysuria, foul smelling urine, changes to urinary stream, flank pain, fever, and or chills. He otherwise offers no other issues or concerns at this time. [facility] Medical History Benign prostatic hyperplasia with lower urinary tract symptoms Abdominal aortic aneurysm Benign essential hypertension Pure hypercholesterolemia Type 2 diabetes mellitus with diabetic chronic kidney disease Chronic kidney disease (CKD), stage III (moderate) Non-toxic multinodular goiter Personal history of nicotine dependence Elevated LFTs Vitamin D deficiency History of gout Obesity (BMI 30-39.9) Surgical History History of partial thyroidectomy History of right knee surgery History of colonoscopy History of tonsillectomy Family History Father CAD (coronary artery disease) Myocardial infarction Mother Congenital heart disease Breast cancer Uterine cancer Brother No problems noted. Sister No problems noted. Daughter No problems noted. Social History Housing: House Alcohol intake: never Patient Tobacco Use Status: Former Tobacco user Years Smoked: (onset 15yo, 1ppd x 50yrs, 40PYH, quit 2015) e-Cigarette/Vaping Use: Never Used Second Hand Smoke Exposure: Yes service: No Current occupational status: retired Cognitive needs: No Hearing needs: No Vision needs: Yes Review of Systems Const Reports as per HPI Eyes Reports no additional complaints ENT Reports no additional complaints Card Reports as per HPI Resp Reports no additional complaints GI Reports as per HPI Reports as per HPI Musc Reports as per HPI Neuro Reports no additional complaints Psych Reports no additional complaints Endo Reports as per HPI Physical Exam Const General: cooperative, healthy appearing, comfortable, no acute distress, well developed, alert and awake Orientation/consciousness: patient oriented x3 Limitations: no limitations HEENT Head: Yes normal to inspection, Yes normocephalic and Yes atraumatic Ears: hearing grossly normal bilaterally Eyes General: appearance normal, both eyes and all related structures Neck Neck: Yes normal visual inspection and Yes trachea midline Chest Chest palpation & inspection: normal inspection of the chest Resp Effort & Inspection: normal respiratory effort and able to speak in complete sentences Cardio Rate: regular rate GI Inspection: Yes normal to inspection General: Yes no CVA tenderness Back/Spine/Pelvis Back: no CVA tenderness Skin General skin exam: no rashes or lesions noted Neuro General: patient oriented x3 Extrem General: Yes normal to inspection Psych Appearance: grossly normal and well kempt Mental Status: mental status grossly normal Speech and movement: Normal speech and movement present and Clear speech present Affect: normal affect Attitude: cooperative Thought process: Normal thought process present Thought content: Normal thought content present Insight: Fair insight present (Psych) Judgement: Fair judgement present (Psych) Office Procedures Post Void Residual Post Residual Void Post Void Residual (PVR): 17 [id number] Void Residual by ultrasound Results AMB Urinalysis, Automated UA Leukoctes 70 Antonio/uL Last Edit by Mylene Pitts CMA on 12/31/24 16:04 UA Nitrite Negative Last Edit by Mylene Pitts, RUFUS on 12/31/24 16:04 UA Urobilinogen 0.2 mg/dL Last Edit by Mylene Pitts, RUFUS on 12/31/24 16:04 UA Protein 30 mg/dL Last Edit by Mylene Pitts, RUFUS on 12/31/24 16:04 UA pH 6.0 Last Edit by Mylene Pitts, RUFUS on 12/31/24 16:04 UA Blood 0 Renny/uL Last Edit by Mylene Pitts, RUFUS on 12/31/24 16:04 UA Specific [place] 1.025 Last Edit by Mylene Pitts CMA on 12/31/24 16:04 UA Ketone Positive Last Edit by Mylene Pitts, RUFUS on 12/31/24 16:04 UA Bilirubin 1 mg/dL Last Edit by Mylene Pitts, RUFUS on 12/31/24 16:04 UA Glucose 0 mg/dL Last Edit by Mylene Pitts CMA on 12/31/24 16:04 Results Reviewed Results Reviewed: Laboratory Last Values Urine pH (Auto) 6.0 12/31/24 16:03 Specific [place] (Auto) 1.025 12/31/24 16:03 Urine Protein (Auto) 30 mg/dL 12/31/24 16:03 Glucose (UA)(Auto) 0 mg/dL 12/31/24 16:03 Urine Ketones (Auto) Positive 12/31/24 16:03 Urine Blood (Auto) 0 Renny/uL 12/31/24 16:03 Urine Nitrite (Auto) Negative 12/31/24 16:03 Urine Bilirubin (Auto) 1 mg/dL 12/31/24 16:03 Urine Urobilinogen (Auto) 0.2 mg/dL 12/31/24 16:03 Leukocyte Esterase (Auto) 70 Antonio/uL 12/31/24 16:03 Assessment & Plan Assessment & Plan (1) Renal cyst: Code(s): N28.1 - Cyst of kidney, acquired Category: Medical (2) Elevated PSA: Code(s): R97.20 - Elevated prostate specific antigen [PSA] Category: Medical Plan In office urinalysis results reviewed with the patient today; as noted above. PVR 17 mL. Continue terazosin. Will continue with surveillance monitoring of renal cysts. Patient currently denies any bothersome urinary issues or concerns. He reports be happy with current voiding parameters. Will obtain renal ultrasound Will obtain PSA in 1 year. Follow-up in 1 year with imaging, labs, and PVR; or sooner with any issues, concerns, and or questions. Orders: Orders AMB Post Void Residual by ultrasound Today N40.1 - Benign prostatic hyperplasia with lower urinary tract symptoms, R39.12 - Poor urinary stream AMB Urinalysis Automated Today R33.9 - Retention of urine, unspecified US renal BI 1 Year N28.1 - Cyst of kidney, acquired Prostate Specific Antigen 1 Year N40.1 - Benign prostatic hyperplasia with lower urinary tract symptoms, R39.12 - Poor urinary stream, R97.20 - Elevated prostate specific antigen [PSA] Patient Instructions: The patient had an opportunity to ask questions regarding the treatment plan. All questions were answered. Physical exam, labs, and imaging were discussed and reviewed in detail. As well as risks, benefits, and discussion of treatment choices. No major barriers to understanding were identified. The patient expressed understanding and agreement with the above treatment plan. The patient was made aware they should contact our office by phone for worsening of their current condition, the appearance of new symptoms, or with any questions or concerns. Compliance is encouraged with any medications and follow up testing that is ordered. It is a privilege to be allowed the opportunity to participate in? your urological care.? Again, if you have any questions or concerns If you have any questions or concerns please do not hesitate to contact me. The office is [phone]. This note is constructed using voice recognition software. While every effort has been made to ensure accuracy fishing tool operator errors may have been included. Yours sincerely, CHALO Thompson Coding Level of Care Code Est Pt Level 3 (83459) Complex EM visit Add On G2211 Diagnoses Renal cyst N28.1 Elevated PSA R97.20 CPT Codes Post Residual Void - PVR CPT Code: 55184-[id number] Void Residual by ultrasound ([id number])
--- OUTSIDE RECORDS SUMMARY | 2024-12-31 15:45 | XMS_ITS | Clinical Summary ---
Author Organization [facility] Address [address] [place] [address] Care Team Providers Care Hall Tender Name Role Phone Jourdan Da Silva MD Unavailable [phone] Jourdan Da Silva MD Primary Care Provider [phone] Allergies Active Allergy Reactions Criticality Noted Date Comments Beta Adrenergic Blockers Swelling Medium 07/07/2021 Tongue swelling Lisinopril Swelling Medium 07/07/2021 Tongue swelling Meperidine GI Intolerance/Nausea/Vo miting Medium 07/07/2021 Oxycodone-Acetaminophen GI Intolerance/Nausea/Vo miting Low 07/07/2021 Medications amLODIPine (NORVASC) 5 MG tablet daily. 1 Active Januvia 100 MG tablet daily. 1 Active allopurinol (ZYLOPRIM) 100 mg tablet Take 0.5 tablets by mouth daily. Active Vitamin D3 (CHOLECALCIFEROL) 25 MCG (1000 UT) Cap Take by mouth daily. Active glipiZIDE (GLUCOTROL XL) 2.5 MG 24 hr tablet Take 2.5 mg by mouth every morning with breakfast. Active hydrochlorothiazi de (HYDRODIURIL) 12.5 MG tablet Take 12.5 mg by mouth daily. Active losartan (COZAAR) 100 MG tablet Take 100 mg by mouth daily. Active nebivolol (BYSTOLIC) 20 MG tablet Take 20 mg by mouth daily. Active simvastatin (ZOCOR) 20 MG tablet Take 20 mg by mouth daily. Active aspirin 81 MG chewable tabletIndications :Nontoxic multinodular goiter Chew 1 tablet (81 mg total) daily. Do not start before September 17, 2021. 2 Active traMADol (ULTRAM) 50 MG tabletIndications :Nontoxic multinodular goiter Take 1 tablet (50 mg total) by mouth 3 times daily (every 8 hours) as needed for severe pain. 9 tablet 2 Active acetaminophen (TYLENOL) 500 MG tabletIndications :Nontoxic multinodular goiter Take 2 tablets (1,000 mg total) by mouth 4 times daily (every 6 hours) as needed for mild pain or moderate pain. 30 tablet 2 Active Active Problems Problem Noted Date Diagnosed Date Nontoxic multinodular goiter (THYROID) 1 Overview (07/15/2021): 71 y.o. male referred by PCP, Dr Da Silva for nontoxic multinodular goiter (THYROID) Ultrasound: 02/23/21 [facility] 5.5 x 2.1.x 2.2 cm right [...] PTH: 25-OH vitamin D: 32.7 (04/17/21) Immunizations Immunization Administration Dates Next Due Covid-19 MRNA Vaccine [...] at Not on file Legal Sex Male 1:08 PM EDT Gender Identity Not on file Sexual Orientation [...] Zoster (Shingles) Vaccine (1 of 2) 1999 COVID-19 Vaccine (4 - 2023-2 5 season) 2024 05/15/2021, 10/27/2020, 10/06/2020 RSV Vaccine 60 years and older and Patients (1 - 1-dose 75+ series) 2024 Influenza Vaccine 03/15/2025 Hepatitis B Vaccines Aged Out No long er eligible based on patient's age to complete this topic Insurance MEDICARE PART A & B [facility] Care Teams Hall Tender Relationship Specialty Start Date End Date Jourdan Da Silva MD [address] [place] [address] [place] [id number] PCP - General Internal Medicine 07/03/21 Jourdan Da Silva MD [address] [place] [address] [place] [id number] Primary Care Provider Internal Medicine 07/02/21
--- OUTSIDE RECORDS SUMMARY | 2024-12-31 15:45 | XMS_ITS | Clinical Summary ---
Author Organization [facility] Address [address] [place] [phone] Phone Care Team Providers Care Slab Stripper Name Role Phone Jourdan Da Silva MD [...] HTN (hypertension) 08/16/2024 AAA (abdominal aortic aneurysm) ([facility] V24) HLD (hyperlipidemia) 08/16/2024 CKD (chronic kidney disease) stage 3, GFR 30-59 ml/min ([facility] V24, [facility] V28) 08/16/2024 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 ([facility] V24, [facility] V28) 08/16/2024 Tobacco use 08/16/2024 Gout 08/16/2024 Vitamin D deficiency 08/16/2024 Elevated LFTs 08/16/2024 Post-traumatic osteoarthritis of right knee 09/2024 Primary osteoarthritis of left knee 08/16/2024 Medical History Medical History Date Comments Hypertension [...] Hypertension/CHF/CAD Annual BMP Blood Test 08/16/2024 09/07/2021 COVID-19 Vaccine (8 - Pfizer risk season) 2024 04/28/2024, 05/07/2023, 05/02/2022, Additional history exists Colorectal Cancer Screening: FIT-DNA (Cologuard) 02/08/2026 02/08/2023, 02/08/2023, 03/14/2019 Influenza Vaccine Completed 04/28/2024, , 05/02/2022, Additional [...] patient's age to complete this topic Insurance [facility] Care Teams Slab Stripper Relationship Specialty Start Date End Date Jourdan Da Silva MD [address] [place] [address] [address] [place], [place] PCP - General Internal Medicine 12/06/18
--- OUTSIDE RECORDS SUMMARY | 2024-12-31 15:45 | XMS_ITS | Clinical Summary ---
Author Organization [facility] Address [address] [place] [address] Care Team Providers Care Painter Bottom Name Role Phone Jourdan Da Silva MD Primary Care Provider [phone] Allergies Active Allergy Reactions Criticality Noted Date [...] age to complete this topic Care Teams Painter Bottom Relationship Specialty Start Date End Date Jourdan Da Silva MD [address] [place] [address] [place] [phone] PCP - General Internal Medicine 12/06/18
== END 2024-12-31 16:32 | disposition home or self-care (01) ==
LOC: HO.HUSH 15:43
PROVIDERS: PCP Internal Medicine; Visit Provider Nurse Practitioner Family
DX: N28.1 Cyst of kidney, acquired (principal); R97.20 Elevated prostate specific antigen [PSA]; R33.9 Retention of urine, unspecified
CPT/HCPCS: 99213; G2211

== ENCOUNTER → 2024-12-31 15:42 | Outpatient (BNVA) | payer MEDICARE, SELFPAY | PROVIDERS: PCP Internal Medicine; Visit Provider Nurse Practitioner Family | DX: N40.1 Benign prostatic hyperplasia with lower urinary tract symptoms (principal); N28.1 Cyst of kidney, acquired; R97.20 Elevated prostate specific antigen [PSA]; R39.12 Poor urinary stream; R33.8 Other retention of urine | CPT/HCPCS: 51798; 81003; 99212 ==

== ENCOUNTER → 2025-02-08 07:15 | Outpatient (REF) | payer MEDICARE, SELFPAY ==
--- OUTSIDE RECORDS SUMMARY | 2025-02-08 07:18 | XMS_ITS | Clinical Summary ---
Author Organization [facility] Address [address] [place] [address] Care Team Providers Care Plant Accountant Name Role Phone Jourdan Da Silva MD Primary Care Provider [phone]- [phone] Allergies Active Allergy Reactions Criticality Noted Date [...] Vaccine (1 of 1 - PCV) 2014 RSV Adult > 60+ Yrs or Pregn ant (1 - 1-dose 75+ series) 2024 Influenza Vaccine (Season Ended) 2025 Hepatitis B Vaccines Aged Out No long er eligible based on patient's age to complete this topic RSV Ped < 20 months Aged Out No longe r eligible based on patient's age to complete this topic Care Teams Plant Accountant Relationship Specialty Start Date End Date Jourdan Da Silva MD [address] [place] [address] [place] [id number] PCP - General Internal Medicine 12/06/18
[2025-02-08 07:26] LABS: MANUAL DIFF FLAG NO
--- NOTE | 2025-02-08 07:39 | ECG_ITS ---
Test Reason : preop Blood Pressure : */* mmHG Vent. Rate : 82 BPM Atrial Rate : 82 BPM P-R Int : 194 ms QRS Dur : 86 ms QT Int : 412 ms P-R-T Axes : -18 -29 36 degrees QTcB Int : 481 ms Normal sinus rhythm Inferior infarct , age undetermined Abnormal ECG No previous ECGs available Referred By: Emma Black Electronically Signed By: KERRIE GARIBAY
[2025-02-08 08:03] LABS: Basophils Percent Auto 0.4 % (0-2); Eosinophils Absolute Auto 0.2 X10*3/uL (0.0-0.4); Eosinophils Percent Auto 1.6 % (0-4); Hematocrit 41.4 % (42.0-52.0); Hemoglobin 13.9 g/dl (14.0-18.0); Imm Gran Abs Auto 0.03 X10*3/uL (0.00-0.03); Imm Gran Pct Auto 0.3 % (0.0-0.4); Lymphocytes Absolute Auto 1.6 X10*3/uL (1.2-4.9); Lymphocytes Percent Auto 17.5 % (20-40); Mean Corpuscular HGB Conc 33.6 g/dl (31.0-36.0); Mean Corpuscular Volume 80.5 fL (80.0-98.0); Mean Platelet Volume 9.9 fL (9.4-12.4); Monocytes Absolute Auto 0.6 X10*3/uL (0.1-1.2); Monocytes Percent Auto 6.3 % (2-11); Neutrophils Absolute Auto 6.9 x10*3/uL (2.0-8.3); Neutrophils Percent Auto 73.9 % (45-73); Platelet Count 165 X10*3/uL (160-400); Red Blood Count 5.14 X10*6/uL (4.60-5.80); Red Cell Distribution Width 13.8 % (11.0-16.0); White Blood Count 9.3 X10*3/uL (4.8-10.8)
[2025-02-08 08:10] LABS: Estimated Average Glucose 140 mg/dL; Hemoglobin A1c % 6.5 % (<6.0)
[2025-02-08 08:31] LABS: Alanine Aminotransferase 32 U/L (0-40); Albumin Level 4.4 g/dL (3.5-5.0); Alkaline Phosphatase 77 U/L (39-117); Anion Gap 13 (12-20); Aspartate Amino Transferase 29 U/L (5-37); Bilirubin Total 0.6 mg/dL (0.0-1.0); Blood Urea Nitrogen 18 mg/dL (9-16); Calcium 9.3 mg/dL (8.4-10.2); Carbon Dioxide 24 mmol/L (22-29); Chloride 105 mmol/L (96-108); Estimated Glomerular Filt Rate 53; Glucose Random 164 mg/dL (60-115); Potassium 3.7 mmol/L (3.3-5.1); Sodium 138 mmol/L (135-145)
== END ==
LOC: HO.CARD 07:15
PROVIDERS: PCP Internal Medicine
DX: E11.22 Type 2 diabetes mellitus with diabetic chronic kidney disease (principal); I12.9 Hypertensive chronic kidney disease with stage 1 through stage 4 chronic kidney disease, or unspecified chronic kidney disease; N18.31 Chronic kidney disease, stage 3a; E78.00 Pure hypercholesterolemia, unspecified; M17.11 Unilateral primary osteoarthritis, right knee; E04.2 Nontoxic multinodular goiter; N40.1 Benign prostatic hyperplasia with lower urinary tract symptoms; R39.12 Poor urinary stream; E66.9 Obesity, unspecified; Z79.4 Long term (current) use of insulin; Z79.899 Other long term (current) drug therapy; Z13.31 Encounter for screening for depression; Z13.39 Encounter for screening examination for other mental health and behavioral disorders
CPT/HCPCS: 36415; 80053; 83036; 85025; 93005; 96127

== ENCOUNTER → 2025-02-08 07:39 | Outpatient (BNV) | payer MEDICARE, SELFPAY | PROVIDERS: PCP Internal Medicine; Visit Provider Internal Medicine | DX: R94.31 Abnormal electrocardiogram [ECG] [EKG] (principal); Z01.810 Encounter for preprocedural cardiovascular examination | CPT/HCPCS: 93010 ==

== ENCOUNTER 2025-02-08 14:29 | Outpatient (AMB) | payer MEDICARE, SELFPAY ==
--- NOTE | 2025-02-08 14:31 | A.OFFPC_ITS ---
Intake Visit Reasons: discuss labs and abnormal ekg Commercial Technician Required: No Accompanied by: Spouse Allergies Beta-Blockers (Beta-Adrenergic Bloc Allergy (Unknown, Verified 02/08/25 15:27) SWOLLEN TONGUE lisinopril Allergy (Unknown, Verified 02/08/25 15:27) tongue swelling meperidine (Demerol) Allergy (Unknown, Verified 02/08/25 15:27) Unknown cephalexin Adverse Reaction (Intermediate, Verified 02/08/25 15:27) Diarrhea oxycodone (From Percocet) Adverse Reaction (Verified 02/08/25 15:27) Vomiting Medication List - Last Reconciled 02/08/25 by Jourdan Da Silva MD allopurinol 100 mg PO DAILY 90 days amlodipine 5 mg PO DAILY 90 days aspirin 81 mg PO DAILY 90 days azelaic acid 15% (Finacea) 1 appl topical QAM 90 days blood sugar diagnostic (FreeStyle Lite Strips) Test Daily blood-glucose meter (FreeStyle Lite Meter kit) Test Daily cholecalciferol (vitamin D3) 25 mcg PO DAILY 90 days diclofenac sodium 1% (Voltaren Arthritis Pain) 4 grams topical QID PRN lancets (TRUEplus Lancets) blood sugar 1 to 2 times a day as directed - NO SUBSTITUTION PLEASE! -- Dx Code: E11.21 -- DIABETES MELLITUS lancets Test Daily Lantus Solostar U-100 Insulin (insulin glargine) 10 units (0.1 mL) subcut QPM 90 days NS levothyroxine 50 mcg PO DAILY 90 days losartan 100 mg PO DAILY 90 days nebivolol 20 mg PO DAILY 90 days omeprazole 20 mg PO DAILY pen needle, diabetic As directed once a day sildenafil 100 mg PO DAILY PRN simvastatin 20 mg PO DAILY 90 days terazosin 5 mg PO BEDTIME 90 days tirzepatide (Mounjaro) 5 mg (0.5 mL) subcut QWEEK 90 days [true metrix Glucometer LANCETS Test blood sugar 1 to 2 times a day as directed - NO SUBSTITUTION PLEASE! NS] True Metrix Glucose Test Strip (blood sugar diagnostic) As directed - test 1 to 2 times day NS Tobacco use date assessed: 02/08/25 Last assessed Fall Risk: 02/08/25 Dental Screening Dental Screen Date: 02/08/25 HPI discuss labs and abnormal ekg HPI Details Patient's follow-up visit / consultation today is done over the phone - this is a Telehealth visit Patient's current medications have been reviewed and verified with patient and / or caregiver / proxy and have been updated accordingly in the medication list Patient currently has right knee replacement surgery scheduled for 03/12/[address]25 [address] [facility] [address] Angelia Rosenbaum Orthopedics has reportedly recommended that patient stop his Mounjaro for about a week prior to surgery - he is advised to stop it on March 03 and to restart it when the surgeon advises him to do so, as Mounjaro supposedly stops the digestion of the food His , Landy, is concerned that stopping his diabetes med for a week will cause his diabetes to go out of control and she wants some assurances on whether it is okay for him to do so Orthopedics has recommended he get some labs and EKG done - patient had these done earlier today and he would like to go over his results, especially with hi EKG which supposedly came out abnormal Patient states that other than his knee pain, he feels okay He denies any headaches or dizziness Denies any chest pains, no SOB No nausea/vomiting, no abdominal pain No change in bowel habits noted [facility] Medical History Benign prostatic hyperplasia with lower urinary tract symptoms Abdominal aortic aneurysm Benign essential hypertension Pure hypercholesterolemia Type 2 diabetes mellitus with diabetic chronic kidney disease Chronic kidney disease (CKD), stage III (moderate) Non-toxic multinodular goiter Personal history of nicotine dependence Elevated LFTs Vitamin D deficiency History of gout Obesity (BMI 30-39.9) Surgical History History of partial thyroidectomy History of right knee surgery History of colonoscopy History of tonsillectomy Family History Father CAD (coronary artery disease) Myocardial infarction Mother Congenital heart disease Breast cancer Uterine cancer Brother No problems noted. Sister No problems noted. Daughter No problems noted. Social History Housing: House Alcohol intake: never Patient Tobacco Use Status: Former Tobacco user Years Smoked: (onset 15yo, 1ppd x 50yrs, 40PYH, quit 2016) e-Cigarette/Vaping Use: Never Used Second Hand Smoke Exposure: Yes service: No Current occupational status: retired Cognitive needs: No Hearing needs: No Vision needs: Yes Questionnaire PHQ-9 Over the last 2 weeks, how often have you been bothered by any of the following problems? 1. Little interest or pleasure in doing things: not at all 2. Feeling down, depressed, or hopeless: not at all 3. Trouble falling or staying asleep, or sleeping too much: not at all 4. Feeling tired or having little energy: not at all 5. Poor appetite or overeating: not at all 6. Feeling bad about yourself - or that you are a failure or have let yourself or your family down: not at all 7. Trouble concentrating on things, such as reading the newspaper or watching television: not at all 8. Moving or speaking so slowly that other people could have noticed. Or the opposite - being so fidgety or restless that you have been moving around a lot more than usual: not at all 9. Thoughts that you would be better off or of hurting yourself in some way: not at all Total score: 0 Depression Screening Interpretation: Negative Depression Screening Done: Yes 89147 - PHQ-9 Billing: Yes Source: Developed by Drs. Tank Chacon, Paris Feliciano, Kaleb Frey and colleagues, with an educational pam from [employer]. Thrive Questionnaire Date Thrive assessed: 02/08/25 I am a: Patient What is your living situation today?: I have a steady place to live Within the past 12 months, did the food you bought not last and you didn't have the money to get more?: Never true Within the past 12 months, did you worry whether your food would run out before you got money to buy more?: Never true Do you have trouble paying for medicines?: No Do you have trouble getting transportation to medical appointments?: No Do you have trouble paying your heating and electricity bill?: No Do you have trouble taking care of your child, family member or friend?: No Do you have trouble with day-to-day activities such as bathing, preparing meals, shopping, managing finances, etc.?: No Are you currently unemployed and looking for a job?: No Are you interested in more education?: No Please select the resources that you would like help with: None Currently or been in a relationship where the following occur: No concerns reported THRIVE Score: 0 AUDIT C Alcohol Use Questionnaire (AUDIT-C) 1. How often do you have a drink containing alcohol?: 2-4 times a month 2. How many drinks containing alcohol do you have on a typical day when you are drinking?: 1 or 2 3. How often do you have six or more drinks on one occasion?: Never Total Score: 2 Score Reviewed/Action Taken: Yes NIMESH-7 AMB Questionnaire NIMESH-7 Date NIMESH - 7 assessed: 02/08/25 Feeling nervous, anxious, or on edge: 0 = Not at all Not being able to stop or control worryin = Not at all Worrying too much about different things: 0 = Not at all Trouble relaxin = Not at all Being so restless that it is hard to sit still: 0 = Not at all Becoming easily annoyed or irritable: 0 = Not at all Feeling afraid as if something awful might happen: 0 = Not at all Total NIMESH-7 score (0-4 normal; 5-9 mild; 10-14 moderate; 15-21 severe): 0 Source: Developed by Drs. Tank Chacon, Paris Feliciano, Kaleb Frey and colleagues, with an educational pam from [employer]. Review of Systems Const Denies chills, Denies fatigue, Denies fever(s) and Denies headache(s) ENT Denies dysphagia, Denies dizziness, Denies otalgia, Denies headache(s), Denies neck pain, Denies odynophagia and Denies sore throat Card Denies chest pain, Denies palpitations and Denies dyspnea Resp Denies chest congestion, Denies cough and Denies dyspnea GI Denies abdominal pain, Denies constipation, Denies dysphagia, Denies heartburn, Denies diarrhea, Denies nausea, Denies odynophagia and Denies vomiting Denies dysuria, Denies nocturia and Denies urinary frequency Musc Denies back pain, Reports arthralgias (right knee, frequent) and Denies neck pain Skin/Breast Denies rash Neuro Denies dizziness and Denies headache(s) Endo Denies fatigue and Denies palpitations Physical exam (Primary Care) Vital Signs: Physical examination is not performed as visit / consultation today is done over the phone - Telehealth visit All physical findings indicated here, if present, are as per patient's and / or caregivers / proxy's report Tobacco/Smoking Status: Tobacco use Status Tobacco use date assessed 02/08/25 02/08/25 14:32 Patient Tobacco Use Status Former Tobacco user 02/08/25 14:32 e-Cigarette/Vaping Use Never Used 02/08/25 14:32 PHQ-9: PHQ-9 Score PHQ-9: Total score 0 02/08/25 15:32 Depression Screening Interpretation: Negative Thrive Assessment: Date of Thrive Assessment Date Thrive assessed 02/08/25 02/08/25 14:32 Currently or been in a relationship where the following occur: No concerns re ported Telehealth Telehealth Telehealth Platform: Telephone Location of provider rendering services: practice address Location of patient: address on file Patient Identification confirmed using: Name, : Yes Telehealth method: voice only Patient verbally consented to treatment: Yes Patient verbally consented to billing insurance company: Yes Patient informed of any privacy concerns related to visit: Yes Minutes spent on Phone/Video with Pt.: 17 Results Reviewed Results Reviewed: Laboratory Tests 02/08/25 07:25 WBC 9.3 Hgb 13.9 L Hct 41.4 L Plt Count 165 Sodium 138 Potassium 3.7 Creatinine 1.32 Estimated GFR 53 Random Glucose 164 H Hemoglobin A1c % 6.5 H Calcium 9.3 AST 29 ALT 32 Coding Level of Care Code Tele Est Pt Level 3 (91621) Diagnoses Type 2 diabetes mellitus with stage 3a chronic kidney disease, with long-term current use of insulin E11.22; N18.31; Z79.4 Diabetes mellitus continuous churn buttermaker insulin use: with intermediate use Chronic kidney disease stage: stage 3 (moderate) Chronic kidney disease stage 3 subtype: stage 3a (GFR 45-59) Stage 3a chronic kidney disease N18.31 Chronic kidney disease stage 3 subtype: stage 3a (GFR 45-59) Pure hypercholesterolemia E78.00 Benign essential hypertension I10 Primary osteoarthritis of right knee M17.11 Osteoarthritis type: primary Non-toxic multinodular goiter E04.2 Benign prostatic hyperplasia with weak urinary stream N40.1; R39.12 Lower urinary tract symptom detail: weak urinary stream Obesity (BMI 30-39.9) E66.9 Additional Codes PHQ-9 - 14235 - PHQ-9 Billing: Yes ([id number]) Assessment & Plan Assessment & Plan (1) Type 2 diabetes mellitus with diabetic chronic kidney disease: Code(s): E11.22 - Type 2 diabetes mellitus with diabetic chronic kidney disease Category: Medical Qualifiers: Diabetes mellitus continuous churn buttermaker insulin use: with intermediate use Chronic kidney disease stage: stage 3 (moderate) Chronic kidney disease stage 3 subtype: stage 3a (GFR 45-59) Qualified Code(s): E11.22 - Type 2 diabetes mellitus with diabetic chronic kidney disease; N18.31 - Chronic kidney disease, stage 3a; Z79.4 - [facility] (current) use of insulin Plan: His HgbA1c was at 6.5% on his labs done earlier today (was at 6.2% a few months ago) - goal is at least < 7.0% but ideally <6.5% Reinforced diabetic diet Continue Mounjaro 5 mg SQ once a week and Lantus Solostar 10 units Q HS He was taken off Glipizide 2.5 mg QD at his last visit He used to see endocrinology but has not done so in the past couple of years He has reportedly been advised by orthopedics that he stop taking his Mounjaro for about a week prior to surgery - he is advised to stop it on March 03 and to restart it when the surgeon advises him to do so, as Mounjaro supposedly stops the digestion of the food His , Landy, is concerned that stopping his diabetes med for a week will cause his diabetes to go out of control and she wants some assurances on whether it is okay for him to do so I have reassured them that as his diabetes has been fairly well controlled for a while now, stopping his Mounjaro for the short term should not really result in any significant issues (2) Chronic kidney disease (CKD), stage III (moderate): Code(s): N18.30 - Chronic kidney disease, stage 3 unspecified Category: Medical Qualifiers: Chronic kidney disease stage 3 subtype: stage 3a (GFR 45-59) Qualified Code(s): N18.31 - Chronic kidney disease, stage 3a Plan: His serum creatinine and GFR have both been stable for a while now Reinforced again strict glycemic and BP control to help slow down the decline/ progression of his CKD Will continue to monitor his renal function closely (3) Pure hypercholesterolemia: Code(s): E78.00 - Pure hypercholesterolemia, unspecified Category: Medical Plan: Results of his labs done earlier today reviewed and discussed with patient Reinforced low cholesterol diet Continue Simvastatin 20 mg QD Will have patient recheck some labs before his preop exam next month (4) Benign essential hypertension: Code(s): I10 - Essential (primary) hypertension Category: Medical Plan: Reinforced? low sodium diet - goal is systolic BP of at least 130 or less Patient states that he's had no further dizzy spells since his last visit and he appears to be doing well on his current BP regimen Continue Bystolic 20 mg QD, Losartan 100 mg QD and Amlodipine 5 mg QD; he is also on Terazosin 5 mg for his urinary issues but this also helps with his BP somewhat Have again emphasized that with his AAA, he should try to keep his systolic BP between 120 to 130 mm as much as he can tolerate to slow down the progression of his aneurysm He is reminded again to continue monitoring his blood pressure regularly (5) Degenerative joint disease of right knee: Code(s): M17.11 - Unilateral primary osteoarthritis, right knee Category: Medical Qualifiers: Osteoarthritis type: primary Qualified Code(s): M17.11 - Unilateral primary osteoarthritis, right knee Plan: Follow up with orthopedics as scheduled - he is now going to orthopedics at [facility] Patient has reportedly been recommended to undergo knee replacement surgery and is now scheduled to have this done at the end of next month on 03/12/2025 (6) Non-toxic multinodular goiter: Code(s): E04.2 - Nontoxic multinodular goiter Category: Medical Plan: S/P right thyroid lobectomy and isthmusectomy on 09/14/[address] Dominique Hagan in [place], [place] His TFTs were again normal on his recent labs Continue Synthroid 50 mcg QD Will continue to monitor his TFTs regularly (7) Benign prostatic hyperplasia with lower urinary tract symptoms: Code(s): N40.1 - Benign prostatic hyperplasia with lower urinary tract symptoms Category: Medical Qualifiers: Lower urinary tract symptom detail: weak urinary stream Qualified Code(s): N40.1 - Benign prostatic hyperplasia with lower urinary tract symptoms; R39.12 - Poor urinary stream Plan: Patient states that his symptoms have improved a lot of his current Rx Continue Terazosin 5 mg Q HS Follow up with urology as scheduled (8) Obesity (BMI 30-39.9): Code(s): E66.9 - Obesity, unspecified Category: Medical Plan: Reinforced diet/exercise as tolerated/lose weight Plan To return as scheduled next month for his preop exam Orders: Orders Comprehensive Met. Panel 02/23/25 E78.00 - Pure hypercholesterolemia, unspecified, I10 - Essential (primary) hypertension Complete Blood Count Auto Diff 02/23/25 D64.9 - Anemia, unspecified Hemoglobin A1c 02/23/25 E11.9 - Type 2 diabetes mellitus without complications
== END 2025-02-08 15:56 | disposition home or self-care (01) ==
LOC: HO.HMCH 14:30
PROVIDERS: PCP Internal Medicine; Visit Provider Internal Medicine
DX: E11.22 Type 2 diabetes mellitus with diabetic chronic kidney disease (principal); N18.31 Chronic kidney disease, stage 3a; Z79.4 Long term (current) use of insulin; E78.00 Pure hypercholesterolemia, unspecified; I10 Essential (primary) hypertension; M17.11 Unilateral primary osteoarthritis, right knee; E04.2 Nontoxic multinodular goiter; N40.1 Benign prostatic hyperplasia with lower urinary tract symptoms; R39.12 Poor urinary stream; E66.9 Obesity, unspecified

== ENCOUNTER 2025-02-28 13:03 | Outpatient (AMB) | payer MEDICARE, SELFPAY ==
--- NOTE | 2025-02-28 13:11 | A.OFFPC_ITS ---
Vital Signs 02/28/25 13:12 Height 5 ft 11 in Weight 236 lb 4 oz BMI 32.9 BP 122/80 Blood Pressure Location Lt brachial Position Sitting Pulse 50 Pulse Source Pulse Oximeter Pulse Oximetry (%) 98 Oxygen Delivery Method Room Air Intake Visit Reasons: preop Production Support Supervisor Required: No Accompanied by: Self / Same As Patient Allergies Beta-Blockers (Beta-Adrenergic Bloc Allergy (Unknown, Verified 02/28/25 13:24) SWOLLEN TONGUE lisinopril Allergy (Unknown, Verified 02/28/25 13:24) tongue swelling meperidine (Demerol) Allergy (Unknown, Verified 02/28/25 13:24) Unknown cephalexin Adverse Reaction (Intermediate, Verified 02/28/25 13:24) Diarrhea oxycodone (From Percocet) Adverse Reaction (Verified 02/28/25 13:24) Vomiting Medication List - Last Reconciled 02/28/25 by Jourdan Da Silva MD allopurinol 100 mg PO DAILY 90 days amlodipine 5 mg PO DAILY 90 days aspirin 81 mg PO DAILY 90 days azelaic acid 15% (Finacea) 1 appl topical QAM 90 days blood sugar diagnostic (FreeStyle Lite Strips) Test Daily blood-glucose meter (FreeStyle Lite Meter kit) Test Daily cholecalciferol (vitamin D3) 25 mcg PO DAILY 90 days diclofenac sodium 1% (Voltaren Arthritis Pain) 4 grams topical QID PRN lancets (TRUEplus Lancets) blood sugar 1 to 2 times a day as directed - NO SUBSTITUTION PLEASE! -- Dx Code: E11.21 -- DIABETES MELLITUS lancets Test Daily Lantus Solostar U-100 Insulin (insulin glargine) 10 units (0.1 mL) subcut QPM 90 days NS levothyroxine 50 mcg PO DAILY 90 days losartan 100 mg PO DAILY 90 days nebivolol 20 mg PO DAILY 90 days omeprazole 20 mg PO DAILY pen needle, diabetic As directed once a day sildenafil 100 mg PO DAILY PRN simvastatin 20 mg PO DAILY 90 days terazosin 5 mg PO BEDTIME 90 days tirzepatide (Mounjaro) 5 mg (0.5 mL) subcut QWEEK 90 days [true metrix Glucometer LANCETS Test blood sugar 1 to 2 times a day as directed - NO SUBSTITUTION PLEASE! NS] True Metrix Glucose Test Strip (blood sugar diagnostic) As directed - test 1 to 2 times day NS Tobacco use date assessed: 02/28/25 Fall risk assessment: No Falls in past year Last assessed Fall Risk: 02/28/25 Dental Screening Dental Screen Date: 02/28/25 Did you have a dental visit in the last 12 months?: Yes Did you have a dental problem in the last 6 months where you did not have access to dental care?: No Was dental information given to patient?: Patient has dentist HPI preop HPI Details Patient comes in today at the request of Dr. Angelia Babcock for a preoperative medical examination for clearance for surgery He is scheduled for a total right knee arthroplasty under general anesthesia with Dr. Babcock on 03/12/2025 Patient states that he feels okay He denies any headaches or dizziness Denies any chest pains, no SOB No nausea/vomiting, no abdominal pain No change in bowel habits noted [facility] Medical History (Updated 02/28/25 @ 13:37 by Jourdan Da Silva MD) Primary osteoarthritis of right knee Benign prostatic hyperplasia with lower urinary tract symptoms Abdominal aortic aneurysm Benign essential hypertension Pure hypercholesterolemia Type 2 diabetes mellitus with diabetic chronic kidney disease Chronic kidney disease (CKD), stage III (moderate) Non-toxic multinodular goiter Personal history of nicotine dependence Elevated LFTs Vitamin D deficiency History of gout Obesity (BMI 30-39.9) Surgical History History of partial thyroidectomy History of right knee surgery History of colonoscopy History of tonsillectomy Family History Father CAD (coronary artery disease) Myocardial infarction Mother Congenital heart disease Breast cancer Uterine cancer Brother No problems noted. Sister No problems noted. Daughter No problems noted. Social History Housing: House Alcohol intake: never Patient Tobacco Use Status: Former Tobacco user Years Smoked: (onset 15yo, 1ppd x 50yrs, 40PYH, quit 2015) e-Cigarette/Vaping Use: Never Used Second Hand Smoke Exposure: Yes service: No Current occupational status: retired Cognitive needs: No Hearing needs: No Vision needs: Yes Questionnaire PHQ-9 Over the last 2 weeks, how often have you been bothered by any of the following problems? 1. Little interest or pleasure in doing things: not at all 2. Feeling down, depressed, or hopeless: not at all 3. Trouble falling or staying asleep, or sleeping too much: not at all 4. Feeling tired or having little energy: not at all 5. Poor appetite or overeating: not at all 6. Feeling bad about yourself - or that you are a failure or have let yourself or your family down: not at all 7. Trouble concentrating on things, such as reading the newspaper or watching television: not at all 8. Moving or speaking so slowly that other people could have noticed. Or the opposite - being so fidgety or restless that you have been moving around a lot more than usual: not at all 9. Thoughts that you would be better off or of hurting yourself in some way: not at all Total score: 0 Depression Screening Interpretation: Negative Depression Screening Done: Yes 36873 - PHQ-9 Billing: Yes Source: Developed by Drs. Tank Chacon, Paris Feliciano, Kaleb Frey and colleagues, with an educational pam from [employer]. Thrive Questionnaire Date Thrive assessed: 02/28/25 I am a: Patient What is your living situation today?: I have a steady place to live Within the past 12 months, did the food you bought not last and you didn't have the money to get more?: Never true Within the past 12 months, did you worry whether your food would run out before you got money to buy more?: Never true Do you have trouble paying for medicines?: No Do you have trouble getting transportation to medical appointments?: No Do you have trouble paying your heating and electricity bill?: No Do you have trouble taking care of your child, family member or friend?: No Do you have trouble with day-to-day activities such as bathing, preparing meals, shopping, managing finances, etc.?: No Are you currently unemployed and looking for a job?: No Are you interested in more education?: No Please select the resources that you would like help with: None Currently or been in a relationship where the following occur: No concerns reported THRIVE Score: 0 AUDIT C Alcohol Use Questionnaire (AUDIT-C) 1. How often do you have a drink containing alcohol?: 2-4 times a month 2. How many drinks containing alcohol do you have on a typical day when you are drinking?: 1 or 2 3. How often do you have six or more drinks on one occasion?: Never Total Score: 2 Score Reviewed/Action Taken: Yes NIMESH-7 AMB Questionnaire NIMESH-7 Date NIMESH - 7 assessed: 02/28/25 Feeling nervous, anxious, or on edge: 0 = Not at all Not being able to stop or control worryin = Not at all Worrying too much about different things: 0 = Not at all Trouble relaxin = Not at all Being so restless that it is hard to sit still: 0 = Not at all Becoming easily annoyed or irritable: 0 = Not at all Feeling afraid as if something awful might happen: 0 = Not at all Total NIMESH-7 score (0-4 normal; 5-9 mild; 10-14 moderate; 15-21 severe): 0 Source: Developed by Drs. Tank Chacon, Paris Feliciano, Kaleb Frey and colleagues, with an educational pam from [employer]. Review of Systems Const Denies chills, Denies fatigue, Denies fever(s) and Denies headache(s) ENT Denies dysphagia, Denies dizziness, Denies otalgia, Denies headache(s), Denies n david pain, Denies odynophagia and Denies sore throat Card Denies chest pain, Denies palpitations and Denies dyspnea Resp Denies chest congestion, Denies cough and Denies dyspnea GI Denies abdominal pain, Denies constipation, Denies dysphagia, Denies heartburn, Denies diarrhea, Denies nausea, Denies odynophagia and Denies vomiting Denies dysuria, Denies nocturia and Denies urinary frequency Musc Denies back pain, Reports arthralgias (right knee, increasing) and Denies neck pain Skin/Breast Denies rash Neuro Denies dizziness and Denies headache(s) Endo Denies fatigue and Denies palpitations Physical exam (Primary Care) Vital Signs: Last Vital Signs Pulse 50 02/28/25 13:12 BP 122/80 02/28/25 13:12 Pulse Ox 98 02/28/25 13:12 Oxygen Delivery Method Room Air 02/28/25 13:12 BMI result Body Mass Index 32.9 Tobacco/Smoking Status: Tobacco use Status Tobacco use date assessed 02/28/25 02/28/25 13:19 Patient Tobacco Use Status Former Tobacco user 02/28/25 13:19 e-Cigarette/Vaping Use Never Used 02/28/25 13:19 PHQ-9: PHQ-9 Score PHQ-9: Total score 0 02/28/25 13:32 Depression Screening Interpretation: Negative Thrive Assessment: Date of Thrive Assessment Date Thrive assessed 02/28/25 02/28/25 13:19 Currently or been in a relationship where the following occur: No concerns reported Const General: no acute distress and alert HENMT Ears: TM's normal bilaterally and EAC's normal Throat: Yes posterior oropharynx normal and Yes tonsils normal (no TP congestion noted) Neck Neck: Yes no lymphadenopathy and Yes supple Thyroid: Thyroid normal Resp Auscultation: clear to auscultation bilaterally, no rales and no wheezes Cardio Rate: regular rate Rhythm: regular rhythm Heart sounds: no murmurs GI Palpation (GI): Soft to palpation and nontender Auscultation: normal bowel sounds General: Yes no CVA tenderness Back/Spine/Pelvis Back: no CVA tenderness Thoracic/Lumbar Spine: No lumbar spinal tenderness Skin Rashes: no rashes Extrem General: Yes no clubbing, cyanosis or edema Right lower extremity: knee Details: tenderness and crepitus Results Reviewed Results Reviewed: Laboratory Tests 02/08/25 07:25 WBC 9.3 Hgb 13.9 L Hct 41.4 L Plt Count 165 Sodium 138 Potassium 3.7 Creatinine 1.32 Estimated GFR 53 Random Glucose 164 H Hemoglobin A1c % 6.5 H Calcium 9.3 AST 29 ALT 32 Coding Level of Care Code Est Pt Level 4 (21853) Diagnoses Pre-operative examination Z01.818 Primary osteoarthritis of right knee M17.11 Type 2 diabetes mellitus with stage 3a chronic kidney disease, with long-term current use of insulin E11.22; N18.31; Z79.4 Diabetes mellitus terminal carman insulin use: with fci use Chronic kidney disease stage: stage 3 (moderate) Chronic kidney disease stage 3 subtype: stage 3a (GFR 45-59) Stage 3a chronic kidney disease N18.31 Chronic kidney disease stage 3 subtype: stage 3a (GFR 45-59) Pure hypercholesterolemia E78.00 Benign essential hypertension I10 Abdominal aortic aneurysm (AAA) without rupture I71.4 Presence of rupture: without rupture Elevated LFTs R79.89 Vitamin D deficiency E55.9 Non-toxic multinodular goiter E04.2 History of gout Z87.39 Benign prostatic hyperplasia with weak urinary stream N40.1; R39.12 Lower urinary tract symptom detail: weak urinary stream Obesity (BMI 30-39.9) E66.9 Additional Codes PHQ-9 - 34057 - PHQ-9 Billing: Yes ([id number]) Assessment & Plan Assessment & Plan (1) Pre-operative examination: Code(s): Z01.818 - Encounter for other preprocedural examination Category: Medical Plan: Patient presents with acceptable risks for planned intermediate cardiac-risk procedure Results of his labs done a few weeks ago again reviewed and discussed with patient - these are attached to this report for review if needed His EKG done a few weeks ago also came out okay - NSR with non-specific changes and is similar to his EKG done back in 2021 (2) Primary osteoarthritis of right knee: Code(s): M17.11 - Unilateral primary osteoarthritis, right knee Category: Medical Plan: He is currently scheduled to undergo a total right knee arthroplasty under general anesthesia with Dr. Babcock on 03/12/20 (3) Type 2 diabetes mellitus with diabetic chronic kidney disease: Code(s): E11.22 - Type 2 diabetes mellitus with diabetic chronic kidney disease Category: Medical Qualifiers: Diabetes mellitus fci insulin use: with fci use Chronic kidney disease stage: stage 3 (moderate) Chronic kidney disease stage 3 subtype: stage 3a (GFR 45-59) Qualified Code(s): E11.22 - Type 2 diabetes mellitus with diabetic chronic kidney disease; N18.31 - Chronic kidney disease, stage 3a; Z79.4 - terminal block assembler (current) use of insulin Plan: His HgbA1c was at 6.5% on his labs done a few weeks ago (was previously at 6.2% earlier this year) - goal is at least < 7.0% but ideally <6.5% Reinforced diabetic diet Continue Mounjaro 5 mg SQ once a week and Lantus Solostar 10 units Q HS He was taken off Glipizide 2.5 mg QD at his last visit He used to see endocrinology but has not done so in the past couple of years He is again aware that he is to HOLD his Mounjaro a week before his surgery (around March 03) and will restart it when he is instructed to do so by orthopedics I have reassured them previously that as his diabetes has been fairly well controlled for a while now, stopping his Mounjaro for a short time should not result in any significant issues with his diabetes (4) Chronic kidney disease (CKD), stage III (moderate): Code(s): N18.30 - Chronic kidney disease, stage 3 unspecified Category: Medical Qualifiers: Chronic kidney disease stage 3 subtype: stage 3a (GFR 45-59) Qualified Code(s): N18.31 - Chronic kidney disease, stage 3a Plan: His serum creatinine and GFR have both been stable for a while now Reinforced again strict glycemic and BP control to help slow down the decline/ progression of his CKD Will continue to monitor his renal function closely (5) Pure hypercholesterolemia: Code(s): E78.00 - Pure hypercholesterolemia, unspecified Category: Medical Plan: Reinforced low cholesterol diet Continue Simvastatin 20 mg QD (6) Benign essential hypertension: Code(s): I10 - Essential (primary) hypertension Category: Medical Plan: Reinforced? low sodium diet - goal is systolic BP of at least 130 or less Patient states that he's had no further dizzy spells since earlier this year and he has been doing well on his current BP Rx regimen Continue Bystolic 20 mg QD, Losartan 100 mg QD and Amlodipine 5 mg QD; he is a lso on Terazosin 5 mg for his urinary issues but this also helps with his BP somewhat Have again emphasized that with his AAA, he should try to keep his systolic BP between 120 to 130 mm as much as he can tolerate to slow down the progression of his aneurysm He is reminded again to continue monitoring his blood pressure regularly (7) Abdominal aortic aneurysm: Comment: 05/2021: Mild aneurysmal dilatation of distal abdominal aorta measuring 3.8 x 3.7 cm. Previously it measured 3.5 x 3.5 cm. Code(s): I71.4 - Abdominal aortic aneurysm, without rupture Category: Medical Qualifiers: Presence of rupture: without rupture Qualified Code(s): I71.4 - Abdominal aortic aneurysm, without rupture Plan: Abdominal and pelvic CT done in June 2023 showed slight progression of the aneurysm to 3.8 cm from 3.0 cm in 2018 On his abdominal arterial study done in April 2023, his aortic aneurysm measures 4.0 x 4.0 cm, increased from 3.8 x 3.7 cm on 05/21/2021 and 3.5 x 3.5 cm on 04/30/2020 His most recent follow up US in July 2024 revealed (+) stable aneurysmal dilatation of the abdominal aorta measuring up to 4 cm Reinforced importance of tight BP control to slow down progression Will continue with yearly US for surveillance and also consider vascular surgery referral so they can follow along (8) Elevated LFTs: Code(s): R79.89 - Other specified abnormal findings of blood chemistry Category: Medical Plan: Patient's LFTs are now normal on his recent labs Will continue to monitor his LFTs regularly (9) Vitamin D deficiency: Code(s): E55.9 - Vitamin D deficiency, unspecified Category: Medical Plan: Continue Vitamin D3 1000 units QD (10) Non-toxic multinodular goiter: Code(s): E04.2 - Nontoxic multinodular goiter Category: Medical Plan: S/P right thyroid lobectomy and isthmusectomy on 09/14/[address] Dominique Hagan in [place], [place] His TFTs have remained normal on his recent labs Continue Synthroid 50 mcg QD Will continue to monitor his TFTs regularly (11) History of gout: Code(s): Z87.39 - Personal history of other diseases of the musculoskeletal system and connective tissue Category: Medical Plan: Reinforced low purine diet - reports no acute gout flares lately Serum uric acid level was normal at 4.9 when last checked a few months ago (12) Benign prostatic hyperplasia with lower urinary tract symptoms: Code(s): N40.1 - Benign prostatic hyperplasia with lower urinary tract symptoms Category: Medical Qualifiers: Lower urinary tract symptom detail: weak urinary stream Qualified Code(s): N40.1 - Benign prostatic hyperplasia with lower urinary tract symptoms; R39.12 - Poor urinary stream Plan: Patient reports that his symptoms have improved a lot of his current Rx Continue Terazosin 5 mg Q HS Follow up with urology as scheduled (13) Obesity (BMI 30-39.9): Code(s): E66.9 - Obesity, unspecified Category: Medical Plan: Reinforced diet/exercise as tolerated/lose weight Plan Patient is currently medically optimized and has no contraindications to undergo scheduled total right knee arthroplasty under general anesthesia on 03/12/2025 Follow up as scheduled next month
[2025-02-28 13:12] VITALS: BP 122/80; PULSE 50; O2SAT 98; BMI 32.9
--- OUTSIDE RECORDS SUMMARY | 2025-02-28 13:35 | XMS_ITS | Clinical Summary ---
Author Organization [facility] Address [address] [place] [address] Care Team Providers Care Setter Molding And Coremaking Machines Name Role Phone Jourdan Da Silva MD Primary Care Provider [phone] Allergies Active Allergy Reactions Criticality Noted Date [...] - 1-dose 75+ series) 2024 Influenza Vaccine (#1) 2025 Hepatitis B Vaccines Aged Out No long er eligible based on patient's age to complete this topic RSV Ped < 20 months Aged Out No longe r eligible based on patient's age to complete this topic Care Teams Setter Molding And Coremaking Machines Relationship Specialty Start Date End Date Jourdan Da Silva MD [address] [place] [address] [place] [address] PCP - General Internal Medicine 12/06/18
--- OUTSIDE RECORDS SUMMARY | 2025-02-28 13:35 | XMS_ITS | Clinical Summary ---
Author Organization [facility] Address [address] [place] [address] Care Team Providers Care Director Correctional [employer] Name Role Phone Jourdan Da Silva MD Unavailable [phone] Jourdan Da Silva MD Primary Care Provider [phone] Allergies Active Allergy Reactions Criticality Noted Date [...] for nontoxic multinodular goiter (THYROID) Ultrasound: 02/23/21 [facility] 5.5 x 2.1.x 2.2 cm right lobe, [...] topic Insurance MEDICARE PART A & B [employer] Care Teams Director [employer]al [employer] Relationship Specialty Start Date End Date Jourdan Da Silva MD [address] [place] [address] [place] [address] PCP - General Internal Medicine 07/03/21 Jourdan D aSilva MD [address] [place] [address] [place] [address] Primary Care Provider Internal Medicine 07/02/21
--- OUTSIDE RECORDS SUMMARY | 2025-02-28 13:35 | XMS_ITS | Encounter Summary ---
Author Organization [facility] Address [address] [place] [address] Care Team Providers Care Datastage Architect Name Role Phone Jourdan Da Silva MD Primary Care Provider [phone] Reason for Visit * Reason Onset Date Comments Surgery Time 02/25/2025 Encounter Details Date Type Department Care Team (Late st Contact Info) Description 02/25/2025 Telephone Orthopedic Surgery - [place] [address] [address] Jenni Casey RN Surgery Time Social History Tobacco Use Types Packs/Day Years [...] Progress Notes * Jenni Casey RN - 02/25/2025 9:08 AM EDT This nurse left patient a message that surgery will be 03/12/25 @ 7:30am and to arrive at [facility] for 6am. documented in this encounter Plan of Treatment Upcoming Encounters Date Type Department Care Team (Latest Contact Info) Description 03/06/2025 1:00 PM EDT Consult Orthopedic Surgery - [place] [address] [address] Drea Trinidad NP [address] [address] 03/12/2025 10:00 AM EDT Hospital Encounter [facility] Main OR [address] [place] [phone] Ruperto Babcock MD [address] [address] 03/12/2025 10:00 AM EDT - 03/12/2025 1:00 PM EDT Surgery [facility] Main [place] [address] [place] [phone] Ruperto Babcock MD [address] [address] RIGHT TOTAL KNEE ARTHROPLASTY [28210 (CPT )] 03/26/2025 4:30 PM EDT Evaluation [address] [phone] Aliza Mendez, ABDOUL 03/28/2025 11:30 AM EDT Office Visit Orthopedic Surgery - [address] [phone] Ruperto Babcock MD [address] [address] Scheduled Procedures Name Priority Associated Diagnoses Date/Ti me ARTHROPLASTY KNEE TOTAL Post-traumatic osteoarthritis of right knee 03/12/2025 10:00 AM EDT documented as of this encounter Visit Diagnoses Not on filedocumented in this encounter Care Teams Datastage Architect Relationship Specialty Start Date End Date Jourdan Da Silva MD [address] [place] [address] [address] [place] PCP - General Internal Medicine 12/06/18 documented as of this encounter
== END 2025-02-28 14:52 | disposition home or self-care (01) ==
LOC: HO.HMCH 13:04
PROVIDERS: PCP Internal Medicine; Visit Provider Internal Medicine
DX: E11.22 Type 2 diabetes mellitus with diabetic chronic kidney disease (principal); N18.31 Chronic kidney disease, stage 3a; Z79.4 Long term (current) use of insulin; Z01.818 Encounter for other preprocedural examination; M17.11 Unilateral primary osteoarthritis, right knee; E78.00 Pure hypercholesterolemia, unspecified; I10 Essential (primary) hypertension; I71.40 Abdominal aortic aneurysm, without rupture, unspecified; R79.89 Other specified abnormal findings of blood chemistry; E55.9 Vitamin D deficiency, unspecified; E04.2 Nontoxic multinodular goiter; Z87.39 Personal history of other diseases of the musculoskeletal system and connective tissue

== ENCOUNTER → 2025-02-28 13:03 | Outpatient (BNVA) | payer MEDICARE, SELFPAY | PROVIDERS: PCP Internal Medicine; Visit Provider Internal Medicine | DX: Z01.818 Encounter for other preprocedural examination (principal); M17.11 Unilateral primary osteoarthritis, right knee; E11.22 Type 2 diabetes mellitus with diabetic chronic kidney disease; I12.9 Hypertensive chronic kidney disease with stage 1 through stage 4 chronic kidney disease, or unspecified chronic kidney disease; N18.31 Chronic kidney disease, stage 3a; E78.00 Pure hypercholesterolemia, unspecified; I71.40 Abdominal aortic aneurysm, without rupture, unspecified; R79.89 Other specified abnormal findings of blood chemistry; E55.9 Vitamin D deficiency, unspecified; E04.2 Nontoxic multinodular goiter; N40.1 Benign prostatic hyperplasia with lower urinary tract symptoms; R39.12 Poor urinary stream; E66.9 Obesity, unspecified; Z68.32 Body mass index [BMI] 32.0-32.9, adult; Z79.4 Long term (current) use of insulin; Z87.39 Personal history of other diseases of the musculoskeletal system and connective tissue | CPT/HCPCS: 96127; 99212 ==

== ENCOUNTER 2025-03-25 11:27 | Outpatient (REF) | payer MEDICARE, SELFPAY | END 2025-03-25 11:28 | disposition home or self-care (01) | LOC: HO.LNP 11:27 | PROVIDERS: PCP Internal Medicine; Visit Provider Nurse Practitioner Family | DX: N39.0 Urinary tract infection, site not specified (principal); R33.9 Retention of urine, unspecified | CPT/HCPCS: 81003; 87086; 87088; 87186 ==

== ENCOUNTER 2025-03-25 11:27 | Outpatient (AMB) | payer MEDICARE, SELFPAY ==
--- OUTSIDE RECORDS SUMMARY | 2025-03-25 12:05 | XMS_ITS | Encounter Summary ---
Author Organization [facility] Address [id number] [place] [id number] Care Team Providers Care Business Systems Administrator Name Role Phone Jourdan Da Silva MD Primary Care Provider [phone] Reason for Visit * Reason Onset Date Comments Post-op 03/21/2025 Encounter Details Date Type Department Care Team (Late Contact Info) Description 03/21/2025 Telephone Orthopedic Surgery [facility] [address] [phone] Jenni Casey RN Post-op Social History Tobacco Use Types Packs/Day Years Used Date Smoking Tobacco: Former Cigarettes Q uit: 12/06/2008 Smokeless Tobacco: Never Alcohol Use Standard Drinks/Week Comments Yes 0 (1 standard drink = 0.6 oz pur e alcohol) few beers a weeek Interpersonal Safety Answer Date Record ed Physical Abuse 03/12/2025 Verbal Abuse 03/12/2025 Sex and Gender Information Value Date Recorded Sex Assigned at Not on file Legal Sex Male 11:10 PM EST Gender Identity Not on file Sexual Orientation Not on file documented as of this encounter Progress Notes * Jenni Casey RN - 03/21/2025 8:56 AM EDT Called patient for f/u call and received voicemail and left a message with my contact info. documented in this encounter Plan of Treatment Upcoming Encounters Date Type Department Care Team (Late Contact Info) Description 03/28/2025 11:30 AM EDT Office Visit Orthopedic [facility] [address] [phone] Ruperto Babcock MD 175 [facility] [address] [place] [address] 04/16/2025 4:30 PM EDT Evaluation [facility] 175 [facility] [address] [place] [phone] Aliza Mendez PT documented as of this encounter Visit Diagnoses Not on filedocumented in this encounter Care Teams Business Systems Administrator Relationship Specialty Start Date End Date Jourdan Da Silva MD [address] [place] [address] Dr [address] [place], [place] PCP - General Internal Medicine 12/06/18 documented as of this encounter
--- OUTSIDE RECORDS SUMMARY | 2025-03-25 12:05 | XMS_ITS | Clinical Summary ---
Author Organization [facility] Address [address] [place] [address] Care Team Providers Care [employer] Paralegal Name Role Phone Jourdan Da Silva MD Unavailable [phone] Jourdan Da Silva MD Primary Care Provider [phone] Allergies Active Allergy Reactions Criticality Noted Date [...] for nontoxic multinodular goiter (THYROID) Ultrasound: 02/23/21 [facility] 5.5 x 2.1.x 2.2 cm right [...] topic Insurance MEDICARE PART A & B [facility] [place] [facility] Care Teams [employer] Paralegal Relationship Specialty Start Date End Date Jourdan Da Silva MD [address] [place] [address] [place] [address] PCP - General Internal Medicine 07/03/21 Jourdan Da Silva MD [address] [place] [address] [place] [address] Primary Care Provider Internal Medicine 07/02/21
--- OUTSIDE RECORDS SUMMARY | 2025-03-25 12:05 | XMS_ITS | Clinical Summary ---
Author Organization [facility] Address [address] [place] [address] Care Team Providers Care Slitting Machine Feeder Name Role Phone Jourdan Da Silva MD Primary Care Provider [phone] Allergies Active Allergy Reactions Criticality Noted Date [...] age to complete this topic Care Teams Slitting Machine Feeder Relationship Specialty Start Date End Date Jourdan Da Silva MD [address] [place] [address] [place] [address] PCP - General Internal Medicine 12/06/18
== END 2025-03-25 12:10 | disposition home or self-care (01) ==
LOC: HO.HUSH 11:27
PROVIDERS: PCP Internal Medicine; Visit Provider Nurse Practitioner Family
DX: N39.0 Urinary tract infection, site not specified (principal); R33.9 Retention of urine, unspecified

== ENCOUNTER → 2025-03-27 10:43 | Outpatient (BNVA) | payer MEDICARE, SELFPAY | PROVIDERS: PCP Internal Medicine; Visit Provider Nurse Practitioner Family | DX: Z46.6 Encounter for fitting and adjustment of urinary device (principal); R33.9 Retention of urine, unspecified | CPT/HCPCS: 51702 ==

== ENCOUNTER → 2025-04-08 08:23 | Outpatient (BNVA) | payer MEDICARE, SELFPAY | PROVIDERS: PCP Internal Medicine; Visit Provider Urology | DX: Z46.6 Encounter for fitting and adjustment of urinary device (principal); R33.9 Retention of urine, unspecified | CPT/HCPCS: 51700 ==

== ENCOUNTER 2025-05-02 08:02 | Outpatient (REF) | payer MEDICARE, SELFPAY ==
--- OUTSIDE RECORDS SUMMARY | 2025-04-30 17:00 | XMS_ITS | Encounter Summary ---
Author Organization [facility] Address [address] [place] [id number] Care Team Providers Care Utilities And Maintenance Supervisor Name Role Phone Jourdan Da Silva MD Primary Care Provider + [phone] Reason for Visit * Consultation (Urgent) - Authorized Specialty Diagnoses / Procedures Referred By Gutierrez t Referred To Contact Physical Therapy Diagnoses S/P TKR (total knee replacement), right Drea Trinidad NP [address] [address] Phone: tel: fax: [facility] [address] [address] Phone: tel: fax: Referral ID Status Reason Start Date Expiration Date Visits Requested Visits Authorized [id number] Authorized Specialty Services Required 02/08/2025 02/08/2026 20 20 Encounter Details Date Type Department Care Team (Late st Contact Info) Description 04/30/2025 5:00 PM EDT Treatment [facility] [address] [address] Diana Rivers PT S/P TKR (total knee replacement), right (Primary Dx) Social History Tobacco Use Types Packs/Day Years [...] as of this encounter Progress Notes * Diana Rivers PT - 04/30/2025 5:00 PM EDT [facility] - Outpatient PHYSICAL THERAPY DAILY TREATMENT NOTE - OP Date: 04/30/2025 Visit Number: 2 Patient Name: Donald Tejada : 1950 Age: 74 y.o. Gender: male Diagnosis: ICD-10-CM ICD-9-CM 1. S/P TKR (total knee replacement), right Z96.651 V43.65 Date of Onset/Surgery: 03/12/2025 Referring Provider: Drea Trinidad,* Insurance: Payor: [email or web address] [facility] / Plan: [facility] PPO / Product Type: *No Product type* / Patient Identified by: Diana Rivers PT Language: Speaks and understands Serbian as preferred language with no interpreter deaf required Medications: Current Outpatient Medications on File Prior to Visit Medication Sig Dispense Refill acetaminophen (TYLENOL) 500 mg tablet Take 2 tablets (1,000 mg total) by mouth 3 (three) times a day. 90 tablet 0 allopurinoL (ZYLOPRIM) 100 mg tablet Take 0.5 tablets (50 mg total) by mouth daily. amLODIPine (NORVASC) 5 mg tablet Take 1 tablet (5 mg total) by mouth 1 (one) time each day. [] aspirin 81 mg EC tablet Take 1 tablet (81 mg total) by mouth 2 (two) times a day. 84 tablet 0 BD Nohelia 2nd Gen Pen Needle 32 gauge x 5/32 needle 1 (one) time each day. use as directed celecoxib (CeleBREX) 100 mg capsule Take 1 capsule (100 mg total) by mouth 2 (two) times a day. 84 capsule 0 cholecalciferol (VITAMIN D-3) 25 mcg (1,000 unit) capsule Take by mouth daily. Lantus Solostar U-100 Insulin 100 unit/mL (3 mL) injection pen INJECT 0.1ML 10 UNITS) SUBCUTANEOUSLY EVERY EVENING losartan (COZAAR) 100 mg tablet Take 1 tablet (100 mg total) by mouth daily. Mounjaro 5 mg/0.5 mL injection 0.5 mL (5 mg total) every 7 (seven) days. sundays nebivoloL (BYSTOLIC) 20 mg tablet Take 1 tablet (20 mg total) by mouth daily. ondansetron (ZOFRAN) 8 mg tablet Take 1 tablet (8 mg total) by mouth every 8 (eight) hours if needed for nausea or vomiting. 20 tablet 0 [] pantoprazole (PROTONIX) 40 mg EC tablet Take 1 tablet (40 mg total) by mouth 1 (one) timeeach day before breakfast. Do not crush, chew, or split. 42 tablet 0 senna-docusate (PERICOLACE) 8.6-50 mg per tablet Take 2 tablets by mouth at bedtime. 60 tablet 0 simvastatin (ZOCOR) 20 mg tablet Take 1 tablet (20 mg total) by mouth daily. Synthroid 50 mcg tablet Take 1 tablet (50 mcg total) by mouth 1 (one) time each day before breakfast. terazosin (HYTRIN) 5 mg capsule Take 1 capsule (5 mg total) by mouth. at bedtime traMADoL (ULTRAM) 50 mg tablet Take 1 tablet (50 mg total) by mouth every 6 (six) hours if needed for moderate pain. Max Daily Amount: 200 mg 28 tablet 0 No current facility-administered medications on file prior to visit. Allergies: is allergic to chlorhexidine, lisinopril, meperidine, and oxycodone-acetaminophen. Precautions: 2x/week for 12 weeks Modalities/massage/desensitization as needed Patellar mobilization (once wound is healed ~3 weeks) Range of motion: goal 0-90?? by 2 weeks, 0-120?? by 6 weeks - No aggressive PROM or strengthening until 6 weeks post-op - Focus on FULL extension Strengthening Gait and balance training Wean assist device as tolerated Home exercise program Fall risk: No SUBJECTIVE Subjective Report: pt reports doing well overall. Chart Reviewed: Yes Pain: Pre: 5/10 Post: reduced pain post TREATMENT INTERVENTION: Nustep level 3 B Les only x3 min Quad sets with towel roll under distal tib, 2x10 reps SLR 2x10 reps. Gastroc stretch with sheet in supine, 1x30 seconds Knee flexion with bed sheet for over pressure (foot on slideboard (1x10 reps with 5 second holds) 105-110 degrees of flexion noted. Ice x10 min post. No charge ASSESSMENT/Response to Treatment Good pt tolerated session fairly well. Pt with many questions. PT answered as many questions as able but educated pt on following up with provider with significant concerns. Patient Education: Education provided: HEP Education Provided To: Patient utilizing Explanation and Demonstration mode(s) of education Response to Education: Applied Knowledge and Verbal Understanding PLAN POC Development/Review: No Change in the Plan of Care; Participants: Patient Interventions Time Entry: Modalities: Therapeutic procedures: Therapeutic Exercise Time Entry: 25 Total Treatment Time: 25 Documentation completed by Diana Rivers PT documented in this encounter Plan of Treatment Upcoming Encounters Date Type Department Care Team (Late st Contact Info) Description 05/02/2025 10:30 AM EDT Treatment [facility] [address] [address] Greg Watts, MARIANO 05/02/2025 11:30 AM EDT Office Visit Orthopedic Surgery - [place] [address] [address] Ruperto Babcock MD [address] [address] 05/06/2025 3:00 PM EDT Treatment [address] [address] Jourdan Rivers, EDGER RUNNER 05/08/2025 5:00 PM EDT Treatment [facility] [address] [address] Jourdan Rivers, EDGER RUNNER 05/13/2025 5:00 PM EDT Treatment [facility] [address] [address] Jourdan Rivers, EDGER RUNNER 05/15/2025 5:00 PM EDT Treatment [facility] [address] [address] Jourdan Rivers, MARIANO 05/20/2025 5:00 PM EDT Treatment [facility] [address] [address] Aliza Mendez, PT 05/22/2025 5:00 PM EDT Treatment [facility] [address] [address] Aliza Mendez, PT documented as of this encounter Goals Goal Patient Goal Type Associated Problems Recent Progress Patient-Stated? Author PT LTG - 8 visits General No Aliza Mendez PT Note: Patient reports subjective decrease in right knee pain Patient is able to perform 5 sit to stand without UE assistance Patient is able to achieve 5/5 knee flexion/extension strength R Patient is able to ambulate 200 ft without AD Patient is able to ascend/descend stairs reciprocally Patient independent and compliant with HEP documented as of this encounter Visit Diagnoses Diagnosis S/P TKR (total knee replacement), right- Primary documented in this encounter Care Teams Utilities And Maintenance Supervisor Relationship Specialty Start Date End Date Jourdan Da Silva MD [address] [place] [address] Dr [address]la [address] [place] PCP - General Internal Medicine 12/06/18 documented as of this encounter
--- OUTSIDE RECORDS SUMMARY | 2025-05-02 08:10 | XMS_ITS | Clinical Summary ---
Author Organization [facility] Address [address] [place] [address] Care Team Providers Care Inspector And Tester Name Role Phone Jourdan Da Silva MD Unavailable [phone] Jourdan Da Silva MD Primary Care Provider [phone] Allergies Active Allergy Reactions Criticality Noted Date [...] for nontoxic multinodular goiter (THYROID) Ultrasound: 02/23/21 [facility] 5.5 x 2.1.x 2.2 cm right [...] Health Maintenance Due Date Last Done Comments Advance Care Planning 1950 Hepatitis C Virus Screening 1950 DTaP/Tdap/Td Vaccines (1 - Tdap) 1968 Colonoscopy 1994 Pneumococcal Vaccines 50+ (1 of 1 - PCV) 1999 Zoster (Shingles) Vaccine (1 of 2) 1999 RSV Vaccine 60 years and older and Patients (1 - 1-dose 75+ series) 2024 Influenza Vaccine 03/15/2025 COVID-19 Vaccine (4 - 2024-2 6 season) 2025 05/15/2021, 10/27/2020, 10/06/2020 Hepatitis B Vaccines Aged Out No long er eligible based on patient's age to complete this topic Insurance MEDICARE PART A & B [facility] [place] [employer] Care Teams Inspector And Tester Relationship Specialty Start Date End Date Jourdan Da Silva MD [address] [place] [address] [place] [address] PCP - General Internal Medicine 07/03/21 Jourdan Da Silva MD [address] [place] [address] [place] [address] Primary Care Provider Internal Medicine 07/02/21
--- OUTSIDE RECORDS SUMMARY | 2025-05-02 08:10 | XMS_ITS | Encounter Summary ---
Author Organization [facility] Address [address] [place] [phone] Care Team Providers Care Renewable Energy Engineer Name Role Phone Jourdan Da Silva MD Primary Care Provider [phone] Reason for Visit * Reason Onset Date Comments Med Refill 04/04/2025 Encounter Details Date Type Department Care Team ([facility] st Contact Info) Description 04/04/2025 Telephone Orthopedic Surgery - [place] [address] [address] Ruperto Babcock MD [address] [address] Social History Tobacco Use Types Packs/Day Years [...] as of this encounter Progress Notes * Drea Trinidad NP - 04/04/2025 4:31 PM EDT All set * Sophia Lee - 04/04/2025 4:28 PM EDT Donald is calling requesting a refill on the Tylenol 500mg [facility] [place] documented in this encounter Plan of Treatment Upcoming Encounters Date Type Department Care Team (Late st Contact Info) Description 05/02/2025 10:30 AM EDT Treatment [facility] [address] [phone] Greg Watts, SALESPERSON BOOKS 05/02/2025 11:30 AM EDT Office Visit Orthopedic Surgery - [place] [address] [phone] Ruperto Babcock MD [address] [address] 05/06/2025 3:00 PM EDT Treatment [facility] [address] [address] Jourdan Rivers, SALESPERSON BOOKS 05/08/2025 5:00 PM EDT Treatment [facility] [address] [address] Jourdan Rivers, SALESPERSON BOOKS 05/13/2025 5:00 PM EDT Treatment [facility] [address] [address] Jourdan Rivers, SALESPERSON BOOKS 05/15/2025 5:00 PM EDT Treatment [facility] [address] [address] Jourdan Rivers, SALESPERSON BOOKS 05/20/2025 5:00 PM EDT Treatment [facility] [address] [address] Aliza Mendez, PT 05/22/2025 5:00 PM EDT Treatment [facility] [address] [address] Aliza Mendez, PT documented as of this encounter Visit Diagnoses Not on filedocumented in this encounter Care Teams Renewable Energy Engineer Relationship Specialty Start Date End Date Jourdan Da Silva MD [address] [place] [address] Dr Carla [address] [place] PCP - General Internal Medicine 12/06/18 documented as of this encounter
--- OUTSIDE RECORDS SUMMARY | 2025-05-02 08:10 | XMS_ITS | Clinical Summary ---
Author Organization [facility] Address [address] [place] [address] Phone Care Team Providers Care Stock Dealer Name Role Phone Jourdan Da Silva MD Primary Care Provider [phone] Allergies Active Allergy Reactions Criticality Noted Date Comments Chlorhexidine Rash Medium 02/27/2025 Lisinopril Swelling Medium 07/07/2021 Tongue swelling Meperidine Nausea And Vomiting Medium 12/06/2018 Oxycodone-Acetaminophen Nausea And Vomiting Low Medications Mounjaro 5 mg/0.5 mL injection 0.5 mL (5 mg total) every 7 (seven) days. sundays06/08/20 Active terazosin (HYTRIN) 5 mg capsule Take 1 capsule (5 mg total) by mouth. at bedtime 06/01/20 Active BD Nohelia 2nd Gen Pen Needle 32 gauge x 5/32 needle 1 (one) time each day. use as directed 06/25/20 Active Synthroid 50 mcg tablet Take 1 tablet (50 mcg total) by mouth 1 (one) time each day before breakfast. 06/01/20 24 Active Lantus Solostar U-100 Insulin 100 unit/mL (3 mL) injection pen INJECT 0.1ML 10 UNITS) SUBCUTANEOUSLY EVERY EVENING 03/23/20 24 Active simvastatin (ZOCOR) 20 mg tablet Take 1 tablet (20 mg total) by mouth daily. Active nebivoloL (BYSTOLIC) 20 mg tablet Take 1 tablet (20 mg total) by mouth daily. Active losartan (COZAAR) 100 mg tablet Take 1 tablet (100 mg total) by mouth daily. Active cholecalciferol (VITAMIN D-3) 25 mcg (1,000 unit) capsule Take by mouth daily. Active allopurinoL (ZYLOPRIM) 100 mg tablet Take 0.5 tablets (50 mg total) by mouth daily. Active amLODIPine (NORVASC) 5 mg tablet Take 1 tablet (5 mg total) by mouth 1 (one) time each day. 05/02/20 21 Active celecoxib (CeleBREX) 100 mg capsule Take 1 capsule (100 mg total) by mouth 2 (two) times a day. 84 capsule 03/13/20 25 Active ondansetron (ZOFRAN) 8 mg tablet Take 1 tablet (8 mg total) by mouth every 8 (eight) hours if needed for nausea or vomiting. 20 tablet 03/13/20 25 Active senna-docusate (PERICOLACE) 8.6-50 mg per tablet Take 2 tablets by mouth at bedtime. 60 tablet 03/13/20 25 Active traMADoL (ULTRAM) 50 mg tabletIndicatio ns:Status post total right knee replacement Take 1 tablet (50 mg total) by mouth every 6 (six) hours if needed for moderate pain. Max Daily Amount: 200 mg 28 tablet 03/19/20 25 Active acetaminophen (TYLENOL) 500 mg tablet Take 2 tablets (1,000 mg total) by mouth 3 (three) times a day. 90 tablet 04/04/20 25 Active acetaminophen (TYLENOL) 500 mg tablet Take 2 tablets (1,000 mg total) by mouth 3 (three) times a day. 90 tablet 03/13/20 25 025 Discontinu ed(Reorder ) aspirin 81 mg EC tablet Take 1 tablet (81 mg total) by mouth 2 (two) times a day. 84 tablet 03/13/20 25 025 pantoprazole (PROTONIX) 40 mg EC tablet Take 1 tablet (40 mg total) by mouth 1 (one) time each day before breakfast. Do not crush, chew, or split. 42 tablet 03/13/20 25 025 Active Problems Problem Noted Date Diagnosed Date Hypothyroidism 03/12/2025 Status post total knee replacement 03/12/2025 BPH (benign prostatic hyperplasia) 08/16/2024 HTN (hypertension) 08/16/2024 AAA (abdominal aortic aneurysm) ([facility] V24) HLD (hyperlipidemia) 08/16/2024 CKD (chronic kidney disease) stage 3, GFR 30-59 ml/min ([facility] V24, 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 V24, [facility] V28) 08/16/2024 Tobacco use 08/16/2024 Gout 08/16/2024 Vitamin D deficiency 08/16/2024 Elevated LFTs 08/16/2024 Post-traumatic osteoarthritis of right knee 09/2024 Primary osteoarthritis of left knee 08/16/2024 Encounters Date Type Department Care Team Description 04/30/2025 5:00 PM EDT Treatment [facility] [address] [address] Diana Rivers, PT S/P TKR (total knee replacement), right (Primary Dx) 04/16/2025 4:30 PM EDT Evaluation [facility] [address] [address] Aliza Mendez, PT S/P TKR (total knee replacement), right 04/04/2025 Telephone Orthopedic [place] [address] [address] Ruperto Babcock MD 03/28/2025 11:30 AM EDT Office Visit [facility] [place] [address] [address] Ruperto Babcock MD Status post total right knee replacement (Primary Dx); Post-operative state 03/21/2025 Telephone Orthopedic Surgery [facility] [address] [address] Jenni Casey RN 03/19/2025 1:00 PM EDT Office Visit [facility] [place] [address] [address] Ruperto Babcock MD Status post total right knee replacement (Primary Dx); Follow-up exam; Unilateral primary osteoarthritis, right knee; Weakness of right quadriceps muscle 03/18/2025 Telephone Orthopedic Surgery [facility] [address] [address] Jenni Casey, BARBY 03/15/2025 2:00 PM EDT Office Visit Orthopedic Surgery [facility] [address] [address] Drea Trinidad NP Post-operative state (Primary Dx); Status post total right knee replacement 03/14/2025 Telephone Orthopedic Surgery [facility] [address] [address] Jenni Casey, BARBY 03/12/2025 7:33 AM EDT Anesthesia Event [facility] OR [address] [place] [phone] Marli Stoddard MD Hard, Shannon, CRNA 03/12/2025 7:30 AM EDT - 03/12/2025 11:00 AM EDT Surgery [facility] OR [address] [place] [phone] Ruperto Babcock MD RIGHT TOTAL KNEE ARTHROPLASTY [75857 (CPT )] 03/12/2025 5:45 AM EDT - 03/13/2025 11:34 AM EDT Hospital Encounter [facility] [address] [place] [address] Ruperto Babcock MD Status post total right knee replacement (Primary Dx); Post-traumatic osteoarthritis of right knee Discharge Disposition: Home-Health Care [facility] 03/06/2025 1:00 PM EDT Consult Orthopedic Surgery [facility] [address] [address] Drea Trinidad NP Pre-op exam (Primary Dx); Post-traumatic osteoarthritis of right knee 02/25/2025 Telephone Orthopedic Surgery [facility] [address] [address] Jenni Casey RN 02/08/2025 Telephone Orthopedic Surgery [facility] [address] [address] Jenni Casey RN 02/08/2025 [facility] [place] [address] [address] Jenni Casey RN 02/07/2025 [facility] [address] [address] Yolande Sanches MA 02/06/2025 [facility] [address] [address] Jenni Casey, RN from Last 3 Months Surgical History Surgery Date Site/Laterality Comments THYROID SURGERY KNEE SURGERY Right Medical History Medical History Date Comments Hypertension DX:Hypertension Heart disease DX:Heart disease BPH (benign prostatic hyperplasia) AAA (abdominal aortic aneurysm) (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 V24, [facility] V28) Gout Vitamin D deficiency Family History Relation Name Status Comments Father [...] Sign Reading Time Taken Comments Blood Pressure 167/76 03/13/2025 3:25 AM EDT Pulse 58 03/13/2025 3:25 AM EDT Temperature 36.4 C (97.5 F) 03/13/2025 3:25 AM EDT Respiratory Rate 18 03/13/2025 3:25 AM EDT Oxygen Saturation 98% 03/13/2025 3:25 AM EDT Inhaled Oxygen Concentration - - Weight 107 kg (235 lb) 03/12/2025 3:57 PM EDT Height 177.8 cm (5' 10 ) 03/12/2025 3:57 PM EDT Body Mass Index 33.72 03/12/2025 3:57 PM EDT Plan of Treatment Upcoming Encounters Date Type Department Care Team (Late st Contact Info) Description 05/02/2025 10:30 AM EDT Treatment [facility] [address] [address] Greg Watts, CLAM DREDGER 05/02/2025 11:30 AM EDT Office Visit [facility] [place] [address] [address] Ruperto Babcock MD [address] [address] 05/06/2025 3:00 PM EDT Treatment [address] [address] Jourdan Rivers, CLAM DREDGER 05/08/2025 5:00 PM EDT Treatment [address] [address] Jourdan Rivers, CLAM DREDGER 05/13/2025 5:00 PM EDT Treatment [address] [address] Jourdan Rivers, CLAM DREDGER 05/15/2025 5:00 PM EDT Treatment [address] [address] Jourdan Rivers, CLAM DREDGER 05/20/2025 5:00 PM EDT Treatment [address] [address] Aliza Mendez, PT 05/22/2025 5:00 PM EDT Treatment [address] [address] Aliza Mendez, PT Health Maintenance Due Date Last Done Comments Diabetes: Annual Foot Exam 1959 Diabetes: Annual Retina Eye Exam 1959 DTaP,Tdap,and Td Vaccines (1 - Tdap) 1968 Pneumococcal Vaccine: 50+ Years (1 of 2 - PCV) 1968 Zoster Vaccines (1 of 2) 1968 Cholesterol Screening (Lipid Panel) 06/28/2024 Hepatitis C Screening 06/28/2024 Social Influencers of Health Screening 06/28/2024 Depression Screening 08/15/2024 Diabetes: Annual Urine Albumin-Creatinine Ratio (uACR) 08/16/2024 Diabetes: Blood Sugar Control Test (HGBA1C) 08/16/2024 COVID-19 Vaccine (8 - Pfizer risk season) 2025 04/28/2024, 05/07/2023, 05/02/2022, Additional history exists Influenza Vaccine (#1) 2025 , 05/07/2023, 05/02/2022, Additional history exists Colorectal Cancer Screening: FIT-DNA (Cologuard) 02/08/2026 02/08/2023, 02/08/2023, 03/14/2019 Diabetes: Annual GFR (Glomerular Filtration Rate) 03/13/2026 03/13/2025, 03/12/2025, 09/07/2021 Falls Risk Assessment 03/13/2026 03/13/2025 Hypertension/CHF/CAD Annual BMP Blood Test 03/13/2026 03/13/2025, 03/12/2025, 09/07/2021 RSV Immunization Adult Patients Completed 04/28/2024 HIB [...] on patient's age to complete this topic Goals Goal Patient Goal Type Associated Problems [...] reciprocally Patient independent and compliant with HEP Medical Devices Implanted Type Area Electric Distribution Checker Device Identifier Shelf Expiration Date Model / Serial / Lot Cement Bone Surg Simplex Radiopq - Sn/A - [id number] Implanted:Qty: 2 on 03/12/2025 by Ruperto Babcock MD at [facility] Bone Cement Right: Knee [employer] 02/11/2026 [id number] / N/A / [id number] Knee Psn Fem Ps Cmt Ccr Std Sz10 R - Sn/A - [id number] Implanted:Qty: 1 on 03/12/2025 by Ruperto Babcock MD at [facility] Joints Knee Right: Knee [employer] [id number] 07/18/2034 [id number] / N/A / [id number] Knee Psn Tib Mortgage Analyst Stm 5 Deg Sz Gr - Sn/A - [id number] Implanted:Qty: 1 on 03/12/2025 by Ruperto Babcock MD at [facility] Joints Knee Right: Knee [employer] [id number] 02/09/2034 [id number] / N/A / [id number] Stem Extension Tapered Cemented [id number] - Sn/A - [id number] Implanted:Qty: 1 on 03/12/2025 by Ruperto Babcock MD at [facility] Joints Knee Right: Knee [employer] [id number] 10/22/2034 [id number] / N/A / [id number] All Poly Patella Ve 38mm - Sn/A - [id number] Implanted:Qty: 1 on 03/12/2025 by Ruperto Babcock MD at [facility] Joints Knee Right: Knee [employer] [id number] 04/11/2028 [id number] / N/A / [id number] Knee Psn Asf Mlc 10mm Rt 10-12 Gh - Sn/A - [id number] Implanted:Qty: 1 on 03/12/2025 by Ruperto Babcock MD at [facility] Joints Knee Right: Knee [employer] 05/11/2029 [id number] / N/A / [id number] Zbigniew Femur/Zbigniew Tibia/Cps Ve Art Surf/Ve Patella Implanted:Qty: 1 on 03/12/2025 by Ruperto Babcock MD at [facility] Right: Knee [employer] [id number] / N/A / N/A Procedures Procedure Name Priority Date/Time Associated Diagnosis Comments XR KNEE 3 VIEWS RIGHT Routine 03/28/2025 11:14 AM EDT Post-operative state Status post total right knee replacement XR KNEE 1-2 VIEWS RIGHT Routine 03/19/2025 1:07 PM EDT Follow-up exam Status post total right knee replacement Weakness of right quadriceps muscle XR KNEE 1-2 VIEWS LEFT Routine 03/15/2025 1:33 PM EDT Post-operative state HEMOGLOBIN AND HEMATOCRIT Routine 03/13/2025 6:10 AM EDT BASIC METABOLIC PANEL Routine 03/13/2025 6:10 AM EDT POCT GLUCOSE BLOOD Routine 03/12/2025 9:08 PM EDT POCT GLUCOSE BLOOD Routine 03/12/2025 4:01 PM EDT LAVENDER - EDTA Routine 03/12/2025 2:35 PM EDT LT BLUE - NA CITRATE Routine 03/12/2025 2:35 PM EDT EXTRA TUBES Routine 03/12/2025 2:35 PM EDT CREATININE, SERUM Routine 03/12/2025 2:35 PM EDT POTASSIUM Routine 03/12/2025 2:35 PM EDT POCT GLUCOSE BLOOD Routine 03/12/2025 12:00 PM EDT XR KNEE 1-2 VIEWS RIGHT Routine 03/12/2025 10:55 AM EDT OXYGEN THERAPY, ADULT Routine 03/12/2025 10:31 AM EDT OXYGEN THERAPY, ADULT Routine 03/12/2025 10:31 AM EDT TISSUE EXAM Routine 03/12/2025 8:45 AM EDT Post-traumatic osteoarthritis of right knee ANESTHESIA SPINAL BLOCK Routine 03/12/2025 7:58 AM EDT OK ARTHROPLASTY KNEE CONDYLE&PLATEAU MED/LAT CPTS W/WO PATELLA RESURFACING 03/12/2025 7:30 AM EDT Post-traumatic osteoarthritis of right knee Case Notes SUHA PERSONA CEMENTED PS W/STEM, NO CHLORHEXIDINE (USE DURAPREP), 23-HR BED, MOVE TO 11 POCT GLUCOSE BLOOD Routine 03/12/2025 6:50 AM EDT MRSA PCR Routine 03/06/2025 2:01 PM EDT Pre-op exam from Last 3 Months Results * XR Knee 3 Views Right (03/28/2025 11:14 AM EDT) Anatomical Region Laterality Modality Lower Extremities, Knee Right Computed Radiography Narrative 03/28/2025 4:58 PM EDT 3 views of the right knee obtained today including AP, lateral, sunrise were reviewed. These show right cemented posterior stabilized total knee replacement with patellar resurfacing and short cemented tibial stem. Implants appear well-fixed and well-positioned. No progressive or circumferential radiolucencies, patella tracking centrally without tilt. Ruperto Babcock MD IMG XR PROCEDURES Fin al Result * XR Knee 1-2 Views Right (03/19/2025 1:07 PM EDT) Only the most recent of2 resultswithin the time period is included. Anatomical Region Laterality Modality Lower Extremities, Knee Right Computed Radiography Narrative 03/22/2025 12:15 PM EDT Single right knee x-ray obtained today including sunrise view was reviewed. This shows resurfaced patella tracking centrally without tilt. Ruperto Babcock MD IMG XR PROCEDURES Fin al Result * XR Knee 1-2 Views Left (03/15/2025 1:33 PM EDT) Anatomical Region Laterality Modality Lower Extremities, Knee Left Computed Radiography Narrative 03/15/2025 2:18 PM EDT Date of Visit: 03/15/2025 Reason for visit: Status post right total knee replacement Views: AP, Lateral right knee Findings: 2 views of the right knee show cemented right total knee replacement with patellar resurfacing. Implants appear well-fixed and well-positioned. No acute findings. Impression: Stable appearing right total knee replacement Drea Trinidad NP IMG XR PROCEDURES Final Result * (ABNORMAL) Hemoglobin and hematocrit (03/13/2025 6:10 AM EDT) Hemoglobin 12.0(L) 13.5 - 17.5 g/dL LAB HEMETOLOGY METHOD 03/13/2025 6:59 AM EDT [facility] Hematocrit 36.3(L) 42.0 - 54.0 % LAB HEMETOLOGY METHOD 03/13/2025 6:59 AM EDT [facility] Blood Venous blood specimen / Unknown Venipuncture / Unknown 03/13/2025 6:10 AM EDT 03/13/2025 6:34 AM EDT Drea Trinidad NP LAB BLOOD ORDERABLES Fi nal Result [facility] [address] [place] [address], * (ABNORMAL) Basic metabolic panel (03/13/2025 6:10 AM EDT) Pathologist [facility] Sodium 138 133 - 145 mmol/L LAB CHEMISTRY METHOD 03/13/2025 7:26 AM [facility] Potassium 4.1 3.5 - 5.5 mmol/L LAB CHEMISTRY METHOD 03/13/2025 7:26 AM [facility] Chloride 105 96 - 110 mmol/L LAB CHEMISTRY METHOD 03/13/2025 7:26 AM [facility] CO2 25 21 - 32 mmol/L LAB CHEMISTRY METHOD 03/13/2025 7:26 AM [facility] Anion Gap 8 3 - 11 LAB CHEMISTRY METHOD 03/13/2025 7:26 AM [facility] Glucose 169(H) 70 - 100 mg/dL LAB CHEMISTRY METHOD 03/13/2025 7:26 AM [facility] BUN 19 5 - 25 mg/dL LAB CHEMISTRY METHOD 03/13/2025 7:26 AM [facility] Creatinine 1.28 0.70 - 1.30 mg/dL LAB CHEMISTRY METHOD 03/13/2025 7:26 AM [facility] eGFR 58(L) >=60 mL/min/1. 73m2 LAB CHEMISTRY METHOD 03/13/2025 7:26 AM [facility] Comment:Calculation based on the Chronic Kidney Disease Epidemiology Collaboration (CKD-EPI) equation refit without adjustment for race. BUN/Creatinine Ratio 14.8 LAB CHEMISTRY METHOD 03/13/2025 7:26 AM EDT [facility] Calcium 8.6 8.5 - 10.5 mg/dL LAB CHEMISTRY METHOD 03/13/2025 7:26 AM EDT [facility] Blood Venous blood specimen / Unknown Venipuncture / Unknown 03/13/2025 6:10 AM EDT 03/13/2025 6:34 AM EDT Drea Trinidad NP LAB BLOOD ORDERABLES Fi nal Result Performing Organization Address [facility]/ZIP Co de Phone Number [facility] [address] [place] [address], [place] [phone] * (ABNORMAL) POCT Glucose, blood (03/12/2025 9:08 PM EDT) Only the most recent of4 resultswithin the time period is included. Glucose POCT 269(H) 70 - 100 mg/dL 03/12/2025 9:08 PM EDT [facility] Blood Capillary blood specimen / Unknown 03/12/2025 9:08 PM EDT 03/12/2025 9:09 PM EDT Ruperto Babcock MD LAB POINT OF CARE TEST DOCKED DEVICE UNSOLICITED RESULTS Final Result Performing Organization Address City/[facility]/ZIP Co de Phone Number [facility] [address] [place] [address], [place] [phone] * Lavender tube (03/12/2025 2:35 PM EDT) Extra Tube Hold for add-ons. 03/12/2025 4:02 PM EDT [facility] Comment:Auto resulted. Blood Venous blood specimen / Unknown 03/12/2025 2:35 PM EDT 03/12/2025 2:52 PM EDT Ruperto Babcock MD LAB BLOOD ORDERABLES Final Result Performing Organization Address [facility]/ZIP Co de Phone Number [facility] [address] [place] [address], [place] [phone] * Light blue tube (03/12/2025 2:35 PM EDT) Pathologist [facility] Extra Tube Hold for add-ons. 03/12/2025 4:02 PM EDT [facility] Comment:Auto resulted. Blood Venous blood specimen / Unknown 03/12/2025 2:35 PM EDT 03/12/2025 2:52 PM EDT Ruperto Babcock MD LAB BLOOD ORDERABLES Final Result Performing Organization Address [facility] de Phone Number [facility] [address] [place] [address], [place] [phone] * Creatinine serum (03/12/2025 2:35 PM EDT) [facility] Creatinine 1.24 0.70 - 1.30 mg/dL LAB CHEMISTRY METHOD 03/12/2025 3:50 PM EDT [facility] eGFR 61 >=60 mL/min/1. 73m2 LAB CHEMISTRY METHOD 03/12/2025 3:50 PM EDT [facility] Comment:Calculation based on the Chronic Kidney Disease Epidemiology Collaboration (CKD-EPI) equation refit without adjustment for race. Blood Venous blood specimen / Unknown Venipuncture / Unknown 03/12/2025 2:35 PM EDT 03/12/2025 2:50 PM EDT Drea Trinidad NP LAB BLOOD ORDERABLES Fi nal Result Performing Organization Address [facility]/ZIP Co de Phone Number [facility] [address] [place] [address], [place] [phone] * Potassium (03/12/2025 2:35 PM EDT) Potassium 3.9 3.5 - 5.5 mmol/L LAB CHEMISTRY METHOD 03/12/2025 3:50 PM EDT [facility] Blood Venous blood specimen / Unknown Venipuncture / Unknown 03/12/2025 2:35 PM EDT 03/12/2025 2:50 PM EDT us Marli Stoddard MD LAB BLOOD ORDERABLES Final Resul t [facility] [address] [place] [address], * Tissue exam (03/12/2025 8:45 AM EDT) Final Diagnosis Knee, right, total knee arthroplasty: Articular bone with severe degenerative changes and eburnation, compatible with osteoarthritis. Fibrotic synovium, negative for crystal deposition (examined with polarization). 03/14/2025 3:59 PM EDT [facility] Gross Description A. Knee, Right, : Labeled Knee R . Received in formalin is a 14.1 x 10.5 x 1.7 cm aggregate of hard peterson-yellow bone, velvety pink synovium, rubbery peterson fibrocartilage, and subsynovial adipose tissue. The articular surfaces are white peterson to pink and eburnated, and inked black. Wood Boat Builder Supervisor sections are submitted in one cassette, multiple pieces, following decalcification. 03/14/2025 3:59 PM EDT [facility] Disclaimer Unless otherwise specified, all tissue is 10% NB formalin fixed and paraffin embedded. 03/14/2025 3:59 PM EDT [facility] Bone Structure of right knee region / Unknown 03/12/2025 8:45 AM EDT 03/12/2025 11:37 AM EDT Ruperto Babcock MD LAB PATHOLOGY ORDERAB LES Final Result [facility] [address] [place] [address], [place] [phone] * Spinal Block (03/12/2025 7:58 AM EDT) Priscilla Cohen CRNA - 03/12/2025 7:58 AM EDT Priscilla Rasmussen CRNA 03/12/2025 8:00 AM Spinal Block Patient location during procedure: OR Start time: 03/12/2025 7:58 AM End time: 03/12/2025 7:58 AM Reason for block: primary anesthetic Staffing Performed: anesthesiologist Anesthesiologist: Marli Stoddard MD Resident/LOCKSTITCH POCKET SETTER: Priscilla Rasmussen CRNA Performed by: Priscilla Rasmussen CRNA Authorized by: Marli Stoddard MD Spinal Block Patient position: sitting Prep: Betadine Patient monitoring: continuous pulse ox and heart rate Approach: midline Location: L2-3 Injection technique: single-shot Needle Needle type: Quincke Needle gauge: 22 G Needle length: 3.5 in Assessment Sensory level: T10 Marli Stoddard MD ANESTHESIA ORDERABLES Final Resu lt * MRSA molecular study (03/06/2025 2:01 PM EDT) MRSA Screen PCR Not Detected Not Detected LAB MICROBIOLOGY METHOD 03/06/2025 7:44 PM EDT [facility] Swab Both anterior nares / Unknown Non-blood Collection / Unknown 03/06/2025 2:01 PM EDT 03/06/2025 2:02 PM EDT Drea Trinidad NP LAB MICROBIOLOGY - GENE RAL ORDERABLES Final Result Performing Organization Address [facility]/ZIP Co de Phone Number [facility] [address] [place] [address], [place] [phone] from Last [address] [place] [id number] [employer]UST Advance Directives * Full Code - Default (Latest Code Status on File) Date Activated Date Inactivated Comments 03/12/2025 6:06 AM 03/13/2025 1:35 PM This is orde r is used when code status has not been discussed with the patient, or code status is otherwise unknown/unconfirmed To update the patient's code status, place a code status order. Do not modify or discontinue any currently active code status orders. Care Teams Stock Dealer Relationship Specialty Start Date End Date Jourdan Da Silva MD [address] [place] [address] Dr Aguirre [address] [place] [address] [place] PCP - General Internal Medicine 12/06/18
--- OUTSIDE RECORDS SUMMARY | 2025-05-02 08:10 | XMS_ITS | Clinical Summary ---
Author Organization [facility] Address [address] [place] [address] Care Team Providers Care Plaster Die Maker Name Role Phone Jourdan Da Silva MD Primary Care Provider [phone] Allergies Active Allergy Reactions Criticality Noted Date [...] age to complete this topic Care Teams Plaster Die Maker Relationship Specialty Start Date End Date Jourdan Da Silva MD [address] [place] [address] [place] [address] PCP - General Internal Medicine 12/06/18
[2025-05-02 08:23] LABS: MANUAL DIFF FLAG NO
[2025-05-02 08:38] LABS: Hematocrit 39.4 % (42.0-52.0); Hemoglobin 13.1 g/dl (14.0-18.0); Imm Gran Abs Auto 0.05 X10*3/uL (0.00-0.03); Imm Gran Pct Auto 0.6 % (0.0-0.4); Lymphocytes Absolute Auto 1.3 X10*3/uL (1.2-4.9); Mean Corpuscular HGB Conc 33.2 g/dl (31.0-36.0); Mean Corpuscular Hemoglobin 27.2 pg (27.0-33.0); Mean Corpuscular Volume 81.9 fL (80.0-98.0); NRBC Abs Auto 0.000 X10*3/uL (0.0-0.012); NRBC Pct Auto 0.0 /100WBC (0.0-0.2); Platelet Count 154 X10*3/uL (160-400); Red Blood Count 4.81 X10*6/uL (4.60-5.80); White Blood Count 7.9 X10*3/uL (4.8-10.8)
[2025-05-02 09:19] LABS: Appearance Urine Clear; Glucose Urine UA Negative (Negative); PH 6.0 (5.0-9.0); Specific Gravity - Urine 1.010 (1.005-1.025); UMIC TRIGGER UACC YES
[2025-05-02 09:22] LABS: UACC Culture Trigger YES
[2025-05-02 09:25] LABS: Alanine Aminotransferase 35 U/L (0-40); Albumin Level 4.4 g/dL (3.5-5.0); Alkaline Phosphatase 80 U/L (39-117); Anion Gap 13 (12-20); Aspartate Amino Transferase 29 U/L (5-37); Blood Urea Nitrogen 20 mg/dL (9-16); Calcium 9.2 mg/dL (8.4-10.2); Carbon Dioxide 24 mmol/L (22-29); Chloride 106 mmol/L (96-108); Cholesterol 95 mg/dL (<200); Estimated Glomerular Filt Rate 54; HDL Cholesterol 30 mg/dL (>40); Hemoglobin A1C 145.4138 umol/L; Potassium 4.2 mmol/L (3.3-5.1); Sodium 139 mmol/L (135-145); Total Hemoglobin (HGBA1C) 3397.2818 umol/L; Total Protein 6.8 g/dL (6.5-8.0); Triglycerides 136 mg/dL (<150)
[2025-05-02 09:32] LABS: Free T4 (Free Thyroxine) 1.01 ng/dL (0.71-1.85); Thyroid Stimulating Hormone 3.04 uIU/mL (0.32-4.0)
[2025-05-02 10:01] LABS: Microalbum/Creatinine Ratio Ur 62.8 ug/mg cr (<30)
== END 2025-05-02 08:03 | disposition home or self-care (01) ==
LOC: HO.LAB 08:02
PROVIDERS: PCP Internal Medicine; Visit Provider Internal Medicine
DX: E11.9 Type 2 diabetes mellitus without complications (principal); I10 Essential (primary) hypertension; E78.00 Pure hypercholesterolemia, unspecified; D64.9 Anemia, unspecified; E03.9 Hypothyroidism, unspecified; E55.9 Vitamin D deficiency, unspecified
CPT/HCPCS: 36415; 80053; 80061; 81001; 82043; 82306; 82570; 83036; 84439; 84443; 85025; 87086; 87088; 87186

== ENCOUNTER 2025-05-10 15:39 | Outpatient (AMB) | payer MEDICARE, SELFPAY ==
--- OUTSIDE RECORDS SUMMARY | 2025-05-06 15:00 | XMS_ITS | Encounter Summary ---
Author Organization [facility] Address [address] [place] [address] Care Team Providers Care Drag Car Racer Name Role Phone Jourdan Da Silva MD Primary Care Provider + [phone] Reason for Visit * Consultation (Urgent) - Authorized Specialty Diagnoses / Procedures Referred By Gutierrez t Referred To Contact Physical Therapy Diagnoses S/P TKR (total knee replacement), right Drea Trinidad NP [address] [address] Phone: tel: fax: [facility] [address] [address] Phone: tel: fax: Referral ID Status Reason Start Date Expiration Date Visits Requested Visits Authorized [id number] Authorized Specialty Services Required 02/08/2025 02/08/2026 20 20 Encounter Details Date Type Department Care Team (Late st Contact Info) Description 05/06/2025 3:00 PM EDT Treatment [facility] [address] [address] Jourdan Rivers, MARIANO S/P TKR (total knee replacement), right (Primary [...] as of this encounter Progress Notes * Jourdan Rivers PTA - 05/06/2025 3:00 PM EDT [facility] - Outpatient PHYSICAL THERAPY DAILY TREATMENT NOTE - OP Date: 05/06/2025 Visit Number: 4 Patient Name: Donald Tejada : 1950 Age: 74 y.o. Gender: male Diagnosis: ICD-10-CM ICD-9-CM 1. S/P TKR (total knee replacement), right Z96.651 V43.65 Date of Onset/Surgery: 03/12/2025 Referring Provider: Drea Trinidad,* Insurance: Payor: [facility] / Plan: [facility] PPO / Product Type: *No Product type* / Patient Identified by: Jourdan Rivers PTA Language: Speaks and understands Albanian as preferred language with no certified court interpreter required Medications: Current Outpatient Medications on File [...] by mouth 1 (one) time each day. BD Nohelia 2nd Gen Pen Needle 32 gauge x 5/32 needle 1 (one) time each day. use as directed celecoxib (CeleBREX) 100 mg capsule Take 1 capsule (100 mg total) by mouth 2 (two) times a day. TAKE WITH FOOD AND STAY HYDRATED 60 each 2 cholecalciferol (VITAMIN D-3) 25 mcg (1,000 unit) [...] for nausea or vomiting. 20 tablet 0 senna-docusate (PERICOLACE) 8.6-50 mg per [...] every 6 (six) hours if needed for severe pain or moderate pain. Max Daily Amount: 200 mg 28 tablet 0 [DISCONTINUED] celecoxib (CeleBREX) 100 mg capsule Take 1 capsule (100 mg total) by mouth 2 (two) times a day. 84 capsule 0 [DISCONTINUED] traMADoL (ULTRAM) 50 mg tablet Take 1 [...] risk: No SUBJECTIVE Subjective Report: pt reports this morning he attempted to go up a stair step over step and he was able to do it .. It was really painful.. pt reports seeing Dr. Barragan last week and was told he was told he has at least another month of therapy Chart Reviewed: Yes Pain: Pre: 11/22 Post: reduced pain post TREATMENT INTERVENTION: Nu step x 5 Quad sets with towel roll under distal tib, 2x10 reps SLR 2x10 reps. Gastroc stretch with strap in supine, 1x30 seconds Knee flexion seated edge of mat. Standing heelraises 10 reps Slant board 3 x 20 sec (L) Knee flexion stretch with foot on step x 3 with 20 sec hold Passive ext stretch ASSESSMENT/Response to Treatment Fair tolerance to treatment today secondary to some increasd pain this visit. Patient Education: Education provided: HEP Education Provided To: Patient utilizing Explanation and Demonstration mode(s) of education Response to Education: Applied Knowledge and Verbal Understanding PLAN POC Development/Review: No Change in the Plan of Care; Participants: Patient Interventions Time Entry: Modalities: Therapeutic procedures: Total Treatment Time: 30 mins Documentation completed by Jourdan Rivers PTA documented in this encounter Plan of Treatment Upcoming Encounters Date Type Department Care Team (Late st Contact Info) Description 05/13/2025 5:00 PM EDT Treatment [address] [address] Jourdan Rivers, PERSONNEL GENERALIST MANAGER 05/15/2025 5:00 PM EDT Treatment [address] [address] Jourdan Rivers, PERSONNEL GENERALIST MANAGER 05/20/2025 5:00 PM EDT Treatment [address] [address] Aliza Mendez, PT 05/22/2025 5:00 PM EDT Treatment [facility] [address] [phone] Aliza Mendez, PT 05/28/2025 6:00 PM EDT Treatment [facility] [address] [address] Greg Watts, PERSONNEL GENERALIST MANAGER 05/30/2025 5:30 PM EDT Treatment [address] [address] Greg Watts, PERSONNEL GENERALIST MANAGER 06/04/2025 6:00 PM EDT Treatment [facility] [address] [address] Aliza Mendez, PT 06/06/2025 6:00 PM EDT Treatment [facility] [address] [address] Greg Watts, PERSONNEL GENERALIST MANAGER 06/10/2025 6:00 PM EDT Treatment [facility] [address] [address] Aliza Mendez, PT 06/27/2025 2:30 PM EST Office Visit Orthopedic Surgery - [place] [phone] [facility] [address] [place] [phone] Ruperto Babcock MD [address] [address] documented as of this encounter Goals Goal [...] Primary documented in this encounter Care Teams Drag Car Racer Relationship Specialty Start Date End Date Jourdan Da Silva MD [address] [place] [address] [address] [place], [place] PCP - General Internal Medicine 12/06/18 documented as of this encounter
--- OUTSIDE RECORDS SUMMARY | 2025-05-08 17:00 | XMS_ITS | Encounter Summary ---
Author Organization [facility] Address [address] [place] [address] Care Team Providers Care An/Sqq 89(V)15 Sonar System Journeyman Name Role Phone Jourdan Da Silva MD Primary Care Provider + [phone] Reason for Visit * Consultation (Urgent) - Authorized Specialty Diagnoses / Procedures Referred By Gutierrez t Referred To Contact Physical Therapy Diagnoses S/P TKR (total knee replacement), right Drea Trinidad NP [address] [address] Phone: tel: fax: [facility] [address] [address] Phone: tel: fax: Referral ID Status Reason Start Date Expiration Date Visits Requested Visits Authorized [id number] Authorized Specialty Services Required 02/08/2025 02/08/2026 20 20 Encounter Details Date Type Department Care Team (Late st Contact Info) Description 05/08/2025 5:00 PM EDT Treatment [facility] [address] [address] Jourdan Rivers, MARIANO S/P TKR [...] Progress Notes * Jourdan Rivers PTA - 05/08/2025 5:00 PM EDT [facility] - Outpatient PHYSICAL THERAPY DAILY TREATMENT NOTE - OP Date: 05/08/2025 Visit Number: 5 Patient Name: Donald Tejada : 1950 Age: 74 y.o. Gender: male Diagnosis: No diagnosis found. Date of Onset/Surgery: 03/12/2025 Referring Provider: Drea Trinidad,* Insurance: Payor: [facility] / Plan: [facility] PPO / Product Type: *No Product type* / Patient Identified by: Jourdan Rivers PTA Language: Speaks and understands New Zealander as preferred language with no merchandise associate required Medications: Current Outpatient Medications on File [...] of therapy Chart Reviewed: Yes Pain: Pre: /10 Post: reduced pain post TREATMENT INTERVENTION: Nu step x 5 not done today Quad sets with towel roll under distal tib, 2x10 reps not done today SLR 2x10 reps. Not done today Gastroc stretch with strap in supine, 1x30 seconds Knee flexion s with foot on step x 10 with 10 sec hold (R) Standing heelraises 10 reps not done today Slant board 4 x 20 sec (R) hamstring stretch with foot on step 3 x 10 sec hold Passive ext stretch Passive flexion ASSESSMENT/Response to Treatment Fair concentrated on ROM there ex today secondary to c/o increased pain Patient Education: Education provided: HEP Education Provided To: Patient utilizing Explanation and Demonstration mode(s) of education Response to Education: Applied Knowledge and Verbal Understanding PLAN POC Development/Review: No Change in the Plan of Care; Participants: Patient Interventions Time Entry: Modalities: Therapeutic procedures: Total Treatment Time: 25 mins Documentation completed by Jourdan Rivers PTA documented in this encounter Plan of Treatment Upcoming Encounters Date Type Department Care Team (Late st Contact Info) Description 05/13/2025 5:00 PM EDT Treatment [address] [address] Jourdan Rivers, FINISHED STOCK INSPECTOR 05/15/2025 5:00 PM EDT Treatment [address] [address] Jourdan Rivers, FINISHED STOCK INSPECTOR 05/20/2025 5:00 PM EDT Treatment [address] [address] Aliza Mendez, PT 05/22/2025 5:00 PM EDT Treatment [address] [address] Aliza Mendez, PT 05/28/2025 6:00 PM EDT Treatment [address] [address] Greg Watts, FINISHED STOCK INSPECTOR 05/30/2025 5:30 PM EDT Treatment [address] [address] Greg Watts, FINISHED STOCK INSPECTOR 06/04/2025 6:00 PM EDT Treatment [facility] [address] [phone] Aliza Mendez, PT 06/06/2025 6:00 PM EDT Treatment [facility] [address] [phone] Greg Watts, FINISHED STOCK INSPECTOR 06/10/2025 6:00 PM EDT Treatment [facility] [address] [phone] Aliza Mendez, PT 06/27/2025 2:30 PM EST Office Visit Orthopedic Surgery [place] [phone] [facility] [address] [place] [phone] Ruperto Babcock MD [address] [address] documented as of this encounter Goals Goal Patient Goal Type Associated Problems Recent Progress Patient-Stated? Author PT LTG - 8 visits General No Aliza Mendez, PT Note: Patient reports subjective decrease in [...] Primary documented in this encounter Care Teams An/Sqq 89(V)15 Sonar System Journeyman Relationship Specialty Start Date End Date Jourdan Da Silva MD [address] [place] [address] [address] [place], [place] PCP - General Internal Medicine 12/06/18 documented as of this encounter
[2025-05-10 15:56] VITALS: BP 118/74; PULSE 64; O2SAT 95; BMI 32.6
--- NOTE | 2025-05-10 15:56 | A.OFFPC_ITS ---
Vital Signs 05/10/25 15:56 Height 5 ft 11 in Weight 234 lb BMI 32.6 BP 118/74 Blood Pressure Location Lt brachial Position Sitting Pulse 64 Pulse Source Pulse Oximeter Pulse Oximetry (%) 95 Oxygen Delivery Method Room Air Intake Visit Reasons: dm follow up Chief Engineer Required: No Accompanied by: Self / Same As Patient Allergies Beta-Blockers (Beta-Adrenergic Bloc Allergy (Unknown, Verified 05/10/25 16:26) SWOLLEN TONGUE lisinopril Allergy (Unknown, Verified 05/10/25 16:26) tongue swelling meperidine (Demerol) Allergy (Unknown, Verified 05/10/25 16:26) Unknown cephalexin Adverse Reaction (Intermediate, Verified 05/10/25 16:26) Diarrhea oxycodone (From Percocet) Adverse Reaction (Verified 05/10/25 16:26) Vomiting Medication List - Last Reconciled 05/10/25 by Jourdan Da Silva MD allopurinol 100 mg PO DAILY 90 days amlodipine 5 mg PO DAILY 90 days aspirin 81 mg PO DAILY 90 days azelaic acid 15% (Finacea) 1 appl topical QAM 90 days blood sugar diagnostic (FreeStyle Lite Strips) Test Daily blood-glucose meter (FreeStyle Lite Meter kit) Test Daily cholecalciferol (vitamin D3) 25 mcg PO DAILY 90 days diclofenac sodium 1% (Voltaren Arthritis Pain) 4 grams topical QID PRN finasteride 5 mg PO DAILY 30 days lancets (TRUEplus Lancets) blood sugar 1 to 2 times a day as directed - NO SUBSTITUTION PLEASE! -- Dx Code: E11.21 -- DIABETES MELLITUS lancets Test Daily Lantus Solostar U-100 Insulin (insulin glargine) 10 units (0.1 mL) subcut QPM 90 days NS levothyroxine 50 mcg PO DAILY 90 days losartan 100 mg PO DAILY 90 days nebivolol 20 mg PO DAILY 90 days pen needle, diabetic As directed once a day sildenafil 100 mg PO DAILY PRN simvastatin 20 mg PO DAILY 90 days terazosin 5 mg PO BEDTIME 90 days tirzepatide (Mounjaro) 5 mg (0.5 mL) subcut QWEEK 90 days [true metrix Glucometer LANCETS Test blood sugar 1 to 2 times a day as directed - NO SUBSTITUTION PLEASE! NS] True Metrix Glucose Test Strip (blood sugar diagnostic) As directed - test 1 to 2 times day NS Tobacco use date assessed: 05/10/25 Fall risk assessment: No Falls in past year Last assessed Fall Risk: 05/10/25 Dental Screening Dental Screen Date: 05/10/25 Did you have a dental visit in the last 12 months?: Yes Did you have a dental problem in the last 6 months where you did not have access to dental care?: No Was dental information given to patient?: Patient has dentist HPI dm follow up HPI0 Details Patient comes in today for his follow up visit States that he feels okay He had total right knee replacement surgery done a couple of months ago on and has been doing well States that his surgery helped a lot and he no longer has the severe right knee pain that he had before He denies any headaches or dizziness Denies any chest pains, no increased SOB No nausea/vomiting, no abdominal pain No change in bowel habits noted He had his follow up labs done last week - to discuss his results [facility] Medical History Primary osteoarthritis of right knee Benign prostatic hyperplasia with lower urinary tract symptoms Abdominal aortic aneurysm Benign essential hypertension Pure hypercholesterolemia Type 2 diabetes mellitus with diabetic chronic kidney disease Chronic kidney disease (CKD), stage III (moderate) Non-toxic multinodular goiter Personal history of nicotine dependence Elevated LFTs Vitamin D deficiency History of gout Obesity (BMI 30-39.9) Surgical History (Updated 05/10/25 @ 16:34 by Jourdan Da Silva MD) History of total knee arthroplasty History of partial thyroidectomy History of right knee surgery History of colonoscopy History of tonsillectomy Family History Father CAD (coronary artery disease) Myocardial infarction Mother Congenital heart disease Breast cancer Uterine cancer Brother No problems noted. Sister No problems noted. Daughter No problems noted. Social History Housing: House Alcohol intake: never Patient Tobacco Use Status: Former Tobacco user Years Smoked: (onset 15yo, 1ppd x 50yrs, 40PYH, quit 2015) e-Cigarette/Vaping Use: Never Used Second Hand Smoke Exposure: Yes service: No Current occupational status: retired Cognitive needs: No Hearing needs: No Vision needs: Yes Questionnaire PHQ-9 Over the last 2 weeks, how often have you been bothered by any of the following problems? Depression Screening Interpretation: Negative Depression Screening Done: Yes Source: Developed by Drs. Tank Chacon, Paris Feliciano, Kaleb Frey and colleagues, with an educational apm from [employer]. Thrive Questionnaire Date Thrive assessed: 02/28/25 I am a: Patient What is your living situation today?: I have a steady place to live Within the past 12 months, did the food you bought not last and you didn't have the money to get more?: Never true Within the past 12 months, did you worry whether your food would run out before you got money to buy more?: Never true Do you have trouble paying for medicines?: No Do you have trouble getting transportation to medical appointments?: No Do you have trouble paying your heating and electricity bill?: No Do you have trouble taking care of your child, family member or friend?: No Do you have trouble with day-to-day activities such as bathing, preparing meals, shopping, managing finances, etc.?: No Are you currently unemployed and looking for a job?: Yes Are you interested in more education?: No Please select the resources that you would like help with: None Currently or been in a relationship where the following occur: No concerns reported THRIVE Score: 0 AUDIT C Alcohol Use Questionnaire (AUDIT-C) 1. How often do you have a drink containing alcohol?: Monthly or less 2. How many drinks containing alcohol do you have on a typical day when you are drinking?: 1 or 2 3. How often do you have six or more drinks on one occasion?: Less than monthly Total Score: 2 Score Reviewed/Action Taken: Yes NIMESH-7 AMB Questionnaire NIMESH-7 Date NIMESH - 7 assessed: 02/28/25 Feeling nervous, anxious, or on edge: 0 = Not at all Not being able to stop or control worryin = Not at all Worrying too much about different things: 0 = Not at all Trouble relaxin = Not at all Being so restless that it is hard to sit still: 0 = Not at all Becoming easily annoyed or irritable: 0 = Not at all Feeling afraid as if something awful might happen: 0 = Not at all Total NIMESH-7 score (0-4 normal; 5-9 mild; 10-14 moderate; 15-21 severe): 0 Source: Developed by Drs. Tank Chacon, Paris Feliciano, Kaleb Frey and colleagues, with an educational pam from [employer]. Review of Systems Const Denies chills, Denies fatigue, Denies fever(s) and Denies headache(s) ENT Denies dysphagia, Denies dizziness, Denies otalgia, Denies headache(s), Denies neck pain, Denies odynophagia and Denies sore throat Card Denies chest pain, Denies palpitations and Denies dyspnea Resp Denies chest congestion, Denies cough and Denies dyspnea GI Denies abdominal pain, Denies constipation, Denies dysphagia, Denies heartburn, Denies diarrhea, Denies nausea, Denies odynophagia and Denies vomiting Denies difficulty urinating, Denies dysuria, Denies nocturia and Denies urinary frequency Musc Denies back pain, Denies arthralgias (right knee pain has improved significantly with TKA in February 2025) and Denies neck pain Skin/Breast Denies rash Neuro Denies dizziness and Denies headache(s) Endo Denies fatigue and Denies palpitations Physical exam (Primary Care) Vital Signs: Last Vital Signs Pulse 64 05/10/25 15:56 BP 118/74 05/10/25 15:56 Pulse Ox 95 05/10/25 15:56 Oxygen Delivery Method Room Air 05/10/25 15:56 BMI result Body Mass Index 32.6 Tobacco/Smoking Status: Tobacco use Status Tobacco use date assessed 05/10/25 05/10/25 15:57 Patient Tobacco Use Status Former Tobacco user 05/10/25 15:57 e-Cigarette/Vaping Use Never Used 05/10/25 15:57 Depression Screening Interpretation: Negative Thrive Assessment: Date of Thrive Assessment Date Thrive assessed 02/28/25 05/10/25 15:57 Currently or been in a relationship where the following occur: No concerns reported Const General: no acute distress and alert HENMT Ears: TM's normal bilaterally and EAC's normal Throat: Yes posterior oropharynx normal and Yes tonsils normal (no TP congestion noted) Neck Neck: Yes supple and No lymphadenopathy Thyroid: Thyroid normal Resp Auscultation: clear to auscultation bilaterally, no rales and no wheezes Cardio Rate: regular rate Rhythm: regular rhythm Heart sounds: no murmurs GI Palpation (GI): Soft to palpation and nontender Auscultation: normal bowel sounds General: Yes no CVA tenderness Back/Spine/Pelvis Back: no CVA tenderness Thoracic/Lumbar Spine: No lumbar spinal tenderness Skin Rashes: no rashes Extrem General: Yes no clubbing, cyanosis or edema Right lower extremity: knee ((+) healed midline scar on the knee) Details: normal ROM; no tenderness Results Reviewed Results Reviewed: Laboratory Tests 11/21/24 02/08/25 05/02/25 08:35 07:25 06:30 WBC Hgb Hct Plt Count Sodium Potassium Creatinine Estimated GFR Fasting Glucose Hemoglobin A1c % 6.5 H Calcium AST ALT Triglycerides 161 H Cholesterol 97 LDL Cholesterol, Calc 37 HDL Cholesterol 28 L 25-OH Vitamin D Total TSH Free T4 Ur Specific [place] 1.010 Urine Protein Negative Urine Glucose (UA) Negative Urine Blood Negative Urine Nitrite Negative Ur Leukocyte Esterase Small (1+) H Microalb/Creat Ratio 62.8 H 05/02/25 08:20 WBC 7.9 Hgb 13.1 L Hct 39.4 L Plt Count 154 L Sodium 139 Potassium 4.2 Creatinine 1.29 Estimated GFR 54 Fasting Glucose 124 H Hemoglobin A1c % 6.1 H Calcium 9.2 AST 29 ALT 35 Triglycerides 136 Cholesterol 95 LDL Cholesterol, Calc 38 HDL Cholesterol 30 L 25-OH Vitamin D Total 40.8 TSH 3.04 Free T4 1.01 Ur Specific [place] Urine Protein Urine Glucose (UA) Urine Blood Urine Nitrite Ur Leukocyte Esterase Microalb/Creat Ratio Coding Level of Care Code Est Pt Level 4 (21425) Diagnoses Primary osteoarthritis of right knee M17.11 Type 2 diabetes mellitus with stage 3a chronic kidney disease, with long-term current use of insulin E11.22; N18.31; Z79.4 Chronic kidney disease stage: stage 3 (moderate) Chronic kidney disease stage 3 subtype: stage 3a (GFR 45-59) Diabetes mellitus watermelon inspector insulin use: with watermelon inspector use Stage 3a chronic kidney disease N18.31 Chronic kidney disease stage 3 subtype: stage 3a (GFR 45-59) Pure hypercholesterolemia E78.00 Benign essential hypertension I10 Abdominal aortic aneurysm (AAA) without rupture I71.4 Presence of rupture: without rupture Elevated LFTs R79.89 Vitamin D deficiency E55.9 Non-toxic multinodular goiter E04.2 History of gout Z87.39 Benign prostatic hyperplasia with weak urinary stream N40.1; R39.12 Lower urinary tract symptom detail: weak urinary stream Obesity (BMI 30-39.9) E66.9 Assessment & Plan Assessment & Plan (1) Primary osteoarthritis of right knee: Code(s): M17.11 - Unilateral primary osteoarthritis, right knee Category: Medical Plan: S/P total right knee arthroplasty with Dr. Babcock at [facility] a couple of months ago on 03/12/2025 States that his surgery went well and his knee pain has improved significantly since his surgery Follow up with orthopedics as scheduled (2) Type 2 diabetes mellitus with diabetic chronic kidney disease: Code(s): E11.22 - Type 2 diabetes mellitus with diabetic chronic kidney disease Category: Medical Qualifiers: Chronic kidney disease stage: stage 3 (moderate) Chronic kidney disease stage 3 subtype: stage 3a (GFR 45-59) Diabetes mellitus watermelon inspector insulin use: with watermelon inspector use Qualified Code(s): E11.22 - Type 2 diabetes mellitus with diabetic chronic kidney disease; N18.31 - Chronic kidney disease, stage 3a; Z79.4 - MCC (current) use of insulin Plan: His HgbA1c has improved to 6.1% on his labs done last week (was previously at 6.5% a few months ago) - goal is at least < 7.0% but ideally <6.5% Reinforced diabetic diet Continue Mounjaro 5 mg SQ once a week and Lantus Solostar 10 units Q HS He was taken off Glipizide 2.5 mg QD previously He used to see endocrinology but has not done so in the past couple of years (3) Chronic kidney disease (CKD), stage III (moderate): Code(s): N18.30 - Chronic kidney disease, stage 3 unspecified Category: Medical Qualifiers: Chronic kidney disease stage 3 subtype: stage 3a (GFR 45-59) Qualified Code(s): N18.31 - Chronic kidney disease, stage 3a Plan: His serum creatinine and GFR have remained stable on his recent labs Reinforced again strict glycemic and BP control to help slow down the decline/ progression of his CKD Will continue to monitor his renal function closely (4) Pure hypercholesterolemia: Code(s): E78.00 - Pure hypercholesterolemia, unspecified Category: Medical Plan: Results of his labs done last week reviewed and discussed with patient Reinforced low cholesterol diet Continue Simvastatin 20 mg QD Will recheck his labs and fasting lipids in 4 months for follow up (5) Benign essential hypertension: Code(s): I10 - Essential (primary) hypertension Category: Medical Plan: Reinforced? low sodium diet - goal is systolic BP of at least 130 or less Patient states that he's had no further dizzy spells since earlier this year and he has been doing well on his current BP Rx regimen Continue Bystolic 20 mg QD, Losartan 100 mg QD and Amlodipine 5 mg QD; he is also on Terazosin 5 mg for his urinary issues but this also helps with his BP somewhat Have again emphasized that with his AAA, he should try to keep his systolic BP between 120 to 130 mm as much as he can tolerate to slow down the progression of his aneurysm He is reminded again to continue monitoring his blood pressure regularly (6) Abdominal aortic aneurysm: Comment: 05/2021: Mild aneurysmal dilatation of distal abdominal aorta measuring 3.8 x 3.7 cm. Previously it measured 3.5 x 3.5 cm. Code(s): I71.4 - Abdominal aortic aneurysm, without rupture Category: Medical Qualifiers: Presence of rupture: without rupture Qualified Code(s): I71.4 - Abdominal aortic aneurysm, without rupture Plan: Abdominal and pelvic CT done in June 2023 showed slight progression of the aneurysm to 3.8 cm from 3.0 cm in 2018 On his abdominal arterial study done in April 2023, his aortic aneurysm measures 4.0 x 4.0 cm, increased from 3.8 x 3.7 cm on 05/21/2021 and 3.5 x 3.5 cm on 04/30/2020 His most recent follow up US in July 2024 revealed (+) stable aneurysmal dilatation of the abdominal aorta measuring up to 4 cm Reinforced importance of tight BP control to slow down progression Will continue with yearly US for surveillance and also consider vascular surgery referral so they can follow along (7) Elevated LFTs: Code(s): R79.89 - Other specified abnormal findings of blood chemistry Category: Medical Plan: Patient's LFTs have remained normal on his recent labs Will continue to monitor his LFTs regularly (8) Vitamin D deficiency: Code(s): E55.9 - Vitamin D deficiency, unspecified Category: Medical Plan: Continue Vitamin D3 1000 units QD (9) Non-toxic multinodular goiter: Code(s): E04.2 - Nontoxic multinodular goiter Category: Medical Plan: S/P right thyroid lobectomy and isthmusectomy on 09/14/[address] Dominique Hagan in [place], [place] His TFTs have remained normal on his recent labs done last week Continue Synthroid 50 mcg QD Will continue to monitor his TFTs regularly (10) History of gout: Code(s): Z87.39 - Personal history of other diseases of the musculoskeletal system and connective tissue Category: Medical Plan: Reinforced low purine diet - reports no acute gout flares lately Serum uric acid level was normal at 4.9 when last checked a few months ago (11) Benign prostatic hyperplasia with lower urinary tract symptoms: Code(s): N40.1 - Benign prostatic hyperplasia with lower urinary tract symptoms Category: Medical Qualifiers: Lower urinary tract symptom detail: weak urinary stream Qualified Code(s): N40.1 - Benign prostatic hyperplasia with lower urinary tract symptoms; R39.12 - Poor urinary stream Plan: Patient reports that his symptoms have improved a lot on his current Rx Continue Terazosin 5 mg Q HS Follow up with urology as scheduled (12) Obesity (BMI 30-39.9): Code(s): E66.9 - Obesity, unspecified Category: Medical Plan: Reinforced diet/exercise as tolerated/lose weight Plan Follow up in 4 months Orders: Orders Comprehensive [place]. Panel Fast 4 Months E78.00 - Pure hypercholesterolemia, unspecified Lipid Panel 4 Months E78.00 - Pure hypercholesterolemia, unspecified TSH reflex Free T4 4 Months E78.00 - Pure hypercholesterolemia, unspecified Hemoglobin A1c 4 Months E11.9 - Type 2 diabetes mellitus without complications Microalbumin, Random (w Creat) 4 Months E11.9 - Type 2 diabetes mellitus without complications Vitamin D 25-OH Total 4 Months E55.9 - Vitamin D deficiency, unspecified Uric Acid 4 Months M10.9 - Gout, unspecified Complete Blood Count Auto Diff 4 Months D64.9 - Anemia, unspecified UA CC w/rflx Micro + Cult 4 Months R30.0 - Dysuria Vitamin B12 and Folate 4 Months E53.8 - Deficiency of other specified B group vitamins
--- OUTSIDE RECORDS SUMMARY | 2025-05-10 16:05 | XMS_ITS | Clinical Summary ---
Author Organization [facility] Address [address] [place] [address] Care Team Providers Care Assistant Professor Of Economics Name Role Phone Jourdan Da Silva MD Primary Care Provider [phone]- [phone] Allergies Active Allergy Reactions Criticality Noted Date [...] age to complete this topic Care Teams Assistant Professor Of Economics Relationship Specialty Start Date End Date Jourdan Da Silva MD [address] [place] [address] [place] [address] PCP - General Internal Medicine 12/06/18
--- OUTSIDE RECORDS SUMMARY | 2025-05-10 16:05 | XMS_ITS | Clinical Summary ---
Author Organization [facility] Address [address] [place] [address] Care Team Providers Care Contracting Analyst Name Role Phone Jourdan Da Silva MD Unavailable Jourdan Da Silva MD Primary Care Provider [phone]- [phone] Allergies Active Allergy Reactions Criticality Noted Date [...] topic Insurance MEDICARE PART A & B [facility] [place] [facility] Care Teams Contracting Analyst Relationship Specialty Start Date End Date Jourdan Da Silva MD [address] [place] [address] [place] [address] PCP - General Internal Medicine 07/03/21 Jourdan Da Silva MD [address] [place] [address] [place] [id number] Primary Care Provider Internal Medicine 07/02/21
--- OUTSIDE RECORDS SUMMARY | 2025-05-10 16:05 | XMS_ITS | Encounter Summary ---
Author Organization [facility] Address [address] [place] [address] Care Team Providers Care Toe Puncher Name Role Phone Jourdan Da Silva MD Primary Care Provider + [phone] Reason for Visit * Reason Onset Date Comments Med Refill 04/04/2025 Encounter Details Date Type Department Care Team ([facility] st Contact Info) Description 04/04/2025 Telephone Orthopedic Surgery - [place] [address] [address] Ruperot Babcock MD [address] [address] Social History Tobacco Use Types Packs/Day Years [...] [facility] in [place] documented in this encounter Plan of Treatment Upcoming Encounters Date Type Department Care Team (Late st Contact Info) Description 05/13/2025 5:00 PM EDT Treatment [facility] [address] [address] Jourdan Rivers, TOOL AND DIE MANAGER 05/15/2025 5:00 PM EDT Treatment [facility] [address] [address] Jourdan Rivers, TOOL AND DIE MANAGER 05/20/2025 5:00 PM EDT Treatment [address] [address] Aliza Mendez, PT 05/22/2025 5:00 PM EDT Treatment [address] [address] Aliza Mendez, PT 05/28/2025 6:00 PM EDT Treatment [facility] [address] [address] Greg Watts, TOOL AND DIE MANAGER 05/30/2025 5:30 PM EDT Treatment [facility] [address] [address] Greg Watts, TOOL AND DIE MANAGER 06/04/2025 6:00 PM EDT Treatment [facility] [address] [address] Aliza Mendez, PT 06/06/2025 6:00 PM EDT Treatment [facility] [address] [address] Greg Watts, TOOL AND DIE MANAGER 06/10/2025 6:00 PM EDT Treatment [facility] [address] [address] Aliza Mendez PT 06/27/2025 2:30 PM EST Office Visit Orthopedic Surgery - [place] [address] [facility] [address] [place] [address] Ruperto Babcock MD 175 [facility] [address] [place] [address] documented as of this encounter Goals Goal [...] on filedocumented in this encounter Care Teams Toe Puncher Relationship Specialty Start Date End Date Jourdan Da Silva MD [address] [place] [address] [address] [place], [place] PCP - General Internal Medicine 12/06/18 documented as of this encounter
--- OUTSIDE RECORDS SUMMARY | 2025-05-10 16:05 | XMS_ITS | Clinical Summary ---
Author Organization [facility] Address [address] [place] [address] Phone Care Team Providers Care Hogshead Hooper Name Role Phone Jourdan Da Silva MD Primary Care Provider [phone] Allergies Active Allergy Reactions Criticality Noted Date Comments Chlorhexidine Rash Medium 02/27/2025 Lisinopril Swelling Medium 07/07/2021 Tongue swelling Meperidine Nausea And Vomiting Medium 12/06/2018 Oxycodone-Acetaminophen Nausea And Vomiting Low Medications Mounjaro 5 mg/0.5 mL injection 0.5 mL (5 mg total) every 7 (seven) days. sundays Active terazosin (HYTRIN) 5 mg capsule Take 1 capsule (5 mg total) by mouth. at bedtime Active BD Nohelia 2nd Gen Pen Needle 32 gauge x 5/32 needle 1 (one) time each day. use as directed Active Synthroid 50 mcg tablet Take 1 tablet (50 mcg total) by mouth 1 (one) time each day before breakfast. Active Lantus Solostar U-100 Insulin 100 unit/mL (3 mL) injection pen INJECT 0.1ML 10 UNITS) SUBCUTANEOUSLY EVERY EVENING Active simvastatin (ZOCOR) 20 mg tablet Take [...] by mouth 1 (one) time each day. 021 Active ondansetron (ZOFRAN) 8 mg tablet Take 1 tablet (8 mg total) by mouth every 8 (eight) hours if needed for nausea or vomiting. 20 tablet Active senna-docusate (PERICOLACE) 8.6-50 mg per tablet Take 2 tablets by mouth at bedtime. 60 tablet Active acetaminophen (TYLENOL) 500 mg tablet Take 2 tablets (1,000 mg total) by mouth 3 (three) times a day. 90 tablet 025 Active celecoxib (CeleBREX) 100 mg capsuleIndicat ions:Status post total right knee replacement,Kn ee stiffness, right Take 1 capsule (100 mg total) by mouth 2 (two) times a day. TAKE WITH FOOD AND STAY HYDRATED 60 each 2 Active traMADoL (ULTRAM) 50 mg tabletIndicati ons:Status post total right knee replacement,Kn ee stiffness, right Take 1 tablet (50 mg total) by mouth every 6 (six) hours if needed for severe pain or moderate pain. Max Daily Amount: 200 mg 28 tablet Active aspirin 81 mg EC tablet Take 1 tablet (81 mg total) by mouth 2 (two) times a day. 84 tablet 025 2024 celecoxib (CeleBREX) 100 mg capsule Take 1 capsule (100 mg total) by mouth 2 (two) times a day. 84 capsule 025 2024 Discontinued pantoprazole (PROTONIX) 40 mg EC tablet Take 1 tablet (40 mg total) by mouth 1 (one) time each day before breakfast. Do not crush, chew, or split. 42 tablet 025 2024 traMADoL (ULTRAM) 50 mg tabletIndicati ons:Status post total right knee replacement Take 1 tablet (50 mg total) by mouth every 6 (six) hours if needed for moderate pain. 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 ([facility] V24, [facility] V28) 08/16/2024 Tobacco use 08/16/2024 Gout 08/16/2024 Vitamin D deficiency 08/16/2024 Elevated LFTs 08/16/2024 Post-traumatic osteoarthritis of right knee 09/2024 Primary osteoarthritis of left knee 08/16/2024 Encounters Date Type Department Care Team Description 05/08/2025 5:00 PM EDT Treatment [address] [address] Jourdan Rivers SHEET METAL FOREMAN S/P TKR (total knee replacement), right (Primary Dx) 05/06/2025 3:00 PM EDT Treatment [address] [address] Jourdan Rivers PTA S/P TKR (total knee replacement), right (Primary Dx) 05/02/2025 11:30 AM EDT Office Visit Orthopedic [facility] [address] [address] Ruperto Babcock MD Status post total right knee replacement (Primary Dx); Knee stiffness, right; Right leg weakness; Gait instability 05/02/2025 10:30 AM EDT Treatment [address] [address] Greg Watts PTA S/P TKR (total knee replacement), right (Primary Dx) 04/30/2025 5:00 PM EDT Treatment [facility] 175 [facility] [address] [place] [address] Diana Rivers, PT S/P TKR (total knee replacement), right (Primary Dx) 04/16/2025 4:30 PM EDT Evaluation [facility] 175 [facility] [address] [place] [address] Aliza Mendez, PT S/P TKR (total knee replacement), right 04/04/2025 Telephone [facility] [address] [address] Ruperto Babcock MD 03/28/2025 11:30 AM EDT Office Visit [facility] [address] [address] Ruperto Babcock MD Status post total right knee replacement (Primary Dx); Post-operative state 03/21/2025 Telephone [facility] [address] [address] Jenni Casey RN 03/19/2025 1:00 PM EDT Office Visit [facility] [address] [address] Ruperto Babcock MD Status post total right knee replacement (Primary Dx); Follow-up exam; Unilateral primary osteoarthritis, right knee; Weakness of right quadriceps muscle 03/18/2025 Telephone [facility] [address] [address] Jenni Casey RN 03/15/2025 2:00 PM EDT Office Visit [facility] [address] [address] Drea Trinidad NP Post-operative state (Primary Dx); Status post total right knee replacement 03/14/2025 Telephone [facility] [address] [address] Jenni Casey, BARBY 03/12/2025 7:33 AM EDT Anesthesia Event [facility] [address] [place] [address] Marli Stoddard MD Hard, Shannon, CRNA 03/12/2025 7:30 AM EDT - 03/12/2025 11:00 AM EDT Surgery [facility] OR [address] [place] [phone] Ruperto Babcock MD RIGHT TOTAL KNEE ARTHROPLASTY [33150 (CPT )] 03/12/2025 5:45 AM EDT - 03/13/2025 11:34 AM EDT Hospital Encounter [facility] [address] [place] [phone] Ruperto Babcock MD Status post total right knee replacement (Primary Dx); Post-traumatic osteoarthritis of right knee Discharge Disposition: Home-Health Care [facility] 03/06/2025 1:00 PM EDT Consult Orthopedic [facility] [address] [phone] Drea Trinidad NP Pre-op exam (Primary Dx); Post-traumatic osteoarthritis of right knee 02/25/2025 Telephone Orthopedic [facility] [address] [address] Jenni Casey, BARBY 02/08/2025 Telephone [facility]opedic [facility] [address] [address] Jenni Casey, BARBY 02/08/2025 Telephone [facility]opedic [facility] [address] [address] Jenni Casey, BARBY 02/07/2025 Telephone Orthopedic [facility] [address] [phone] Yolande Sanches MA from Last 3 Months Surgical History Surgery Date Site/Laterality Comments THYROID SURGERY KNEE SURGERY Right Medical History Medical History Date Comments Hypertension DX:Hypertension Heart disease DX:Heart disease BPH (benign prostatic hyperplasia) AAA (abdominal aortic aneurysm) ([facility] V24) CKD (chronic kidney disease) Reading-Schlatter's disease 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 ([facility] V24, [facility] V28) Gout Vitamin [...] Info) Description 05/13/2025 5:00 PM EDT Treatment [facility] [address] [address] Jourdan Rivers, SHEET METAL FOREMAN 05/15/2025 5:00 PM EDT Treatment [facility] [address] [address] Jourdan Rivers, SHEET METAL FOREMAN 05/20/2025 5:00 PM EDT Treatment [facility] [address] [address] Aliza Mendez, PT 05/22/2025 5:00 PM EDT Treatment [facility] [address] [address] Aliza Mendez, PT 05/28/2025 6:00 PM EDT Treatment [facility] [address] [address] Greg Watts, SHEET METAL FOREMAN 05/30/2025 5:30 PM EDT Treatment [facility] [address] [address] Greg Watts, SHEET METAL FOREMAN 06/04/2025 6:00 PM EDT Treatment [facility] [address] [address] Aliza Mendez, PT 06/06/2025 6:00 PM EDT Treatment [facility] [address] [address] Greg Watts, SHEET METAL FOREMAN 06/10/2025 6:00 PM EDT Treatment [facility] [address] [address] Aliza Mendez, PT 06/27/2025 2:30 PM EST Office Visit Orthopedic Surgery [place] [address] [address] Ruperto Babcock MD [address] [address] Health Maintenance Due Date Last Done Comments [...] with HEP Medical Devices Implanted Type Area Quality Improvement Consultant Device Identifier Shelf Expiration Date Model / Serial / Lot Cement Bone Surg Simplex Radiopq - Sn/A - [id number] Implanted:Qty: 2 on 03/12/2025 by Ruperto Babcock MD at [facility] Bone Cement Right: Knee [employer] 02/11/2026 [id number] / N/A / [id number] Knee Psn Fem Ps Cmt Ccr Std Sz10 R - Sn/A - [id number] Implanted:Qty: 1 on 03/12/2025 by Ruperto Babcock MD at [facility] Joints Knee Right: Knee [employer] [id number] 07/18/2034 [id number] / N/A / [id number] Knee Psn Tib Dressmaker Or Tailor Stm 5 Deg Sz Gr - Sn/A - [id number] Implanted:Qty: 1 on 03/12/2025 by Ruperto Babcock MD at [facility] Joints Knee Right: Knee [employer] [id number] 02/09/2034 [id number] / N/A / [id number] Stem Extension Tapered Cemented 49l49gz - Sn/A - [id number] Implanted:Qty: 1 on 03/12/2025 by Ruperto Babcock MD at [facility] Joints Knee Right: Knee [employer] [id number] 10/22/2034 [id number] / N/A / [id number] All Poly Patella Ve 38mm - Sn/A - [id number] Implanted:Qty: 1 on 03/12/2025 by Ruperto Babcock MD at [facility] Joints Knee Right: Knee [employer] [id number] 04/11/2028 [id number] / N/A / [id number] Knee Psn Asf Mlc 10mm Rt 10- Gh - Sn/A - [id number] Implanted:Qty: 1 on 03/12/2025 by Ruperto Babcock MD at [facility] Joints Knee Right: Knee [employer] 05/11/2029 [id number] / N/A / [id number] Zbigniew Femur/Zbigniew Tibia/Cps Ve Art Surf/Ve Patella Implanted:Qty: 1 on 03/12/2025 by Ruperto Babcock MD at [facility] Right: Knee [employer] [id number] / N/A / N/A Procedures Procedure [...] SPINAL BLOCK Routine 03/12/2025 7:58 AM EDT [place] ARTHROPLASTY KNEE CONDYLE&PLATEAU MED/LAT CPTS W/WO PATELLA [...] circumferential radiolucencies, patella tracking centrally without tilt. us Ruperto Babcock MD IMG XR PROCEDURES Fin [...] LAB HEMETOLOGY METHOD 03/13/2025 6:59 AM EDT [facility] Hematocrit 36.3(L) 42.0 - 54.0 % LAB HEMETOLOGY METHOD 03/13/2025 6:59 AM EDT [facility] Blood Venous blood specimen / Unknown Venipuncture / Unknown 03/13/2025 6:10 AM EDT 03/13/2025 6:34 AM EDT Drea Trinidad NP LAB BLOOD ORDERABLES Fi nal Result [facility] [address] [place] [address], * (ABNORMAL) Basic metabolic panel (03/13/2025 6:10 AM EDT) Sodium 138 133 - 145 mmol/L LAB CHEMISTRY METHOD 03/13/2025 7:26 AM [facility] Potassium 4.1 3.5 - 5.5 mmol/L LAB CHEMISTRY METHOD 03/13/2025 7:26 AM [facility] Chloride 105 96 - 110 mmol/L LAB CHEMISTRY METHOD 03/13/2025 7:26 AM [facility] CO2 25 21 - 32 mmol/L LAB CHEMISTRY METHOD 03/13/2025 7:26 AM [facility] Anion Gap 8 3 - 11 LAB CHEMISTRY METHOD 03/13/2025 7:26 AM [facility] Glucose 169(H) 70 - 100 mg/dL LAB CHEMISTRY METHOD 03/13/2025 7:26 AM [facility] BUN 19 5 - 25 mg/dL LAB CHEMISTRY METHOD 03/13/2025 7:26 AM [facility] Creatinine 1.28 0.70 - 1.30 mg/dL LAB CHEMISTRY METHOD 03/13/2025 7:26 AM [facility] eGFR 58(L) >=60 mL/min/1. 73m2 LAB CHEMISTRY METHOD 03/13/2025 7:26 AM [facility] Comment:Calculation based on the Chronic Kidney Disease Epidemiology Collaboration (CKD-EPI) equation refit without adjustment for race. BUN/Creatinine Ratio 14.8 LAB CHEMISTRY METHOD 03/13/2025 7:26 AM [facility] Calcium 8.6 8.5 - 10.5 mg/dL LAB CHEMISTRY METHOD 03/13/2025 7:26 AM [facility] Blood Venous blood specimen / Unknown Venipuncture / Unknown 03/13/2025 6:10 AM EDT 03/13/2025 6:34 AM EDT Drea Trinidad NP LAB BLOOD ORDERABLES Fi nal Result [facility] [address] [place] [address], [place] [phone] * (ABNORMAL) POCT Glucose, blood (03/12/2025 9:08 PM EDT) Only the most recent of4 resultswithin the time period is included. [facility] Glucose POCT 269(H) 70 - 100 mg/dL 03/12/2025 9:08 PM EDT [facility] Blood Capillary blood specimen / Unknown 03/12/2025 9:08 PM EDT 03/12/2025 9:09 PM EDT Ruperto Babcock MD LAB POINT OF CARE TEST DOCKED DEVICE UNSOLICITED RESULTS Final Result Performing Organization Address [facility]/ZIP Co de Phone Number [facility] [address] [place] [address], [place] [phone] * Lavender tube (03/12/2025 2:35 PM EDT) [facility] Extra Tube Hold for add-ons. 03/12/2025 4:02 PM EDT [facility] Comment:Auto resulted. Blood Venous blood specimen / Unknown 03/12/2025 2:35 PM EDT 03/12/2025 2:52 PM EDT Ruperto Babcock MD LAB BLOOD ORDERABLES Final Result [facility] [address] [place] [address], [place] [phone] * Light blue tube (03/12/2025 2:35 PM EDT) [facility] Extra Tube Hold for add-ons. 03/12/2025 4:02 PM EDT [facility] Comment:Auto resulted. Blood Venous blood specimen / Unknown 03/12/2025 2:35 PM EDT 03/12/2025 2:52 PM EDT Ruperto Babcock MD LAB BLOOD ORDERABLES Final Result [facility] [address] [place] [address], [place] [phone] * Creatinine serum (03/12/2025 2:35 PM EDT) [facility] Creatinine 1.24 0.70 - 1.30 mg/dL LAB CHEMISTRY METHOD 03/12/2025 3:50 PM EDT [facility] eGFR 61 >=60 mL/min/1. 73m2 LAB CHEMISTRY METHOD 03/12/2025 3:50 PM EDT [facility] Comment:Calculation based on the Chronic Kidney Disease Epidemiology Collaboration (CKD-EPI) equation refit without adjustment for race. Blood Venous blood specimen / Unknown Venipuncture / Unknown 03/12/2025 2:35 PM EDT 03/12/2025 2:50 PM EDT Drea Trinidad NP LAB BLOOD ORDERABLES Fi nal Result [facility] [address] [place] [address], [place] [phone] * Potassium (03/12/2025 2:35 PM EDT) [facility] Potassium 3.9 3.5 - 5.5 mmol/L LAB CHEMISTRY METHOD 03/12/2025 3:50 PM EDT [facility] Blood Venous blood specimen / Unknown Venipuncture / Unknown 03/12/2025 2:35 PM EDT 03/12/2025 2:50 PM EDT us Marli Stoddard MD LAB BLOOD ORDERABLES Final Resul t [facility] [address] [place] [address], * Tissue exam (03/12/2025 8:45 AM EDT) Final Diagnosis Knee, right, total knee arthroplasty: Articular bone with severe degenerative changes and eburnation, compatible with osteoarthritis. Fibrotic synovium, negative for crystal deposition (examined with polarization). 03/14/2025 3:59 PM EDT [facility] Gross Description A. Knee, Right, : Labeled Knee R . Received in formalin is a 14.1 x 10.5 x 1.7 cm aggregate of hard peterson-yellow bone, velvety pink synovium, rubbery peterson fibrocartilage, and subsynovial adipose tissue. The articular surfaces are white peterson to pink and eburnated, and inked black. Tailor Fitter sections are submitted in one cassette, multiple pieces, following decalcification. 03/14/2025 3:59 PM EDT [facility] Disclaimer Unless otherwise specified, all tissue is 10% NB formalin fixed and paraffin embedded. 03/14/2025 3:59 PM EDT [facility] Bone Structure of right knee region / Unknown 03/12/2025 8:45 AM EDT 03/12/2025 11:37 AM EDT us Ruperto Babcock MD LAB PATHOLOGY ORDERAB LES Final Result Performing Organization Address [facility]/ZIP Co de Phone Number [facility] [address] [place] [address], * Spinal Block (03/12/2025 7:58 AM EDT) Priscilla Cohen CRNA - 03/12/2025 7:58 AM EDT Priscilla Rasmussen CRNA 03/12/2025 8:00 AM Spinal Block Patient location during procedure: OR Start time: 03/12/2025 7:58 AM End time: 03/12/2025 7:58 AM Reason for block: primary anesthetic Staffing Performed: anesthesiologist Anesthesiologist: Marli Stoddard MD Resident/SUPERVISOR PAINTING: Priscilla Rasmussen CRNA Performed by: Priscilla Rasmussen [...] LAB MICROBIOLOGY METHOD 03/06/2025 7:44 PM EDT [facility] Swab Both anterior nares / Unknown Non-blood Collection / Unknown 03/06/2025 2:01 PM EDT 03/06/2025 2:02 PM EDT Drea Trinidad NP LAB MICROBIOLOGY - GENE RAL ORDERABLES Final Result [facility] [address] [place] [address], from Last 3 Months Insurance [facility] Advance Directives * Full Code - Default [...] currently active code status orders. Care Teams Hogshead Hooper Relationship Specialty Start Date End Date Jourdan Da Silva MD [address] [place] [address] [address] [place], [place] PCP - General Internal Medicine 12/06/18
== END 2025-05-10 16:53 | disposition home or self-care (01) ==
LOC: HO.HMCH 15:40
PROVIDERS: PCP Internal Medicine; Visit Provider Internal Medicine
DX: I12.9 Hypertensive chronic kidney disease with stage 1 through stage 4 chronic kidney disease, or unspecified chronic kidney disease (principal); E11.22 Type 2 diabetes mellitus with diabetic chronic kidney disease; N18.31 Chronic kidney disease, stage 3a; Z79.4 Long term (current) use of insulin; E78.00 Pure hypercholesterolemia, unspecified; M17.11 Unilateral primary osteoarthritis, right knee; I71.40 Abdominal aortic aneurysm, without rupture, unspecified; R79.89 Other specified abnormal findings of blood chemistry; E55.9 Vitamin D deficiency, unspecified; E04.2 Nontoxic multinodular goiter; Z87.39 Personal history of other diseases of the musculoskeletal system and connective tissue; N40.1 Benign prostatic hyperplasia with lower urinary tract symptoms

== ENCOUNTER → 2025-05-10 15:39 | Outpatient (BNVA) | payer MEDICARE, SELFPAY | PROVIDERS: PCP Internal Medicine; Visit Provider Internal Medicine | DX: E11.22 Type 2 diabetes mellitus with diabetic chronic kidney disease (principal); I12.9 Hypertensive chronic kidney disease with stage 1 through stage 4 chronic kidney disease, or unspecified chronic kidney disease; N18.31 Chronic kidney disease, stage 3a; M17.11 Unilateral primary osteoarthritis, right knee; E78.00 Pure hypercholesterolemia, unspecified; I71.40 Abdominal aortic aneurysm, without rupture, unspecified; R79.89 Other specified abnormal findings of blood chemistry; E55.9 Vitamin D deficiency, unspecified; E04.2 Nontoxic multinodular goiter; N40.1 Benign prostatic hyperplasia with lower urinary tract symptoms; R39.12 Poor urinary stream; E66.9 Obesity, unspecified; M10.9 Gout, unspecified; D64.9 Anemia, unspecified; R30.0 Dysuria; E53.8 Deficiency of other specified B group vitamins; Z68.32 Body mass index [BMI] 32.0-32.9, adult; Z79.4 Long term (current) use of insulin; Z87.39 Personal history of other diseases of the musculoskeletal system and connective tissue | CPT/HCPCS: 99212 ==

== ENCOUNTER 2025-07-19 07:13 | Outpatient (REF) | payer MEDICARE, SELFPAY ==
--- OUTSIDE RECORDS SUMMARY | 2025-07-19 07:16 | XMS_ITS | Clinical Summary ---
Author Organization [facility] Prior to 01/12/[address] [place] [address] Care Team Providers Care Tank Inspector Name Role Phone Jourdan Da Silva MD Primary Care Provider [phone] Allergies Active Allergy Reactions Criticality Noted Date [...] Tdap / Td (1 - Tdap) 1968 Shingrix-Zoster Vaccine (1 of 2) 1999 Fall [...] age to complete this topic Care Teams Tank Inspector Relationship Specialty Start Date End Date Jourdan Da Silva MD [address] [place] [address] [place] [address] PCP - General Internal Medicine 12/06/18
--- OUTSIDE RECORDS SUMMARY | 2025-07-19 07:17 | XMS_ITS | Clinical Summary ---
Author Organization [facility] Address [address] [place] [address] Care Team Providers Care Foreign Law Consultant Name Role Phone Jourdan Da Silva MD Unavailable [phone] Jourdan Da Silva MD Primary Care Provider [phone]- [phone] Allergies Active Allergy Reactions Criticality Noted Date [...] for nontoxic multinodular goiter (THYROID) Ultrasound: 02/23/21 [facility] 5.5 x 2.1.x 2.2 cm right [...] Years Used Date Smoking Tobacco: Former Cigarettes 40 1 968 - 2008 Smokeless Tobacco: Never Alcohol Use Standard Drinks/Week [...] 1949 DTaP/Tdap/Td Vaccines (1 - Tdap) 1968 Pneumococcal Vaccines 50+ (1 of 1 - PCV) 1999 Zoster (Shingles) Vaccine (1 of 2) 1999 RSV Vaccine 50 years and older and Patients (1 - 1-dose 75+ series) 2024 Influenza Vaccine 03/15/2025 COVID-19 Vaccine (4 - 2024-2 6 season) 2025 05/15/2021, 10/27/2020, 10/06/2020 Hepatitis B Vaccines Aged Out No long er eligible based on patient's age to complete this topic Insurance MEDICARE PART A & B [facility] Care Teams Foreign Law Consultant Relationship Specialty Start Date End Date Jourdan Da Silva MD [address] [place] [address] [place] [address] PCP - General Internal Medicine 07/03/21 Jourdan Da Silva MD [address] [place] [address] [place] [address] Primary Care Provider Internal Medicine 07/02/21
--- OUTSIDE RECORDS SUMMARY | 2025-07-19 07:17 | XMS_ITS | Clinical Summary ---
Author Organization [facility] Address [address] [place] [address] Phone Care Team Providers Care Table Games Manager Name Role Phone Jourdan Da Silva MD Primary Care Provider [phone] Allergies Active Allergy Reactions Criticality Noted Date Comments Chlorhexidine Rash Medium 02/27/2025 Lisinopril Swelling Medium 07/07/2021 Tongue swelling Meperidine Nausea And Vomiting Medium 12/06/2018 Oxycodone-Acetaminophen Nausea And Vomiting Low Medications Mounjaro 5 mg/0.5 mL injection 0.5 mL (5 mg total) every 7 (seven) days. sundays 4 Active terazosin (HYTRIN) 5 mg capsule Take 1 capsule (5 mg total) by mouth. at bedtime 4 Active BD Nohelia 2nd Gen Pen Needle 32 gauge x 5/32 needle 1 (one) time each day. use as directed 4 Active Synthroid 50 mcg tablet Take 1 tablet (50 mcg total) by mouth 1 (one) time each day before breakfast. 4 Active Lantus Solostar U-100 Insulin 100 [...] by mouth 1 (one) time each day. 1 Active acetaminophen (TYLENOL) 500 mg tablet Take 2 tablets (1,000 mg total) by mouth 3 (three) times a day. 90 tablet 5 Active celecoxib (CeleBREX) 100 mg capsuleIndicat ions:Status post total right knee replacement,Kn ee stiffness, right Take 1 capsule (100 mg total) by mouth 2 (two) times a day. TAKE WITH FOOD AND STAY HYDRATED 60 each 2 5 Active traMADoL (ULTRAM) 50 mg tabletIndicati ons:Status post total right knee replacement,Kn ee stiffness, right Take 1 tablet (50 mg total) by mouth every 6 (six) hours if needed for severe pain or moderate pain. 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 [place] [place] [facility]28) 08/16/2024 Tobacco use 08/16/2024 Gout 08/16/2024 Vitamin D deficiency 08/16/2024 Elevated LFTs 08/16/2024 Post-traumatic osteoarthritis of right knee 09/2024 Primary osteoarthritis of left knee 08/16/2024 Encounters Date Type Department Care Team Description 06/19/2025 5:30 PM EST Treatment [address] [phone] Jessica Hassan, PT S/P TKR (total knee replacement), right (Primary Dx) 06/13/2025 6:00 PM EDT Treatment [facility] [address] [phone] Aries Munoz, [employer] S/P TKR (total knee replacement), right (Primary Dx) 06/06/2025 6:00 PM EDT Treatment [facility] [address] [address] Greg Watts, [employer] S/P TKR (total knee replacement), right (Primary Dx) 06/04/2025 6:00 PM EDT Treatment [address] [address] Aries Munoz, [employer] WORKER S/P TKR (total knee replacement), right (Primary Dx) 05/31/2025 [facility]phone [facility] [place] [phone] [phone] Jenni Casey RN 05/30/2025 5:30 PM EDT Treatment [facility] [address] [address] Greg Watts PTA S/P TKR (total knee replacement), right (Primary Dx) 05/30/2025 3:00 PM EDT Office Visit [facility] [place] [phone] [phone] Ruperto Babcock MD Status post total right knee replacement (Primary Dx); Knee stiffness, right; Gait instability 05/29/2025 Telephone [place] [phone] [phone] Jenni Casey RN 05/28/2025 6:00 PM EDT Treatment [address] [phone] Greg Watts PTA S/P TKR (total knee replacement), right (Primary Dx) 05/22/2025 5:00 PM EDT Treatment [facility] [address] [address] Aliza Mendez, PT S/P TKR (total knee replacement), right (Primary Dx) 05/20/2025 5:00 PM EDT Treatment [facility] [address] [phone] Aliza Mendez, PT S/P TKR (total knee replacement), right (Primary Dx) 05/15/2025 5:00 PM EDT Treatment [address] [phone] Jourdan Rivers, [employer] S/P TKR (total knee replacement), right (Primary Dx) 05/13/2025 5:00 PM EDT Treatment [address] [address] Jourdan Rivers, [employer] WORKER S/P TKR (total knee replacement), right (Primary Dx) 05/08/2025 5:00 PM EDT Treatment [address] [address] Jourdan Rivers, [employer] WORK[employer] S/P TKR (total knee replacement), right (Primary Dx) 05/06/2025 3:00 PM EDT Treatment [address] [address] Jourdan Rivers, [employer] WORKER S/P TKR (total knee replacement), right (Primary Dx) 05/02/2025 11:30 AM EDT Office Visit Orthopedic Surgery [facility] [address] [facility] [address] [place] [phone] Ruperto Babcock MD Status post total right knee replacement (Primary Dx); Knee stiffness, right; Right leg weakness; Gait instability 05/02/2025 10:30 AM EDT Treatment [address] [phone] Mac, Greg, [employer] S/P TKR (total knee replacement), right (Primary Dx) 04/30/2025 5:00 PM EDT Treatment [address] [phone] Diana Rivers, PT S/P TKR (total knee replacement), right (Primary Dx) from Last 3 Months Surgical History Surgery Date Site/Laterality Comments THYROID SURGERY KNEE SURGERY Right Medical History Medical History Date Comments Hypertension DX:Hypertension Heart disease DX:Heart disease BPH (benign prostatic hyperplasia) AAA (abdominal aortic aneurysm) ([facility]24) CKD (chronic kidney disease) Vanesa-Schlatter's disease 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 ([facility] V24, [facility] V28) Gout Vitamin D deficiency Family History Relation Name Status Comments Father Mother Social History Tobacco Use Types Packs/Day Years Used Date Smoking Tobacco: Former Cigarettes 0 Q uit: 12/06/2008 Smokeless Tobacco: Never Alcohol Use Standard Drinks/Week Comments Yes 0 (1 standard drink = 0.6 oz pur e alcohol) few beers a weeek Interpersonal Safety Answer Date Record ed Physical Abuse Unrecognized value 03/12/2025 Verbal Abuse Unrecognized value 03/12/2025 Sex and Gender Information Value Date [...] 03/12/2025 3:57 PM EDT Plan of Treatment Health Maintenance Due [...] Sugar Control Test (HGBA1C) 08/16/2024 COVID-19 Vaccine (9 - Pfizer risk season) 2025 05/14/2025, 04/28/2024, 05/07/2023, Additional history exists Diabetes: Annual GFR (Glomerular Filtration Rate) 03/13/2026 03/13/2025, 03/12/2025, 09/07/2021 Falls Risk Assessment 03/13/2026 03/13/2025 Hypertension/CHF/CAD Annual BMP Blood Test 03/13/2026 03/13/2025, 03/12/2025, 09/07/2021 Colorectal Cancer Screening: FIT-DNA (Cologuard) Discontinued 02/08/2023, 02/08/2023, 03/14/2019 RSV Immunization Adult Patients Completed 04/28/2024 Influenza Vaccine Completed 05/14/2025, , 05/07/2023, Additional history exists HIB Vaccines Aged Out No longer eligi [...] reports subjective decrease in right knee pain - MET Patient is able to perform 5 sit to stand without UE assistance Patient is able to achieve 5/5 knee flexion/extension strength R Patient is able to ambulate 200 ft without AD Patient is able to ascend/descend stairs reciprocally Patient independent and compliant with HEP Medical Devices Implanted Type Area Double Backer Device Identifier Shelf Expiration Date Model / Serial / Lot Cement Bone Surg Simplex Radiopq - Sn/A - [id number] Implanted:Qty: 2 on 03/12/2025 by Ruperto Babcock MD at [facility] Bone Cement Right: Knee [employer] 02/11/2026 [id number] / N/A / [id number] Knee Psn Fem Ps Cmt Ccr Std Sz10 R - Sn/A - [id number] Implanted:Qty: 1 on 03/12/2025 by Ruperto Babcock MD at [facility] Joints Knee Right: Knee [employer] [id number] 07/18/2034 [id number] / N/A / [id number] Knee Psn Tib Conveyor Worker Stm 5 Deg Sz Gr - Sn/A - [id number] Implanted:Qty: 1 on 03/12/2025 by Ruperto Babcock MD at [facility] Joints Knee Right: Knee [employer] [id number] 02/09/2034 [id number] / N/A / [id number] Stem Extension Tapered Cemented 24h94in - Sn/A - [id number] Implanted:Qty: 1 on 03/12/2025 by Ruperto Babcock MD at [facility] Joints Knee Right: Knee [employer] [id number] 10/22/2034 [id number] 4 / N/A / [id number] All Poly Patella Ve 38mm - Sn/A - [id number] Implanted:Qty: 1 on 03/12/2025 by Ruperto Babcock MD at [facility] Joints Knee Right: Knee [employer] [id number] 04/11/2028 [id number] / N/A / [id number] Knee Psn Asf Mlc 10mm Rt 10-12 Gh - Sn/A - [id number] Implanted:Qty: 1 on 03/12/2025 by Ruperto Babcock MD at [facility] Joints Knee Right: Knee [employer] 05/11/2029 [id number] / N/A / [id number] Zbigniew Femur/Zbigniew Tibia/Cps Ve Art Surf/Ve Patella Implanted:Qty: 1 on 03/12/2025 by Ruperto Babcock MD at [facility] Right: Knee [employer] [id number] / N/A / N/A Procedures Procedure Name Priority Date/Time Associated Diagnosis Comments XR KNEE 3 VIEWS RIGHT Routine 05/30/2025 2:29 PM EDT Status post total right knee replacement Knee stiffness, right BASIC METABOLIC PANEL Routine 03/13/2025 6:10 AM EDT from Last 3 Months or Most Recently Relevant to Health Maintenance Results * XR Knee 3 Views Right (05/30/2025 2:29 PM EDT) Anatomical Region Laterality Modality Lower Extremities, Knee Right Computed Radiography Narrative 05/31/2025 11:16 AM EDT 3 views of the right knee obtained today including AP, lateral, sunrise were reviewed. These show right cemented posterior stabilized total knee replacement with patellar resurfacing and short cemented tibial stem. Implants appear well-fixed and well-positioned. No progressive or circumferential radiolucencies. Patella tracking centrally without tilt. Unchanged chronic posterior vascular calcifications. us Ruperto Babcock MD IMG XR PROCEDURES Fin al Result * (ABNORMAL) Basic metabolic panel (03/13/2025 6:10 AM EDT) Sodium 138 133 - 145 mmol/L LAB CHEMISTRY METHOD 03/13/2025 7:26 AM [facility] Potassium 4.1 3.5 - 5.5 mmol/L LAB CHEMISTRY METHOD 03/13/2025 7:26 AM [facility] Chloride 105 96 - 110 mmol/L LAB CHEMISTRY METHOD 03/13/2025 7:26 AM [facility] CO2 25 21 - 32 mmol/L LAB CHEMISTRY METHOD 03/13/2025 7:26 AM [facility] Anion Gap 8 3 - 11 LAB CHEMISTRY METHOD 03/13/2025 7:26 AM [facility] Glucose 169(H) 70 - 100 mg/dL LAB CHEMISTRY METHOD 03/13/2025 7:26 AM [facility] BUN 19 5 - 25 mg/dL LAB CHEMISTRY METHOD 03/13/2025 7:26 AM [facility] Creatinine 1.28 0.70 - 1.30 mg/dL LAB CHEMISTRY METHOD 03/13/2025 7:26 AM [facility] eGFR 58(L) >=60 mL/min/1. 73m2 LAB CHEMISTRY METHOD 03/13/2025 7:26 AM [facility] Comment:Calculation based on the Chronic Kidney Disease Epidemiology Collaboration (CKD-EPI) equation refit without adjustment for race. BUN/Creatinine Ratio 14.8 LAB CHEMISTRY METHOD 03/13/2025 7:26 AM [facility] Calcium 8.6 8.5 - 10.5 mg/dL LAB CHEMISTRY METHOD 03/13/2025 7:26 AM [facility] Blood Venous blood specimen / Unknown Venipuncture / Unknown 03/13/2025 6:10 AM EDT 03/13/2025 6:34 AM EDT Drea Trinidad NP LAB BLOOD ORDERABLES nal Result [facility] [address] [place] [address], from Last 3 Months or Most Recently Relevant to [place] [id number] [facility] Advance Directives * Full Code - Default [...] currently active code status orders. Care Teams Table Games Manager Relationship Specialty Start Date End Date Jourdan Da Silva MD [address] [facility] [address] [place], [place] PCP - General Internal Medicine 12/06/18
[2025-07-19 08:02] LABS: Appearance Urine Clear; Glucose Urine UA Negative (Negative); PH 5.5 (5.0-9.0); Specific Gravity - Urine 1.015 (1.005-1.025)
== END 2025-07-19 07:14 | disposition home or self-care (01) ==
LOC: HO.LAB 07:13
PROVIDERS: PCP Internal Medicine; Visit Provider Internal Medicine
DX: R30.0 Dysuria (principal)
CPT/HCPCS: 81003